=== PATIENT | female | born 2005 ===

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

== ENCOUNTER 2024-02-11 21:58 | Inpatient (IN) | payer OTHER, SELFPAY ==
--- OUTSIDE RECORDS SUMMARY | 2024-02-11 22:02 | XMS_ITS | Continuity of Care Document ---
Author Organization [facility] ter Address [address] [place] [address]- Care Team Providers Care Gameplay Programmer Name Role Phone George HARRIS, Bere Benavidez Primary Care Physician Encounter [facility] Date(s): 08/23/23 - 08/24/[address] [address] [[email or web address]] Discharge Disposition: A-D/C Home Attending Physician: Jackie Patricia MD Admitting Physician: Jackie Patricia MD Referring Physician: Jackie Patricia MD Allergies, Adverse Reactions, Alerts Substance Reaction Severity Status Bee Stings Active ZyPREXA Active Immunizations Given and Recorded Vaccine Date Status Refusal Reason influenza virus vaccine, inactivated 07/01/21 William rded Human Papillomavirus Vaccine 04/29/21 Recorded Human Papillomavirus Vaccine 08/13/20 Recorded SARS-CoV-2 (COVID-19) mRNA BNT-162b2 vac 01/30/21 Recorded SARS-CoV-2 (COVID-19) mRNA BNT-162b2 vac 01/09/21 Recorded Meningococcal Conjugate Vaccine 08/13/20 Recorded tetanus/diphtheria/pertussis, acel(Tdap) 06/27/18 Given Medications Benadryl 25 mg oral capsule 1 capsule = 25 mg, By Mouth, Every 6 hours, 0 Refills, Maintenance, 07/14/23 10:18:00 EST, Partial fill upon patient request if the prescription is for a schedule II opioid drug. Start Date: 07/14/23 Status: Ordered cephalexin monohydrate 500 mg oral capsule = 500 mg, By Mouth, Every 6 hours, for 7 days, # 28 capsule, 0 Refills, Acute 08/31/23 10:05:00 EST, 08/24/23 10:05:00 EST, Capsule, [facility], Partial fill upon patient request if theprescription is for a schedule II opioid drug., 173... Start Date: 08/24/23 Stop Date: 08/31/23 Status: Ordered chlorproMAZINE 100 mg oral tablet = 100 mg, By Mouth, Daily at bedtime, PRN Insomnia, 0 Refills, Maintenance, 05/28/22 8:23:00 EDT, Tablet, Partial fill upon patient request if the prescription is for a schedule II opioid drug. Start Date: 05/28/22 Status: Ordered Colace Liquid By Mouth, 2 times a day, 0 Refills, Maintenance, 07/14/23 10:18:00 EST, Partial fill upon patient request if the prescription is for a schedule II opioid drug. Start Date: 07/14/23 Status: Ordered Docusate 0 Refills, Maintenance, 07/19/23 13:02:00 EST, Partial fill upon patient request if the prescription is for a schedule II opioid drug. Start Date: 07/19/23 Status: Ordered Melatonin Daily at bedtime, 0 Refills, Maintenance, 02/11/23 18:02:00 EDT, Partial fill upon patient request if the prescription is for a schedule II opioid drug. Start Date: 02/11/23 Status: Ordered ondansetron 4 mg oral tablet, disintegrating 1 tablet = 4 mg, By Mouth, Every 8 hours, PRN Nausea & Vomiting, allow tablet to dissolve on tongue Take 30 mins before taking medication with food, # 10 tablet, 0 Refills, Maintenance, 08/12/23 8:29:00 EST, Tablet, [id number] ([facility]),... Start Date: 08/12/23 Status: Ordered PNV By Mouth, Daily, 0 Refills, Maintenance, 07/14/23 10:18:00 EST, Partial fill upon patient request if the prescription is for a schedule II opioid drug. Start Date: 07/14/23 Status: Ordered PNV Select oral tablet 1 tablet, By Mouth, Daily, # 90 tablet, 0 Refills, Maintenance, 08/12/23 8:33:00 EST, [id number] ([facility]), Partial fill upon patient request if the prescription is for a schedule II opioid drug., 1 tablet By Mouth Daily, 175, cm, 07/19/23... Start Date: 08/12/23 Status: Ordered pyridoxine 25 mg oral tablet 1 tablet = 25 mg, By Mouth, 3 times a day, PRN Nausea & Vomiting, # 100 tablet, 8 Refills, Maintenance, 07/19/23 13:37:00 EST, Tablet, [id number] ([facility]), Partial fill upon patient request if the prescription is for a schedule II opioid... Start Date: 07/19/23 Status: Ordered risperiDONE 1 mg oral tablet 1 mg, 1, tablet, By Mouth, 2 times a day, # 60 tablet, Refills 0, Tot. Refills 0, Maintenance, 05/28/22 8:23:00 EDT, Route to Pharmacy Electronically, [id number], Partial fill upon patient request if the prescription is for a schedule II opioi... Start Date: 05/28/22 Status: Ordered topiramate 25 mg oral tablet 1 tablet = 25 mg, By Mouth, 2 times a day, # 60 tablet, 0 Refills, Maintenance, 05/28/22 8:23:00 EDT, Tablet, [id number], Partial fill upon patient request if the prescription is for a schedule II opioid drug., 173, cm, 05/27/22 18:52:00 EDT,... Start Date: 05/28/22 Status: Ordered traZODone 50 mg oral tablet 50 mg, 1, tablet, By Mouth, Daily at bedtime, # 30 tablet, Refills 0, Tot. Refills 0, Maintenance, 05/28/22 8:23:00 EDT, Route to Pharmacy Electronically, [id number], Partial fill upon patient request if the prescription is for a schedule II o... Start Date: 05/28/22 Status: Ordered Tylenol Extra Strength 500 mg oral tablet 2 tablet = 1,000 mg, By Mouth, Every 6 hours, PRN as needed for fever, # 100 tablet, 0 Refills, Maintenance, 07/27/23 11:28:00 EST, Tablet, [facility] [address] ([facility]), Partial fill upon patientrequest if the prescription is for a schedule II op... Start Date: 07/27/23 Status: Ordered Unisom 25 mg oral tablet 1 tablet = 25 mg, By Mouth, Daily at bedtime, may take additional 1/2 tablet in morning & 1/2 tablet in afternoon if nausea persists, # 60 tablet, 1 Refills, Maintenance, 07/27/23 13:40:00 EST, [facility] [id number] ([facility]), Partial fill upon patie... Start Date: 07/27/23 Status: Ordered Vitamin B6 Daily, 0 Refills, Maintenance, 07/14/23 10:18:00 EST, Partial fill upon patient request if the prescription is for a schedule II opioid drug. Start Date: 07/14/23 Status: Ordered Problem List Condition Confirmation Course Effective Dates Status H ealth Status Informant Acute depression Confirmed Active Bipolar disorder current episode depressed Confirmed Active Borderline personality disorder Confirmed Active Pseudoseizures Confirmed Active History of suicide attempt Confirmed Active Confirmed Active PTSD (post-traumatic stress disorder) Confirmed Active Seizure disorder Confirmed Active Vital Signs Most recent to oldest [Reference Range]: 1 Weight 59.7 kg (08/23/23 9:13 PM) Oxygen Saturation [94-100 %] 97 % (08/23/23 9:13 PM) Pulse Rate [55-90 bpm] 99 bpm *H* (08/23/23 9:13 PM) Blood Pressure [90-138/55-84 mm Hg] 133/ 60mm Hg (08/23/23 9:13 PM) Respiratory Rate [16-30 br/min] 18 br/mi n (08/23/23 9:13 PM) Temperature [96.8-100.4 DegF] 98.4 DegF (08/23/23 9:13 PM) Mode of Delivery (Oxygen) Room air (08/23/23 9:13 PM) Blood pressure sites Arm, right (08/23/23 9:13 PM) Temperature Route Oral (08/23/23 9:13 PM) Dry Weight 59.7 kg (08/23/23 9:13 PM) Weight Obtained Via Standing scale (08/23/23 9:13 PM) Dry Weight Obtained Via Standing scale (08/23/23 9:13 PM) Social History Social History Type Response Tobacco Use: 4 or less cigar ettes(less than 1/4 pack)/day in last 30 days. Other: quite with , was smoking 4/day. Sex Note * Event Display: Discharge/Transfer Note Hospital Authored Date: [id number] * Thomas RIDER Enda: PERFORM Event Display: Patient Education/Instruction Authored Date: [id number] Inpatient Adult Discharge Instructions [address] [address] Name: ADAMA PAUL : 2005 Visit: 08/23/2023 21:10:00 Current Date: 08/23/2023 22:58 Account: [id number] Inpatient Adult Discharge Instructions We would like to thank you for allowing us to assist you with your healthcare needs. The following includes patient education materials and information regarding your injury/illness. Our entire staffstrives to provide an excellent experience for our patients and their families. PLEASE ENSURE YOU FOLLOW-UP PER THE INSTRUCTIONS BELOW! ?? YOUR OPINION IS IMPORTANT TO US! Please complete the survey you may receive by mail or email. Your feedback will be used to make improvements to the healthcare experiences of our patients and their families. Surveys are administered by [employer] ?? If further treatment with your primary care physician or another doctor is recommended, it is important for you to keep the appointment. Call your primary care physician or return to the Emergency Department immediately if your condition worsens, fails to improve, or new symptoms develop. If you need to find a doctor, you can call [facility] Link for a referral at [phone] or toll free at [phone] ([phone]) or log in to [email or web address].. ?? [facility], in keeping with [facility] guidance, no longer requires face masks for staff, patientsor visitors in most situations. Similiar to time spent indoors at other locations, there is the chance that you were exposed to repiratory viruses during your time with us (such as flu or COVID-19). If you develop symptoms concerning for a viral respiratory infection, please seek testing (and treatment if indicated) from your medical provider or home test kit. ?? You can view and manage your care through the patient portal or by using a health care stella of your choosing. [employer] is a website that allows you to securely view your medical information including your hospital discharge summary, office visit summaries, medications and follow-up visits. You can also request appointments, renew medications, and request access to your medical information using a health care stella of your choosing, or just ask a question. You can enroll at [email or web address] or register during your next office visit. You have been discharged from [facility], Patient Care Unit: [id number]. If you have any questions regarding these instructions after you leave, please call us and we will be happy to assist you. [facility] Your Care Team Attending Physician Jackie Patricia MD Tests Performed Below is a partial list of the tests performed during your hospitalization. You may have had other tests and procedures not included in this list. Please discuss all test results with your provider. Chlamydia/N. Gonorrhoeae TMA (NAAT)?-- Results Pending -- Complete Urinalysis?-- Results Pending -- Vaginosis Vaginitis Panel (BV, CV/TV)?-- Results Pending -- You will be contacted within 72 hours with your results. Primary Care Provider Bere Vazquez MD Advance Directive Health Care Proxy on File No Discharge Vitals Temperature: 98.4 DegF Weight: 59.7 kg Pulse Rate:??99 bpm??High ?? Respiratory Rate: 18 br/min ?? Systolic Blood Pressure: 133 mm Hg ?? Diastolic Blood Pressure: 60 mm Hg ?? Oxygen Saturation: 97 % ?? Studies Pending All tests and labs ordered during this hospital stay have been completed unless listed below. Please discuss all pending results with your provider listed above in these instructions. ?? Add On Lab Order Chlamydia/N. Gonorrhoeae TMA (NAAT) Complete Urinalysis Vaginosis Vaginitis Panel (BV, CV/TV) What to do next Instructions From Your Doctor Discharge Orders Scheduled Follow-Up Appointments Wednesday 10:00 AM EST ?? Where: [facility] [employer] [address] [place] [address]- Status: Pending Wednesday 9:20 AM EST ?? With: Marcus HARRIS [OB], Gill Rdz Where: [facility] [employer] [address] [place] [id number]- Status: Pending Wednesday 2:40 PM EST ?? With: Lakshmi Burgess MD Where: [facility] [employer] [address] [place] [id number]- Status: Pending Wednesday 2:00 PM EST ?? With: Lakshmi Burgess MD Where: [facility] [employer] [address] [place] [id number]- Status: Pending You Need to Schedule the Following Appointments Follow Up with??[facility] [phone] Why: keep scheduled appointments Discharge Medications ADAMA PAUL :2005 Visit Date:08/23/2023 Medications: Please continue your medications until treatment is completed or stopped by your provider. Medications not listed below should be discontinued. Discuss any questions related to medications with your provider. What How Much When Instructions Next Dose Unchanged Acetaminophen (Tylenol Extra Strength 500 mg oral tablet) 2 tab(s) Oral Every 6 hours as needed for as needed for fever Unchanged ChlorproMAZINE (chlorproMAZINE 100 mg oral tablet) 100 Milligram Oral Daily at Bedtime as needed for Insomnia Unchanged DiphenhydrAMINE (Benadryl 25 mg oral capsule) 1 capsule Oral Every 6 hours Unchanged Docusate Unchanged Docusate (Colace Liquid) Oral Twice a day Unchanged Doxylamine (Unisom 25 mg oral tablet) 1 tab(s) Oral Daily at Bedtime may take additional 1/ 2 tablet in morning & 1/ 2 tablet in afternoon if nausea persists ?? Unchanged Melatonin Daily at Bedtime Unchanged Multivitamin, (PNV ) Oral Daily Unchanged Multivitamin, (PNV Select oral tablet) 1 tab(s) Oral Daily Unchanged Ondansetron (ondansetron 4 mg oral tablet, disintegrating) 1 tab(s) Oral Every 8 hours as needed for Nausea & Vomiting allow tablet to dissolve on tongue Take 30 mins before taking medication with food ?? Unchanged Pyridoxine (pyridoxine 25 mg oral tablet) 1 tab(s) Oral 3 times a day as needed for Nausea & Vomiting Unchanged Pyridoxine (Vitamin B6) Daily Unchanged Risperidone (risperiDONE 1 mg oral tablet) 1 tab(s) Oral Twice a day Unchanged Topiramate (topiramate 25 mg oral tablet) 1 tab(s) Oral Twice a day Unchanged Trazodone (traZODone 50 mg oral tablet) 1 tab(s) Oral Daily at Bedtime Test Results Below is a partial list of the most recent Laboratory test results done prior to this discharge. You may have had other tests and procedures not included in this list. Please discuss all test resultswith your provider. Allergies (NKA means No Known Allergies) Bee Stings ZyPREXA Problems Active Problems??(9) Acute depression?? Bipolar disorder current episode depressed?? Borderline personality disorder?? History of suicide attempt? Pseudoseizures?? PTSD (post-traumatic stress disorder)?? Seizure disorder?? Education Materials Below is the list of Educational Leaflet Providered with your Discharge Instructions. Comfort Tips During ?? : Your Second Trimester Changes?? Valuables and Belongings I fully understand and agree that [facility] accepts no responsibility for all my personal property including clothing, toilet articles, radios, jewelry, dentures, hearing aids, rings, money, or any other property that is in my possession or is brought to me after admission. I understand certain valuables may be placed in a hospital safe for a short period of time. I understand that the hospital is not liable for loss or damage due to accident, fire, or other natural occurrence while said property is in the safe. I accept full responsibility for any personal property that I keep with me, and will not hold the hospital responsible in case of loss or disappearance. I acknowledge that i have been encouraged to send valuables and belongings home. ? Other Discharge Information ? Pulmonary Rehab Status?? Pulmonary Rehab Discharge Status?? Respiratory Rate: 18 br/min ? Common Emergency Awareness Tips IS IT A STROKE? Act FAST and Check for these signs: FACE Does the face look uneven? ARM Does one arm drift down? SPEECH Does their speech sound strange? TIME Call at any sign of stroke ?? Heart Attack Signs Chest discomfort: Most heart attacks involve discomfort in the center of the chest and lasts more than a few minutes, or goes away and comes back. It can feel like uncomfortable pressure, squeezing, fullness or pain. Discomfort in upper body: Symptoms can include pain or discomfort in one or both arms, back, neck, jaw or stomach. Shortness of breath: With or without discomfort. Other signs: Breaking out in a cold sweat, nausea, or lightheaded. Remember, MINUTES DO MATTER. If you experience any of these heart attack warning signs, call to get immediate medical attention! ?? Smoking can increase your chances of developing chronic health problems and can cause harmful effects to other family members in your house. If you smoke, you are strongly encouraged to quit. Please call [facility] [employer] Link at [phone] or [phone] ([phone]) or log in to [email or web address] for referrals to smoking cessation programs. ?? 691 Suicide & Crisis Lifeline is available 29/03 if you or someone you know needs to find a reason to keep living. By calling 814 you'll be connected to a skilled, trained counselor at a crisis center in your area. INPATIENT DISCHARGE INSTRUCTIONS SIGNATURE PAGE ADAMA PAUL Location:[facility] Registration Date and Time:08/23/2023 21:10 EST Primary Care Physician: George HARRIS, Bere Benavidez, Attending Physician: Belem HARRIS, Jackie Vernon, I ADAMA PAUL, have received the above patient education materials/instructions and have verbalized understanding. If ambulance or transport services are being used I further acknowledge beinggiven a choice of service. ?? If you need to contact me, please call me at this number: . Patient/Transport Conductor Name: Patient/Transport Conductor Signature: Relationship to Patient: Witness Name/Signature: Date: * Neda Guzman RN: PERFORM Event Display: Patient Education Leaflets Authored Date: [id number] Comfort Tips During ?? [address] Comfort Tips During can bring discomfort of different kinds. Below are tips for ways to feel better.??Talk with your??healthcare provider before using pain-relieving medicine at any time during your . First trimester tips Easing nausea ??? Get up slowly. Eat a few unsalted crackers before you get out of bed. ??? Stay away from smellsthat bother you. ??? Eat small,??bland, low-fat, high- protein meals at frequent intervals. ??? Sip on water, weak??tea, or clear soft drinks, like enrique amada.??Eat ice chips. ??? Try taking vitamin B6. Coping with fatigue ??? Take catnaps when you can. ??? Get regular exercise. ??? Accept help from others. ??? Practice good sleep habits, like going to bed and getting up at the same time each day. Use your bed only forsleep and sex. Calming mood swings ??? Talk about your feelings with others, including other mothers. ??? Limit sugar, chocolate, and caffeine. ??? Eat a healthy diet. Don???t skip meals. ??? Get regular exercise. Soothing headaches ??? Get fresh air and exercise. ??? Relax and get enough rest. ??? Check with your healthcare provider before taking any pain medicines. ?? Second trimester tips ??? To limit ankle swelling, sit with your feet raised or wear support hose. ??? If you have pain in your groin and stomach??(round ligament pain), don't make sudden twisting movements with your body. ??? For leg cramps, flexing your foot often brings immediate relief. Also try massaging your calf in long, downward strokes, or stretching your legs before going to bed. Get enough exercise and wear shoes with flexible soles. Eat foods rich in calcium. ?? Third trimester tips Reducing heartburn ??? Eat small, light meals throughout the day rather than 3 large ones. ??? Sleep with your upper body raised 6 inches. Don???t lie down until 2 hours after you eat. ??? Don't eat greasy, fried, or spicy foods. ??? Don't have citrus fruits or juices. Treating constipation ??? Eat foods high in fiber, such as whole-grain foods, and fresh fruit and vegetables. ??? Drink plenty of water. ??? Get regular exercise. ??? Ask about your healthcare provider about medicines that have docusate or psyllium. Taking care of your breasts ??? Don't use harsh soaps or alcohol, which can make your skin too dry. ??? Wear nursing bras. Theyprovide more support than regular bras and can be used after if you breastfeed. Getting a good night???s sleep ??? Take a warm shower before bed. ??? Sleep on a firm mattress. ???Lie on your side with one leg crossed over the other. ??? Use pillows to support your arms, legs, and belly. ?? Last Reviewed Date: 2023 ?? [employer]. All rights reserved. This information is not intended as a substitute for professional medical care. Always follow your healthcare professional's instructions. ?? * Neda Guzman RN: PERFORM Event Display: Patient Education Leaflets Authored Date: [id number] : Your Second Trimester Changes ?? [address] : Your Second Trimester Changes Each day, you and your baby are changing and growing together. Here???s a quick look at what???s happening to both of you. How you are changing Even when you don???t notice it, your body is adapting to meet the needs of your growing baby. The changes in your body might also affect your moods. ?? Your body Your uterus expands as your baby grows. As the weeks go by, you will feel more pressure on your bladder, stomach, and other organs. You may notice some skin color changes on your forehead, nose, or cheeks. Freckles may darken, and moles may grow. You may notice a darker line on your abdomen betweenyour belly button and pubic bone in the midline. ?? Your moods The second trimester is often easier than the first. Still, be prepared for mood swings. These are from the increase in hormones made by your body. Hormones are chemicals that affect the way organs work. These mood swings are a normal part of . ?? How your baby is growing ?? Month 4 Your baby???s heartbeat may be heard with a Doppler (handheld ultrasound device) by 9 to 10 weeks.??Eyebrows, eyelashes, and fingernails begin to form. ?? Month 5 You may feel your baby move. After a growth spurt, your baby nears 10 inches. ?? Month 6 Your baby???s fingerprints have formed. Your baby weighs about 1??to 2 pounds and is about 12 inches long. ?? Last Reviewed Date: 2021 ?? 7028-6775 [employer]. All rights reserved. This information is not intended as a substitute for professional medical care. Always follow your healthcare professional's instructions. ?? Patient Care team information Care Team Personnel Name: Omi Wise RN Position: [facility] RN Member Role: Primary Care Nurse Name: Peggy Quintana Position: [facility] RN Member Role: Primary Care Nurse Name: Gill Han RN Position: [facility] RN Member Role: Primary Care Nurse Name: Sarwat Velázquez RN Position: S RN Member Role: Primary Care Nurse Name: Brigette Healy RN Position: S RN Member Role: Primary Care Nurse Name: Bere Vazquez MD Position: [facility] General Pediatrics MD Member Role: PCP Address: Address: [address] [facility] [place], [place] [address] [[email or web address]] Name: Jessica Leal RN Position: S RN Member Role: Primary Care Nurse Name: Merlyn Looney RN Position: S RN Member Role: Primary Care Nurse Name: Neda Guzman RN Position: S OB RN Member Role: Patient Care Provider Care Team Related Persons Name: RUTHY GUZMAN Address: home [address] [place] [address] Name: PAULA PAUL Address: [address] [place] [address] Name: CARLOS PAUL Address: home [address] [place] [address]
--- OUTSIDE RECORDS SUMMARY | 2024-02-11 22:02 | XMS_ITS | Continuity of Care Document ---
Author Organization [facility] ter Address [address] [place] [id number]- Care Team Providers Care Provider Relations Consultant Name Role Phone Bere Vazquez MD Primary Care Physician Encounter [facility] [place] Date(s): 08/31/23 - 09/01/[address] [address]- Encounter Diagnosis (Final) - 09/01/23 Discharge Disposition: A-D/C Home Attending Physician: Dionna Boone DO Admitting Physician: Dionna Boone DO Referring Physician: Not on Staff, Referring MD Allergies, Adverse Reactions, Alerts Substance Reaction [...] Ordered cephalexin monohydrate 500 mg oral capsule 1 capsule = 500 mg, By Mouth, Every 12 hours, for 7 days, # 14 capsule, 0 Refills, Acute 09/08/23 0:42:00 EST, 09/01/23 0:42:00 EST, Capsule, [facility], Partial fill upon patient request if the prescription is for a schedule II opioid allie... Start Date: 09/01/23 Stop Date: 09/08/23 Status: Ordered chlorproMAZINE 100 mg oral tablet [...] Refills, Maintenance, 08/12/23 8:29:00 EST, Tablet, [id number] ([facility]),... Start Date: 08/12/23 Status: Ordered PNV By Mouth, Daily, 0 Refills, Maintenance, 07/14/23 10:18:00 EST, Partial fill upon patient request if the prescription is for a schedule II opioid drug. Start Date: 07/14/23 Status: Ordered PNV Select oral tablet 1 tablet, By Mouth, Daily, # 90 tablet, 0 Refills, Maintenance, 08/12/23 8:33:00 EST, [id number] ([facility] 827), Partial fill upon patient request if the prescription is for a schedule II opioid drug., 1 tablet By Mouth Daily, 175, cm, 07/19/23... Start Date: 08/12/23 Status: Ordered pyridoxine 25 mg oral tablet 1 tablet = 25 mg, By Mouth, 3 times a day, PRN Nausea & Vomiting, # 100 tablet, 8 Refills, Maintenance, 07/19/23 13:37:00 EST, Tablet, [id number] ([facility] 827), Partial fill upon patient request if the prescription is for a schedule II opioid... Start Date: 07/19/23 Status: Ordered risperiDONE 1 mg oral tablet 1 mg, 1, tablet, By Mouth, 2 times a day, # 60 tablet, Refills 0, Tot. Refills 0, Maintenance, 05/28/22 8:23:00 EDT, Route to Pharmacy Electronically, [facility]/pharmacy #[id number], Partial fill upon patient request if the prescription is for a schedule II opioi... Start Date: 05/28/22 Status: Ordered topiramate 25 mg oral tablet 1 tablet = 25 mg, By Mouth, 2 times a day, # 60 tablet, 0 Refills, Maintenance, 05/28/22 8:23:00 EDT, Tablet, [facility]/pharmacy #[id number], Partial fill upon patient request if the prescription is for a schedule II opioid drug., 173, cm, 05/27/22 18:52:00 EDT,... Start Date: 05/28/22 Status: Ordered traZODone 50 mg oral tablet 50 mg, 1, tablet, By Mouth, Daily at bedtime, # 30 tablet, Refills 0, Tot. Refills 0, Maintenance, 05/28/22 8:23:00 EDT, Route to Pharmacy Electronically, [facility]/pharmacy #[id number], Partial fill upon patient request if the prescription is for a schedule II o... Start Date: 05/28/22 Status: Ordered Tylenol Extra Strength 500 mg oral tablet 2 tablet = 1,000 mg, By Mouth, Every 6 hours, PRN as needed for fever, # 100 tablet, 0 Refills, Maintenance, 07/27/23 11:28:00 EST, Tablet, [id number] ([facility] 827), Partial fill upon patientrequest if the prescription is for a schedule II op... Start Date: 07/27/23 Status: Ordered Unisom 25 mg oral tablet 1 tablet = 25 mg, By Mouth, Daily at bedtime, may take additional 1/2 tablet in morning & 1/2 tablet in afternoon if nausea persists, # 60 tablet, 1 Refills, Maintenance, 07/27/23 13:40:00 EST, [id number] ([facility]), Partial fill upon patie... Start Date: [...] Most recent to oldest [Reference Range]: 1 2 Oxygen Saturation [94-100 %] 99 % (08/31/23 8:41 PM) 99 % (08/31/23 8:05 PM) Pulse Rate [55-90 bpm] 104 bpm *H* (08/31/23 8:41 PM) 102 bpm *H* (08/31/23 8:05 PM) Blood Pressure [90-138/55-84 mm Hg] 108/ 57mm Hg (08/31/23 8:41 PM) 149/98mm Hg *H* (08/31/23 8:05 PM) Respiratory Rate [16-30 br/min] 18 br/mi n (08/31/23 8:41 PM) 14 br/min *L* (08/31/23 8:05 PM) Temperature [96.8-100.4 DegF] 99.2 DegF (08/31/23 9:41 PM) Mode of Delivery (Oxygen) Room air (08/31/23 8:05 PM) Blood pressure sites Arm, right (08/31/23 8:41 PM) Arm, right (08/31/23 8:05 PM) Temperature Route Oral (08/31/23 9:41 PM) Social History Social History Type Response Tobacco Use: 4 or less cigar ettes(less than 1/4 pack)/day in last 30 days. Other: quite with , was smoking 4/day. Sex Patient Care team information Care Team Personnel Name: Omi Wise RN Position: [facility] RN Member Role: Primary Care Nurse Name: Peggy Quintana Position: S RN Member Role: Primary Care Nurse Name: Gill Han RN Position: S RN Member Role: Primary Care Nurse Name: Sarwat Velázquez RN Position: S RN Member Role: Primary Care Nurse Name: Brigette Healy RN Position: [facility] RN Member Role: Primary Care Nurse Name: Bere Vazquez MD Position: [facility] General Pediatrics MD Member Role: PCP Address: Address: [address] [place] [address] Pediatric & [place] [address]- Name: Jessica Leal RN Position: [facility] RN Member Role: Primary Care Nurse Name: Merlyn Looney RN Position: [facility] RN Member Role: Primary Care Nurse [facility] Attending Position: [facility] ED Attendings Patient Name: Rima Sifuentes Position: [facility] ED TA [facility] Member Role: Acoustical Tile Patternmaker Name: Dionna Boone DO Position: [facility] Resident Member Role: ED Attending Physician Address: Address: [address] [place] [address] [place] [address]- Name: Lou Soriano RN Position: [facility] ED RN W/OE and Tasks Member Role: Patient Care Provider Name: Sebastian Brand Position: [facility] ED TA [facility] Care Team Related Persons Name: RUTHY GUZMAN Address: home [address] [place] [address] Name: PAULA PAUL Address: home [address] [place] [address] Name: CARLOS PAUL Address: home [address] [place] [address] Name: JAIRO HAN Address: home UNKNOWN
--- OUTSIDE RECORDS SUMMARY | 2024-02-11 22:02 | XMS_ITS | Continuity of Care Document ---
Author Organization [facility] Address [address] [place] [address]- Care Team Providers Care Backup Sawyer Name Role Phone Hong HARRIS, Roro Primary Care Physician Encounter [facility] [place] Date(s): 12/02/20 - 01/01/21 [facility] [address] [facility] [place] [address]- Allergies, Adverse Reactions, Alerts Substance Reaction Severity Status NKA Active Immunizations Given and Recorded Vaccine Date Status Refusal Reason tetanus/diphtheria/pertussis, acel(Tdap) 06/27/18 Given Medications cloNIDine 0.1 mg oral tablet TAKE 1/2 TABLET BY MOUTH THREE TIMES A DAY Start Date: 04/08/19 Status: Ordered hydrOXYzine hydrochloride 25 mg oral tablet See Instructions, 1 tab Po BID PRN anxiety Please dispense extra bottle with label for school, # 30tablet, 0 Refills, Maintenance, 01/12/18 13:25:29 EDT, Tablet Start Date: 01/12/18 Status: Ordered OXcarbazepine 300 mg oral tablet 300 mg, 1, tablet, By Mouth, Daily, # 120 tablet, Refills 0, Maintenance, 12/19/18 12:28:55 EDT Start Date: 12/19/18 Status: Ordered risperiDONE 0.5 mg oral tablet TAKE 1 TABLET BY MOUTH EVERY DAY AT NIGHT Start Date: 04/08/19 Status: Ordered Problem List Condition Effective Dates Status Health Status Inform ant Acute depression(Confirmed) Active Social History Social History Type Response Smoking Status Never smoker entered on: 01/16/18 Sex
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
--- OUTSIDE RECORDS SUMMARY | 2024-02-11 22:02 | XMS_ITS | Continuity of Care Document ---
Author Organization [facility] ter Address [address] [place] [address]- Care Team Providers Care Laboratory Apparatus Glass Blower Name Role Phone Bere Vazquez MD Primary Care Physician Encounter [facility] Date(s): 09/05/23 - 09/05/[address] [address]- Discharge Disposition: A-D/C Walkout Attending Physician: Not on Staff, Attending MD Admitting Physician: Not on Staff, Admitting MD Referring Physician: Not on Staff, Referring MD [...] 09/08/23 0:42:00 EST, 09/01/23 0:42:00 EST, Capsule, [facility], Partial fill upon patient request [...] Refills, Maintenance, 08/12/23 8:29:00 EST, Tablet, [id number] ([facility] 827),... Start Date: 08/12/23 Status: Ordered PNV By Mouth, Daily, 0 Refills, Maintenance, 07/14/23 10:18:00 EST, Partial fill upon patient request if the prescription is for a schedule II opioid drug. Start Date: 07/14/23 Status: Ordered PNV Select oral tablet 1 tablet, By Mouth, Daily, # 90 tablet, 0 Refills, Maintenance, 08/12/23 8:33:00 EST, [id number] ([facility] 827), Partial fill upon patient request if the prescription is for a schedule II opioid drug., 1 tablet By Mouth Daily, 175, cm, 07/19/23... Start Date: 08/12/23 Status: Ordered pyridoxine 25 mg oral tablet 1 tablet = 25 mg, By Mouth, 3 times a day, PRN Nausea & Vomiting, # 100 tablet, 8 Refills, Maintenance, 07/19/23 13:37:00 EST, Tablet, [id number] ([facility] 827), Partial fill upon patient request [...] 0 Refills, Maintenance, 05/28/22 8:23:00 EDT, Tablet, [facility] #[id number], Partial fill upon patient request if the prescription is for a schedule II opioid drug., 173, cm, 05/27/22 18:52:00 EDT,... Start Date: 05/28/22 Status: Ordered traZODone 50 mg oral tablet 50 mg, 1, tablet, By Mouth, Daily at bedtime, # 30 tablet, Refills 0, Tot. Refills 0, Maintenance, 05/28/22 8:23:00 EDT, Route to Pharmacy Electronically, [facility]/pharmacy #[id number], Partial fill upon patient request if the prescription is for a schedule II o... Start Date: 05/28/22 Status: Ordered Tylenol Extra Strength 500 mg oral tablet 2 tablet = 1,000 mg, By Mouth, Every 6 hours, PRN as needed for fever, # 100 tablet, 0 Refills, Maintenance, 07/27/23 11:28:00 EST, Tablet, [facility] ([facility] 827), Partial fill upon patientrequest if the prescription is for a schedule II op... Start Date: 07/27/23 Status: Ordered Unisom 25 mg oral tablet 1 tablet = 25 mg, By Mouth, Daily at bedtime, may take additional 1/2 tablet in morning & 1/2 tablet in afternoon if nausea persists, # 60 tablet, 1 Refills, Maintenance, 07/27/23 13:40:00 EST, [id number] ([facility]), Partial fill upon patie... Start [...] Most recent to oldest [Reference Range]: 1 Oxygen Saturation [94-100 %] 100 % (09/05/23 12:22 PM) Pulse Rate [55-90 bpm] 108 bpm *H* (09/05/23 12:22 PM) Respiratory Rate [16-30 br/min] 16 br/mi n (09/05/23 12:22 PM) Mode of Delivery (Oxygen) Room air (09/05/23 12:22 PM) Social History Social History Type Response Tobacco Use: 4 or less cigar ettes(less than 1/4 pack)/day in last 30 days. Other: quite with , was smoking 4/day. Sex Patient Care team information Care Team Personnel Name: Omi Wise RN Position: [facility] RN Member Role: Primary Care Nurse Name: Peggy Quintana Position: S RN Member Role: Primary Care Nurse Name: Gill Han RN Position: S RN Member Role: Primary Care Nurse Name: Sarwat Velázquez RN Position: S RN Member Role: Primary Care Nurse Name: Brigette Healy RN Position: [facility] RN Member Role: Primary Care Nurse Name: Bere Vazquez MD Position: [facility] General Pediatrics MD Member Role: PCP Address: Address: [address] [place] [address] Pediatric & Adolescent Medicine [place], [place] [address] Name: Jessica Leal RN Position: S RN Member Role: Primary Care Nurse Name: Merlyn Looney RN Position: S RN Member Role: Primary Care Nurse Care Team Related Persons Name: RUTHY GUZMAN Address: home [address] [place] [address] Name: PAULA PAUL Address: home [address] [place] [address] Name: CARLOS PAUL Address: home [address] [place] [address] Name: JAIRO HAN
--- OUTSIDE RECORDS SUMMARY | 2024-02-11 22:02 | XMS_ITS | Continuity of Care Document ---
Author Organization [facility] Yonathan [employer]fms [facility] Address [address], [address] [place] [address]- Care Team Providers Care Chief Mechanical Officer Name Role Phone George HARRIS, Bere Benavidez Primary Care Physician Encounter [facility] Date(s): 11/09/23 - 02/03/24 [facility] [place] [employer] [facility] [address], [address] [place] [address]- Attending Physician: Aditya HARRIS, Lakshmi Douglas Allergies, Adverse Reactions, Alerts Substance Reaction Severity Status Bee Stings Active ZyPREXA Active Immunizations Given and Recorded Vaccine Date Status Refusal Reason tetanus/diphtheria/pertussis, acel(Tdap) 1 10/26/23 Given tetanus/diphtheria/pertussis, acel(Tdap) 06/27/18 Given influenza virus vaccine, inactivated 07/01/21 William rded Human Papillomavirus Vaccine 04/29/21 Recorded Human Papillomavirus Vaccine 08/13/20 Recorded SARS-CoV-2 (COVID-19) mRNA BNT-162b2 vac 01/30/21 Recorded SARS-CoV-2 (COVID-19) mRNA BNT-162b2 vac 01/09/21 Recorded Meningococcal Conjugate Vaccine 08/13/20 Recorded 1Result Comment: PT [facility] [id number] Medications Benadryl 25 mg oral capsule 1 capsule = 25 mg, By Mouth, Daily at bedtime, PRN Headache, # 30 capsule, 0 Refills, Maintenance, 11/27/23 21:42:00 EDT, Capsule, [id number], Partial fill upon patient request if the prescription is for a schedule II opioid drug., 174, cm, 03... Start Date: 11/27/23 Status: Ordered Benadryl 25 mg oral capsule 1 capsule = 25 mg, By Mouth, Every 6 hours, 0 Refills, Maintenance, 07/14/23 10:18:00 EST, Partial fill upon patient request if the prescription is for a schedule II opioid drug. Start Date: 07/14/23 Status: Ordered clotrimazole topical 1% cream with applicator 1 application, Vaginally, Daily at bedtime, # 45 Gm, 0 Refills, Maintenance, 12/23/23 14:35:00 EDT,Cream, [facility]/pharmacy #[id number], Partial fill upon patient request if the prescription is for a schedule II opioid drug., 1 application Vaginally Daily at be... Start Date: 12/23/23 Status: Ordered Colace Liquid By Mouth, 2 times a day, 0 Refills, Maintenance, 07/14/23 10:18:00 EST, Partial fill upon patient request if the prescription is for a schedule II opioid drug. Start Date: 07/14/23 Status: Ordered Colace sodium 100 mg oral capsule 100 mg, 1, capsule, By Mouth, 2 times a day, PRN, # 20 capsule, Refills 1, Tot. Refills 1, Maintenance, for constipation, 10/05/23 15:11:00 EST, Route to Pharmacy Electronically, [facility]/pharmacy #[id number], Partial fill upon patient request if the prescriptio... Start Date: 10/05/23 Status: Ordered Docusate 0 Refills, Maintenance, 07/19/23 13:02:00 EST, Partial fill upon patient request if the prescription is for a schedule II opioid drug. Start Date: 07/19/23 Status: Ordered ferrous sulfate 325 mg oral tablet 1 tablet = 325 mg, By Mouth, Daily, # 90 tablet, 3 Refills, Maintenance, 10/27/23 17:55:00 EST, Tablet, [facility]/pharmacy #[id number], Partial fill upon patient request if the prescription is for a schedule II opioid drug., 174, cm, 10/26/23 14:28:00 EST, Height... Start Date: 10/27/23 Status: Ordered Haldol Liquid See Instructions, 2 mg By Mouth 2 times a day, 0 Refills, Maintenance, 11/09/23 12:29:00 EST, Partial fill upon patient request if the prescription is for a schedule II opioid drug. Start Date: 11/09/23 Status: Ordered Lamotrigine By Mouth, Refills 0, Maintenance, 11/09/23 12:29:00 EST, Partial fill upon patient request if the prescription is for a schedule II opioid drug. Start Date: 11/09/23 Status: Ordered lidocaine-prilocaine 2.5%-2.5% topical cream 1 applicator, Topically, Once, # 30 Gm, 0 Refills, Soft Stop, 01/06/24 23:37:00 EDT, Cream, [facility]/pharmacy #[id number], Partial fill upon patient request if the prescription is for a schedule II opioid drug., 1 applicator Topically Once, 173, cm, 01/05/24 8:4... Start Date: 01/06/24 Status: Ordered MiraLax oral powder for reconstitution = 17 Gm, By Mouth, Daily, dissolve in 4 to 8 oz of beverage, # 238 Gm, 1 Refills, Maintenance, 10/05/23 15:12:00 EST, REC Powder, [facility]/pharmacy #[id number], Partial fill upon patient request if the prescription is for a schedule II opioid drug., 17 Gm By Lisa... Start Date: 10/05/23 Status: Ordered ondansetron 4 mg oral tablet, disintegrating 1 tablet = 4 mg, By Mouth, Every 8 hours, PRN Nausea & Vomiting, allow tablet to dissolve on tongue Take 30 mins before taking medication with food, # 10 tablet, 1 Refills, Maintenance, 09/08/23 11:16:00 EST, Tablet, [facility], Partial fi... Start Date: 09/08/23 Status: Ordered PNV By Mouth, Daily, 0 Refills, Maintenance, 07/14/23 10:18:00 EST, Partial fill upon patient request if the prescription is for a schedule II opioid drug. Start Date: 07/14/23 Status: Ordered PNV Select oral tablet 1 tablet, By Mouth, Daily, # 90 tablet, 2 Refills, Maintenance, 10/26/23 14:27:00 EST, [facility]/pharmacy#[id number], Partial fill upon patient request if the prescription is for a schedule II opioid drug., 1 tablet By Mouth Daily, 174, cm, 10/26/23 14:06:00 EST... Start Date: 10/26/23 Status: Ordered pyridoxine 25 mg oral tablet 1 tablet = 25 mg, By Mouth, 3 times a day, PRN Nausea & Vomiting, # 100 tablet, 8 Refills, Maintenance, 07/19/23 13:37:00 EST, Tablet, [id number] ([facility] 827), Partial fill upon patient request if the prescription is for a schedule II opioid... Start Date: 07/19/23 Status: Ordered Reglan 10 mg oral tablet 1 tablet = 10 mg, By Mouth, Daily, PRN Headache, # 30 tablet, 0 Refills, Maintenance, 11/27/23 21:42:00 EDT, [facility]/pharmacy #[id number], Partial fill upon patient request if the prescription is for a schedule II opioid drug., 174, cm, 11/08/23 13:36:00 EST, H... Start Date: 11/27/23 Status: Ordered ursodiol 300 mg oral capsule 300 mg, 1, capsule, By Mouth, 3 times a day, # 100 capsule, Refills 1, Tot. Refills 1, Maintenance,12/06/23 18:22:00 EDT, Route to Pharmacy Electronically, [facility]/pharmacy #[id number], Partial fill upon patient request if the prescription is for a schedule II... Start Date: 12/06/23 Status: Ordered Vitamin B6 Daily, 0 Refills, Maintenance, 07/14/23 10:18:00 EST, Partial fill upon patient request if the prescription is for a schedule II opioid drug. Start Date: 07/14/23 Status: Ordered Problem List Condition Confirmation Course Effective Dates Status H ealth Status Informant Acute depression Confirmed Active Bipolar disorder current episode depressed Confirmed Active Borderline personality disorder Confirmed Active Yeast vaginitis Confirmed Active Cholestasis of Confirmed Active Pseudoseizures Confirmed Active Elevated blood pressure affecting in third trimester, antepartum Confirmed Active Size of fetus inconsistent with dates, antepartum Confirmed Active History of suicide attempt Confirmed Active Elevated liver function tests Confirmed Active Confirmed Active PTSD (post-traumatic stress disorder) Confirmed Active Convulsions Confirmed Active Seizure disorder Confirmed Active Social History Social History Type Response Tobacco Use: 4 or less cigar ettes(less than 1/4 pack)/day in last 30 days. Other: quite with , was smoking 4/day. Sex Patient Care team information Care Team Personnel Name: Omi Wise RN Position: [facility] RN Member Role: Primary Care Nurse Name: Peggy Quintana Position: [facility] RN Member Role: Primary Care Nurse Name: Gill Han RN Position: S RN Member Role: Primary Care Nurse Name: Sarwat Velázquez RN Position: S RN Member Role: Primary Care Nurse Name: Adele Ibanez RN Position: S RN Member Role: Primary Care Nurse Name: Nidia Tripp Position: S RN Member Role: Primary Care Nurse Name: Bere Vazquez MD Position: [facility] Physician - Pediatrics Member Role: PCP Address: Address: [address] [place] [address] Pediatric & Adolescent [place], [place] [address] Name: Jessica Leal RN Position: [facility] RN Member Role: Primary Care Nurse Name: Bisi Rock RN Position: [facility] RN Member Role: Primary Care Nurse Name: Merlyn Looney RN Position: [facility] RN Member Role: Primary Care Nurse Care Team Related Persons Name: RUTHY GUZMAN Address: home [address] [place] [address] Name: PAULA PAUL Address: home [address] [place] [address] Name: CHARLY PAUL Address: [address] Address: home [address] [place] [address] Name: CARLOS PAUL Address: home [address] [place] [address] Name: JAIRO HAN Address: home [facility]
--- OUTSIDE RECORDS SUMMARY | 2024-02-11 22:02 | XMS_ITS | Continuity of Care Document ---
Author Organization [facility] Address [address], [address] Floor, [address] [place] [address]- Care Team Providers Care Financial Services Education Consultant Name Role Phone George HARRIS, Bere Benavidez Primary Care Physician Encounter [facility] Date(s): 11/24/23 - 12/24/23 [facility] [address], [address] [place] [place] [address] Attending Physician: Admpaula, Rachel Admitting Physician: Admtr, Ar8 Referring Physician: Admtr, Ar8 Allergies, Adverse Reactions, Alerts Substance Reaction Severity [...] 08/13/20 Recorded 1Result Comment: PT [facility] [id number] Medications Benadryl 25 mg oral capsule 1 capsule = 25 mg, By Mouth, Daily at bedtime, PRN Headache, # 30 capsule, 0 Refills, Maintenance, 11/27/23 21:42:00 EDT, Capsule, [id number], Partial fill upon patient request if the [...] Gm, 0 Refills, Maintenance, 12/23/23 14:35:00 EDT,Cream, [facility]/pharmacy #[id number], Partial fill upon patient request if the [...] 10/05/23 15:11:00 EST, Route to Pharmacy Electronically, [facility]/pharmacy #[id number], Partial fill upon patient request [...] 3 Refills, Maintenance, 10/27/23 17:55:00 EST, Tablet, [facility]/pharmacy #[id number], Partial fill upon patient request [...] opioid drug. Start Date: 11/09/23 Status: Ordered MiraLax oral powder for reconstitution = 17 Gm, By Mouth, Daily, dissolve in 4 to 8 oz of beverage, # 238 Gm, 1 Refills, Maintenance, 10/05/23 15:12:00 EST, REC Powder, [facility]/pharmacy #[id number], Partial fill upon patient request [...] 1 Refills, Maintenance, 09/08/23 11:16:00 EST, Tablet, [facility], Partial fi... Start Date: 09/08/23 Status: Ordered PNV By Mouth, Daily, 0 Refills, Maintenance, 07/14/23 10:18:00 EST, Partial fill upon patient request if the prescription is for a schedule II opioid drug. Start Date: 07/14/23 Status: Ordered PNV Select oral tablet 1 tablet, By Mouth, Daily, # 90 tablet, 2 Refills, Maintenance, 10/26/23 14:27:00 EST, [facility]/pharmacy#[id number], Partial fill upon patient request if the prescription is for a schedule II opioid drug., 1 tablet By Mouth Daily, 174, cm, 10/26/23 14:06:00 EST... Start Date: 10/26/23 Status: Ordered pyridoxine 25 mg oral tablet 1 tablet = 25 mg, By Mouth, 3 times a day, PRN Nausea & Vomiting, # 100 tablet, 8 Refills, Maintenance, 07/19/23 13:37:00 EST, Tablet, [facility] [id number] ([facility] 827), Partial fill upon patient request if the prescription is for a schedule II opioid... Start Date: 07/19/23 Status: Ordered Reglan 10 mg oral tablet 1 tablet = 10 mg, By Mouth, Daily, PRN Headache, # 30 tablet, 0 Refills, Maintenance, 11/27/23 21:42:00 EDT, [facility]/pharmacy #[id number], Partial fill upon patient request if the prescription is for a schedule II opioid drug., 174, cm, 11/08/23 13:36:00 EST, H... Start Date: 11/27/23 Status: Ordered ursodiol 300 mg oral capsule 300 mg, 1, capsule, By Mouth, 3 times a day, # 100 capsule, Refills 1, Tot. Refills 1, Maintenance,12/06/23 18:22:00 EDT, Route to Pharmacy Electronically, [facility]/pharmacy #[id number], Partial fill upon patient request if the [...] Team Personnel Name: Omi Wise RN Position: [facility] RN Member Role: Primary Care Nurse Name: Peggy Quintana Position: [facility] RN Member Role: Primary Care Nurse Name: Gill Han RN Position: [facility] RN Member Role: Primary Care Nurse Name: Sarwat Velázquez RN Position: S RN Member Role: Primary Care Nurse Name: Adele Ibanez RN Position: [facility] RN Member Role: Primary Care Nurse Name: Nidia Tripp Position: [facility] RN Member Role: Primary Care Nurse Name: Bere Vazquez MD Position: [facility] Physician - Pediatrics Member Role: PCP Address: Address: [address] [place] [address] Pediatric & [place] [address]- Name: Jessica Leal RN Position: [facility] RN Member Role: Primary Care Nurse Name: Bisi Rock RN Position: [facility] RN Member Role: Primary Care Nurse Name: Merlyn Looney RN Position: [facility] RN Member Role: Primary Care Nurse Care Team Related Persons Name: RUTHY GUZMAN Address: home [address] [place] [address] Name: PAULA PAUL Address: home [address] [place] [address] Name: CARLOS PAUL Address: home [address] [place] [address] Name: JAIRO HAN Address: home
--- OUTSIDE RECORDS SUMMARY | 2024-02-11 22:03 | XMS_ITS | Continuity of Care Document ---
Author Organization [facility] Address [address] [place] [address]- Care Team Providers Care Telephone Maintainer Name Role Phone Bere Vazquez MD Primary Care Physician Encounter [facility] Date(s): 12/28/23 - 01/04/[address] [address]- Encounter Diagnosis Procedure and treatment not carried out for other reasons(Final) - Discharge Disposition: A-D/C Walkout Attending Physician: Marcus HARRIS [OB]Gill Admitting Physician: Marcus HARRIS [OB], Gill Rdz Allergies, Adverse Reactions, Alerts Substance Reaction Severity [...] 08/13/20 Recorded 1Result Comment: PT [facility] [id number] Medications Benadryl 25 mg oral capsule 1 [...] Gm, 0 Refills, Maintenance, 12/23/23 14:35:00 EDT,Cream, [facility]/pharmacy #[id number], Partial fill upon patient request if the [...] 10/05/23 15:11:00 EST, Route to Pharmacy Electronically, [facility]/pharmacy #[id number], Partial fill upon patient request [...] 3 Refills, Maintenance, 10/27/23 17:55:00 EST, Tablet, [facility]/pharmacy #[id number], Partial fill upon patient request [...] Refills, Maintenance, 10/05/23 15:12:00 EST, REC Powder, [facility]/pharmacy #[id number], Partial fill upon patient request [...] 1 Refills, Maintenance, 09/08/23 11:16:00 EST, Tablet, [facility], Partial fi... Start Date: 09/08/23 Status: Ordered PNV By Mouth, Daily, 0 Refills, Maintenance, 07/14/23 10:18:00 EST, Partial fill upon patient request if the prescription is for a schedule II opioid drug. Start Date: 07/14/23 Status: Ordered PNV Select oral tablet 1 tablet, By Mouth, Daily, # 90 tablet, 2 Refills, Maintenance, 10/26/23 14:27:00 EST, [facility]/pharmacy#[id number], Partial fill upon patient request if the prescription is for a schedule II opioid drug., 1 tablet By Mouth Daily, 174, cm, 10/26/23 14:06:00 EST... Start Date: 10/26/23 Status: Ordered pyridoxine 25 mg oral tablet 1 tablet = 25 mg, By Mouth, 3 times a day, PRN Nausea & Vomiting, # 100 tablet, 8 Refills, Maintenance, 07/19/23 13:37:00 EST, Tablet, [facility] [id number] ([facility] 827), Partial fill upon patient request if the prescription is for a schedule II opioid... Start Date: 07/19/23 Status: Ordered Reglan 10 mg oral tablet 1 tablet = 10 mg, By Mouth, Daily, PRN Headache, # 30 tablet, 0 Refills, Maintenance, 11/27/23 21:42:00 EDT, [facility]/pharmacy #[id number], Partial fill upon patient request if the prescription is for a schedule II opioid drug., 174, cm, 11/08/23 13:36:00 EST, H... Start Date: 11/27/23 Status: Ordered ursodiol 300 mg oral capsule 300 mg, 1, capsule, By Mouth, 3 times a day, # 100 capsule, Refills 1, Tot. Refills 1, Maintenance,12/06/23 18:22:00 EDT, Route to Pharmacy Electronically, [facility]/pharmacy #[id number], Partial fill upon patient request if the [...] Convulsions Confirmed Active Seizure disorder Confirmed Active Vital Signs Most recent to oldest [Reference Range]: 1 Height 174 cm (12/28/23 4:03 PM) Oxygen Saturation [94-100 %] 100 % (12/28/23 4:03 PM) Pulse Rate [55-90 bpm] 95 bpm *H* (12/28/23 4:03 PM) Blood Pressure [90-138/55-84 mm Hg] 131/ 71mm Hg (12/28/23 4:03 PM) Respiratory Rate [16-30 br/min] 18 br/mi n (12/28/23 4:03 PM) Temperature [96.8-100.4 DegF] 98.7 DegF (12/28/23 4:03 PM) Blood pressure sites Arm, right (12/28/23 4:03 PM) Temperature Route Oral (12/28/23 4:03 PM) Dry Weight 75.0 kg (12/28/23 4:03 PM) Dry Weight Obtained Via Standing scale (12/28/23 4:03 PM) Social History Social History Type Response Tobacco Use: 4 or less cigar ettes(less than 1/4 pack)/day in last 30 days. Other: quite with , was smoking 4/day. Sex Patient Care team information Care Team Personnel Name: Omi Wise RN Position: [facility] RN Member Role: Primary Care [...] Care Nurse Name: Bere Vazquez MD Position: [facility] Physician - Pediatrics Member Role: PCP Address: Address: [address] [place] [address] Pediatric & Adolescent Medicine [place], [place] [address] Name: Jessica Leal RN Position: S RN Member Role: Primary Care Nurse Name: Bisi Rock RN Position: [facility] RN Member Role: Primary Care Nurse Name: Merlyn Looney RN Position: [facility] RN Member Role: Primary Care Nurse Name: Kacie Cao RN Position: [facility] OB RN Member Role: OB RN Care Team Related Persons Name: RUTHY GUZMAN Address: home [address] [place] [address] Name: PAULA PAUL Address: home [address] [place] [address] Name: ADAMA PAUL GIRL Address: [address] Address: home [address] [place] [address] Name: CARLOS PAUL Address: home [address] [place] [address] Name: JAIRO HAN Address: home [facility]
--- OUTSIDE RECORDS SUMMARY | 2024-02-11 22:03 | XMS_ITS | Continuity of Care Document ---
Author Organization [facility] Jl Mcmanus [facility] Address [address] [place] [address], [address]t [place] [address]- Care Team Providers Care Leaded Glass Installer Name Role Phone George HARRIS, Bere Benavidez Primary Care Physician Encounter [facility] [place] Date(s): 07/21/23 - 08/20/23 [facility] [address] [place] [address], [address] Floor [place], [place] [address] Allergies, Adverse Reactions, Alerts Substance Reaction [...] Refills, Maintenance, 08/12/23 8:29:00 EST, Tablet, [id number] ([facility] 827),... Start Date: 08/12/23 Status: Ordered PNV By Mouth, Daily, 0 Refills, Maintenance, 07/14/23 10:18:00 EST, Partial fill upon patient request if the prescription is for a schedule II opioid drug. Start Date: 07/14/23 Status: Ordered PNV Select oral tablet 1 tablet, By Mouth, Daily, # 90 tablet, 0 Refills, Maintenance, 08/12/23 8:33:00 EST, [facility] [id number] ([facility] 827), Partial fill upon patient request if the prescription is for a schedule II opioid drug., 1 tablet By Mouth Daily, 175, cm, 07/19/23... Start Date: 08/12/23 Status: Ordered pyridoxine 25 mg oral tablet 1 tablet = 25 mg, By Mouth, 3 times a day, PRN Nausea & Vomiting, # 100 tablet, 8 Refills, Maintenance, 07/19/23 13:37:00 EST, Tablet, [facility] [id number] ([facility] 827), Partial fill upon patient request [...] 05/28/22 8:23:00 EDT, Route to Pharmacy Electronically, [facility]/pharmacy #[id number], Partial fill upon patient request if the prescription is for a schedule II o... Start Date: 05/28/22 Status: Ordered Tylenol Extra Strength 500 mg oral tablet 2 tablet = 1,000 mg, By Mouth, Every 6 hours, PRN as needed for fever, # 100 tablet, 0 Refills, Maintenance, 07/27/23 11:28:00 EST, Tablet, [facility] [id number] ([facility] 827), Partial fill upon patientrequest if the prescription is for a schedule II op... Start Date: 07/27/23 Status: Ordered Unisom 25 mg oral tablet 1 tablet = 25 mg, By Mouth, Daily at bedtime, may take additional 1/2 tablet in morning & 1/2 tablet in afternoon if nausea persists, # 60 tablet, 1 Refills, Maintenance, 07/27/23 13:40:00 EST, [facility] [id number] ([facility] 827), Partial fill upon patie... Start [...] Primary Care Nurse Name: Peggy Quintana Position: [facility] RN Member Role: Primary Care Nurse Name: Gill Han RN Position: [facility] RN Member Role: Primary Care Nurse Name: Sarwat Velázquez RN Position: [facility] RN Member Role: Primary Care Nurse Name: Brigette Healy RN Position: [facility] RN Member Role: Primary Care Nurse Name: Bere Vazquez MD Position: [facility] General Pediatrics MD Member Role: PCP Address: Address: [address] [place] [address] Pediatric & Adolescent Medicine [place], [place] [address] Name: Jessica Leal RN Position: [facility] RN Member Role: Primary Care Nurse Name: Merlyn Looney RN Position: [facility] RN Member Role: Primary Care Nurse Care Team Related Persons Name: RUTHY GUZMAN Address: home [address] [place] [address] Name: PAULA PAUL Address: home [address] [place] [address] Name: CARLOS PAUL Address: home [address] [place] [address]
--- OUTSIDE RECORDS SUMMARY | 2024-02-11 22:03 | XMS_ITS | Continuity of Care Document ---
Author Organization [facility] Yonathan [facility] Address [address], [address] [place] [address]- Care Team Providers Care Hot Mill Tin Roller Name Role Phone George HARRIS, Bere Benavidez Primary Care Physician [place] [facility] [place] 01/30/24 [facility] [address], [address] [place] [address]- Attending Physician: Aditya HARRIS, Lakshmi Douglas Allergies, [...] 08/13/20 Recorded 1Result Comment: PT [facility] [id number] Medications Benadryl 25 mg oral capsule 1 [...] 0 Refills, Maintenance, 12/23/23 14:35:00 EDT,Cream, [facility]/pharmacy #[id number], Partial fill upon patient request if the [...] 15:11:00 EST, Route to Pharmacy Electronically, [facility]/pharmacy #[id number], Partial fill upon patient request [...] Refills, Maintenance, 10/27/23 17:55:00 EST, Tablet, [facility]/pharmacy #[id number], Partial fill upon patient request [...] Soft Stop, 01/06/24 23:37:00 EDT, Cream, [facility]/pharmacy #[id number], Partial fill upon patient request if the prescription is for a schedule II opioid drug., 1 applicator Topically Once, 173, cm, 01/05/24 8:4... Start Date: 01/06/24 Status: Ordered MiraLax oral powder for reconstitution = 17 Gm, By Mouth, Daily, dissolve in 4 to 8 oz of beverage, # 238 Gm, 1 Refills, Maintenance, 10/05/23 15:12:00 EST, REC Powder, [facility]/pharmacy #[id number], Partial fill upon patient request [...] 1 Refills, Maintenance, 09/08/23 11:16:00 EST, Tablet, [facility], Partial fi... Start Date: 09/08/23 Status: Ordered PNV By Mouth, Daily, 0 Refills, Maintenance, 07/14/23 10:18:00 EST, Partial fill upon patient request if the prescription is for a schedule II opioid drug. Start Date: 07/14/23 Status: Ordered PNV Select oral tablet 1 tablet, By Mouth, Daily, # 90 tablet, 2 Refills, Maintenance, 10/26/23 14:27:00 EST, [facility]/pharmacy#[id number], Partial fill upon patient request if the prescription is for a schedule II opioid drug., 1 tablet By Mouth Daily, 174, cm, 10/26/23 14:06:00 EST... Start Date: 10/26/23 Status: Ordered pyridoxine 25 mg oral tablet 1 tablet = 25 mg, By Mouth, 3 times a day, PRN Nausea & Vomiting, # 100 tablet, 8 Refills, Maintenance, 07/19/23 13:37:00 EST, Tablet, [facility] [id number] ([facility] 827), Partial fill upon patient request if the prescription is for a schedule II opioid... Start Date: 07/19/23 Status: Ordered Reglan 10 mg oral tablet 1 tablet = 10 mg, By Mouth, Daily, PRN Headache, # 30 tablet, 0 Refills, Maintenance, 11/27/23 21:42:00 EDT, [facility]/pharmacy #[id number], Partial fill upon patient request if the prescription is for a schedule II opioid drug., 174, cm, 11/08/23 13:36:00 EST, H... Start Date: 11/27/23 Status: Ordered ursodiol 300 mg oral capsule 300 mg, 1, capsule, By Mouth, 3 times a day, # 100 capsule, Refills 1, Tot. Refills 1, Maintenance,12/06/23 18:22:00 EDT, Route to Pharmacy Electronically, [facility]/pharmacy #[id number], Partial fill upon patient request if the [...] Personnel Name: Omi Wise RN Position: [facility] RN Member Role: Primary Care Nurse Name: Peggy Quintana Position: [facility] RN Member Role: Primary Care Nurse Name: Gill Han RN Position: S RN Member Role: Primary Care Nurse Name: Sarwat Velázquez RN Position: S RN Member Role: Primary Care Nurse Name: Adele Ibanez RN Position: S RN Member Role: Primary Care Nurse Name: Nidia Tripp Position: S RN Member Role: Primary Care Nurse Name: Bere Vazquez MD Position: [facility] Physician - Pediatrics Member Role: PCP Address: Address: [address] [place] [address] Pediatric & Adolescent Medicine [place], [place] [address] Name: Jessica Leal RN Position: [facility] RN Member Role: Primary Care Nurse Name: Bisi Rock RN Position: [facility] RN Member Role: Primary Care Nurse Name: Merlyn Looney RN Position: [facility] RN Member Role: Primary Care Nurse Care Team Related Persons Name: RUTHY GUZMAN Address: home [address] [place] [address] Name: PAULA PAUL Address: home [address] [place] [address] Name: CHARLY PAUL Address: [address] Address: home [address] [place] [address] Name: CARLOS PAUL Address: home [address] [place] [address] Name: JAIRO HAN Address: home [facility]
--- OUTSIDE RECORDS SUMMARY | 2024-02-11 22:03 | XMS_ITS | Continuity of Care Document ---
Author Organization [facility] Yonathan [id number] [facility] Address [address], [address] [place] [address]- Care Team Providers Care Heel Room Supervisor Name Role Phone George HARRIS, Bere Benavidez Primary Care Physician [id number] Date(s): 07/19/23 - 10/01/23 [facility] [address] [facility], [address] [place] [address]- Attending Physician: Tamanna Hood MD Referring Physician: Alana Balderas CNM Allergies, Adverse Reactions, Alerts Substance Reaction Severity [...] 1 Refills, Maintenance, 09/08/23 11:16:00 EST, Tablet, [facility], Partial fi... Start Date: 09/08/23 Status: Ordered PNV By Mouth, Daily, 0 Refills, Maintenance, 07/14/23 10:18:00 EST, Partial fill upon patient request if the prescription is for a schedule II opioid drug. Start Date: 07/14/23 Status: Ordered PNV Select oral tablet 1 tablet, By Mouth, Daily, # 90 tablet, 0 Refills, Maintenance, 08/12/23 8:33:00 EST, [facility] [id number] ([facility]), Partial fill upon patient request if the prescription is for a schedule II opioid drug., 1 tablet By Mouth Daily, 175, cm, 07/19/23... Start Date: 08/12/23 Status: Ordered pyridoxine 25 mg oral tablet 1 tablet = 25 mg, By Mouth, 3 times a day, PRN Nausea & Vomiting, # 100 tablet, 8 Refills, Maintenance, 07/19/23 13:37:00 EST, Tablet, [facility] ([facility] 827), Partial fill upon patient request if the prescription is for a schedule II opioid... Start Date: 07/19/23 Status: Ordered risperiDONE 1 mg oral tablet 1 mg, 1, tablet, By Mouth, 2 times a day, # 60 tablet, Refills 0, Tot. Refills 0, Maintenance, 05/28/22 8:23:00 EDT, Route to Pharmacy Electronically, [facility]/pharmacy #[id number], Partial fill upon patient request if the prescription is for a schedule II opioi... Start Date: 05/28/22 Status: Ordered traZODone 50 mg oral tablet 50 mg, 1, tablet, By Mouth, Daily at bedtime, # 30 tablet, Refills 0, Tot. Refills 0, Maintenance, 05/28/22 8:23:00 EDT, Route to Pharmacy Electronically, [facility]/pharmacy #[id number], Partial fill upon patient request if the prescription is for a schedule II o... Start Date: 05/28/22 Status: Ordered Tylenol Extra Strength 500 mg oral tablet 2 tablet = 1,000 mg, By Mouth, Every 6 hours, PRN as needed for fever, # 100 tablet, 0 Refills, Maintenance, 07/27/23 11:28:00 EST, Tablet, [id number] ([facility] 827), Partial fill upon patientrequest if the prescription is for a schedule II op... Start Date: 07/27/23 Status: Ordered Unisom 25 mg oral tablet 1 tablet = 25 mg, By Mouth, Daily at bedtime, may take additional 1/2 tablet in morning & 1/2 tablet in afternoon if nausea persists, # 60 tablet, 1 Refills, Maintenance, 07/27/23 13:40:00 EST, [facility] [id number] ([facility] 827), Partial fill upon patie... Start [...] Team Personnel Name: Omi Wise RN Position: S RN Member Role: Primary [...] Care Nurse Name: Bere Vazquez MD Position: [facility] Physician - Pediatrics Member Role: PCP Address: Address: [address] [place] [address] Pediatric & Adolescent Medicine [place], [place] [address] Name: Jessica Leal RN Position: S RN Member Role: Primary Care Nurse Name: Merlyn Looney RN Position: S RN Member Role: Primary Care Nurse Care Team Related Persons Name: RUTHY GUZMAN Address: home [address] [place] [address] Name: PAULA PAUL Address: home [address] [place] [address] Name: CARLOS PAUL Address: home [address] [place] [address] Name: JAIRO HAN Address: home
--- OUTSIDE RECORDS SUMMARY | 2024-02-11 22:03 | XMS_ITS | Continuity of Care Document ---
Author Organization [facility] Address [address] [place] [address]- Care Team Providers Care Tellers Supervisor Name Role Phone George HARRIS, Bere Benavidez Primary Care Physician [place] [facility] [place] [facility] [place]): [place]/23 - 08/10/[address] [address]- Discharge Disposition: A-D/C Home Attending Physician: Khai HARRIS, Arina Olmedo Admitting Physician: Arina Ridley MD Referring Physician: Not on Staff, Referring [...] days, # 28 capsule, 0 Refills, Acute 08/17/23 8:17:00 EST, 08/10/23 8:17:00 EST, Capsule, [facility] [id number] ([facility] 827), Partial fill upon patient request if the prescription is for a schedule II o... Start Date: 08/10/23 Stop Date: 08/17/23 Status: Ordered chlorproMAZINE 100 mg oral tablet [...] opioid drug. Start Date: 02/11/23 Status: Ordered Monistat 7 2% cream with applicator 1 application, Vaginally, Daily at bedtime, for 7 days, # 45 Gm, 0 Refills, Acute 08/17/23 21:43:00EST, 08/10/23 21:43:00 EST, Cream, [facility] [id number] ([place] [facility]), Partial fill upon patient request if the prescription is for a schedule II opioid... Start Date: 08/10/23 Stop Date: 08/17/23 Status: Ordered ondansetron 4 mg oral tablet, disintegrating 1 tablet = 4 mg, By Mouth, Every 8 hours, PRN Nausea & Vomiting, allow tablet to dissolve on tongue Take 30 mins before taking medication with food, # 10 tablet, 0 Refills, Maintenance, 07/27/23 11:29:00 EST, Tablet, [facility] [address] ([facility] 827)... Start Date: 07/27/23 Status: Ordered [...] Refills, Maintenance, 07/19/23 13:37:00 EST, Tablet, [facility] [address] ([facility] 827), Partial fill upon patient request [...] Refills, Maintenance, 07/27/23 11:28:00 EST, Tablet, [facility] 25697 ([facility] 827), Partial fill upon patientrequest if the prescription is for a schedule II op... Start Date: 07/27/23 Status: Ordered Unisom 25 mg oral tablet 1 tablet = 25 mg, By Mouth, Daily at bedtime, may take additional 1/2 tablet in morning & 1/2 tablet in afternoon if nausea persists, # 60 tablet, 1 Refills, Maintenance, 07/27/23 13:40:00 EST, [facility] [id number] ([facility] 827), Partial fill upon patie... Start [...] recent to oldest [Reference Range]: 1 2 3 Oxygen Saturation [94-100 %] 100 % (08/10/23 10:02 AM) 100 % (08/10/23 7:38 AM) 100 % (08/10/23 6:34 AM) Pulse Rate [55-90 bpm] 93 bpm *H* (08/10/23 10:02 AM) 88 bpm (08/10/23 7:38 AM) 83 bpm (08/10/23 6:34 AM) Blood Pressure [90-138/55-84 mm Hg] 112/56mm Hg (08/10/23 10:02 AM) 110/65mm Hg (08/10/23 7:38 AM) 122/57mm Hg (08/10/23 6:34 AM) Respiratory Rate [16-30 br/min] 18 br/min (08/10/23 10:02 AM) 16 br/min (08/10/23 7:38 AM) 16 br/min (08/10/23 6:34 AM) Temperature [96.8-100.4 DegF] 98.6 DegF (08/10/23 7:38 AM) 98.7 DegF (08/10/23 1:42 AM) Mode of Delivery (Oxygen) Room air (08/10/23 10:02 AM) Room air (08/10/23 7:38 AM) Room air (08/10/23 6:34 AM) Blood pressure sites Arm, left (08/10/23 10:02 AM) Arm, right (08/10/23 7:38 AM) Arm, left (08/10/23 6:34 AM) Temperature Route Oral (08/10/23 7:38 AM) Oral (08/10/23 1:42 AM) Social History Social History Type Response Tobacco Use: 4 or less cigar ettes(less than 1/4 pack)/day in last 30 days. Other: quite with , was smoking 4/day. Sex EKG study * Event Display: ECG 12-Lead Authored Date: Please click on pdf link to open report * Event Display: ECG 12-Lead Authored Date: Ventricular Rate: 89 BPM Atrial Rate: 89 BPM P-R Interval: 126 ms QRS Duration: 80 ms Q-T Interval: 344 ms QTC Calculation(Bazett): 418 ms P Baldwin: 35 degrees R Baldwin: 81 degrees T Baldwin: 21 degrees Normal sinus rhythm Nonspecific ST abnormality Abnormal ECG No previous ECGs available Confirmed by MORENO SANTOYO MD ([id number]) on 08/10/2023 2:28:33 PM [place]stein: MORENO SANTOYO MD Note * Ella Nichole DO: PERFORM Event Display: Patient Education Leaflets Authored Date: [id number] Recurrent Seizure (Adult) ?? [id number] Recurrent Seizure (Adult) You have had another seizure today. A common cause of seizures that keep happening (recurrent seizures) is missing doses of seizure medicine. But sometimes seizures are hard to control even when you take the medicine correctly. If this is the case for you, your healthcare provider may need to increase your dosage. Or you may need to add or change to another medicine. Home care Follow these tips when caring for yourself at home. ??? Seizures aren???t predictable. So don't do anything that might cause danger to you or other people if you have another seizure. Until the seizures are under good control, take these safety steps:o Don???t drive, ride a motorcycle, or ride a bike. o Don???t operate dangerous equipment such as power tools. o Take showers instead of baths. o Don???t swim or climb ladders, trees, or roofs. ??? Tell your close friends and relatives about your seizure. Teach them what to do for you if it happensagain. ??? If medicine was prescribed to prevent seizures, take it exactly as directed. Missing doses will increase the risk of having another seizure. ??? If you miss a dose, take the missed dose assoon as you remember. If it's almost time for your next dose, skip the missed dose. Restart the medicine at your next scheduled time. Don???t take extra medicine to make up for the missed dose. ??? Wear a Medic-Alert bracelet to let emergency staff know about your condition. ??? Follow a regular sleep schedule so that you get at least 6 to 8 hours of restful sleep every night. This is especially important when you're sick with a cold or flu or another type of infection. ??? Alcohol and illegal drugs can cause you to have more seizures. Ask your provider if you are allowed to drink any alcohol at all. For future seizures, if you're alone: ??? If you feel a seizure coming on, lie down on a bed or on the floor with something soft under your head. This will keep you from falling. Lie on your left side, not on your back. This will let fluid drain out of your mouth and prevent choking. Be sure you are clear of any objects that might injure you during the seizure. Call for help if there is time. For future seizures, if someone is with you: ??? The person should help you get into a safe position and call for help. The person shouldn???t try to force anything in your mouth once the seizure begins. This could harm your teeth or jaw. ?? Follow-up care Follow up with your healthcare provider. Keep a seizure calendar to record how often you have a seizure. If you're being started on anti-seizure medicine, ask your provider if you need additional control. Seizure medicine can affect how well control pills work, and you could become . Some women who take seizure medicine also need certain vitamins. Tell your provider if you plan on getting or if you become . Don't drink alcohol until your provider tells you it???s OK. Each state has different laws that say when someone with seizures is allowed to drive. Some states require that a seizure disorder to be reported to the state. They don't allow you to drive until your seizures are controlled. Talk with your provider to see if this applies to you. ?? Important Don't drive until you've followed up with your healthcare provider and you've been cleared to drive. ?? When to get medical care Call your healthcare provider right away??if any of these occur: ??? Seizures happen more often or last longer than normal ??? A seizure lasts more than 5 minutes ??? You don???t wake up between seizures ??? Confusion that lasts more than 30 minutes after a seizure ??? Injury during a seizure ??? Fever of 100.4??F (38.0??C) or higher, or as advised by your provider ??? Unusual grouchiness, drowsiness, or confusion ??? Stiff or painful neck ??? Headache that gets worse? Last Reviewed Date: 2022 ?? [id number] The [employer]. All rights reserved. This information is not intended as a substitute for professional medical care. Always follow your healthcare professional's instructions. ?? Patient Care team information Care Team Personnel Name: Omi Wise RN Position: [facility] RN Member Role: Primary Care Nurse Name: Peggy Quintana Position: [facility] RN Member Role: Primary Care Nurse Name: Gill Han RN Position: [facility] RN Member Role: Primary Care Nurse Name: Sarwat Velázquez RN Position: [facility] RN Member Role: Primary Care Nurse Name: Brigette Healy RN Position: [facility] RN Member Role: Primary Care Nurse Name: Bere Vazquez MD Position: [facility] General Pediatrics MD Member Role: PCP Address: Address: [address] [facility] [place] [address]- Name: Jessica Leal RN Position: [facility] RN Member Role: Primary Care Nurse Name: Merlyn Looney RN Position: [facility] RN Member Role: Primary Care Nurse Name: Andie Garcia RN Position: [facility] ED RN W/OE and Tasks Member Role: Patient Care Provider Name: Ella Nichole DO Position: [facility] Resident Member Role: ED Resident Address: Address: [address] [place] [address]- Name: Arina Ridley MD Position: [facility] ED Medicine MD Member Role: Admitting Physician Address: Address: [address] [place] [address]- Name: Teresa Dixon Position: [facility] ED TA [facility] Care Team Related Persons Name: RUTHY GUZMAN Address: home [address] [place] [address] Name: PAULA PAUL Address: home [address] [place] [address] Name: CARLOS PAUL Address: home [address] [place] [address]
--- OUTSIDE RECORDS SUMMARY | 2024-02-11 22:03 | XMS_ITS | Continuity of Care Document ---
Author Organization [facility] Address [address] [place] [address]- Care Team Providers Care Brick Tosser Name Role Phone Roro Pitts MD Primary Care Physician [place] [facility] [place] [facility] [place] [id number] Date(s): 11/25/20 - 12/25/20 [facility] [address] [place] [address]- Attending Physician: Rachel Up Admitting Physician: Rachel Up Referring Physician: AdmtrRachel Allergies, Adverse Reactions, Alerts Substance Reaction Severity [...]
--- OUTSIDE RECORDS SUMMARY | 2024-02-11 22:03 | XMS_ITS | Continuity of Care Document ---
Author Organization [facility] Mcmanus [employer] [facility] Address [address], [address] [place] [address]- Care Team Providers Care Geek Squad Agent Name Role Phone George HARRIS, Bere Benavidez Primary Care Physician [place] [facility] [place] Date(s): 12/23/23 - 12/30/23 [facility] [employer] [facility] [address], [address] [place] [address]- Attending Physician: Not on Staff, Attending MD Referring Physician: Aditya HARRIS, Lakshmi Douglas Allergies, Adverse [...] 08/13/20 Recorded 1Result Comment: PT [facility] [id number] Medications Benadryl 25 mg oral capsule 1 [...] Gm, 0 Refills, Maintenance, 12/23/23 14:35:00 EDT,Cream, [facility]/pharmacy #[id number], Partial fill upon patient request if the [...] 10/05/23 15:11:00 EST, Route to Pharmacy Electronically, [facility]/pharmacy #[id number], Partial fill upon patient [...] 3 Refills, Maintenance, 10/27/23 17:55:00 EST, Tablet, [facility]/pharmacy #[id number], Partial fill upon patient [...] Refills, Maintenance, 10/05/23 15:12:00 EST, REC Powder, [facility]/pharmacy #[id number], Partial fill upon patient [...] 1 Refills, Maintenance, 09/08/23 11:16:00 EST, Tablet, [facility], Partial fi... Start Date: 09/08/23 Status: Ordered PNV By Mouth, Daily, 0 Refills, Maintenance, 07/14/23 10:18:00 EST, Partial fill upon patient request if the prescription is for a schedule II opioid drug. Start Date: 07/14/23 Status: Ordered PNV Select oral tablet 1 tablet, By Mouth, Daily, # 90 tablet, 2 Refills, Maintenance, 10/26/23 14:27:00 EST, [facility]/pharmacy#0315, Partial fill upon patient request if the prescription is for a schedule II opioid drug., 1 tablet By Mouth Daily, 174, cm, 10/26/23 14:06:00 EST... Start Date: 10/26/23 Status: Ordered pyridoxine 25 mg oral tablet 1 tablet = 25 mg, By Mouth, 3 times a day, PRN Nausea & Vomiting, # 100 tablet, 8 Refills, Maintenance, 07/19/23 13:37:00 EST, Tablet, [facility] [address] ([facility] 827), Partial fill upon patient request if the prescription is for a schedule II opioid... Start Date: 07/19/23 Status: Ordered Reglan 10 mg oral tablet 1 tablet = 10 mg, By Mouth, Daily, PRN Headache, # 30 tablet, 0 Refills, Maintenance, 11/27/23 21:42:00 EDT, [facility]/pharmacy #[id number], Partial fill upon patient request if the prescription is for a schedule II opioid drug., 174, cm, 11/08/23 13:36:00 EST, H... Start Date: 11/27/23 Status: Ordered ursodiol 300 mg oral capsule 300 mg, 1, capsule, By Mouth, 3 times a day, # 100 capsule, Refills 1, Tot. Refills 1, Maintenance,12/06/23 18:22:00 EDT, Route to Pharmacy Electronically, [facility]/pharmacy #[id number], Partial fill upon patient request if the [...] oldest [Reference Range]: 1 Height 174 cm (12/23/23 2:21 PM) Weight 74 kg (12/23/23 2:21 PM) Body Mass Index [18.5-24.99 kg/m2] 24.44 kg/m2 (12/23/23 2:21 PM) Blood Pressure [90-138/55-84 mm Hg] 125/ 73mm Hg (12/23/23 2:21 PM) Blood pressure sites Arm, right (12/23/23 2:21 PM) Weight Obtained Via Standing scale (12/23/23 2:21 PM) Social History Social History Type Response [...] Care Nurse Name: Bere Vazquez MD Position: [facility] Physician - Pediatrics Member Role: PCP Address: Address: [address] [place] [address] Pediatric & Adolescent Medicine [place], [place] [address] Name: Jessica Leal RN Position: S RN Member Role: Primary Care Nurse Name: Bisi Rock RN Position: S RN Member Role: Primary Care Nurse Name: eMrlyn Looney RN Position: [facility] RN Member Role: Primary Care Nurse Care Team Related Persons Name: RUTHY GUZMAN Address: home [address] [place] [address] Name: PAULA PAUL Address: [address] [place] [address] Name: CARLOS PAUL Address: [address] [place] [address] Name: JAIRO HAN Address: home [place]
--- OUTSIDE RECORDS SUMMARY | 2024-02-11 22:03 | XMS_ITS | Continuity of Care Document ---
Author Organization [facility] [employer]ljeffery [employer] [facility] Address [address] [place] [address], [address], [place] [address]- Care Team Providers Care Test Case Developer Name Role Phone George HARRIS, Bere Benavidez Primary Care Physician [id number] Date(s): 08/17/23 - 08/24/23 [facility] [employer] [facility] [address] [facility] [place] [address]- Attending Physician: Yoni Juarez MD Admitting Physician: Lakshmi Burgess MD Referring Physician: Ella Ibanez CNM Allergies, Adverse Reactions, Alerts Substance Reaction [...] 08/31/23 10:05:00 EST, 08/24/23 10:05:00 EST, Capsule, [facility], Partial fill upon patient [...] 0 Refills, Maintenance, 08/12/23 8:29:00 EST, Tablet, [id number] ([facility]),... Start Date: 08/12/23 Status: Ordered PNV By Mouth, Daily, 0 Refills, Maintenance, 07/14/23 10:18:00 EST, Partial fill upon patient request if the prescription is for a schedule II opioid drug. Start Date: 07/14/23 Status: Ordered PNV Select oral tablet 1 tablet, By Mouth, Daily, # 90 tablet, 0 Refills, Maintenance, 08/12/23 8:33:00 EST, [id number] ([facility]), Partial fill upon patient request if the prescription is for a schedule II opioid drug., 1 tablet By Mouth Daily, 175, cm, 07/19/23... Start Date: 08/12/23 Status: Ordered pyridoxine 25 mg oral tablet 1 tablet = 25 mg, By Mouth, 3 times a day, PRN Nausea & Vomiting, # 100 tablet, 8 Refills, Maintenance, 07/19/23 13:37:00 EST, Tablet, [id number] ([facility]), Partial fill upon patient request if the prescription is for a schedule II opioid... Start Date: 07/19/23 Status: Ordered risperiDONE 1 mg oral tablet 1 mg, 1, tablet, By Mouth, 2 times a day, # 60 tablet, Refills 0, Tot. Refills 0, Maintenance, 05/28/22 8:23:00 EDT, Route to Pharmacy Electronically, [facility]/pharmacy #[id number], Partial fill upon patient request if the prescription is for a schedule II opioi... Start Date: 05/28/22 Status: Ordered topiramate 25 mg oral tablet 1 tablet = 25 mg, By Mouth, 2 times a day, # 60 tablet, 0 Refills, Maintenance, 05/28/22 8:23:00 EDT, Tablet, [facility]/pharmacy #[id number], Partial fill upon patient request if the prescription is for a schedule II opioid drug., 173, cm, 05/27/22 18:52:00 EDT,... Start Date: 05/28/22 Status: Ordered traZODone 50 mg oral tablet 50 mg, 1, tablet, By Mouth, Daily at bedtime, # 30 tablet, Refills 0, Tot. Refills 0, Maintenance, 05/28/22 8:23:00 EDT, Route to Pharmacy Electronically, [facility]/pharmacy #[id number], Partial fill upon patient request if the prescription is for a schedule II o... Start Date: 05/28/22 Status: Ordered Tylenol Extra Strength 500 mg oral tablet 2 tablet = 1,000 mg, By Mouth, Every 6 hours, PRN as needed for fever, # 100 tablet, 0 Refills, Maintenance, 07/27/23 11:28:00 EST, Tablet, [facility] [id number] ([facility]), Partial fill upon patientrequest if the prescription is for a schedule II op... Start Date: 07/27/23 Status: Ordered Unisom 25 mg oral tablet 1 tablet = 25 mg, By Mouth, Daily at bedtime, may take additional 1/2 tablet in morning & 1/2 tablet in afternoon if nausea persists, # 60 tablet, 1 Refills, Maintenance, 07/27/23 13:40:00 EST, [facility] [id number] ([facility]), Partial fill upon patie... Start [...] recent to oldest [Reference Range]: 1 Height 175 cm (08/17/23 3:17 PM) Weight 57.27 kg (08/17/23 3:17 PM) Body Mass Index [18.5-24.99 kg/m2] 18.7 kg/m2 (08/17/23 3:17 PM) Blood Pressure [90-138/55-84 mm Hg] 128/ 48mm Hg (08/17/23 3:17 PM) Blood pressure sites Arm, right (08/17/23 3:17 PM) Weight Obtained Via Standing scale (08/17/23 3:17 PM) Social History Social History Type Response Tobacco Use: 4 or less cigar ettes(less than 1/4 pack)/day in last 30 days. Other: quite with , was smoking 4/day. Sex Patient Care team information Care Team Personnel Name: Omi Wise RN Position: [facility] RN Member Role: Primary Care Nurse Name: Peggy Quintana Position: [facility] RN Member Role: Primary Care Nurse Name: Gill Han RN Position: S RN Member Role: Primary Care Nurse Name: Sarwat Velázquez RN Position: S RN Member Role: Primary Care Nurse Name: Brigette Healy RN Position: [facility] RN Member Role: Primary Care Nurse Name: Bere Vazquez MD Position: [facility] General Pediatrics MD Member Role: PCP Address: Address: [address] [facility] [place] [address]- Name: Jessica Leal RN Position: [facility] RN Member Role: Primary Care Nurse Name: Merlyn Looney RN Position: [facility] RN Member Role: Primary Care Nurse Care Team Related Persons Name: ROSITA ARRIAZARUTHY PENA Address: home [address] [place] [address] Name: PAULA PAUL Address: home [address] [place] [address] Name: CARLOS PAUL Address: [address] [address]
--- OUTSIDE RECORDS SUMMARY | 2024-02-11 22:03 | XMS_ITS | Continuity of Care Document ---
Author Organization [facility] [employer] [facility] Address [address], [address] [place] [address]- Care Team Providers Care Hand Rounder Name Role Phone George HARRIS, Bere Benavidez Primary Care Physician Encounter [facility] Date(s): 11/08/23 - 12/19/23 [facility] [address], [address] [place] [address]- Attending Physician: Aditya HARRIS, Lakshmi Douglas Allergies, [...] Recorded 1Result Comment: PT [facility] [phone] Medications Benadryl 25 mg oral capsule 1 [...] drug. Start Date: 07/14/23 Status: Ordered Colace Liquid By Mouth, 2 [...] 10/05/23 15:11:00 EST, Route to Pharmacy Electronically, [facility]/pharmacy #[id number], Partial fill upon patient request [...] 3 Refills, Maintenance, 10/27/23 17:55:00 EST, Tablet, [facility]/pharmacy #[id number], Partial fill upon patient request [...] Refills, Maintenance, 10/05/23 15:12:00 EST, REC Powder, [facility]/pharmacy #[id number], Partial fill upon patient request [...] 1 Refills, Maintenance, 09/08/23 11:16:00 EST, Tablet, [facility], Partial fi... Start Date: 09/08/23 Status: Ordered PNV By Mouth, Daily, 0 Refills, Maintenance, 07/14/23 10:18:00 EST, Partial fill upon patient request if the prescription is for a schedule II opioid drug. Start Date: 07/14/23 Status: Ordered PNV Select oral tablet 1 tablet, By Mouth, Daily, # 90 tablet, 2 Refills, Maintenance, 10/26/23 14:27:00 EST, [facility]/pharmacy#[id number], Partial fill upon patient request if the prescription is for a schedule II opioid drug., 1 tablet By Mouth Daily, 174, cm, 10/26/23 14:06:00 EST... Start Date: 10/26/23 Status: Ordered pyridoxine 25 mg oral tablet 1 tablet = 25 mg, By Mouth, 3 times a day, PRN Nausea & Vomiting, # 100 tablet, 8 Refills, Maintenance, 07/19/23 13:37:00 EST, Tablet, [facility] [id number] ([facility] 827), Partial fill upon patient request if the prescription is for a schedule II opioid... Start Date: 07/19/23 Status: Ordered Reglan 10 mg oral tablet 1 tablet = 10 mg, By Mouth, Daily, PRN Headache, # 30 tablet, 0 Refills, Maintenance, 11/27/23 21:42:00 EDT, [facility]/pharmacy #[id number], Partial fill upon patient request if the prescription is for a schedule II opioid drug., 174, cm, 11/08/23 13:36:00 EST, H... Start Date: 11/27/23 Status: Ordered ursodiol 300 mg oral capsule 300 mg, 1, capsule, By Mouth, 3 times a day, # 100 capsule, Refills 1, Tot. Refills 1, Maintenance,12/06/23 18:22:00 EDT, Route to Pharmacy Electronically, [facility]/pharmacy #[id number], Partial fill upon patient request if the [...] Confirmed Active Borderline personality disorder Confirmed Active Cholestasis of Confirmed Active Pseudoseizures [...] Team Personnel Name: Omi Wise RN Position: [facility] RN Member Role: Primary Care [...] Care Nurse Name: Bere Vazquez MD Position: [facility] Physician - Pediatrics Member Role: PCP Address: Address: [address] [place] [address] Pediatric [place] [address]- Name: Jessica Leal RN Position: S RN Member Role: Primary Care Nurse Name: Bisi Rock RN Position: S RN Member Role: Primary Care Nurse Name: Merlyn Looney RN Position: S RN Member Role: Primary Care Nurse Care Team Related Persons Name: RUTHY GUZMAN Address: home [address] [place] [address] Name: PAULA PAUL Address: [address] [place] [address] Name: CARLOS PAUL Address: [address] [place] [address] Name: JAIRO HAN Address: home [address]
--- OUTSIDE RECORDS SUMMARY | 2024-02-11 22:03 | XMS_ITS | Continuity of Care Document ---
Author Organization [facility] ter Address [address] [place] [id number] Care Team Providers Care Director Of Graduate Admissions Name Role Phone George HARRIS, Bere Benavidez Primary Care Physician Encounter [facility] Date(s): 01/04/24 - 01/07/[address] [id number] Discharge Disposition: A-D/C Home Attending Physician: Adonis Ford MD Admitting Physician: Adonis Ford MD Referring Physician: Lakshmi Burgess MD Allergies, Adverse Reactions, Alerts Substance Reaction [...] 08/13/20 Recorded 1Result Comment: PT [facility] [id number] Medications Acetaminophen Tablet 650 mg, Tablet, By Mouth, Every 4 hours, PRN for Pain , Mild, (1-3), may give 325mg per patient preference and re-dose with 325mg within 4 hours, if needed. Patient should only receive a total of 650mg of Acetaminophen every 4 hours., Routine, 01/03... Start Date: 01/04/24 Stop Date: 01/07/24 Status: Discontinued Benadryl 25 mg oral capsule 1 capsule = 25 mg, By Mouth, Daily at bedtime, PRN Headache, # 30 capsule, 0 Refills, Maintenance, 11/27/23 21:42:00 EDT, Capsule, [facility]/pharmacy #[id number], Partial fill upon patient request [...] Gm, 0 Refills, Maintenance, 12/23/23 14:35:00 EDT,Cream, [facility]/pharmacy #[id number], Partial fill upon patient request if the [...] 10/05/23 15:11:00 EST, Route to Pharmacy Electronically, [id number], Partial [...] 3 Refills, Maintenance, 10/27/23 17:55:00 EST, Tablet, [id number], Partial fill upon patient [...] opioid drug. Start Date: 11/09/23 Status: Ordered Ibuprofen Tablet 800 mg, Tablet, By Mouth, Every 8 hours, PRN for Pain , Moderate, (4-6), may give 400mg per patientpreference and re-dose with 400mg within 8 hours if needed. Patient should only receive a total of 800mg of Ibuprofen every 8 hours., Routine, ... Start Date: 01/04/24 Stop Date: 01/07/24 Status: Discontinued Lamotrigine By Mouth, Refills 0, Maintenance, 11/09/23 12:29:00 EST, Partial fill upon patient request if the prescription is for a schedule II opioid drug. Start Date: 11/09/23 Status: Ordered lidocaine-prilocaine 2.5%-2.5% topical cream 1 applicator, Topically, Once, # 30 Gm, 0 Refills, Soft Stop, 01/06/24 23:37:00 EDT, Cream, [facility]/pharmacy #[id number], Partial fill upon patient request if the prescription is for a schedule II opioid drug., 1 applicator Topically Once, 173, cm, 01/05/24 8:4... Start Date: 01/06/24 Status: Ordered MiraLax oral powder for reconstitution = 17 Gm, By Mouth, Daily, dissolve in 4 to 8 oz of beverage, # 238 Gm, 1 Refills, Maintenance, 10/05/23 15:12:00 EST, REC Powder, [facility]/pharmacy #[id number], Partial fill upon patient request [...] 1 Refills, Maintenance, 09/08/23 11:16:00 EST, Tablet, [facility], Partial fi... Start Date: 09/08/23 Status: Ordered PNV By Mouth, Daily, 0 Refills, Maintenance, 07/14/23 10:18:00 EST, Partial fill upon patient request if the prescription is for a schedule II opioid drug. Start Date: 07/14/23 Status: Ordered PNV Select oral tablet 1 tablet, By Mouth, Daily, # 90 tablet, 2 Refills, Maintenance, 10/26/23 14:27:00 EST, [facility]/pharmacy#[id number], Partial fill upon patient request if the prescription is for a schedule II opioid drug., 1 tablet By Mouth Daily, 174, cm, 10/26/23 14:06:00 EST... Start Date: 10/26/23 Status: Ordered pyridoxine 25 mg oral tablet 1 tablet = 25 mg, By Mouth, 3 times a day, PRN Nausea & Vomiting, # 100 tablet, 8 Refills, Maintenance, 07/19/23 13:37:00 EST, Tablet, [facility] [id number] ([facility] 827), Partial fill upon patient request if the prescription is for a schedule II opioid... Start Date: 07/19/23 Status: Ordered Reglan 10 mg oral tablet 1 tablet = 10 mg, By Mouth, Daily, PRN Headache, # 30 tablet, 0 Refills, Maintenance, 11/27/23 21:42:00 EDT, [facility]/pharmacy #[id number], Partial fill upon patient request if the prescription is for a schedule II opioid drug., 174, cm, 11/08/23 13:36:00 EST, H... Start Date: 11/27/23 Status: Ordered ursodiol 300 mg oral capsule 300 mg, 1, capsule, By Mouth, 3 times a day, # 100 capsule, Refills 1, Tot. Refills 1, Maintenance,12/06/23 18:22:00 EDT, Route to Pharmacy Electronically, [facility]/pharmacy #[id number], Partial fill upon patient request if the [...] to oldest [Reference Range]: 1 2 3 4 Height 173 cm (01/07/24 8:23 AM) 173 cm (01/07/24 7:00 AM) 173 cm (01/05/24 8:48 AM) Weight 65.04 kg (01/06/24 8:09 AM) 74 kg (01/04/24 7:47 AM) Oxygen Saturation [94-100 %] 97 % (01/06/24 9:37 PM) 94 % (01/06/24 1:49 PM) 99 % (01/06/24 8:07 AM) Pulse Rate [55-90 bpm] 82 bpm (01/07/24 8:23 AM) 66 bpm (01/05/24 8:48 AM) 93 bpm *H* (01/04/24 7:47 AM) Body Mass Index [18.5-24.99 kg/m2] 24.73 kg/m2 (01/04/24 7:47 AM) Blood Pressure [90-138/55-84 mm Hg] 143/76mm Hg *H* (01/07/24 8:23 AM) 130/71mm Hg (01/07/24 6:55 AM) 125/54mm Hg (01/07/24 4:00 AM) Respiratory Rate [16-30 br/min] 18 br/min (01/07/24 6:13 AM) 18 br/min (01/07/24 6:13 AM) 18 br/min (01/06/24 10:37 PM) 18 br/min (01/06/24 10:37 PM) Temperature [96.8-100.4 DegF] 98.2 DegF (01/07/24 8:23 AM) 98.6 DegF (01/07/24 12:15 AM) 98.6 DegF (01/06/24 5:02 PM) Mode of Delivery (Oxygen) Room air (01/06/24 1:49 PM) Room air (01/06/24 11:53 AM) Room air (01/06/24 8:07 AM) Blood pressure sites Arm, left (01/07/24 8:23 AM) Arm, right (01/06/24 1:49 PM) Arm, left (01/06/24 11:53 AM) Temperature Route Oral (01/07/24 8:23 AM) Oral (01/07/24 12:15 AM) Oral (01/06/24 5:02 PM) Dry Weight 74 kg (01/04/24 7:47 AM) Social History Social History Type Response Tobacco Use: 4 or less cigar ettes(less than 1/4 pack)/day in last 30 days. Other: quite with , was smoking 4/day. Sex History and physical note * Ellie Medellin MD: PERFORM Event Display: History and Physical Hospital Authored Date: [id number] Patient: ??ADAMA PHAM ? Age:??18 Years?Sex:??Female?:??2005?? OB Reason for Admission OB Reason for Admission Reason for admission: Induction of labor Reason for Induction: Cholestasis LMP/EGA/DAYNA Gestational Age (EGA) and DAYNA? * Note: EGA calculated as of 01/04/2024 ?? DAYNA:??01/19/2024?EGA*:??37 weeks 6 days ? History?(0,0,0,0)?Method:??Ultrasound??(06/22/2023) History of Present Illness Pt is a??here for IOL for cholestasis??. She??deniesctx. She??denies LOF??, VB. + movement. Denies fever/chills, MEDINA, dizziness, changes in vision, CP, SOB, RUQ pain,??pain with urination, UE/LE swelling, calf tenderness. Pt??would eventuallylike an epidural. Overall, doing well with no complaints. ?? In review of her chart, this was concerning for ?? - cholestasis - admission to inpatient psychiatric hospital for suicidal ideation.??Dozens of hospitalizations for suicide attempts noted in EMR, with most recent February 2023. All intentional OD of medications (mostly OTC, some prescribed to patient). History of non-suicidal cutting as well. - Bipolar disorder; currently on Haldol and lamictal. - Seizure disorder.??Negative video EEG in October 2023 at [facility] Review of Systems Constitutional:??No fever, chills or weakness?? HEENT:??No vision changes. No congestion Skin:??No rash or itching Cardiovascular:??No chest pain or palpitations Respiratory:??No shortness of breath Gastrointestinal:??No nausea, vomiting, diarrhea, or abdominal pain Genitourinary:??No burning, urinary frequency or incontinence Gynecologic:??No concerning vaginal discharge or itching Neurologic:??No headache, dizziness, syncope?? Psychiatric:??No depression or anxiety?? Physical Exam Vitals & Measurements T:??98.3?F?? HR:??93??(Peripheral)?? RR:??18?? BP:??147/84?? SpO2:??96%?? HT:??173??cm?? WT:??74??kg?? BMI:??24.73?? Constitutional:??Well-developed, no acute distress. Respiratory:??Clear to auscultation, equal bilaterally, no labored breathing.? Cardiovascular:??Regular rate and rhythm, no murmurs.? Abdomen/GI:??Soft, non-tender, non-distended, no guarding or rebound tenderness.??Gravid. Gynecologic:?External Genitalia: normal exam, without lesions, without atrophic changes ??Vagina: normal support, no lesions, no discharge?Cervix: normal exam, no cervical motion tenderness, no lesions, no cervical discharge Extremities:??No edema or tenderness. Warm and well-perfused.?? Skin:??No rash or jaundice. Normal for ethnicity. Neurological/Psychiatric:??Appearance appropriate, mood and affect stable. ?? OB Exam Dilation: 3 Effacement: 70 Station: -3 Bishops score @ 7 ?? Presentation confirmed vtx by??US EFW: 3200 ?? Membrane Status:??Intact ? 145/+accels/-decels.??Moderate Variability.??Cat 1 tracing. Reassuring maternal and status. Darrington:??2-3contractions/10 minutes.? Assessment/Plan Assessment:??This is a 18yo @ 37+6 wga here for IOL for cholestasis. Cat 1 tracing with occasional prolonged accelerations, reassuring maternal and status. ?? Patient ruled in for gHTN on admission with previous mild range pressure in office. Reviewed diagnosis of gestational hypertension and spectrum of hypertensive disorders of including pre-eclampsia. Discussed need for labs to evaluate for disease progression. Counseled that gHTN increases her risk of hypertensive disorders outside of . Specifically, we discussed that though thiscondition is likely to improve by 6 weeks , it is an important predictor of future hypertension, metabolic syndrome, and arteriosclerotic cardiovascular disease, including CVA and MO. We discussed the signs and symptoms of preeclampsia including: headache, changes in vision, chest pain, shortness of breath, right upper quadrant pain, and malaise. Counselled to??call a provider??if she develops of any of these symptoms or if her BP is >160/110. ?? Plan for induction management with 60cc Mathew; does not require pitocin at this time due to frequent contractions. Discussed with Rita Hutchison CNM. ?? (Z34.90):??- Admit to Labor and Delivery - CBC, T+S, IV access - Induction: 60cc mathew - EFM and toco - Labor coping: PRN - PPH risk level: Low - GBS prophylaxis: not indicated - Rhogam: not indicated - Rubella immune: MMR not indicated - Feeding plan: plan to breastfeed - PPBC: Nexplanon - Reassess in 2hr or PRN Other parent: ex-boyfriend. Abusive. Will not be involved. ?? Gestational HTN (O13.9):??s/p counseling, questions answered ?? Normotensive,??asymptomatic ?? - BP q2/4hr ?? - I&O q4h ?? - HELLP labs??WNL, TPCR pending ( ) DC home with babyscripts ?? Cholestasis of (O26.619):??taking ursodiol TID ? History of suicide attempt (Z91.51):??Dozens of hospitalizations for suicide attempts noted in EMR,with most recent February 2023. All intentional OD of medications (mostly OTC, some prescribed to patient). History of non-suicidal cutting as well. EPDS 15 with no to thoughts of self harm at [facility] 07/1910/26/23- Hardly ever on question 10. Reviewed with patient she indicates that her suicidal ideation is significantly improved. Knows to call . Family knows to call ?? Seizure disorder (G40.909):??07/19 Reports hx of seizures starting around age 14 Reports admissions and partial evaluations at various hospitals in [facility]. Reports her most recent hospitalization for seizure activity was May 2023 at [facility]. Reports she was switched from topiramate to keppra at that time. She was discharged on keppra but is no longer taking, as she was worried about taking the meds in . She reports having a sense before seizures start and is often able to lay down and loses consciousness. Her most recent report of seizure activity was within the last 2 weeks. She reports that her mother has hx of epilepsy. -History is difficult to piece together due to mental health challenges [facility] 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 Discharge Planning:? OB History History?(0,0,0,0)?No previous pregnancies history have been recorded Labs Labs Labs & Tests ABO: A (07/19/23) Antibody Screen: Negative (07/19/23) Bile Acids Total: 1.8 umol/L (12/06/23) Chlamydia Trachomatis Amplified Probe: NEGATIVE (11/27/23) Creatinine-Blood: 0.6 mg/dL (01/04/24) Glucose 50 Gm, +60 Minutes: 124 mg/dL (10/26/23) Hct:??32.6 %??Low (01/04/24) Hemoglobinopathy Interpretation: Normal hemoglobins, with anemia. (07/19/23) Hepatitis B Surface Antigen: NEGATIVE (09/29/23) Hepatitis C Ab: NEGATIVE (09/28/23) Hgb:??10.7 Gm/dL??Low (01/04/24) HIV 4th Generation Ab-Ag Result: NEGATIVE (09/12/23) RH Test Only: Positive (07/19/23) RPR Titer Result: NOT INDICATED (10/26/23) Rubella IgG Ab: POSITIVE (07/19/23) Strep Gp B KYM: Negative (12/23/23) Syphilis Screen by DEBORAH: NEGATIVE (10/26/23) Urine Culture: Urine Culture (09/12/23) Problem List Active Active Problem List Acute depression: (Medical) Bipolar disorder current episode depressed: (Medical) Borderline personality disorder: (Medical) Cholestasis of : (Medical) Convulsions: (Medical) Elevated blood pressure affecting in third trimester, antepartum: (Medical) Elevated liver function tests: (Medical) History of suicide attempt: (Medical) : (Obstetric) (05/01/23) : (Medical) Pseudoseizures: (Medical) PTSD (post-traumatic stress disorder): (Medical) Seizure disorder: (Medical) Size of fetus inconsistent with dates, antepartum: (Medical) Yeast vaginitis: (Medical) Procedure/Surgical History Foot Home Medications Clotrimazole Topical: 1 application, Vaginally, Daily at bedtime DiphenhydrAMINE: 25 mg = 1 capsule, By Mouth, Every 6 hours DiphenhydrAMINE: 25 mg = 1 capsule, By Mouth, Daily at bedtime, PRN (Headache) Docusate: By Mouth, 2 times a day Docusate Docusate: 100 mg = 1 capsule, By Mouth, 2 times a day, PRN (for constipation) Ferrous Sulfate: 325 mg = 1 tablet, By Mouth, Daily Haloperidol: See Instructions, 2 mg By Mouth 2 times a day Lamotrigine: By Mouth Metoclopramide: 10 mg = 1 tablet, By Mouth, Daily, PRN (Headache) Multivitamin, : By Mouth, Daily Multivitamin, : 1 tablet, By Mouth, Daily Ondansetron: 4 mg = 1 tablet, By Mouth, Every 8 hours, PRN (Nausea & Vomiting), allow tablet todissolve on tongue Take 30 mins before taking medication with food Polyethylene Glycol 3350: 17 Gm, By Mouth, Daily, dissolve in 4 to 8 oz of beverage Pyridoxine: Daily Pyridoxine: 25 mg = 1 tablet, By Mouth, 3 times a day, PRN (Nausea & Vomiting) Ursodiol: 300 mg = 1 capsule, By Mouth, 3 times a day Allergies Bee Stings ZyPREXA Social History Alcohol Use: Never. Alcohol use in household: Yes. Electronic Cigarette/Vaping Electronic Cigarette Use: Use, within last 90 days. Employment/School Status: Unemployed. Exercise Self assessment: Poor condition. Home/Environment Living situation: Home/Independent. Lives with: living in respite program for 30-90 days then moving to apartment alone, no pets. Nutrition/Health Diet: Regular. Sexual Sexually involved in last 6 months: Yes. Gender identity: Identifies as female. Self described orientation: Straight or heterosexual. Preferred pronoun: She/her. Substance Abuse Use: Past. Type: Marijuana, oxycodone. Substance abuse in household: No. Other: MJ use, stopped 03/2023. Tobacco Use: 4 or less cigarettes(less than 1/4 pack)/day in last 30 days. Other: quite with , wassmoking 4/day. Family History Mother: Substance abuse Mat. Grandmother: Seizure disorder Plan OB Plan Contraceptives: Nexplanon (01/04/24) Feeding Plan: Breast milk (01/04/24) Labor Coping Mechanisms: Epidural, Nitrous (01/04/24) Patient Requests: its a girl (01/04/24) Hospital Progress note * Darian Soto RN: PERFORM, SIGN, VERIFY Event Display: Progress Note Hospital Authored Date: [id number] Patient: ADAMA PHAM Age: 18 years Sex: Female : 2005 Associated Diagnoses: None Author: Brittany RIDER, Darian Findings Narrative/Incidental Pt out of bed ad yuki ambulating in room frequently. Taking in food and fluids well without nausea. Pt voiding without difficulty in hat in toilet. Patient states pain is well controlled on current medication regime. scant/Mild rubra flow with no clots noted. Pt using Tucks to emi area. Caring for appropriately. pt discussed with Dr Rupal Fraire control and wants Nexplanon at a follow up OB appointment. baby scripts discussed and reeducated how to use when going home. discussed discharge teaching with patient, patient understand and all questions answered prior to discharge. patient ambulated off unit with in car seat with all belongings. . Discharge Information Case Management Discharge Plan : Case Management Discharge Plan Data 01/07/2024 13:20 EDT Discharge Level of Care at Discharge Home/Senior Living/Foster Care * Gayle Kevin RN: PERFORM, SIGN, VERIFY Event Display: Progress Note Hospital Authored Date: [id number] Patient: ADAMA PHAM Age: 18 years Sex: Female : 2005 Associated Diagnoses: None Author: Gayle Kevin RN Patient alert and oriented. PRN Tylenol administered for perineal discomfort. Sitz bath provided for emi discomfort. Continues with mild lochia. at bedside, assisting with breast feeding. Plan for discharge in the morning. * Lakshmi Burgess MD: PERFORM Event Display: Progress Note Hospital Authored Date: [id number] Patient: ??ADAMA PHAM ? Age:??18 Years?Sex:??Female?:??2005?? Subjective Pt sitting up in bed holding baby, admiring her. ?? States that she is well, but still dizzy when she stand up.??Discussed Orthostatics tomorrow morning.??States that she has a tendency??to drop her BP down.?? Has been staying hydrating.?? Review of Systems Bleeding decreasing. Pain well controlled.?? Physical Exam Vitals & Measurements T:??98.6?F?? HR:??72??(Monitored)?? RR:??17?? RR:??17?? BP:??137/68?? SpO2:??94%?? HT:??173??cm?? WT:??65.04??kg?? BMI:??24.73?? BPs??mild range,?? VSS And: FF below umb Ext: neg; Good strength??an ROM??in legs Assessment/Plan Assessment:??Imp: PPD #1 Doing well. Pt's mom has not been in yet. Godmother has been in. Pt statesthat her mom is going to come see her at her place on Wednesday. Plan: Routine PPCare Giiven dizzyness with appropriate drop in H / H, will have her stay overnight.Will get orthostatics in the morning and walk with pt. . I recommend that she stay until Wednesday morning and take full advantage of hospital support. . ? Elevated blood pressure affecting in third trimester, antepartum (O16.3):? [ [] Discharge home on Babyscripts ?? History of suicide attempt (Z91.51):??[p] rn support services consult done Note pending. Note reviewed.Will plan for discharge in the morning if hemodynamically stable. ?? state (Z39.2):? Routine PP care . Follow BPs ?? Discharge Planning:? OB Summary : 1 Parity: 0 . Baby A - Weight: 3.243 kg Baby A - Date, Time of : 01/04/24 20:57:00 Baby A - Gender: Female Baby A - Complications: None EGA at Documented Date, Time: 37W 6D Weight at Delivery Baby A - Delivery Type: Vaginal Delivery Complications: None OB History History?(0,0,0,0)?No previous pregnancies history have been recorded Active Problem List Active Problem List Acute depression: (Medical) Bipolar disorder current episode depressed: (Medical) Borderline personality disorder: (Medical) Cholestasis of : (Medical) Convulsions: (Medical) Elevated blood pressure affecting in third trimester, antepartum: (Medical) Elevated liver function tests: (Medical) History of suicide attempt: (Medical) : (Obstetric) (05/01/23) : (Medical) Pseudoseizures: (Medical) PTSD (post-traumatic stress disorder): (Medical) Seizure disorder: (Medical) Size of fetus inconsistent with dates, antepartum: (Medical) Yeast vaginitis: (Medical) Home Medications Clotrimazole Topical: 1 application, Vaginally, Daily at bedtime DiphenhydrAMINE: 25 mg = 1 capsule, By Mouth, Every 6 hours DiphenhydrAMINE: 25 mg = 1 capsule, By Mouth, Daily at bedtime, PRN (Headache) Docusate: By Mouth, 2 times a day Docusate Docusate: 100 mg = 1 capsule, By Mouth, 2 times a day, PRN (for constipation) Ferrous Sulfate: 325 mg = 1 tablet, By Mouth, Daily Haloperidol: See Instructions, 2 mg By Mouth 2 times a day Lamotrigine: By Mouth Metoclopramide: 10 mg = 1 tablet, By Mouth, Daily, PRN (Headache) Multivitamin, : By Mouth, Daily Multivitamin, : 1 tablet, By Mouth, Daily Ondansetron: 4 mg = 1 tablet, By Mouth, Every 8 hours, PRN (Nausea & Vomiting), allow tablet todissolve on tongue Take 30 mins before taking medication with food Polyethylene Glycol 3350: 17 Gm, By Mouth, Daily, dissolve in 4 to 8 oz of beverage Pyridoxine: Daily Pyridoxine: 25 mg = 1 tablet, By Mouth, 3 times a day, PRN (Nausea & Vomiting) Ursodiol: 300 mg = 1 capsule, By Mouth, 3 times a day Medications Medications (4) Active SCHEDULED: (0) CONTINUOUS: (0) PRN: (4) Acetaminophen 325 mg Tablet (Acetaminophen Tablet) ??650 mg, By Mouth, Every 4 hours Docusate Sodium 100 mg Capsule (Docusate Sodium Capsule) ??100 mg 1 capsule, By Mouth, 2 times a day Ibuprofen 800 mg Tablet (Ibuprofen Tablet) ??800 mg, By Mouth, Every 8 hours Ondansetron 4 mg ODT (ondansetron 4 mg oral tablet, disintegrating) ??4 mg, By Mouth, Every 8 hours Note * Adele Benitez RN: PERFORM Event Display: Care Team Progress Note Authored Date: Patient: ??ADAMA PHAM ? Age:??18 Years?Sex:??Female?:??2005?? Assessment/Plan Attempted follow up consult. Pt walking out the door for discharge. States is going well, occassionally supplementing with small amount of formula. Reviewed output expectations and resources. No questions, has home pump. ?? TERESO Bernstein, IBCLC OB Summary : 1 Parity: 1 . Weight: 3.243 kg Date, Time of : 01/04/24 20:57:00 EGA at Documented Date, Time: 37W 6D Gender: Female Complications: None Weight at Delivery Delivery Complications: None Delivery Type: Vaginal OB History History?(1,0,0,1)? # 1 ?Baby 1 ?Outcome Date:??01/04/2024?Outcome or Result:??Vaginal ?Gest Age:??37 weeks 6 days ? Outcome:??Live ? Sex:??Female?Wt:?3243 g ? Complications:??None Active Problem List Active Problem List Acute depression: (Medical) Bipolar disorder current episode depressed: (Medical) Borderline personality disorder: (Medical) Cholestasis of : (Medical) Convulsions: (Medical) Elevated blood pressure affecting in third trimester, antepartum: (Medical) Elevated liver function tests: (Medical) History of suicide attempt: (Medical) : (Medical) Pseudoseizures: (Medical) PTSD (post-traumatic stress disorder): (Medical) Seizure disorder: (Medical) Size of fetus inconsistent with dates, antepartum: (Medical) Yeast vaginitis: (Medical) Home Medications Clotrimazole Topical: 1 application, Vaginally, Daily at bedtime DiphenhydrAMINE: 25 mg = 1 capsule, By Mouth, Every 6 hours DiphenhydrAMINE: 25 mg = 1 capsule, By Mouth, Daily at bedtime, PRN (Headache) Docusate: By Mouth, 2 times a day Docusate Docusate: 100 mg = 1 capsule, By Mouth, 2 times a day, PRN (for constipation) Ferrous Sulfate: 325 mg = 1 tablet, By Mouth, Daily Haloperidol: See Instructions, 2 mg By Mouth 2 times a day Lamotrigine: By Mouth Lidocaine/Prilocaine Topical: 1 applicator, Topically, Once Metoclopramide: 10 mg = 1 tablet, By Mouth, Daily, PRN (Headache) Multivitamin, : By Mouth, Daily Multivitamin, : 1 tablet, By Mouth, Daily Ondansetron: 4 mg = 1 tablet, By Mouth, Every 8 hours, PRN (Nausea & Vomiting), allow tablet todissolve on tongue Take 30 mins before taking medication with food Polyethylene Glycol 3350: 17 Gm, By Mouth, Daily, dissolve in 4 to 8 oz of beverage Pyridoxine: Daily Pyridoxine: 25 mg = 1 tablet, By Mouth, 3 times a day, PRN (Nausea & Vomiting) Ursodiol: 300 mg = 1 capsule, By Mouth, 3 times a day Medications Medications (5) Active SCHEDULED: (1) Lidocaine / Prilocaine Cream (EMLA Topical) ??1 application, Topically, Once CONTINUOUS: (0) PRN: (4) Acetaminophen 325 mg Tablet (Acetaminophen Tablet) ??650 mg, By Mouth, Every 4 hours Docusate Sodium 100 mg Capsule (Docusate Sodium Capsule) ??100 mg 1 capsule, By Mouth, 2 times a day Ibuprofen 800 mg Tablet (Ibuprofen Tablet) ??800 mg, By Mouth, Every 8 hours Ondansetron 4 mg ODT (ondansetron 4 mg oral tablet, disintegrating) ??4 mg, By Mouth, Every 8 hours * Darian Soto RN: PERFORM Event Display: Discharge/Transfer Note Hospital Authored Date: Nursing Discharge Note Entered On: 01/07/2024 13:35 EDT Performed On: 01/07/2024 13:20 EDT by Darian Soto RN Nursing Discharge Note 2 Discharge Time : 01/07/2024 13:20 EDT Discharge Level of Care at Discharge : Home/Senior Living/Foster Care Patient Left Unit Via : Ambulatory Patient Accompanied Off Unit with : Responsible adult DC Instructions Provided & Signed by Pt : Yes Patient Understands D/C Instructions : Yes Patient Instructions Discharge Signed : Yes Did Pt have Specialty Bed or Wound Vac : No Darian Soto RN - 01/07/2024 13:34 EDT * Aditya HARRIS, Lakshmi Douglas: PERFORM Event Display: Discharge/Transfer Note Hospital Authored Date: Patient: ??ADAMA PHAM ? Age:??18 Years?Sex:??Female?:??2005?? Admit Date Admission Date: 01/04/2024 OB Reason for Admission OB Reason for Admission Reason for admission: Induction of labor Reason for Induction: Cholestasis [facility] Regan Pham is a??18 year-old who was admitted at 37 weeks, 6 days for IOL for cholestasis. She delivered a female on 01/03 with a second degree perineal laceration. During her admission, she ruled-in for gHTN??and HELLP labs were WNL. Objective/Physical Exam on Day of Discharge Vitals & Measurements T:??98.2?F?? HR:??82??(Peripheral)?? RR:??18?? RR:??18?? BP:??143/76?? SpO2:??97%?? HT:??173??cm?? WT:??65.04??kg?? BMI:??24.73?? AVDd Looks very well Exam deferred due to Assessment/Plan/Discharge Diagnosis Assessment:??Imp: PPD #3 Doing well. Pt's mom has not been in yet. Godmother has been in. Pt statesthat her mom is going to come see her at her place on Wednesday. Sister is coming over this afternoon. Plan: Will discharge to home. Has good support from outreach workers. Some family members involved in care. Long discussion held . Reviewed PPD vs baby blues., Knows to call if concerned. Also reviewed taking home a new baby, how to decrease frustrations, importance of self care. reviewed that we are available 29/03 as are the director surgical if she has questions or concerns. Reviewed good on line sources for information . Will send a message to the office for telehealth BP nurse visit on Wednesday, 2 week telehalth PPV 6 week in person PPV and Nexplanon insertion. ?? Elevated blood pressure affecting in third trimester, antepartum (O16.3):? [ x[] Discharge home on Babyscripts ?? History of suicide attempt (Z91.51):??[x] rn support services consult done Note pending. Note reviewed and appreciated. Pt is well connected with mental Health Services. ?? state (Z39.2):? Routine PP care . Follow BPs ?? Discharge Planning:? Future Appointments Wednesday 3:00 PM EDT ?? With: Lakshmi Burgess MD Where: [facility] CHEMI[facility] SPECIAL[facility] [address] [place] [address]- Status: Pending Wednesday 2:00 PM EDT ?? With: Lakshmi Burgess MD Where: [facility] [place] [facility]MISTRY SPECIALIST [address] [place] [address]- Status: Pending Delivery Summary Delivery Summary Maternal Information ??Labor Information ?Baby A ?Labor Onset Methods: ??Induced ?Induction Methods: ??Amniotomy, Cervical Mathew Inpatient ??Delivery Information ?Gestational Age at Delivery: ??37W 6D ?Anesthesia OB: ??Epidural ??01/05/24 00:12:03, Epidural ??01/04/24 13:51:17, Epidural ??01/04/24 13:00:22 ?Obstetrical Laceration: ??Perineal laceration ?Perineal Laceration: ??Midline, 2nd degree ?Perineal Laceration Repair: ??Vicryl suture ?Delivery Complications: ??None ?Blood Loss(ml): ??400 mL ? Baby A ??Delivery Information ?Delivery Type: ??Vaginal ?Date, Time of : ??01/04/24 20:57:00 ? Position: ??Supine ?Foot of bed removed: ??No ?Delayed Cord Clamping: ??Yes ?Placenta Delivery Date/Time: ??01/04/24 21:05:00 ?Placenta Delivery Method: ??Assisted ?Placenta Appearance: ??[place] ?Placenta to Pathology: ??No ??Care Team ?Attending Provider: ??Mercy Ornelas DO ?Delivery Physician: ??Noa Peng MD ?road monkey #1: ??Cristian Ponce RN ?road monkey #2: ??Jyoti RIDER, Nanda Wilson ?Stoker Installer: ??Richard Billy HARRIS ?Anesthesiology Attending: ??Navjot Hernandez MD ??Labor Information ?ROM Date, Time: ??01/04/24 14:29:00 ?ROM to Delivery Total Time: ??388 min ? monitoring: ??External monitor ?? Information ? Outcome: ??Live ? Position: ??Occiput anterior ? Weight: ??3.243 kg ? Score 1 minute: ??9 ? Score 5 minute: ??9 ? Score 10 minute: ??9 ?Transferred To: ?? Care area with Family ?Umbilical Cord Description: ??3 vessel cord ? Complications: ??None ?Gender: ??Female ? Discharge Medications ???Clotrimazole Topical (clotrimazole topical 1% cream with applicator)???DiphenhydrAMINE (Hhzmkntp79 mg oral capsule)???DiphenhydrAMINE (Benadryl 25 mg oral capsule)???Docusate???Docusate (Colace Liquid)???Docusate (Colace sodium 100 mg oral capsule)???Ferrous Sulfate (ferrous sulfate 325 mg oraltablet)???Haloperidol (Haldol Liquid)???Lamotrigine???Lidocaine/Prilocaine Topical (lidocaine-prilocaine 2.5%-2.5% topical cream)???Metoclopramide (Reglan 10 mg oral tablet)???Multivitamin, (PNV )???Multivitamin, (PNV Select oral tablet)???Ondansetron (ondansetron 4 mg oral tablet, disintegrating)???Polyethylene Glycol 3350 (MiraLax oral powder for reconstitution)???Pyridoxine (Vitamin B6)???Pyridoxine (pyridoxine 25 mg oral tablet)???Ursodiol (ursodiol 300 mg oral capsule) Immunizations during Hospitalization Vaccine Date Status tetanus/diphtheria/pertussis, acel(Tdap) 10/26/2023 Given Comments : PT [facility] [id number] influenza virus vaccine, inactivated 07/01/2021 Recorded Human Papillomavirus Vaccine 04/29/2021 Recorded SARS-CoV-2 (COVID-19) mRNA BNT-162b2 vac 01/30/2021 Recorded SARS-CoV-2 (COVID-19) mRNA BNT-162b2 vac 01/09/2021 Recorded Meningococcal Conjugate Vaccine 08/13/2020 Recorded Human Papillomavirus Vaccine 08/13/2020 Recorded tetanus/diphtheria/pertussis, acel(Tdap) 06/27/2018 Given Feeding Method No Results Patient Education Titles WebMD Ignite Patient Education - OB PP [facility]- Discharge Instructions?? * Darian Soto RN: PERFORM Event Display: Patient Education/Instruction Authored Date: [id number] Inpatient Adult Discharge Instructions. [address] [address] Name: ADAMA PHAM : 2005?? Visit: 01/04/2024 07:28?? Current Date: 01/07/2024 12:19 ?? Account: [id number]?? Inpatient Adult Discharge Instructions We would like [...] and their families. Surveys are administered by [employer] ?? If further treatment with your primary care physician or another doctor is recommended, it is important for you to keep the appointment. Call your primary care physician or return to the Emergency Department immediately if your condition worsens, fails to improve, or new symptoms develop. If you need to find a doctor, you can call [facility] Retrieve Link for a referral at [phone] or toll free at [phone]) or log in to [email or web address].. ?? [facility], in keeping with [facility] guidance, no longer requires face masks for [...] a health care stella of your choosing. Skim[employer]it is a website that allows you to securely view your medical information including your hospital discharge summary, office visit summaries, medications and follow-up visits. You can also request appointments, renew medications, and request access to your medical information using a health care stella of your choosing, or just ask a question. You can enroll at [email or web address] or register during your next office visit. You have been discharged from [facility], Patient Care Unit: [facility]??. If you have any questions regarding these instructions, including results of studies pending, afteryou leave, please call us and we will be happy to assist you 29/03. [facility] Your Care Team Attending Physician Adonis Ford MD?? Consulting Providers Adonis Ford MD?? Discharging Providers Aditya HARRIS, Lakshmi Douglas Your Diagnosis state Cholestasis of Elevated blood pressure affecting in third trimester, antepartum Elevated liver function tests Gestational HTN History of suicide attempt Seizure disorder Tests Performed Below is a partial list of the tests performed during your hospitalization. You may have had other tests and procedures not included in this list. Please discuss all test results with your provider. ALT AST BUN CBC Creatinine Protein/Creatinine Ratio Urine Type and Screen No tests performed during this visit.?? Primary Care Provider George HARRIS, Bere Benavidez? Advance Directive Health Care Proxy on File Yes - Health Care Proxy Discharge Vitals Temperature: 98.2 DegF Height: 173 cm Pulse Rate: 82 bpm Weight: 65.04 kg Respiratory Rate: 18 br/min Body Mass Index: 24.73 kg/m2 Respiratory Rate: 18 br/min Body surface area: 1.89 Systolic Blood Pressure:??143 mm Hg??High ?? Diastolic Blood Pressure: 76 mm Hg ?? Oxygen Saturation: 97 % ?? Studies Pending All studies ordered during this hospital stay have been completed unless listed below. Please discuss all pending results with your provider listed above in these instructions. ?? No incomplete studies found?? What to do next Instructions From Your Doctor ?? Orders?? , ??01/07/24 10:02:00 EDT?? Instructions from your Care Team Discharge Care Instructions for the New Mom?? Please take a few moments to read through these helpful instructions before you leave the hospital.??Your nurse will be glad to answer any questions you may have. ??You can also find this and more information throughout the purple??Becoming a Family??booklet,??[facility]???s New Beginnings Guide??and the?? Consultation Services Guide??given to you after the of your baby. ??You may also phone our nurses stations if you have further questions. ??[facility]???[facility]: ??First Floor ([phone]), Second Floor ([phone]). ?? Please call your provider if you have any questions or concerns ??before your next appointment. For ongoing support??please?Like?us on our Facebook page?[facility]???s New Beginnings?and sign up for our email newsletter at??[email or web address]. ??News and information will be sent to you??until your baby???s third birthday. ?? Instructions for the New Mother Activity:?? For the next 2 weeks at home?no heavy lifting, avoid unnecessary stair climbing, and no driving (especially if you are taking medicine that may make you sleepy or feel that you are sleep deprived). ?? For the next 4-6 weeks - no tampons, no douches, no sexual intercourse. Use your emi bottle to rinse your perineum until your vaginal flow stops. ??If you have stitches in your bottom, they generally dissolve within 7-10 days. ??Apply Tucks/witch cindy pads until your soreness subsides. ??Use your bathroom at home every 3 to 4 hours, rinse, and change your pads. Warm showers feel great on achy muscles, sore backs and sore bottoms. ?? Exercise: Walking is the best form of exercise. ??Wait until your follow up appointment with your provider in4-6 weeks before engaging in more strenuous activity. ?? Diet: Drink plenty of fluids to avoid constipation and to help support your recovery. Eat plenty of iron rich foods such as red meat, iron fortified cereals like Total and Cream of Wheat, raisins, prunes, greens and spinach. ??These will help to build your blood count back up as all women lose some blood after delivery. ??Also add foods rich in Vitamin C such as strawberries, oranges, papayas, kale and santa peppers. Continue to take your vitamins if you are . ??If you are not follow the instructions of your provider. ??If you were prescribed iron supplements such as ferrous sulfate, it is important to continue these until your doctor or assistant designer tells you to stop. ?? Breast Care for Nursing Mothers: Wear a comfortable fitting, supportive nursing bra. ??An underwire bra is not recommended. Express drops of breast milk and rub over your nipples and areola (brown area) before and after each feeding to protect and heal sensitive skin and then air dry your nipples. ??If you are experiencing any soreness, you may purchase nipple cream such as TenderCare or Lansinoh. ??Use it in the following manner: ??finish your feeding or pumping session, self-express colostrum onto your nipple and air dry, apply the nipple cream to the nipple and areola. ??Use only small amounts for best results. If you are having difficulty getting the baby to latch onto the breast due to swelling of the areola, try applying pressure with your fingers for a couple of minutes above and below your nipple and walk your fingers outward softening the area and pushing the swelling away. ??This technique is knownas reverse pressure softening. ??For demonstrations of this and other techniques such as the [place] Hand Expression technique, please refer to the resources section of the Consultation Services Guide that you received from services.?? When your milk first comes in, usually within 3 to 5 days after delivery, you may experience engorgement. ??Your breasts may become swollen and very tender. ??Cold compresses work great to help with discomfort and reduce swelling. It will get better in a couple of days. ??Continue to nurse your baby frequently. ?? Call [facility]???s Consultation Service at [phone], press 1 to schedule an outpatient appointment or press 3??and a field sales consultant will return your call that day or the next if you call after 3pm. ?? Breast Care for Bottle Feeding Mothers: Engorgement may occur within the first week after delivery. ??Your breasts may become hard and verytender. ??A cool compress of cleaned raw green cabbage leaves applied to the breast and changed as leaves wilt has been proven helpful for many women. ??Ice packs or frozen bags of peas also work nicely to ease the discomfort. ??The soreness will only last a couple of days. Keep your back turned to the water while showering to decrease breast stimulation. Wear a snug fitting bra such as a sports bra. ?? Pain Management: Cramping after is common and increases in strength with each baby you have. ??If you experience painful cramps, and have no allergies to acetaminophen (Tylenol) or ibuprofen (Motrin), you may continue to take these medications as you did in the hospital. ??Ibuprofen is also helpful with back aches following epidurals, perineal pain following a vaginal delivery, and moderate incisional pain after a section or a tubal ligation. ?? If you experience gas distention, especially after surgery, you may take an over the counter medication called simethicone. ??Take these chewable tablets 4 times a day as needed and directed on the package. ??Keep moving. ??Walking or rocking in a chair, will help to move the gas along. ??Enrique tea made with heated enrique amada (instead of water) and a tea bag, stirred to dissolve carbonation (bubbles) is a helpful drink to soothe a gassy stomach. ?? Warning Signs of a Problem to Notify Your Doctor or Job Service Specialist of: Heavy vaginal bleeding?which is??soaking a pad every hour??with bright red blood. Passing blood clots the size of an egg or larger. An incision that is not healing. A temperature greater than or equal to 100.4 especially if accompanied by any of the following symptoms?painful, frequent urination; extreme back or flank pain; lower belly pain with a foul smell to your vaginal flow; a red hard hot area on your breast. ?? Severe headache that does not go away after taking acetaminophen or ibuprofen. ?? A headache that changes your vision, including seeing spots or blurring. Right sided upper abdominal pain along the rib cage area. Pain in your legs that is warm and tender to the touch. depression signs may include?loss of interest in your baby, weepiness, difficulty focusing, weight loss with no appetite, exhaustion, feeling overwhelmed or anxious, feelings??of despair, or thoughts of harming yourself or your baby. ??These symptoms are important and should be discussed with your doctor or assistant designer. depression may develop over a period of time and needs prompt medical attention. ??Do not suffer in silence. ??In both the??Becoming a Family??booklet and the??[facility]??New Beginnings Guide??there is a screening tool used to identify women at risk, called the [place] Scale which you have taken in the office prior to delivery and again during your [facility]. ??Three to four weeks after your delivery, and before your check with your provider, take this test and share your results with your provider. ??Be sure to mention any score of 10 or more. ?? Many women, and even some partners, may experience the?baby blues?? . ??This is a state of feeling overwhelmed and weepy. ??Discomfort from childbirth, hormonal changes, exhaustion, changes to your body and lifestyle are a few of the things that contribute to the highs and lows new parents go through. ??Don???t be afraid to ask your partner or family and friends for some help at home so you can get some rest and a few minutes to yourself. ??The blues will quickly pass. Personal Safety: Every person has the right to feel safe at home and live free from physical or emotional harm. ??Ifyou have suffered mental or physical abuse at home, you are not alone. ??There is help. ??Please call HOTLINE or the [facility] Program at [phone]. Scheduled Follow-Up Appointments Wednesday 3:00 PM EDT ?? With: Lakshmi Burgess MD Where: [facility] CHEMI[facility] SPECIAL[facility] [address] [place] [address]- Status: Pending Wednesday 2:00 PM EDT ?? With: Lakshmi Burgess MD Where: [facility] CHEMISTR[facility] SPECIAL[facility] [address] [place] [address]- Status: Pending Discharge Medications ADAMA PHAM :2005 Visit Date:01/04/2024 Medications: Please continue your medications until treatment is completed or stopped by your provider. Medications not listed below should be discontinued. Discuss any questions related to medications with your provider. What How Much When Why Instructions Next Dose New Lidocaine/ Prilocaine Topical (lidocaine-prilocaine 2.5%-2.5% topical cream) 1 applicator Topically Once Pickup at [facility]/pharmacy #[id number] Unchanged Docusate (Colace sodium 100 mg oral capsule) 1 capsule Oral Twice a day as needed for for constipation Unchanged Ferrous Sulfate (ferrous sulfate 325 mg oral tablet) 1 tab(s) Oral Daily Unchanged Multivitamin, (PNV Select oral tablet) 1 tab(s) Oral Daily Unchanged Ursodiol (ursodiol 300 mg oral capsule) 1 capsule Oral 3 times a day Stop Taking [id number] [address], [place] [phone] Prescription Given During Visit Lidocaine/Prilocaine Topical (lidocaine-prilocaine 2.5%-2.5% topical cream) - , Topically, Once, # 30 Gm, 0 Refills, [facility]/pharmacy #[id number], [address] [place] [address] [phone]?? Laboratory Results Below is a partial list of the most recent Laboratory test results done prior to this discharge. You may have had other tests and procedures not included in this list. Please discuss all test resultswith your provider. Est Creatinine Clearance - 151.47 mL/min (01/04/2024) ALT (01/04/2024) ???ALT (SGPT) - 15 units/L AST (01/04/2024) ???AST (SGOT) - 22 units/L BUN (01/04/2024) ???BUN - 5 mg/dL CBC (01/05/2024) ???WBC - 9.5 k/mm3???RBC - 3.39 m/mm3???Hgb - 9.9 Gm/dL???Hct - 28.9 %???MCV - 85.3 femtoliters???MCH - 29.2 pg???MCHC - 34.3 g/dL???Platelet Count - 164 k/mm3???RDW-SD - 39.9 femtoliters???MPV - 9.9femtoliters???Nucleated RBC (Automated) - 0.0 #/100 WBC'S???Abs. NRBC - 0.0 k/mm3 Creatinine (01/04/2024) ???Creatinine-Blood - 0.6 mg/dL???Estimated GFR Creatinine - 132 ML/MIN/1.73 M2 Protein/Creatinine Ratio Urine (01/04/2024) ???Protein, Total Urine Random - 9 mg/dL???TP/Cr Ratio - 0.18???Creatinine, Urine - 47.4 mg/dL Type and Screen (01/04/2024) ???Blood Type - A Positive???Antibody Screen - Negative Allergies (NKA means No Known Allergies) Bee Stings ZyPREXA Problems Active Problems??(15) Acute depression?? Bipolar disorder current episode depressed?? Borderline personality disorder?? Cholestasis of ?? Convulsions?? Elevated blood pressure affecting in third trimester, antepartum?? Elevated liver function tests?? History of suicide attempt? Pseudoseizures?? PTSD (post-traumatic stress disorder)?? Seizure disorder?? Size of fetus inconsistent with dates, antepartum?? Yeast vaginitis?? Education Materials Below is the list of Educational Leaflet Providered with your Discharge Instructions. WebMD Ignite Patient Education - OB PP [facility]- Discharge Instructions?? Valuables and Belongings I fully understand and agree that [facility] accepts no responsibility for all my [...] encouraged to send valuables and belongings home. ?? Review of Valuable and Belonging List: With patient Disposition of Belongings: Other: at bedside with pt Date for Pt to Sign Valuables/Belongings: 01/05/24 01:18:00 ?? Other Discharge Information ? Pulmonary Rehab Status?? Pulmonary Rehab Discharge Status?? Respiratory Rate: 18 br/min Respiratory Rate: 18 br/min ? Common Emergency [...] are strongly encouraged to quit. Please call [facility] Retrieve Link at [phone] or [phone] or log in to [email or web address] for referrals to smoking cessation programs. ?? 375 Suicide & Crisis Lifeline is available 29/03 if you or someone you know needs to find a reason to keep living. By calling 212 you'll be connected to a skilled, trained counselor at a crisis center in your area. INPATIENT DISCHARGE INSTRUCTIONS SIGNATURE PAGE ADAMA PHAM Location:[facility] Registration Date and Time:01/04/2024 07:28 EDT Primary Care Physician: George HARRIS, Bere Benavidez, Attending Physician: Liliana HARRIS, Adonis, I ADAMA PHAM, have received the above patient education materials/instructions and have verbalized understanding. If ambulance or transport services are being used I further acknowledge beinggiven a choice of service. ?? If you need to contact me, please call me at this number: . Patient/On Site Construction Superintendent Name: Patient/On Site Construction Superintendent Signature: Relationship to Patient: Witness Name/Signature: Date: * Yasmeen Mejia: PERFORM Event Display: Care Team Progress Note Authored Date: [id number] Patient: ??ADAMA PHAM ? Age:??18 Years?Sex:??Female?:??2005?? Subjective mother of 37w6d currently bf. Gave mom a Medela pump from insurance and 21mm flanges, although advised she likely needs smaller (17/18). Baby cluster fed overnight, also had two bottles of formula then a large spit up, adequate output. Assessment/Plan Baby initially fussy with??latching, coming on/off the nipple. Mom able to hand express colostrum and upon a change in position baby was able to latch. Baby showed an active suck pattern with audibleswallows and took both sides. Reviewed latching with mom and bf q 2-3hrs, reminded to care for herself by resting after baby has fed, drinking and eating and taking her vitamins. Mom has outpatient support already established, also reviewed our supports and enc to call as needed. Assisted mother with infant latch to??both??breasts.?Baby had??nutritivesuck.? Swallowing??present. ?? fed for a total of??30 minutes. Basic education discussed with??motherincluding:? Positioning infant for optimal feeding Asymmetric latch technique Frequent breast stimulation for initiation and maintenance of milk supply Coming to full milk volume in first 14 days Engorgement prevention and management Hand expression When to use a breast pump Consultation reference guide given to mother with contact information for services and ongoing support as needed.? OB Summary : 1 Parity: 0 . Baby A - Weight: 3.243 kg Baby A - Date, Time of : 01/04/24 20:57:00 Baby A - Gender: Female Baby A - Complications: None EGA at Documented Date, Time: 37W 6D Weight at Delivery Baby A - Delivery Type: Vaginal Delivery Complications: None OB History History?(0,0,0,0)?No previous pregnancies history have been recorded Active Problem List Active Problem List Acute depression: (Medical) Bipolar disorder current episode depressed: (Medical) Borderline personality disorder: (Medical) Cholestasis of : (Medical) Convulsions: (Medical) Elevated blood pressure affecting in third trimester, antepartum: (Medical) Elevated liver function tests: (Medical) History of suicide attempt: (Medical) : (Obstetric) (05/01/23) : (Medical) Pseudoseizures: (Medical) PTSD (post-traumatic stress disorder): (Medical) Seizure disorder: (Medical) Size of fetus inconsistent with dates, antepartum: (Medical) Yeast vaginitis: (Medical) Home Medications Clotrimazole Topical: 1 application, Vaginally, Daily at bedtime DiphenhydrAMINE: 25 mg = 1 capsule, By Mouth, Every 6 hours DiphenhydrAMINE: 25 mg = 1 capsule, By Mouth, Daily at bedtime, PRN (Headache) Docusate: By Mouth, 2 times a day Docusate Docusate: 100 mg = 1 capsule, By Mouth, 2 times a day, PRN (for constipation) Ferrous Sulfate: 325 mg = 1 tablet, By Mouth, Daily Haloperidol: See Instructions, 2 mg By Mouth 2 times a day Lamotrigine: By Mouth Metoclopramide: 10 mg = 1 tablet, By Mouth, Daily, PRN (Headache) Multivitamin, : By Mouth, Daily Multivitamin, : 1 tablet, By Mouth, Daily Ondansetron: 4 mg = 1 tablet, By Mouth, Every 8 hours, PRN (Nausea & Vomiting), allow tablet todissolve on tongue Take 30 mins before taking medication with food Polyethylene Glycol 3350: 17 Gm, By Mouth, Daily, dissolve in 4 to 8 oz of beverage Pyridoxine: Daily Pyridoxine: 25 mg = 1 tablet, By Mouth, 3 times a day, PRN (Nausea & Vomiting) Ursodiol: 300 mg = 1 capsule, By Mouth, 3 times a day Medications Medications (4) Active SCHEDULED: (0) CONTINUOUS: (0) PRN: (4) Acetaminophen 325 mg Tablet (Acetaminophen Tablet) ??650 mg, By Mouth, Every 4 hours Docusate Sodium 100 mg Capsule (Docusate Sodium Capsule) ??100 mg 1 capsule, By Mouth, 2 times a day Ibuprofen 800 mg Tablet (Ibuprofen Tablet) ??800 mg, By Mouth, Every 8 hours Ondansetron 4 mg ODT (ondansetron 4 mg oral tablet, disintegrating) ??4 mg, By Mouth, Every 8 hours * Michael RN, Adelia: PERFORM Event Display: Patient Education Leaflets Authored Date: [id number] OB PP [facility]- Discharge Instructions ?? 209 Discharge Care Instructions for the New Mom and Baby Please take a few moments to read through these helpful instructions before you leave the hospital.?? Your nurse will be glad to answer any questions you may have.?? You can also find this and more information throughout the purple Becoming a Family booklet, [facility] New Beginnings Guide and the Consultation Services Guide given to you after the of your baby.?? You may also phone our nurses stations if you have further questions.?? [facility]:?? First Floor ([phone]), Second Floor ([phone]).?? Please call your provider if you have any questions or concerns?? before your next appointment. For ongoing support please ???Like?? us on our Facebook page ???[facility]???[facility] New Beginnings?? andsign up for our email newsletter at [email or web address].?? News and information will besent to you until your baby???s third birthday. Instructions for the New Mother Activity: For the next 2 weeks at home ??? no heavy lifting, avoid unnecessary stair climbing, and no driving(especially if you are taking medicine that may make you sleepy or feel that you are sleep deprived).?? For the next 4-6 weeks - no tampons, no douches, no sexual intercourse. Use your emi bottle to rinse your perineum until your vaginal flow stops.?? If you have stitches in your bottom, they generally dissolve within 7-10 days.?? Apply Tucks/witch cindy pads until your soreness subsides.?? Use your bathroom at home every 3 to 4 hours, rinse, and change your pads. Warm showers feel great on achy muscles, sore backs and sore bottoms. Exercise: Walking is the best form of exercise.?? Wait until your follow up appointment with your provider in4-6 weeks before engaging in more strenuous activity. Diet: Drink plenty of fluids to avoid constipation and to help support your recovery. Eat plenty of iron rich foods such as red meat, iron fortified cereals like Total and Cream of Wheat, raisins, prunes, greens and spinach.?? These will help to build your blood count back up as all women lose some blood after delivery.?? Also add foods rich in Vitamin C such as strawberries, oranges, papayas, kale and santa peppers. Continue to take your vitamins if you are .?? If you are not follow the instructions of your provider.?? If you were prescribed iron supplements such as ferrous sulfate, it is important to continue these until your doctor or assistant designer tells you to stop. Breast Care for Nursing Mothers: Wear a comfortable fitting, supportive nursing bra.?? An underwire bra is not recommended. Express drops of breast milk and rub over your nipples and areola (brown area) before and after each feeding to protect and heal sensitive skin and then air dry your nipples.?? If you are experiencing any soreness, you may purchase nipple cream such as TenderCare or Lansinoh.?? Use it in the following manner:?? finish your feeding or pumping session, self-express colostrum onto your nipple and air dry, apply the nipple cream to the nipple and areola.?? Use only small amounts for best results. If you are having difficulty getting the baby to latch onto the breast due to swelling of the areola, try applying pressure with your fingers for a couple of minutes above and below your nipple and walk your fingers outward softening the area and pushing the swelling away.?? This technique is knownas reverse pressure softening.?? For demonstrations of this and other techniques such as the [place] Hand Expression technique, please refer to the resources section of the Consultation Services Guide that you received from services. When your milk first comes in, usually within 3 to 5 days after delivery, you may experience engorgement.?? Your breasts may become swollen and very tender.?? Cold compresses work great to help with discomfort and reduce swelling. It will get better in a couple of days.?? Continue to nurse your baby frequently.?? Call [facility]???s Consultation Service at [phone], press 1 to schedule an outpatient appointment or press 3 and a field sales consultant will return your call that day or the next if you call after 3pm. Breast Care for Bottle Feeding Mothers: Engorgement may occur within the first week after delivery.?? Your breasts may become hard and verytender.?? A cool compress of cleaned raw green cabbage leaves applied to the breast and changed as leaves wilt has been proven helpful for many women.?? Ice packs or frozen bags of peas also work nicely to ease the discomfort.?? The soreness will only last a couple of days. Keep your back turned to the water while showering to decrease breast stimulation. Wear a snug fitting bra such as a sports bra. Incision Care Following Tubal or Section: You may shower as directed by your doctor or assistant designer.?? Pat your incision dry with a clean towel.??You will not need a bandage after the first day. Call your doctor or assistant designer with any signs of infection such as a hard, hot swollen tender incision, especially if the skin around the incision looks pink or red.?? Yellow drainage with an odor may also be a sign of infection to report. Call your doctor or assistant designer if the incision begins to separate. If you have steri-strips on the incision, they will likely fall off in the first week.?? If they have not fallen off by 10 days after delivery, you may remove them. Control: Your doctor or assistant designer will discuss control methods with you when you are discharged from thespital or at your checkup.?? Be sure to let your provider know if you are . You had a Paragard IUD placed on .?? This control method is effective for 10 years. You had a Liletta placed on .?? This control method is effective for up to 5 years. You had a Nexplanon placed on .?? This control method is effective for up to 3 years. You received a Depo Provera injection on .?? This control method is effective as longas you repeat it every 3 months.?? Schedule your next dose before . You have a prescription for control pills .?? It is important to take a pill everyday at around the same time of day for effective control protection.?? Pain Management: Cramping after is common and increases in strength with each baby you have.?? If you experience painful cramps, and have no allergies to acetaminophen (Tylenol) or ibuprofen (Motrin), you may continue to take these medications as you did in the hospital.?? Ibuprofen is also helpful with back aches following epidurals, perineal pain following a vaginal delivery, and moderate incisional pain after a section or a tubal ligation.?? If you experience gas distention, especially after surgery, you may take an over the counter medication called simethicone.?? Take these chewable tablets 4 times a day as needed and directed on the package.?? Keep moving.?? Walking or rocking in a chair, will help to move the gas along.?? Enrique tea made with heated enrique amada (instead of water) and a tea bag, stirred to dissolve carbonation (bubbles) is a helpful drink to soothe a gassy stomach. Warning Signs of a Problem to Notify Your Doctor or Job Service Specialist of: Heavy vaginal bleeding ??? which is soaking a pad every hour with bright red blood. Passing blood clots the size of an egg or larger. An incision that is not healing. A temperature greater than or equal to 100.4 especially if accompanied by any of the following symptoms ??? painful, frequent urination; extreme back or flank pain; lower belly pain with a foul smellto your vaginal flow; a red hard hot area on your breast.?? Severe headache that does not go away after taking acetaminophen or ibuprofen.?? A headache that changes your vision, including seeing spots or blurring. Right sided upper abdominal pain along the rib cage area. Pain in your legs that is warm and tender to the touch. depression signs may include ??? loss of interest in your baby, weepiness, difficulty focusing, weight loss with no appetite, exhaustion, feeling overwhelmed or anxious, feelings of despair, or thoughts of harming yourself or your baby.?? These symptoms are important and should be discussed with your doctor or assistant designer. depression may develop over a period of time and needs prompt medical attention.?? Do not suffer in silence.?? In both the Becoming a Family booklet and the[facility] Guide there is a screening tool used to identify women at risk, called the [place] Scale which you have taken in the office prior to delivery and again during your hospital s wanda.?? Three to four weeks after your delivery, and before your check with your provider, take this test and share your results with your provider.?? Be sure to mention any score of 10 or more.?? Many women, and even some partners, may experience the ???baby blues?? .?? This is a state of feeling overwhelmed and weepy.?? Discomfort from childbirth, hormonal changes, exhaustion, changes to your body and lifestyle are a few of the things that contribute to the highs and lows new parents go through.?? Don???t be afraid to ask your partner or family and friends for some help at home so you can get some rest and a few minutes to yourself.?? The blues will quickly pass. Personal Safety: Every person has the right to feel safe at home and live free from physical or emotional harm.?? Ifyou have suffered mental or physical abuse at home, you are not alone.?? There is help.?? Please call [facility]OT[facility] or the [employer] Program at [phone]. CARE Bathing: Give your baby a sponge bath until the cord falls off in about 1-3 weeks.?? It is not necessary to bathe your baby every day, usually every few days is sufficient. ??Keep the cord area dry.?? Some baby girls will have a small bloody vaginal discharge. No need to worry as this is normal. It is not necessary to use lotions on the baby???s skin.?? Powders and oils are not recommended.?? Babies often get rash on their skin which comes and goes quickly and does not require any special care.?? Diaper rash can be treated with a zinc oxide preparation such as Desitin or Balmex diaper cream. Circumcision Care: Your nurse will teach you how to care for your baby???s circumcision depending on the type of circumcision your doctor or assistant designer performed.?? Most circumcisions require A&D ointment for about 4-5 days.?? Be generous with the amount of A&D used as this will prevent the diaper from sticking when you go to change it. If a plastibell circumcision was done, the plastic ring around the penis will fall off in a week orso. Diapers: After the 1st??few days, the baby will start wetting more often.?? A breast fed baby will wet about6-8 times a day once mom???s milk comes in ??? usually day 4 or 5.?? This is a good sign that the baby is getting plenty to eat.?? You may notice an orangey-pink stain in the diaper which is normal for the first few days. The baby???s first bowel movements are sticky, black and tarry.?? As the baby starts to feed more often over the next couple of days, the stool will change to a seedy yellowish green color and eventually a loose mustard like stool for a breast fed baby and a more formed yellow stool for a bottle fed baby. your Baby: ??Congratulations on deciding to breastfeed your baby! You are providing your baby with the most nourishing food source on the planet, your breast milk.?? Cues such as rooting, suckling, licking and fussing may be telling you that your baby is ready to eat ??? and it is time to offer your breasts. The first weeks following the are a time for you and your baby to learn.?? The baby may be sleepy the first day after with 8 to 12 attempts ??? including 2 to 4 good feedings.?? Over the next couple of days the baby will become more wakeful, feed 8 to 12 times a day and have more wet and poopy diapers.?? Cluster feeding, especially during the evening/night time, is normal. ?? Listen for swallowing sounds and watch the baby as they become more relaxed at the breast ??? both good signs that the baby is getting a good amount of milk.?? Refrain from smoking or eating edible marijuana while you are . Even though marijuana is legal in the state of [place],??it is harmful for your baby.??It stays in breast milk for along period of time and THC can be found in the baby's urine for up to 3 weeks. Second hand smoke can also increase the risk??of Sudden Infant Syndrome / SIDS. ?? Nursing is wonderful but many moms and babies have some degree of difficulty with at first. Don???t give up!?? There are many resources available to help you overcome these temporary problems. Your director surgical wants to hear from you if you are having difficulties and can offermany helpful suggestions.?? Some offices have consultants on staff. [facility]???s Consultation Service is available 7 days a week, 8am to 3pm at [phone].?? Press 1 to schedule an outpatient appointment.?? Press 3 to leave a message for the business system consultant, a field sales consultant will return your call that day or the next if you call after 3pm. Support Groups ??? [facility] offers free gatherings for moms and babies weekly.?? All groups meet at the [facility]???[facility] 2nd??floor, typically in the [facility] Conference Room, Wednesday???s 1 to 2 pm.?? [employer] is a worldwide organization with local community support, mother to mother support.?? Information can be found at https://www.lllusa.org Formula Feeding your Baby: Formula fed babies should eat every 3 to 4 hours.?? Look for cues that your baby is ready ??? such as rooting and sucking, licking and fussing.?? At the baby???s stomach is small and may take 10-15ml of formula.?? Over the next few days the baby will become more wakeful and feed more frequently, gradually increasing the amounts of formula taken at a feeding.?? Your director surgical will provideinstructions on how to increase the amount.?? Refer to packaging for formula preparation directions, depending on the type of formula you purchase ??? powder, concentrate or ready to feed. Safety: ALWAYS REMEMBER - BACK TO SLEEP! Babies sleep safest on their backs.?? Every sleep.?? Every time.?? Every nap. Babies need a firm sleep surface with a tight fitting bottom sheet.?? NO loose bedding.?? NO pillows.?? NO bumper pads or rolls.?? NO heavy or fluffy blankets. NO stuffed toys. It is not safe for your baby to sleep in your bed, in a chair, or on a sofa.?? Your baby should notsleep with you or anyone else. Car Seat: Always place your baby in a rear facing car seat in the backseat of the car. Car seat inserts that come with the car seat can be used as they are crash tested with the seat.?? You should not buy additional inserts.?? Dress the baby in a weather appropriate outfit.?? Avoid bulky clothing such as snowsuits or jackets as the baby may squirm in the seat, loosening the shoulder straps and come out of the top of the harness if you need to brake hard or are in an accident.?? Once the baby issecured in the seat you can cover your little one with a blanket if needed.?? If your baby was bornprematurely, follow the directions given to you.?? If you have not already done so, check to make sure your car seat is installed correctly. Check with your local Fire and Police Department to see if they offer car seat inspections at a location close to you. Babies Can Move: ?? Never leave your baby unattended on any surface, raised or flat, or while bathing.?? They can squirm, fall or hurt themselves.?? Always fasten the safety belt when using an infantseat or swing ??? as they may lean forward and fall. Good Handwashing is the number one way you can protect the baby from too?? many germs and prevent infection.?? When family and friends visit ask that they wash their hands before holding your baby.??Also avoid crowds the first month of your baby???s life to protect from colds and flus. Shaking a baby out of frustration can cause severe and lasting damage, even to a baby.?? If you feel you are becoming angry or overwhelmed, place the baby in a safe place and walk away.?? Call a friend or family member.?? If they are not able to offer immediate help call the Parental Stress Hotline at?? , an anonymous 29/03 source of help. Warning Signs to notify your director surgical of: Most babies develop a small amount of jaundice (a yellowish skin color) in the face and upper chest, by about 3 days of age.?? If the yellow color extends below the baby???s belly or if the baby is very sleepy and not feeding well, call your director surgical. A rectal temperature of 100.4F as it could be a sign of infection. Projectile vomiting that continues with each feeding could indicate reflux or a problem with the formula. Extreme sleepiness or very fussy. Cold symptoms with nasal stuffiness, especially if the baby is having difficulty feeding. Constipation with hard stools. Blue or dusky color, call 911. If Your Baby Needs to Remain in the Hospital: Please leave your baby???s ID bracelets on if your baby needs to remain in the hospital after you are discharged home. The phone number to NICU is [phone]. The phone number to [facility] is [phone]. The phone number to [facility] is [phone]. moms should pump every 2-3 hours or 8-12 times in 24 hours.?? If unable to place the baby to breast, if you are having difficulty getting the baby to latch on, or if the baby remains inthe hospital after you are discharged ??? bring the pumped milk to the hospital, labeled with name,date and time.?? Carry it in a small cooler or diaper bag with an ice pack and bring it the next time you visit your baby.?? Consultation Services is available if you need to rent or purchase a pump or products.?? Call and leave a message at [phone] ??? press 3 and a field sales consultant will return your call that day or the next if you call after 3pm. ? * Yasmeen Mejia: PERFORM Event Display: Care Team Progress Note Authored Date: Patient: ??ADAMA PHAM ? Age:??18 Years?Sex:??Female?:??2005?? Subjective mother currently bf 37w6d . Mom states baby has not latched since just after , momhas been hand expressing colostrum into baby for each feeding. Feeding log shows adequate output, mom reports baby has been very spitty overnight and this am. Mom needs a breast pump. Assessment/Plan Baby??latched??to R breast, mom has small nipples and areolae, taught mom how to get a deep enough latch and enc baby to open wider. Baby sucked well with a few swallows, mom has??visible colostrum on hand expression. Reviewed expectations day 1 including expected output and offering breast q 2-3hrs. Also reviewed behavior of late pre-term infants and gave info sheet. Assisted mother with infant latch to??right??breast.?Baby had??nutritivesuck.? Swallowing??intermittent. ??Infant fed for a total of??15 minutes. Late Pre-Term & Early Term [place] Education:? Higher risk for feeding related issues ? Under developed fat cheek pads leading to less milk removal in early days ? Increased sleepiness?? Parent Resource Sheet given including??supplement recommendations via ABM protocol ? Day 1: Hand express and spoon feed 5-10 mL? Day 2-4: Hand express/pump 10-15 mL using spoon/bottle or cup with provider guidance ? Day 4 and on: Pump 10-30 mL using bottle or cup with provider guidance ?*These measurements are to supplement when a latch is not achieved and can be added to the end of??feed during slow weight gain Basic education discussed with??motherincluding:? Positioning infant for optimal feeding Asymmetric latch technique Frequent breast stimulation for initiation and maintenance of milk supply Coming to full milk volume in first 14 days Engorgement prevention and management Hand expression When to use a breast pump Consultation reference guide given to mother with contact information for services and ongoing support as needed.? OB Summary : 1 Parity: 0 . Baby A - Weight: 3.243 kg Baby A - Date, Time of : 01/04/24 20:57:00 Baby A - Gender: Female Baby A - Complications: None EGA at Documented Date, Time: 37W 6D Weight at Delivery Baby A - Delivery Type: Vaginal Delivery Complications: None OB History History?(0,0,0,0)?No previous pregnancies history have been recorded Active Problem List Active Problem List Acute depression: (Medical) Bipolar disorder current episode depressed: (Medical) Borderline personality disorder: (Medical) Cholestasis of : (Medical) Convulsions: (Medical) Elevated blood pressure affecting in third trimester, antepartum: (Medical) Elevated liver function tests: (Medical) History of suicide attempt: (Medical) : (Obstetric) (05/01/23) : (Medical) Pseudoseizures: (Medical) PTSD (post-traumatic stress disorder): (Medical) Seizure disorder: (Medical) Size of fetus inconsistent with dates, antepartum: (Medical) Yeast vaginitis: (Medical) Home Medications Clotrimazole Topical: 1 application, Vaginally, Daily at bedtime DiphenhydrAMINE: 25 mg = 1 capsule, By Mouth, Every 6 hours DiphenhydrAMINE: 25 mg = 1 capsule, By Mouth, Daily at bedtime, PRN (Headache) Docusate: By Mouth, 2 times a day Docusate Docusate: 100 mg = 1 capsule, By Mouth, 2 times a day, PRN (for constipation) Ferrous Sulfate: 325 mg = 1 tablet, By Mouth, Daily Haloperidol: See Instructions, 2 mg By Mouth 2 times a day Lamotrigine: By Mouth Metoclopramide: 10 mg = 1 tablet, By Mouth, Daily, PRN (Headache) Multivitamin, : By Mouth, Daily Multivitamin, : 1 tablet, By Mouth, Daily Ondansetron: 4 mg = 1 tablet, By Mouth, Every 8 hours, PRN (Nausea & Vomiting), allow tablet todissolve on tongue Take 30 mins before taking medication with food Polyethylene Glycol 3350: 17 Gm, By Mouth, Daily, dissolve in 4 to 8 oz of beverage Pyridoxine: Daily Pyridoxine: 25 mg = 1 tablet, By Mouth, 3 times a day, PRN (Nausea & Vomiting) Ursodiol: 300 mg = 1 capsule, By Mouth, 3 times a day Medications Medications (5) Active SCHEDULED: (1) Ursodiol 300 mg Capsule (ursodiol 300 mg oral capsule) ??300 mg, By Mouth, 3 times a day CONTINUOUS: (0) PRN: (4) Acetaminophen 325 mg Tablet (Acetaminophen Tablet) ??650 mg, By Mouth, Every 4 hours Docusate Sodium 100 mg Capsule (Docusate Sodium Capsule) ??100 mg 1 capsule, By Mouth, 2 times a day Ibuprofen 800 mg Tablet (Ibuprofen Tablet) ??800 mg, By Mouth, Every 8 hours Ondansetron 4 mg ODT (ondansetron 4 mg oral tablet, disintegrating) ??4 mg, By Mouth, Every 8 hours Patient Care team information Care Team Personnel [...] Care Nurse Name: Bere Vazquez MD Position: [facility] Physician - Pediatrics Member Role: PCP Address: Address: [address] [place] [address] Pediatric & Adolescent Medicine [place], [place] [address] Name: Jessica Leal RN Position: S RN Member Role: Primary Care Nurse Name: Bisi Rock RN Position: S RN Member Role: Primary Care Nurse Name: Merlyn Looney RN Position: S RN Member Role: Primary Care Nurse Name: Nolvia Guthrie RN Position: [facility] OB RN Member Role: OB RN Care Team Related Persons Name: RUHTY GUZMAN Address: home [address] [place] [address] Name: PAULA PHAM Address: home [address] [place] [address] Name: ADAMA PHAM GIRL Address: [address] Address: home [address] [place] [address] Name: CARLOS PHAM Address: home [address] [place] [address] Name: JAIRO HAN Address: home
--- OUTSIDE RECORDS SUMMARY | 2024-02-11 22:03 | XMS_ITS | Continuity of Care Document ---
Author Organization [facility] ter Address [address] [place] [address]- Care Team Providers Care Deboner Name Role Phone Bere Vazquez MD Primary Care Physician Encounter [facility] Date(s): 08/24/23 - 08/24/[address] [address]- Encounter Diagnosis (Final) - 08/24/23 Suicidal ideation(Final) - 08/24/23 Discharge Disposition: A-D/C Home Attending Physician: Toan Braga MD Admitting Physician: Toan Braga MD Referring Physician: Not on Staff, Referring [...] 08/31/23 10:05:00 EST, 08/24/23 10:05:00 EST, Capsule, [facility], Partial fill upon patient request [...] Refills, Maintenance, 08/12/23 8:29:00 EST, Tablet, [id number] ([facility]27),... Start Date: 08/12/23 Status: Ordered PNV By Mouth, Daily, 0 Refills, Maintenance, 07/14/23 10:18:00 EST, Partial fill upon patient request if the prescription is for a schedule II opioid drug. Start Date: 07/14/23 Status: Ordered PNV Select oral tablet 1 tablet, By Mouth, Daily, # 90 tablet, 0 Refills, Maintenance, 08/12/23 8:33:00 EST, [id number] ([facility] 827), Partial fill upon patient request if the prescription is for a schedule II opioid drug., 1 tablet By Mouth Daily, 175, cm, 07/19/23... Start Date: 08/12/23 Status: Ordered pyridoxine 25 mg oral tablet 1 tablet = 25 mg, By Mouth, 3 times a day, PRN Nausea & Vomiting, # 100 tablet, 8 Refills, Maintenance, 07/19/23 13:37:00 EST, Tablet, [id number] ([facility] 827), Partial fill upon patient request if the prescription is for a schedule II opioid... Start Date: 07/19/23 Status: Ordered risperiDONE 1 mg oral tablet 1 mg, 1, tablet, By Mouth, 2 times a day, # 60 tablet, Refills 0, Tot. Refills 0, Maintenance, 05/28/22 8:23:00 EDT, Route to Pharmacy Electronically, [facility]/pharmacy #[id number], Partial fill upon patient request if the prescription is for a schedule II opioi... Start Date: 05/28/22 Status: Ordered topiramate 25 mg oral tablet 1 tablet = 25 mg, By Mouth, 2 times a day, # 60 tablet, 0 Refills, Maintenance, 05/28/22 8:23:00 EDT, Tablet, [facility]/pharmacy #[id number], Partial fill upon patient request if the prescription is for a schedule II opioid drug., 173, cm, 05/27/22 18:52:00 EDT,... Start Date: 05/28/22 Status: Ordered traZODone 50 mg oral tablet 50 mg, 1, tablet, By Mouth, Daily at bedtime, # 30 tablet, Refills 0, Tot. Refills 0, Maintenance, 05/28/22 8:23:00 EDT, Route to Pharmacy Electronically, [facility]/pharmacy #[id number], Partial fill upon patient request if the prescription is for a schedule II o... Start Date: 05/28/22 Status: Ordered Tylenol Extra Strength 500 mg oral tablet 2 tablet = 1,000 mg, By Mouth, Every 6 hours, PRN as needed for fever, # 100 tablet, 0 Refills, Maintenance, 07/27/23 11:28:00 EST, Tablet, [id number] ([facility] 827), Partial fill upon patientrequest if the prescription is for a schedule II op... Start Date: 07/27/23 Status: Ordered Unisom 25 mg oral tablet 1 tablet = 25 mg, By Mouth, Daily at bedtime, may take additional 1/2 tablet in morning & 1/2 tablet in afternoon if nausea persists, # 60 tablet, 1 Refills, Maintenance, 07/27/23 13:40:00 EST, [facility] [id number] ([facility]27), Partial fill upon patie... Start [...] 2 Oxygen Saturation [94-100 %] 99 % (08/24/23 8:19 AM) 100 % (08/24/23 5:48 AM) Pulse Rate [55-90 bpm] 73 bpm (08/24/23 8:19 AM) 77 bpm (08/24/23 5:48 AM) Blood Pressure [90-138/55-84 mm Hg] 99/4 7mm Hg (08/24/23 8:19 AM) 104/56mm Hg (08/24/23 5:48 AM) Respiratory Rate [16-30 br/min] 18 br/mi n (08/24/23 8:19 AM) 18 br/min (08/24/23 5:48 AM) Temperature [96.8-100.4 DegF] 98.5 DegF (08/24/23 8:19 AM) 97.9 DegF (08/24/23 5:48 AM) Mode of Delivery (Oxygen) Room air (08/24/23 8:19 AM) Room air (08/24/23 5:48 AM) Blood pressure sites Arm, right (08/24/23 8:19 AM) Arm, right (08/24/23 5:48 AM) Temperature Route Oral (08/24/23 8:19 AM) Oral (08/24/23 5:48 AM) Social History Social History Type Response Tobacco Use: 4 or less cigar ettes(less than 1/4 pack)/day in last 30 days. Other: quite with , was smoking 4/day. Sex Note * Toan Braga MD: PERFORM Event Display: Patient Education Leaflets Authored Date: [id number] Urinary Tract Infections in Women ?? [id number] Urinary Tract Infections in Women Urinary tract infections (UTIs) are most often caused by bacteria. These bacteria enter the urinarytract. The bacteria may come from inside the body. Or they may travel from the skin outside the rectum or vagina into the urethra. Female anatomy makes it easy for bacteria from the bowel to enter a woman???s urinary tract. This is the most common source of UTI. This means women develop UTIs more often than men. Pain in or around the urinary tract is a common UTI symptom. Most UTIs are treated with antibiotics. These kill the bacteria. The length of time you need to take them depends on the type of infection. It may be as short as 3 days. If you have repeated UTIs, you may need a low-dose antibiotic for several months. Take antibiotics exactly as directed. Don???t stop taking them until all of the medicine is gone. If you stop taking the antibiotic too soon, the infection may not go away. You may also develop a resistance to the antibiotic. This can make it muchharder to treat in the future. Gender words are used here to talk about anatomy and health risk. Please use this information in a way that works best for you and your provider as you talk about your care. Home care The lifestyle changes below will help get rid of your UTI. They may also help prevent future UTIs: ??? Drink plenty of fluids. This includes water, juice, or other caffeine-free drinks. Fluids help flush bacteria out of your body. ??? Empty your bladder. Always empty your bladder when you feel the urge to pee. And always pee before going to sleep. Urine that stays in your bladder can lead to infection. Try to pee before and after sex as well. ??? Practice good personal hygiene. Wipe yourself from front to back after using the toilet. This helps keep bacteria from getting into the urethra. ???Use condoms during sex. These help prevent UTIs caused by sexually transmitted bacteria. Also don'tuse spermicides during sex. These can increase the risk for UTIs. Choose other forms of control instead. For women who tend to get UTIs after sex, a low dose of a preventive antibiotic may be used. Be sure to discuss this choice with your healthcare provider. ??? Try holistic supplements, such as cranberry tablets and D-mannose. These may help prevent UTIs. ??? Try topical vaginal estrogen.You can use this to help prevent UTIs if you have gone through menopause. ?? Follow-up care Follow up with your healthcare provider as directed. They may test to make sure the infection has cleared. If needed, more treatment may be started. ?? When to get medical advice Call your healthcare provider right away if any of the following occur: ??? Frequent urination ??? Pain or burning when passing urine ??? Fever of 100.4??F (38??C) or higher, or as directed by your healthcare provider ??? Urine looks dark, cloudy, or reddish in color. This may mean that blood is inthe urine. ??? Urine smells bad ??? Feeling pain even when not urinating ??? Tiredness ??? Pain in the belly (abdomen) area below the bellybutton, or in the back or side, below the ribs ??? Nausea orvomiting ??? Have a strong urge to urinate, but only a small amount of urine is passed ??? Uncomfortable pressure above the pubic bone ??? Feeling confused or very tired (in older adults) ?? Last Reviewed Date: 2022 ?? [id number] [employer]. All rights reserved. This information is not intended as a substitute for professional medical care. Always follow your healthcare professional's instructions. ?? * Toan Braga MD: PERFORM Event Display: Patient Education Leaflets Authored Date: [id number] Established ,??Normal Symptoms ?? [id number] Established ,??Normal Symptoms You are and are having symptoms that worry you. During , it???s normal to have many kinds of symptoms. Here is a list of common symptoms that happen during . Circulation changes ??? Bleeding gums ??? Headaches ??? Nosebleeds ??? Mild blurriness of vision, especially with contact lenses ??? Stuffy nose ??? Dizziness and fainting ??? Extra saliva ??? Skin color changes on your face ??? Stuffy nose ??? Swollen hands, legs, and feet ??? Swollen leg veins ?? Breast and skin changes ??? Darkening of nipples ??? Yellow or white discharge from the nipples ???Sore breasts and nipples ??? Swollen breasts ??? Dry, itchy skin ??? Skin color changes on your face ?? Muscle and joint changes ??? Back, hip, or thigh pain ??? Leg cramps that come and go ??? Numbness and tingling in your hands and fingers ?? Urinary and bowel changes ??? Constipation ??? Feeling of pressure on your bladder and stomach ??? Need to pee often ??? Gas and bloating ??? Heartburn ??? Anal itching, swelling, and bleeding (hemorrhoids) ??? Leaking pee ??? Mild pressure or cramping in your belly ??? Nausea and vomiting throughout the day or night (morning sickness) ??? Swollen belly ??? Clear to white vaginal discharge ?? Mood and thinking changes ??? Forgetfulness ??? Less interest in sex ??? Mood swings ??? Tiredness ??? Trouble sleeping ?? Home care Here is information that may help ease some common symptoms. Sore and swollen breasts ??? Wear a support bra that fits correctly. Nausea and indigestion ??? Eat smaller meals or snacks more often. ??? Eat bland foods, such as bananas, crackers, or rice. ??? Stay away from spicy, fatty, or fried foods. ??? Stay away from alcohol, caffeine, and tobacco. ??? Don???t lie down right after eating. ??? Raise your head with pillows when you lie down. ??? Take foods or drinks that have enrique. If you drink enrique amada, make sure it has real enrique and not just enrique flavoring. Leg swelling and varicose veins ??? Wear elastic support hose. Put your feet up as often as possible. Constipation ??? Eat more fresh fruits and vegetables and more whole grains. Drink more clear liquids. Joint and muscle pain ??? Don't do any heavy lifting. ??? Pick things up by bending at your knees, not at your waist. ???Use acetaminophen for joint and muscle pain. Don't use aspirin, ibuprofen, or naproxen. Mouth and nose dryness or bleeding ??? Drink more liquids. Use a vaporizer or humidifier in your bedroom. Don???t take medicines or use remedies that your healthcare provider hasn???t approved. If you havesymptoms that are severe or sudden, call your provider. ?? Call 911 Call 911 if any of these occur: ??? New chest, arm, shoulder, neck, or upper back pain ??? Trouble breathing ??? Severe belly pain or very heavy bleeding ??? Severe lightheadedness, passing out, or fainting ??? Fast heart rate ??? Confusion or trouble waking up ?? When to get medical care Call your healthcare provider right away??if any of these occur: ??? Burning feeling or pain when you pee ??? Depression or severe anxiety ??? Desire to eat or drink nonfood items, such as paper, dirt, or cleaning products ??? Diarrhea that lasts more than 24 hours ??? Fast heartbeat or heart palpitations ??? Fever of 100.4??F (38??C) or higher, or as advised by your provider ??? You can???t keepfluids down for 6 hours without vomiting ??? Severe or ongoing vomiting ??? Little or no pee ??? Major vision changes ??? Moderate or severe belly pain ??? Severe back pain ??? Severe constipation ??? Severe cramping or swelling in a leg, especially if it???s just on one side ??? Severe headache ??? Sudden swelling of your face, hands, feet, or ankles ??? Vaginal bleeding ??? Very itchy skin thatdoesn???t get better ?? Last Reviewed Date: 2022 ?? [employer]. All rights reserved. This information is not intended as a substitute for professional medical care. Always follow your healthcare professional's instructions. ?? Patient Care team information Care Team Personnel Name: Omi Wise RN Position: [facility] RN Member Role: Primary Care Nurse Name: Peggy Quintana Position: [facility] RN Member Role: Primary Care Nurse Name: Gill Han RN Position: [facility] RN Member Role: Primary Care Nurse Name: Melania RIDER, Sarwat Gomez Position: [facility] RN Member Role: Primary Care Nurse Name: Brigette Healy RN Position: [facility] RN Member Role: Primary Care Nurse Name: Bere Vazquez MD Position: [facility] General Pediatrics MD Member Role: PCP Address: Address: [address] [place] [address] Pediatric [place] [address]- Name: Jessica Leal RN Position: [facility] RN Member Role: Primary Care Nurse Name: Merlyn Looney RN Position: [facility] RN Member Role: Primary Care Nurse Name: Purnima Pace Position: [facility] ED [facility] Member Role: Lei Maker Name: Toan Braga MD Position: [facility] ED Medicine MD Member Role: Admitting Physician Address: Address: [address] [place] [address]- Name: Trisha Taylor DO Position: [facility] Resident Member Role: ED Resident Address: Address: [address] [place] [address]- Name: Chanda Arriaga RN Position: [facility] ED RN W/OE and Tasks Member Role: Patient Care Provider Care Team Related Persons Name: RUTHY GUZMAN Address: home [address] [place] [address] Name: PAULA PAUL Address: home [address] [place] [address] Name: CARLOS PAUL Address: home [address] [place] [address]
--- OUTSIDE RECORDS SUMMARY | 2024-02-11 22:03 | XMS_ITS | Continuity of Care Document ---
Author Organization [facility] Address [address] [place] [address]- Care Team Providers Care Receptionist Secretary Name Role Phone George HARRIS, Bere Benavidez Primary Care Physician [place] [facility] [place]23 - 01/19/24 [facility] [address] [place] [address]- Attending Physician: Aditya HARRIS, Lakshmi Douglas Allergies, [...] Recorded 1Result Comment: PT [facility] [id number] Medications Benadryl 25 mg oral capsule 1 [...] Gm, 0 Refills, Maintenance, 12/23/23 14:35:00 EDT,Cream, [facility]/pharmacy #[id number], Partial fill upon patient request if the [...] 10/05/23 15:11:00 EST, Route to Pharmacy Electronically, [facility]/pharmacy #[id number], Partial fill upon patient [...] 3 Refills, Maintenance, 10/27/23 17:55:00 EST, Tablet, [facility]/pharmacy #[id number], Partial fill upon patient [...] Refills, Soft Stop, 01/06/24 23:37:00 EDT, Cream, [facility]/pharmacy #2701, Partial fill upon patient request if the prescription is for a schedule II opioid drug., 1 applicator Topically Once, 173, cm, 01/05/24 8:4... Start Date: 01/06/24 Status: Ordered MiraLax oral powder for reconstitution = 17 Gm, By Mouth, Daily, dissolve in 4 to 8 oz of beverage, # 238 Gm, 1 Refills, Maintenance, 10/05/23 15:12:00 EST, REC Powder, [facility]/pharmacy #[id number], Partial fill upon patient [...] tablet, 2 Refills, Maintenance, 10/26/23 14:27:00 EST, [facility]/pharmacy#0315, Partial fill upon patient request if the prescription is for a schedule II opioid drug., 1 tablet By Mouth Daily, 174, cm, 10/26/23 14:06:00 EST... Start Date: 10/26/23 Status: Ordered pyridoxine 25 mg oral tablet 1 tablet = 25 mg, By Mouth, 3 times a day, PRN Nausea & Vomiting, # 100 tablet, 8 Refills, Maintenance, 07/19/23 13:37:00 EST, Tablet, [facility] [id number] ([facility] 827), Partial fill upon patient request if the prescription is for a schedule II opioid... Start Date: 07/19/23 Status: Ordered Reglan 10 mg oral tablet 1 tablet = 10 mg, By Mouth, Daily, PRN Headache, # 30 tablet, 0 Refills, Maintenance, 11/27/23 21:42:00 EDT, [facility]/pharmacy #[id number], Partial fill upon patient request if the prescription is for a schedule II opioid drug., 174, cm, 11/08/23 13:36:00 EST, H... Start Date: 11/27/23 Status: Ordered ursodiol 300 mg oral capsule 300 mg, 1, capsule, By Mouth, 3 times a day, # 100 capsule, Refills 1, Tot. Refills 1, Maintenance,12/06/23 18:22:00 EDT, Route to Pharmacy Electronically, [facility]/pharmacy #[id number], Partial fill upon patient request if the [...] RN Position: [facility] RN Member Role: Primary Care Nurse Name: Peggy Quintana Position: [facility] RN Member Role: Primary Care Nurse Name: Gill Han RN Position: S RN Member Role: Primary Care Nurse Name: Sarwat Velázquez RN Position: S RN Member Role: Primary Care Nurse Name: Adele Ibanez RN Position: S RN Member Role: Primary Care Nurse Name: Nidia Tripp Position: S RN Member Role: Primary Care Nurse Name: Bere Vazquez MD Position: [facility] Physician - Pediatrics Member Role: PCP Address: Address: [address] [place] [address] Pediatric & Adolescent Medicine [place], [place] [address] Name: Jessica Leal RN Position: [facility] RN Member Role: Primary Care Nurse Name: Bisi Rock RN Position: [facility] RN Member Role: Primary Care Nurse Name: Merlyn Looney RN Position: [facility] RN Member Role: Primary Care Nurse Care Team Related Persons Name: RUTHY GUZMAN Address: home [address] [place] [address] Name: PAULA PAUL Address: home [address] [place] [address] Name: CHARLY PAUL Address: [id number] Address: home [address] [place] [address] Name: CARLOS PAUL Address: home [address] [place] [address] Name: JAIRO HAN Address: home [facility]
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
--- OUTSIDE RECORDS SUMMARY | 2024-02-11 22:03 | XMS_ITS | Continuity of Care Document ---
Author Organization [facility] Jl Mcmanus nKoffeewares [facility] Address [address] [place] [address], [address] [place] [address]- Care Team Providers Care Wind Energy Technician Name Role Phone George HARRIS, Bere Benavidez Primary Care Physician Encounter [facility] Date(s): 08/09/23 - [facility]08/[facility] [address], [address]th [place] [address]- Allergies, Adverse Reactions, Alerts Substance Reaction Severity [...] 1 Refills, Maintenance, 09/08/23 11:16:00 EST, Tablet, [facility], Partial fi... Start Date: 09/08/23 Status: Ordered PNV By Mouth, Daily, 0 Refills, Maintenance, 07/14/23 10:18:00 EST, Partial fill upon patient request if the prescription is for a schedule II opioid drug. Start Date: 07/14/23 Status: Ordered PNV Select oral tablet 1 tablet, By Mouth, Daily, # 90 tablet, 0 Refills, Maintenance, 08/12/23 8:33:00 EST, [id number] ([facility]), Partial fill upon patient request if the prescription is for a schedule II opioid drug., 1 tablet By Mouth Daily, 175, cm, 07/19/23... Start Date: 08/12/23 Status: Ordered pyridoxine 25 mg oral tablet 1 tablet = 25 mg, By Mouth, 3 times a day, PRN Nausea & Vomiting, # 100 tablet, 8 Refills, Maintenance, 07/19/23 13:37:00 EST, Tablet, [id number] ([facility] 827), Partial fill upon patient request if the prescription is for a schedule II opioid... Start Date: 07/19/23 Status: Ordered risperiDONE 1 mg oral tablet 1 mg, 1, tablet, By Mouth, 2 times a day, # 60 tablet, Refills 0, Tot. Refills 0, Maintenance, 05/28/22 8:23:00 EDT, Route to Pharmacy Electronically, [facility]/pharmacy #[id number], Partial fill upon patient request if the prescription is for a schedule II opioi... Start Date: 05/28/22 Status: Ordered terconazole topical 0.4% cream 1 application, Vaginally, Daily at bedtime, for 7 days, # 45 Gm, 0 Refills, Acute 09/14/23 13:41:00EST, 09/07/23 13:41:00 EST, Cream, [facility], Partial fill upon patient request if the prescription is for a schedule II opioid drug., 1 stella... Start Date: 09/07/23 Stop Date: 09/14/23 Status: Ordered topiramate 25 mg oral tablet 1 tablet = 25 mg, By Mouth, 2 times a day, # 60 tablet, 0 Refills, Maintenance, 05/28/22 8:23:00 EDT, Tablet, [facility]/pharmacy #[id number], Partial fill upon patient request if the prescription is for a schedule II opioid drug., 173, cm, 05/27/22 18:52:00 EDT,... Start Date: 05/28/22 Status: Ordered traZODone 50 mg oral tablet 50 mg, 1, tablet, By Mouth, Daily at bedtime, # 30 tablet, Refills 0, Tot. Refills 0, Maintenance, 05/28/22 8:23:00 EDT, Route to Pharmacy Electronically, [facility]/pharmacy #[id number], Partial fill upon patient request if the prescription is for a schedule II o... Start Date: 05/28/22 Status: Ordered Tylenol Extra Strength 500 mg oral tablet 2 tablet = 1,000 mg, By Mouth, Every 6 hours, PRN as needed for fever, # 100 tablet, 0 Refills, Maintenance, 07/27/23 11:28:00 EST, Tablet, [id number] ([facility] 827), Partial fill upon patientrequest if the prescription is for a schedule II op... Start Date: 07/27/23 Status: Ordered Unisom 25 mg oral tablet 1 tablet = 25 mg, By Mouth, Daily at bedtime, may take additional 1/2 tablet in morning & 1/2 tablet in afternoon if nausea persists, # 60 tablet, 1 Refills, Maintenance, 07/27/23 13:40:00 EST, [id number] ([facility] 827), Partial fill upon patie... Start [...] , was smoking 4/day. Sex Note * Ella Nichole DO: PERFORM Event Display: Patient Education Leaflets Authored Date: Seizure: New Onset with Unknown Cause (Adult) ?? [id number] Seizure: New Onset with Unknown Cause (Adult) You've had a seizure. A seizure happens when a surge of random, uncontrolled electrical activity occurs in the brain. A seizure can have many causes. Often it???s not possible to figure out the exactcause of a seizure from a single exam. You might need other tests. Having 1 seizure doesn???t mean that you will continue to have seizures. It doesn't mean that you have epilepsy. But until your healthcare provider knows the cause of your seizure, you're at risk for another seizure. Having 1 seizure without a known cause puts you at higher risk of having another seizure, especially in the next 2 years. Home care Follow these tips when caring for yourself at home: ??? Seizures aren???t predictable. Don't do anything that might cause danger to you or other peopleif you have another one. Don???t drive, ride a bike, climb ladders, or operate dangerous equipment.??? Don???t take a bath alone. Take a shower instead. ??? Don???t swim alone until your healthcare provider says that you're no longer in danger of having another seizure. ??? Tell your close friendsand relatives about your seizure. Teach them what to do for you if it happens again. ??? If medicine was prescribed to prevent seizures, take it exactly as directed. It doesn't work when taken as needed. Missing doses will increase your risk of having another seizure. ??? Follow a regular sleep sche dule so you'll get at least 6 to 8 hours of restful sleep every night. This is especially importantwhen you're sick and have a cold, flu, or another type of infection. ??? Don't have alcoholic drinks until your provider says it's OK. Don't ever use illegal drugs. ??? Each state has different laws about driving if you've had a seizure. Ask your provider if you can drive. ??? Think about wearing ID (identification) to alert others that you're at risk of seizures. This could be an ID bracelet or necklace. For future seizures, if you're alone: If you feel a seizure coming on, lie down on a bed or on the floor with something soft under your head. This will keep you from falling. Lie on your left side, not on your back. This will let fluid drain out of your mouth and prevent choking. Be sure you are not near any objects that might injure you during the seizure. Call 911 if you can. For future seizures, if someone is with you: The person should help you get into a safe position. Then they should call 911. The person shouldn???t try to force anything in your mouth once the seizure begins. This could harm your teeth or jaw. They shouldn't put their fingers near your mouth. You may accidentally bite them. After a seizure, you may be drowsy or confused. The person should stay with you until you're fully awake. The person shouldn???t offer you anything to eat or drink during that time. Call 911 or go tothe emergency room. ?? Follow-up care ??? Follow up with your healthcare provider as advised. ??? You may need other tests to help find out what caused your seizure. These tests may include brain wave tests (EEG) or brain scans (MRI or CT scans). ??? Keep a seizure calendar to record how often you have a seizure. ??? If you are on anti-seizure medicine, make sure that you use more than 1 type of control. Seizure medicine can affect how well control pills work, and you could become . ??? Let your provider know ifyou plan to get or if you become . ??? Don't drink alcohol until your provider tells you it???s OK. ??? Don't use recreational drugs. For your own safety and for the safety of others on the road, some states require that healthcare providers tell the Public Health Department about any adult who's treated for a seizure and is at risk of more seizures. Then the Department of Motor Vehicles will be told. A restriction will be put onyour auto parts delivery driver???s license. This stays until a provider gives you medical clearance to drive again. Contact your provider to find out if your state requires this process. ?? Important Don't drive until you've followed up with your healthcare provider and you've been cleared to drive. ?? When to get medical advice Call your healthcare provider right away??if you have any of these: ??? Another seizure ??? Fever of 100.4??F (38??C) or higher, or as advised by your provider ??? Abnormal irritability, drowsiness, or confusion ??? Headache or neck pain that gets worse ?? Last Reviewed Date: 2022 ?? 7065-2102 [employer]. All rights reserved. This information is not intended as a substitute for professional medical care. Always follow your healthcare professional's instructions. ?? Patient Care team information Care Team Personnel Name: Omi Wise RN Position: [facility] RN Member Role: Primary Care Nurse Name: Peggy Quintana Position: S RN Member Role: Primary Care Nurse Name: Gill Han RN Position: S RN Member Role: Primary Care Nurse Name: Sarwat Velázquez RN Position: S RN Member Role: Primary Care Nurse Name: Brigette Healy RN Position: S RN Member Role: Primary Care Nurse Name: Bere Vazquez MD Position: [facility] General Pediatrics Member Role: PCP Address: Address: [address] [facility] [facility] [place] [address]- Name: Jessica Leal RN Position: S RN Member Role: Primary Care Nurse Name: Merlyn Looney RN Position: S RN Member Role: Primary Care Nurse Care Team Related Persons Name: RUTHY GUZMAN Address: home [address] [place] [address] Name: PAULA PAUL Address: home [address] [place] [address] Name: CARLOS PALU Address: home [address] [place] [address] Name: JAIRO HAN Address: home [facility]
--- OUTSIDE RECORDS SUMMARY | 2024-02-11 22:03 | XMS_ITS | Continuity of Care Document ---
Author Organization [facility] Address [address] [place] [address]- Care Team Providers Care Coil Tester Name Role Phone Pinky Peters MD Primary Care Physician Encounter [facility] Date(s): 03/18/21 - 03/18/[address] [address]- Discharge Disposition: A-D/C Home Attending Physician: Billy Shaw MD Admitting Physician: Billy Shaw MD Referring Physician: Not on Staff, Referring [...] EDT, Tablet Start Date: 01/12/18 Status: Ordered Melatonin 10 mg oral tablet 1 tablet = 10 mg, By Mouth, Daily at bedtime, 0 Refills, Maintenance, 03/18/21 15:29:00 EDT, Partial fill upon patient request if the prescription is for a schedule II opioid drug. Start Date: 03/18/21 Status: Ordered Omeprazole = 20 mg, By Mouth, Daily, 0 Refills, Maintenance, 02/06/21 9:12:00 EDT, Partial fill upon patient request if the prescription is for a schedule II opioid drug. Start Date: 02/06/21 Status: Ordered OXcarbazepine 300 mg oral tablet 300 mg, 1, tablet, By Mouth, Daily, # 120 tablet, Refills 0, Maintenance, 12/19/18 12:28:55 EDT Start Date: 12/19/18 Status: Ordered Prazosin = 2 mg, By Mouth, 3 times a day, 0 Refills, Maintenance, 02/06/21 9:14:00 EDT, Partial fill upon patient request if the prescription is for a schedule II opioid drug. Start Date: 02/06/21 Status: Ordered PROzac 10 mg oral capsule 10 mg, 1, capsule, By Mouth, Daily, Refills 0, Maintenance, 02/06/21 9:12:00 EDT, Partial fill uponpatient request if the prescription is for a schedule II opioid drug. Start Date: 02/06/21 Status: Ordered risperiDONE 0.5 mg oral tablet TAKE 1 TABLET BY MOUTH EVERY DAY AT NIGHT Start Date: 04/08/19 Status: Ordered Topiramate = 50 mg, By Mouth, 0 Refills, Maintenance, 02/06/21 9:13:00 EDT, Partial fill upon patient request if the prescription is for a schedule II opioid drug. Start Date: 02/06/21 Status: Ordered ZyPREXA 10 mg oral tablet 10 mg, 1, tablet, By Mouth, Daily, Refills 0, Maintenance, 02/06/21 9:12:00 EDT, Partial fill upon patient request if the prescription is for a schedule II opioid drug. Start Date: 02/06/21 Status: Ordered Problem List Condition Effective Dates Status Health Status Inform ant Acute depression(Confirmed) Active Vital Signs Most recent to oldest [Reference Range]: 1 2 3 Height 172 cm (03/18/21 5:31 PM) 172 cm (03/18/21 3:46 PM) 172 cm (03/18/21 3:25 PM) Weight 75 kg (03/18/21 3:25 PM) 75 kg (03/18/21 3:24 PM) Oxygen Saturation [94-100 %] 99 % (03/18/21 5:31 PM) 99 % (03/18/21 3:46 PM) 100 % (03/18/21 3:24 PM) Pulse Rate [55-90 bpm] 84 bpm (03/18/21 5:31 PM) 91 bpm *H* (03/18/21 3:46 PM) 92 bpm *H* (03/18/21 3:24 PM) Body Mass Index [18.5-24.99] 25.35 *H* (03/18/21 3:24 PM) Blood Pressure [80-130/50-80 mm Hg] 108/60mm Hg (03/18/21 5:31 PM) 132/65mm Hg *H* (03/18/21 3:46 PM) 120/62mm Hg (03/18/21 3:24 PM) Respiratory Rate [16-30 br/min] 16 br/min (03/18/21 5:31 PM) 20 br/min (03/18/21 3:46 PM) 20 br/min (03/18/21 3:24 PM) Temperature [96.8-100.4 DegF] 97.6 DegF (03/18/21 3:24 PM) Mode of Delivery (Oxygen) Room air (03/18/21 5:31 PM) Room air (03/18/21 3:46 PM) Room air (03/18/21 3:24 PM) Blood pressure sites Arm, left (03/18/21 5:31 PM) Arm, left (03/18/21 3:46 PM) Dry Weight 75 kg (03/18/21 3:25 PM) 75 kg (03/18/21 3:24 PM) Weight Obtained Via Standing scale (03/18/21 3:24 PM) Dry Weight Obtained Via Standing scale (03/18/21 3:24 PM) Social History Social History Type Response Smoking Status Never smoker entered on: 01/16/18 Sex
--- OUTSIDE RECORDS SUMMARY | 2024-02-11 22:03 | XMS_ITS | Continuity of Care Document ---
Author Organization [facility] Yonathan [facility] Address [address], [address] [place] [address]- Care Team Providers Care Coating Mixer Name Role Phone George HARRIS, Bere Benavidez Primary Care Physician [id number] 10[facility] [address], [address]th [place] [address]- Attending Physician: Lakshmi Burgess MD Referring Physician: Not on Staff, Referring [...] 1 Refills, Maintenance, 09/08/23 11:16:00 EST, Tablet, [facility], Partial fi... Start Date: 09/08/23 Status: Ordered PNV By Mouth, Daily, 0 Refills, Maintenance, 07/14/23 10:18:00 EST, Partial fill upon patient request if the prescription is for a schedule II opioid drug. Start Date: 07/14/23 Status: Ordered PNV Select oral tablet 1 tablet, By Mouth, Daily, # 90 tablet, 0 Refills, Maintenance, 08/12/23 8:33:00 EST, [facility] [id number] ([facility] 827), Partial fill upon patient request if the prescription is for a schedule II opioid drug., 1 tablet By Mouth Daily, 175, cm, 07/19/23... Start Date: 08/12/23 Status: Ordered pyridoxine 25 mg oral tablet 1 tablet = 25 mg, By Mouth, 3 times a day, PRN Nausea & Vomiting, # 100 tablet, 8 Refills, Maintenance, 07/19/23 13:37:00 EST, Tablet, [facility] ([facility] 827), Partial fill upon patient request if the prescription is for a schedule II opioid... Start Date: 07/19/23 Status: Ordered risperiDONE 1 mg oral tablet 1 mg, 1, tablet, By Mouth, 2 times a day, # 60 tablet, Refills 0, Tot. Refills 0, Maintenance, 05/28/22 8:23:00 EDT, Route to Pharmacy Electronically, [facility]/pharmacy #[id number], Partial fill upon patient request if the prescription is for a schedule II opioi... Start Date: 05/28/22 Status: Ordered traZODone 50 mg oral tablet 50 mg, 1, tablet, By Mouth, Daily at bedtime, # 30 tablet, Refills 0, Tot. Refills 0, Maintenance, 05/28/22 8:23:00 EDT, Route to Pharmacy Electronically, [facility]/pharmacy #[id number], Partial fill upon patient request if the prescription is for a schedule II o... Start Date: 05/28/22 Status: Ordered Tylenol Extra Strength 500 mg oral tablet 2 tablet = 1,000 mg, By Mouth, Every 6 hours, PRN as needed for fever, # 100 tablet, 0 Refills, Maintenance, 07/27/23 11:28:00 EST, Tablet, [facility] ([facility] 827), Partial fill upon patientrequest if the prescription is for a schedule II op... Start Date: 07/27/23 Status: Ordered Unisom 25 mg oral tablet 1 tablet = 25 mg, By Mouth, Daily at bedtime, may take additional 1/2 tablet in morning & 1/2 tablet in afternoon if nausea persists, # 60 tablet, 1 Refills, Maintenance, 07/27/23 13:40:00 EST, [facility] ([facility] 827), Partial fill upon patie... Start [...] Member Role: Primary Care Nurse Name: Peggy Qiuntana Position: S RN Member Role: Primary Care Nurse Name: Gill Han RN Position: S RN Member Role: Primary Care Nurse Name: Sarwat Velázquez RN Position: S RN Member Role: Primary Care Nurse Name: Brigette Healy RN Position: S RN Member Role: Primary Care Nurse Name: Nidia Tripp Position: [facility] RN Member Role: Primary Care Nurse Name: Bere Vazquez MD Position: [facility] Physician - Pediatrics Member Role: PCP Address: Address: [address] [place] [address] Pediatric & Adolescent Medicine [place], [place] [address] Name: Jessica Leal RN Position: S RN Member Role: Primary Care Nurse Name: Merlyn Looney RN Position: [facility] RN Member Role: Primary Care Nurse Care Team Related Persons Name: RUTHY GUZMAN Address: home [address] [place] [address] Name: PAULA PAUL Address: home [address] [place] [address] Name: CARLOS PAUL Address: home [address] [place] [address] Name: JAIRO HAN Address: home
--- OUTSIDE RECORDS SUMMARY | 2024-02-11 22:03 | XMS_ITS | Continuity of Care Document ---
Author Organization [facility] Yonathan nActive [facility] Address [address], [address] [place] [address]- Care Team Providers Care Power Engineer Name Role Phone George HARRIS, Bere Benavidez Primary Care Physician Encounter [facility] Date(s): 12/06/23 - 12/13/23 [facility] PedroActive [facility] [address] [facility] [facility] [address] [facility], [address] [place] [address]- Attending Physician: Aditya HARRIS, Lakshmi Douglas Allergies, [...] 08/13/20 Recorded 1Result Comment: PT [facility] [id number] Medications Benadryl 25 mg oral capsule 1 [...] 10/05/23 15:11:00 EST, Route to Pharmacy Electronically, [facility]/pharmacy #[id number], Partial fill upon patient request if the [...] 3 Refills, Maintenance, 10/27/23 17:55:00 EST, Tablet, [facility]/pharmacy #[id number], Partial fill upon patient request if [...] Refills, Maintenance, 10/05/23 15:12:00 EST, REC Powder, [facility]/pharmacy #[id number], Partial fill upon patient request if [...] 1 Refills, Maintenance, 09/08/23 11:16:00 EST, Tablet, [facility], Partial fi... Start Date: 09/08/23 Status: Ordered PNV By Mouth, Daily, 0 Refills, Maintenance, 07/14/23 10:18:00 EST, Partial fill upon patient request if the prescription is for a schedule II opioid drug. Start Date: 07/14/23 Status: Ordered PNV Select oral tablet 1 tablet, By Mouth, Daily, # 90 tablet, 2 Refills, Maintenance, 10/26/23 14:27:00 EST, [facility]/pharmacy#[id number], Partial fill upon patient request if the prescription is for a schedule II opioid drug., 1 tablet By Mouth Daily, 174, cm, 10/26/23 14:06:00 EST... Start Date: 10/26/23 Status: Ordered pyridoxine 25 mg oral tablet 1 tablet = 25 mg, By Mouth, 3 times a day, PRN Nausea & Vomiting, # 100 tablet, 8 Refills, Maintenance, 07/19/23 13:37:00 EST, Tablet, [facility] ([facility]), Partial fill upon patient request if the prescription is for a schedule II opioid... Start Date: 07/19/23 Status: Ordered Reglan 10 mg oral tablet 1 tablet = 10 mg, By Mouth, Daily, PRN Headache, # 30 tablet, 0 Refills, Maintenance, 11/27/23 21:42:00 EDT, [facility]/pharmacy #[id number], Partial fill upon patient request if the prescription is for a schedule II opioid drug., 174, cm, 11/08/23 13:36:00 EST, H... Start Date: 11/27/23 Status: Ordered ursodiol 300 mg oral capsule 300 mg, 1, capsule, By Mouth, 3 times a day, # 100 capsule, Refills 1, Tot. Refills 1, Maintenance,12/06/23 18:22:00 EDT, Route to Pharmacy Electronically, [facility]/pharmacy #[id number], Partial fill upon patient request if the [...] oldest [Reference Range]: 1 Height 174 cm (12/06/23 2:54 PM) Weight 69.09 kg (12/06/23 2:54 PM) Body Mass Index [18.5-24.99 kg/m2] 22.82 kg/m2 (12/06/23 2:54 PM) Blood Pressure [90-138/55-84 mm Hg] 100/ 60mm Hg (12/06/23 2:54 PM) Weight Obtained Via Standing scale (12/06/23 2:54 PM) Social History Social History Type Response [...] Primary Care Nurse Name: Nidia Tripp Position: [facility] RN Member Role: Primary Care Nurse Name: George HARRIS, Bere Benavidez Position: [facility] Physician - Pediatrics Member Role: PCP Address: Address: [address] [place] [address] Pediatric & Adolescent Medicine [place], [place] [address] Name: Jessica Leal RN Position: S RN Member Role: Primary Care Nurse Name: Bisi Rock RN Position: S RN Member Role: Primary Care Nurse Name: Merlyn Looney RN Position: [facility] RN Member Role: Primary Care Nurse Care Team Related Persons Name: RUTHY GUZMAN Address: home [address] [place] [address] Name: PAULA PAUL Address: home [address] [place] [address] Name: CARLOS PAUL Address: home [address] [place] [address] Name: JAIRO HAN Address: home
--- OUTSIDE RECORDS SUMMARY | 2024-02-11 22:03 | XMS_ITS | Continuity of Care Document ---
Author Organization [facility] Address [address] [place] [address]- Care Team Providers Care Pitch Filler Name Role Phone Roro Pitts MD Primary Care Physician Encounter [facility] Date(s): 12/10/20 - 12/10/[address] [address]- Encounter Diagnosis Agitation(Final) - 12/10/20 Discharge Disposition: A-D/C Home Attending Physician: Teresa Felix MD Admitting Physician: Teresa Felix MD Referring Physician: Not on Staff, Referring [...] 1 Oxygen Saturation [94-100 %] 100 % (12/10/20 1:59 PM) Pulse Rate [55-90 bpm] 77 bpm (12/10/20 1:59 PM) Blood Pressure [80-130/50-80 mm Hg] 121/ 64mm Hg (12/10/20 1:59 PM) Respiratory Rate [16-30 br/min] 18 br/mi n (12/10/20 1:59 PM) Temperature [96.8-100.4 DegF] 98.5 DegF (12/10/20 1:59 PM) Mode of Delivery (Oxygen) Room air (12/10/20 1:59 PM) Blood pressure sites Arm, right (12/10/20 1:59 PM) Temperature Route Temporal (12/10/20 1:59 PM) Social History Social History Type Response Smoking Status Never smoker entered on: 01/16/18 Sex
--- OUTSIDE RECORDS SUMMARY | 2024-02-11 22:03 | XMS_ITS | Continuity of Care Document ---
Author Organization [facility] ter Address [address] [place] [address]- Care Team Providers Care Elevator Installer Name Role Phone George HARRIS, Bere Benavidez Primary Care Physician Encounter [facility] [place] Date(s): 11/09/23 - 11/09/[address] [address] [place] Discharge Disposition: A-D/C Home Attending Physician: Adonis Ford MD Admitting Physician: Adonis Ford MD Referring Physician: Adonis Ford MD Allergies, Adverse Reactions, Alerts Substance Reaction [...] Recorded 1Result Comment: PT [facility] [id number] Medications Benadryl 25 mg oral capsule 1 [...] 10/05/23 15:11:00 EST, Route to Pharmacy Electronically, [facility]/pharmacy #[id number], Partial fill upon patient request [...] 3 Refills, Maintenance, 10/27/23 17:55:00 EST, Tablet, [facility]/pharmacy #[id number], Partial fill upon patient request [...] Refills, Maintenance, 10/05/23 15:12:00 EST, REC Powder, [facility]/pharmacy #[id number], Partial fill upon patient request [...] 1 Refills, Maintenance, 09/08/23 11:16:00 EST, Tablet, [facility], Partial fi... Start Date: 09/08/23 Status: Ordered PNV By Mouth, Daily, 0 Refills, Maintenance, 07/14/23 10:18:00 EST, Partial fill upon patient request if the prescription is for a schedule II opioid drug. Start Date: 07/14/23 Status: Ordered PNV Select oral tablet 1 tablet, By Mouth, Daily, # 90 tablet, 2 Refills, Maintenance, 10/26/23 14:27:00 EST, [facility]/pharmacy#[id number], Partial fill upon patient request if the prescription is for a schedule II opioid drug., 1 tablet By Mouth Daily, 174, cm, 10/26/23 14:06:00 EST... Start Date: 10/26/23 Status: Ordered pyridoxine 25 mg oral tablet 1 tablet = 25 mg, By Mouth, 3 times a day, PRN Nausea & Vomiting, # 100 tablet, 8 Refills, Maintenance, 07/19/23 13:37:00 EST, Tablet, [facility] [id number] ([employer] 827), Partial fill upon patient request if the prescription is for a schedule II opioid... Start Date: 07/19/23 Status: Ordered Vitamin B6 Daily, 0 Refills, [...] recent to oldest [Reference Range]: 1 Weight 69.3 kg (11/09/23 12:17 PM) Oxygen Saturation [94-100 %] 97 % (11/09/23 12:25 PM) Blood Pressure [90-138/55-84 mm Hg] 127/ 66mm Hg (11/09/23 12:25 PM) Respiratory Rate [16-30 br/min] 16 br/mi n (11/09/23 12:25 PM) Temperature [96.8-100.4 DegF] 98.3 DegF (11/09/23 12:17 PM) Mode of Delivery (Oxygen) Room air (11/09/23 12:25 PM) Temperature Route Oral (11/09/23 12:17 PM) Dry Weight 69.3 kg (11/09/23 12:17 PM) Weight Obtained Via Standing scale (11/09/23 12:17 PM) Dry Weight Obtained Via Standing scale (11/09/23 12:17 PM) Social History Social History Type Response Tobacco Use: 4 or less cigar ettes(less than 1/4 pack)/day in last 30 days. Other: quite with , was smoking 4/day. Sex Note * Ana Paula Santos: PERFORM Event Display: Discharge/Transfer Note Hospital Authored Date: [id number] Nursing Discharge Note Entered On: 11/09/2023 14:39 EST Performed On: 11/09/2023 14:38 EST by Ana Paula Santos Nursing Discharge Note 2 Discharge Time : 11/09/2023 14:38 EST Discharge Level of Care at Discharge : Home/Longterm/Foster Care Patient Left Unit Via : Ambulatory Patient Accompanied Off Unit with : Other: self DC Instructions Provided & Signed by Pt : Yes Patient Understands D/C Instructions : Yes Patient Instructions Discharge Signed : Yes Did Pt have Specialty Bed or Wound Vac : No Ana Paula Santos - 11/09/2023 14:38 EST * Ana Paula Santos: PERFORM Event Display: Patient Education/Instruction Authored Date: [id number] Inpatient Adult Discharge Instructions. [address] [id number] Name: ADAMA PAUL : 2005?? Visit: 11/09/2023 12:09?? Current Date: 11/09/2023 14:21 ?? Account: [id number]?? Inpatient Adult Discharge Instructions We would like [...] and their families. Surveys are administered by [employer] ?? If further treatment with your primary care physician or another doctor is recommended, it is important for you to keep the appointment. Call your primary care physician or return to the Emergency Department immediately if your condition worsens, fails to improve, or new symptoms develop. If you need to find a doctor, you can call [facility] [employer] Link for a referral at [phone] or toll free at [phone]) or log in to [email or web address].. ?? [facility], in keeping with [facility] guidance, no longer requires face masks for [...] a health care stella of your choosing. [employer] is a website that allows you to securely view your medical information including your hospital discharge summary, office visit summaries, medications and follow-up visits. You can also request appointments, renew medications, and request access to your medical information using a health care stella of your choosing, or just ask a question. You can enroll at [email or web address] or register during your next office visit. You have been discharged from [facility], Patient Care Unit: WETU1??. If you have any questions regarding these instructions, including results of studies pending, afteryou leave, please call us and we will be happy to assist you 29/03. [facility] Your Care Team Attending Physician Adonis Ford MD?? Consulting Providers Adonis Ford MD?? Tests Performed Below is a partial list of the tests performed during your hospitalization. You may have had other tests and procedures not included in this list. Please discuss all test results with your provider. No tests performed during this visit.?? Primary Care Provider George HARRIS, Bere Benavidez? Advance Directive Health Care Proxy on File Yes - Health Care Proxy Discharge Vitals Temperature: 98.3 DegF Weight: 69.3 kg Respiratory Rate: 16 br/min ?? Systolic Blood Pressure: 127 mm Hg ?? Diastolic Blood Pressure: 66 mm Hg ?? Oxygen Saturation: 97 % ?? Studies Pending All studies ordered during this hospital stay have been completed unless listed below. Please discuss all pending results with your provider listed above in these instructions. ?? No incomplete studies found?? What to do next Instructions From Your Doctor ?? Orders?? Scheduled Follow-Up Appointments Wednesday 2:00 PM EST ?? Where: [facility] PIECE WORK INSPECTOR [address] [place] [address]- Status: Pending Wednesday 2:40 PM EST ?? With: Ana Paula Tate MD Where: [facility] PIECE WORK INSPECTOR [address] [place] [address]- Status: Pending Wednesday 1:00 PM EDT ?? Where: [facility] PIECE WORK INSPECTOR [address] [place] [address]- Status: Pending Wednesday 1:40 PM EDT ?? With: Ana Paula Tate MD Where: [facility] PIECE WORK INSPECTOR [address] [place] [address]- Status: Pending Wednesday 3:30 PM EDT ?? Where: [facility] PIECE WORK INSPECTOR [address] [place] [address]- Status: Pending Wednesday 4:00 PM EDT ?? With: Lakshmi Burgess MD Where: [facility] PIECE WORK INSPECTOR [address] [place] [address]- Status: Pending Wednesday 12:30 PM EDT ?? With: Calvin Xiong MD Where: [facility] [address] [facility] 3rd Floor, [address] [place] [address]- Status: Pending Wednesday 1:00 PM EDT ?? Where: [facility] PIECE WORK INSPECTOR [address] [place] [address]- Status: Pending Wednesday 3:00 PM EDT ?? Where: [facility] PIECE WORK INSPECTOR [address] [place] [address]- Status: Pending Wednesday 3:40 PM EDT ?? With: Aditya HARRIS, Lakshmi Douglas Where: [facility] PIECE WORK INSPECTOR [address] [place] [address]- Status: Pending 2023 2:30 PM EDT ?? Where: [facility] PIECE WORK INSPECTOR [address] [place] [address]- Status: Pending Wednesday 2:00 PM EDT ?? Where: [facility] PIECE WORK INSPECTOR [address] [place] [address]- Status: Pending Wednesday 2:40 PM EDT ?? With: Lakshmi Burgess MD Where: [facility] PIECE WORK INSPECTOR [address] [place] [address]- Status: Pending 2023 12:30 PM EDT ?? Where: [facility] PIECE WORK INSPECTOR [address] [place] [address]- Status: Pending Wednesday 2:00 PM EDT ?? Where: [facility] PIECE WORK INSPECTOR [address] [place] [address]- Status: Pending Wednesday 2:40 PM EDT ?? With: Dago Harrison MD Where: [facility] PIECE WORK INSPECTOR [address] [place] [address]- Status: Pending Wednesday 12:30 PM EDT ?? Where: [facility] PIECE WORK INSPECTOR [address] [place] [address]- Status: Pending Wednesday 1:00 PM EDT ?? Where: [facility] PIECE WORK INSPECTOR [address] [place] [address]- Status: Pending Wednesday 1:40 PM EDT ?? With: Lakshmi Burgess MD Where: [facility] PIECE WORK INSPECTOR [address] [place] [address]- Status: Pending 2023 2:20 PM EDT ?? With: Luda Goldsmith NP Where: [facility] PIECE WORK INSPECTOR [address] [place] [address]- Status: Pending 2023 3:00 PM EDT ?? Where: [facility] PIECE WORK INSPECTOR [address] [place] [address]- Status: Pending Wednesday 2:00 PM EDT ?? Where: [facility] PIECE WORK INSPECTOR [address] [place] [address]- Status: Pending Wednesday 2:40 PM EDT ?? With: Dago Harrison MD Where: [facility] PIECE WORK INSPECTOR [address] [place] [address]- Status: Pending Wednesday 12:30 PM EDT ?? Where: [facility] PIECE WORK INSPECTOR [address] [place] [address]- Status: Pending Wednesday 1:00 PM EDT ?? With: Luda Goldsmith NP Where: [facility] PIECE WORK INSPECTOR [address] [place] [address]- Status: Pending You Need to Schedule the Following Appointments Follow Up with??[facility] [phone] Why: Keep scheduled appointments. Call office with questions or concerns.?? Discharge Medications PAUL, ANASHELBIE :2005 Visit Date:11/09/2023 Medications: Please continue your medications until treatment is completed or stopped by your provider. Medications not listed below should be discontinued. Discuss any questions related to medications with your provider. What How Much When Instructions Next Dose Unchanged DiphenhydrAMINE (Benadryl 25 mg oral capsule) 1 capsule Oral Every 6 hours Unchanged Docusate Unchanged Docusate (Colace Liquid) Oral Twice a day Unchanged Docusate (Colace sodium 100 mg oral capsule) 1 capsule Oral Twice a day as needed for for constipation Unchanged Ferrous Sulfate (ferrous sulfate 325 mg oral tablet) 1 tab(s) Oral Daily Unchanged Haloperidol (Haldol Liquid) See instructions 2 mg By Mouth 2 times a day ?? Unchanged Lamotrigine Oral Unchanged Multivitamin, (PNV ) Oral Daily Unchanged Multivitamin, (PNV Select oral tablet) 1 tab(s) Oral Daily Unchanged Ondansetron (ondansetron 4 mg oral tablet, disintegrating) 1 tab(s) Oral Every 8 hours as needed for Nausea & Vomiting allow tablet to dissolve on tongue Take 30 mins before taking medication with food ?? Unchanged Polyethylene Glycol 3350 (MiraLax oral powder for reconstitution) 17 gram Oral Daily dissolve in 4 to 8 oz of beverage ?? Unchanged Pyridoxine (pyridoxine 25 mg oral tablet) 1 tab(s) Oral 3 times a day as needed for Nausea & Vomiting Unchanged Pyridoxine (Vitamin B6) Daily Prescription Given During Visit No new medications prescribed at time of discharge.?? Laboratory Results Below is a partial list of the most recent Laboratory test results done prior to this discharge. You may have had other tests and procedures not included in this list. Please discuss all test resultswith your provider. Allergies (NKA means No Known Allergies) Bee Stings ZyPREXA Problems Active Problems??(14) Acute depression?? Bipolar disorder current episode depressed?? Borderline personality disorder?? Cholestasis of ?? Convulsions?? Elevated blood pressure affecting in third trimester, antepartum?? Elevated liver function tests?? History of suicide attempt? Pseudoseizures?? PTSD (post-traumatic stress disorder)?? Seizure disorder?? Size of fetus inconsistent with dates, antepartum?? Education Materials Below is the list of Educational Leaflet Providered with your Discharge Instructions. [employer] Patient Education - Kick Counts?? Valuables and Belongings I fully understand and agree that [facility] accepts no responsibility for all my personal [...] Status?? Pulmonary Rehab Discharge Status?? Respiratory Rate: 16 br/min ? Common Emergency Awareness Tips IS [...] are strongly encouraged to quit. Please call [facility] [employer] Link at [phone] or [phone] ([phone]) or log in to [email or web address] for referrals to smoking cessation programs. ?? 088 Suicide & Crisis Lifeline is available 29/03 if you or someone you know needs to find a reason to keep living. By calling 347 you'll be connected to a skilled, trained counselor at a crisis center in your area. INPATIENT DISCHARGE INSTRUCTIONS SIGNATURE PAGE ADAMA PAUL Location:[facility] Registration Date and Time:11/09/2023 12:09 EST Primary Care Physician: MacibBere bazzi MD, Attending Physician: Adonis Ford MD, ADAMA TOVAR, have received the above patient education materials/instructions and have verbalized understanding. If ambulance or transport services are being used I further acknowledge beinggiven a choice of service. ?? If you need to contact me, please call me at this number: . Patient/Submarine Operator Name: Patient/Submarine Operator Signature: Relationship to Patient: Witness Name/Signature: Date: * Ana Paula Santos: PERFORM Event Display: Patient Education Leaflets Authored Date: [id number] Kick Counts ?? 7[address]44 Kick Counts It???s normal to worry about your baby???s health. Generally, you will feel your baby start to movein your 2nd trimester at around 16 to 24 weeks. Getting to know the pattern of your baby's movements is one way to know what's normal for you and baby. This is called a kick count. Talk with your healthcare provider about kick counts and your specific situation. Always follow your provider's instructions. How to count kicks Here is just one way to do kick counts. Always follow your healthcare provider's instructions. Starting at 28 weeks, count your baby's movements daily. Time how long it takes you to feel 10 kicks, flutters, swishes, or rolls. Ideally, you want to feel at least 10 movements in 2 hours. You will likely feel 10 movements in less time than that. Here are tips for counting kicks: ??? Choose a time when the baby is active, such as after a meal.? Sit comfortably or lie on your side.? The first time the baby moves,??write down??the time.? Count each movement until the baby has moved?? 10??times. This can take from 20 minutes to 2??hours.? If you haven't felt 10 kicks by the end of the second hour, wait a few hours. Then try again. ??? Try to do it at the same time each day. ?? When to call your healthcare provider Follow your provider's instructions about when to call about your baby's movements. Don't hesitate to call if you have concerns. Call your healthcare provider?? right away??if: ??? You do a couple sets of kick counts during the day and your baby moves fewer than 10??times in??2??hours. ??? Your baby moves much less often than on the??days before. ??? You haven't felt your baby move all day. ?? Last Reviewed Date: 2022 ?? 2989-3118 [employer]. All rights reserved. This information is not [...] Primary Care Nurse Name: Melania RIDER, Sarwat H Position: [facility] RN Member Role: Primary Care Nurse Name: Adele Ibanez RN Position: S RN Member Role: Primary Care Nurse Name: Nidia Tripp Position: S RN Member Role: Primary Care Nurse Name: Bere Vazquez MD Position: [facility] Physician - Pediatrics Member Role: PCP Address: Address: [address] [place] [address] Pediatric & Adolescent Medicine [place], [place] [address] Name: Jessica Leal RN Position: [facility] RN Member Role: Primary Care Nurse Name: Bisi Rock RN Position: S RN Member Role: Primary Care Nurse Name: Merlyn Looney RN Position: [facility] RN Member Role: Primary Care Nurse Name: Ana Paula Santos Position: [facility] OB RN Member Role: Patient Care Provider Care Team Related Persons Name: ROSITA SOFIYAJEANRUTHY Address: home [address] [place] [address] Name: PAULA PAUL Address: home [address] [place] [address] Name: PAULA PAUL Address: home [address] [place] [address] Name: CARLOS PAUL Address: home [address] [place] [address] Name: JAIRO HAN Address: home
--- OUTSIDE RECORDS SUMMARY | 2024-02-11 22:03 | XMS_ITS | Continuity of Care Document ---
Author Organization [facility] Address [address] [facility], [address] d Floor, [address] [place] [address]- Care Team Providers Care Construction Grip Name Role Phone George HARRIS, Bere Benavidez Primary Care Physician Encounter [facility] [place] Date(s): 08/02/23 - 09/01/23 [facility] [address], [address] Floor, [address] [place] [id number] Attending Physician: Admpaula, Rachel Admitting Physician: Admtr, [id number] Referring Physician: Admtr, [id number] Allergies, Adverse Reactions, [...] Refills, Maintenance, 08/12/23 8:29:00 EST, Tablet, [facility] ([facility] 827),... Start Date: 08/12/23 Status: Ordered PNV By Mouth, Daily, 0 Refills, Maintenance, 07/14/23 10:18:00 EST, Partial fill upon patient request if the prescription is for a schedule II opioid drug. Start Date: 07/14/23 Status: Ordered PNV Select oral tablet 1 tablet, By Mouth, Daily, # 90 tablet, 0 Refills, Maintenance, 08/12/23 8:33:00 EST, [id number] ([facility] 827), Partial fill upon patient request if the prescription is for a schedule II opioid drug., 1 tablet By Mouth Daily, 175, cm, 07/19/23... Start Date: 08/12/23 Status: Ordered pyridoxine 25 mg oral tablet 1 tablet = 25 mg, By Mouth, 3 times a day, PRN Nausea & Vomiting, # 100 tablet, 8 Refills, Maintenance, 07/19/23 13:37:00 EST, Tablet, [id number] ([facility] 827), Partial fill upon patient request if the prescription is for a schedule II opioid... Start Date: 07/19/23 Status: Ordered risperiDONE 1 mg oral tablet 1 mg, 1, tablet, By Mouth, 2 times a day, # 60 tablet, Refills 0, Tot. Refills 0, Maintenance, 05/28/22 8:23:00 EDT, Route to Pharmacy Electronically, [facility]/pharmacy #[id number], Partial fill upon patient request if the prescription is for a schedule II opioi... Start Date: 05/28/22 Status: Ordered topiramate 25 mg oral tablet 1 tablet = 25 mg, By Mouth, 2 times a day, # 60 tablet, 0 Refills, Maintenance, 05/28/22 8:23:00 EDT, Tablet, [facility]/pharmacy #[id number], Partial fill upon patient request if the prescription is for a schedule II opioid drug., 173, cm, 05/27/22 18:52:00 EDT,... Start Date: 05/28/22 Status: Ordered traZODone 50 mg oral tablet 50 mg, 1, tablet, By Mouth, Daily at bedtime, # 30 tablet, Refills 0, Tot. Refills 0, Maintenance, 05/28/22 8:23:00 EDT, Route to Pharmacy Electronically, [facility]/pharmacy #[id number], Partial fill upon patient request if the prescription is for a schedule II o... Start Date: 05/28/22 Status: Ordered Tylenol Extra Strength 500 mg oral tablet 2 tablet = 1,000 mg, By Mouth, Every 6 hours, PRN as needed for fever, # 100 tablet, 0 Refills, Maintenance, 07/27/23 11:28:00 EST, Tablet, [facility] [address] ([facility] 827), Partial fill upon patientrequest if the prescription is for a schedule II op... Start Date: 07/27/23 Status: Ordered Unisom 25 mg oral tablet 1 tablet = 25 mg, By Mouth, Daily at bedtime, may take additional 1/2 tablet in morning & 1/2 tablet in afternoon if nausea persists, # 60 tablet, 1 Refills, Maintenance, 07/27/23 13:40:00 EST, [facility] [id number] ([facility] 827), Partial fill upon patie... Start [...] Team Personnel Name: Omi Wise RN Position: [facility] RN Member Role: Primary Care Nurse Name: Peggy Quintana Position: [facility] RN Member Role: Primary Care Nurse Name: Gill Han RN Position: [facility] RN Member Role: Primary Care Nurse Name: Sarwat Velázquez RN Position: [facility] RN Member Role: Primary Care Nurse Name: Brigette Healy RN Position: [facility] RN Member Role: Primary Care Nurse Name: Bere Vazquez MD Position: [facility] General Pediatrics MD Member Role: PCP Address: Address: [address] [place] [address] Pediatric & Adolescent Medicine [place], [place] [address] Name: Jessica Leal RN Position: [facility] RN Member Role: Primary Care Nurse Name: Merlyn Looney RN Position: [facility] RN Member Role: Primary Care Nurse Care Team Related Persons Name: RUTHY GUZMAN Address: home [address] [place] [address] Name: PAULA PAUL Address: home [address] [place] [address] Name: CARLOS PAUL Address: home [address] [place] [address] Name: JAIRO HAN Address: home UNKNOWN [facility]
--- OUTSIDE RECORDS SUMMARY | 2024-02-11 22:03 | XMS_ITS | Continuity of Care Document ---
Author Organization [facility] Address [address] [place] [address]- Care Team Providers Care Supervisor Paper Machine Name Role Phone George HARRIS, Bere Benavidez Primary Care Physician Encounter [facility] Date(s): 07/19/23 - 09/15/23 [facility] [address] [place] [id number] Attending Physician: Not on Staff, Attending MD Referring Physician: Alana Balderas CNM Allergies, [...] 1 Refills, Maintenance, 09/08/23 11:16:00 EST, Tablet, [facility], Partial fi... Start Date: 09/08/23 Status: Ordered PNV By Mouth, Daily, 0 Refills, Maintenance, 07/14/23 10:18:00 EST, Partial fill upon patient request if the prescription is for a schedule II opioid drug. Start Date: 07/14/23 Status: Ordered PNV Select oral tablet 1 tablet, By Mouth, Daily, # 90 tablet, 0 Refills, Maintenance, 08/12/23 8:33:00 EST, [id number] ([facility]), Partial fill upon patient request if the prescription is for a schedule II opioid drug., 1 tablet By Mouth Daily, 175, cm, 07/19/23... Start Date: 08/12/23 Status: Ordered pyridoxine 25 mg oral tablet 1 tablet = 25 mg, By Mouth, 3 times a day, PRN Nausea & Vomiting, # 100 tablet, 8 Refills, Maintenance, 07/19/23 13:37:00 EST, Tablet, [facility] [id number] ([facility]27), Partial fill upon patient request if the prescription is for a schedule II opioid... Start Date: 07/19/23 Status: Ordered risperiDONE 1 mg oral tablet 1 mg, 1, tablet, By Mouth, 2 times a day, # 60 tablet, Refills 0, Tot. Refills 0, Maintenance, 05/28/22 8:23:00 EDT, Route to Pharmacy Electronically, [facility]/pharmacy #[id number], Partial fill upon patient request if the prescription is for a schedule II opioi... Start Date: 05/28/22 Status: Ordered terconazole topical 0.4% cream 1 application, Vaginally, Daily at bedtime, for 7 days, # 45 Gm, 0 Refills, Acute 09/21/23 19:46:00EST, 09/14/23 19:46:00 EST, Cream, Partial fill upon patient request if the prescription is for a schedule II opioid drug. Start Date: 09/14/23 Stop Date: 09/21/23 Status: Ordered terconazole topical 0.4% cream 1 application, Vaginally, Daily at bedtime, for 7 days, # 45 Gm, 0 Refills, Acute 09/21/23 19:47:00EST, 09/14/23 19:47:00 EST, Cream, Partial fill upon patient request if the prescription is for a schedule II opioid drug. Start Date: 09/14/23 Stop Date: 09/21/23 Status: Ordered topiramate 25 mg oral tablet 1 tablet = 25 mg, By Mouth, 2 times a day, # 60 tablet, 0 Refills, Maintenance, 05/28/22 8:23:00 EDT, Tablet, [facility]/pharmacy #[id number], Partial fill upon patient request if the prescription is for a schedule II opioid drug., 173, cm, 05/27/22 18:52:00 EDT,... Start Date: 05/28/22 Status: Ordered traZODone 50 mg oral tablet 50 mg, 1, tablet, By Mouth, Daily at bedtime, # 30 tablet, Refills 0, Tot. Refills 0, Maintenance, 05/28/22 8:23:00 EDT, Route to Pharmacy Electronically, [facility]/pharmacy #[id number], Partial fill upon patient request if the prescription is for a schedule II o... Start Date: 05/28/22 Status: Ordered Tylenol Extra Strength 500 mg oral tablet 2 tablet = 1,000 mg, By Mouth, Every 6 hours, PRN as needed for fever, # 100 tablet, 0 Refills, Maintenance, 07/27/23 11:28:00 EST, Tablet, [id number] ([facility] 827), Partial fill upon patientrequest if the prescription is for a schedule II op... Start Date: 07/27/23 Status: Ordered Unisom 25 mg oral tablet 1 tablet = 25 mg, By Mouth, Daily at bedtime, may take additional 1/2 tablet in morning & 1/2 tablet in afternoon if nausea persists, # 60 tablet, 1 Refills, Maintenance, 07/27/23 13:40:00 EST, [id number] ([facility] 827), Partial fill upon patie... Start [...] Team Personnel Name: Omi Wise RN Position: [facility] RN Member Role: Primary Care Nurse Name: Peggy Quintana Position: [facility] RN Member Role: Primary Care Nurse Name: Gill Han RN Position: [facility] RN Member Role: Primary Care Nurse Name: Sarwat Velázquez RN Position: S RN Member Role: Primary Care Nurse Name: Brigette Healy RN Position: S RN Member Role: Primary Care Nurse Name: Bere Vazquez MD Position: [facility] Physician - Pediatrics Member Role: PCP Address: Address: [address] [place] [address] [facility] [place] [address]- Name: Jessica Leal RN Position: S RN Member Role: Primary Care Nurse Name: Merlyn Looney RN Position: S RN Member Role: Primary Care Nurse Care Team Related Persons Name: RUTHY GUZMAN Address: home [address] [place] [address] Name: PAULA PAUL Address: home [address] [place] [address] Name: CARLOS PAUL Address: home [address] [place] [address] Name: JAIRO HAN Address: home [facility]
--- OUTSIDE RECORDS SUMMARY | 2024-02-11 22:03 | XMS_ITS | Continuity of Care Document ---
Author Organization [facility] Yonathan [facility] Address [address], [address] [place] [address]- Care Team Providers Care Glass Silverer Name Role Phone George HARRIS, Bere Benavidez Primary Care Physician [place] [facility] Date(s): 08/04/23 - 10/15/23 [facility] [address] [place] [address]- Attending Physician: Marcus HARRIS [OB], Gill Rdz Referring Physician: Lakshmi Burgess MD Allergies, Adverse [...] 10/05/23 15:11:00 EST, [id number] Partial fill upon patient request if the prescriptio... Start Date: 10/05/23 Status: Ordered Docusate 0 Refills, Maintenance, 07/19/23 13:02:00 EST, Partial fill upon patient request if the prescription is for a schedule II opioid drug. Start Date: 07/19/23 Status: Ordered MiraLax oral powder for reconstitution = 17 Gm, By Mouth, Daily, dissolve in 4 to 8 oz of beverage, # 238 Gm, 1 Refills, Maintenance, 10/05/23 15:12:00 EST, REC Powder, [id number], Partial fill upon patient request if [...] tablet, 0 Refills, Maintenance, 08/12/23 8:33:00 EST, [employer] [id number] ([facility]), Partial fill upon patient request if the prescription is for a schedule II opioid drug., 1 tablet By Mouth Daily, 175, cm, 07/19/23... Start Date: 08/12/23 Status: Ordered pyridoxine 25 mg oral tablet 1 tablet = 25 mg, By Mouth, 3 times a day, PRN Nausea & Vomiting, # 100 tablet, 8 Refills, Maintenance, 07/19/23 13:37:00 EST, Tablet, [facility] ([facility] 827), Partial fill upon patient request if the prescription is for a schedule II opioid... Start Date: 07/19/23 Status: Ordered Unisom 25 mg oral tablet 1 tablet = 25 mg, By Mouth, Daily at bedtime, may take additional 1/2 tablet in morning & 1/2 tablet in afternoon if nausea persists, # 60 tablet, 1 Refills, Maintenance, 07/27/23 13:40:00 EST, [facility] [id number] ([facility] 827), Partial fill upon patie... Start [...] Team Personnel Name: Omi Wise RN Position: [facility] RN Member Role: Primary Care Nurse Name: Peggy Quintana Position: [facility] RN Member Role: Primary Care Nurse Name: Gill Han RN Position: [facility] RN Member Role: Primary Care Nurse Name: Sarwat Velázquez RN Position: [facility] RN Member Role: Primary Care Nurse Name: Adele Ibanez RN Position: S RN Member Role: Primary Care Nurse Name: Nidia Tripp Position: S RN Member Role: Primary Care Nurse Name: Bere Vazquez MD Position: [facility] Physician - Pediatrics Member Role: PCP Address: Address: [address] [place] [address] Pediatric & Adolescent Medicine [place], [place] [address] Name: Jessica Leal RN Position: S RN Member Role: Primary Care Nurse Name: Bisi Rock RN Position: S RN Member Role: Primary Care Nurse Name: Merlyn Looney RN Position: S RN Member Role: Primary Care Nurse Care Team Related Persons Name: RUTHY GUZMAN Address: home [address] [place] [address] Name: PAULA PAUL Address: home [address] [place] [address] Name: PAULA PAUL Address: home [address] [place] [address] Name: CARLOS PAUL Address: home [address] [place] [address] Name: JAIRO HAN Address: home
--- OUTSIDE RECORDS SUMMARY | 2024-02-11 22:03 | XMS_ITS | Continuity of Care Document ---
Author [facility] Address [address], [address] [place] [address]- Care Team Providers Care Audio Video Repairer Name Role Phone George HARRIS, Bere Benavidez Primary Care Physician Encounter [facility] Date(s): 08/04/23 - 11/11/23 [facility] [address] [place] [address]- Attending Physician: Aditya HARRIS, Lakshmi Douglas Allergies, [...] 08/13/20 Recorded 1Result Comment: PT [facility] [id number] Medications Benadryl 25 mg oral capsule 1 [...] 10/05/23 15:11:00 EST, Route to Pharmacy Electronically, [facility]/pharmacy #[id number], Partial fill upon patient request [...] 3 Refills, Maintenance, 10/27/23 17:55:00 EST, Tablet, [facility]/pharmacy #[id number], Partial fill upon patient request [...] Refills, Maintenance, 10/05/23 15:12:00 EST, REC Powder, [facility]/pharmacy #[id number], Partial fill upon patient request [...] 1 Refills, Maintenance, 09/08/23 11:16:00 EST, Tablet, [facility], Partial fi... Start Date: 09/08/23 Status: Ordered PNV By Mouth, Daily, 0 Refills, Maintenance, 07/14/23 10:18:00 EST, Partial fill upon patient request if the prescription is for a schedule II opioid drug. Start Date: 07/14/23 Status: Ordered PNV Select oral tablet 1 tablet, By Mouth, Daily, # 90 tablet, 2 Refills, Maintenance, 10/26/23 14:27:00 EST, [facility]/pharmacy#[id number], Partial fill upon patient request if the prescription is for a schedule II opioid drug., 1 tablet By Mouth Daily, 174, cm, 10/26/23 14:06:00 EST... Start Date: 10/26/23 Status: Ordered pyridoxine 25 mg oral tablet 1 tablet = 25 mg, By Mouth, 3 times a day, PRN Nausea & Vomiting, # 100 tablet, 8 Refills, Maintenance, 07/19/23 13:37:00 EST, Tablet, [facility] [id number] ([facility] 827), Partial fill upon patient request [...] Care team information Care Team Personnel Name: Cardinal RIDER, Omi Position: [facility] RN Member Role: Primary Care Nurse Name: Peggy Quintana Position: [facility] RN Member Role: Primary Care Nurse Name: Gill Han RN Position: [facility] RN Member Role: Primary Care Nurse Name: Sarwat Velázquez RN Position: [facility] RN Member Role: Primary Care Nurse Name: Adele Ibanez RN Position: [facility] RN Member Role: Primary Care Nurse Name: Nidia Tripp Position: [facility] RN Member Role: Primary Care Nurse Name: Bere Vazquez MD Position: [facility] Physician - Pediatrics Member Role: PCP Address: Address: [address] [place] [address] Pediatric & Adolescent Medicine [place], [place] [address] Name: Jessica Leal RN Position: [facility] RN Member Role: Primary Care Nurse Name: Bisi Rock RN Position: [facility] RN Member Role: Primary Care Nurse Name: Merlyn Looney RN Position: [facility] RN Member Role: Primary Care Nurse Care Team Related Persons Name: RUTHY GUZMAN Address: home [address] [place] [address] Name: PAULA APUL Address: home [address] [place] [address] Name: PAULA PAUL Address: home [address] [place] [address] Name: CARLOS PAUL Address: home [address] [place] [address] Name: JAIRO HAN Address: home [facility]
--- OUTSIDE RECORDS SUMMARY | 2024-02-11 22:03 | XMS_ITS | Continuity of Care Document ---
Author Organization [facility] ter Address [address] [place] [address]- Care Team Providers Care Precision Machine Operator Name Role Phone Pinky Peters MD Primary Care Physician Encounter [facility] Date(s): 07/16/21 - 07/16/[address] [address] Discharge Disposition: Transfer to [facility] Facility Attending Physician: Claire Gonzalez MD Admitting Physician: Claire Gonzalez MD Referring Physician: Claire Gonzalez MD Allergies, Adverse Reactions, Alerts Substance Reaction Severity Status Bee Stings Active Immunizations Given and Recorded Vaccine Date Status Refusal Reason Human Papillomavirus Vaccine 04/29/21 Recorded Human Papillomavirus Vaccine 08/13/20 Recorded SARS-CoV-2 (COVID-19) mRNA BNT-162b2 vac 01/30/21 Recorded SARS-CoV-2 (COVID-19) mRNA BNT-162b2 vac 01/09/21 Recorded Meningococcal Conjugate Vaccine 08/13/20 Recorded tetanus/diphtheria/pertussis, acel(Tdap) 06/27/18 Given Medications acetaminophen 325 mg oral tablet 650 mg, By Mouth, Every 6 hours, PRN, /Headache, Refills 0, Maintenance, Pain , Mild, 07/15/21 23:32:00 EST, Partial fill upon patient request if the prescription is for a schedule II opioid drug. Start Date: 07/15/21 Status: Ordered Benadryl Tablet = 25 mg, By Mouth, Every 4 hours, PRN Itch, 0 Refills, Maintenance, 07/15/21 23:32:00 EST, Tablet, Partial fill upon patient request if the prescription is for a schedule II opioid drug. Start Date: 07/15/21 Status: Ordered chlorproMAZINE 50 mg oral tablet = 50 mg, By Mouth, 3 times a day, PRN Agitation, 0 Refills, Maintenance, 07/15/21 23:32:00 EST, Tablet, Partial fill upon patient request if the prescription is for a schedule II opioid drug. Start Date: 07/15/21 Status: Ordered cyanocobalamin 1000 mcg oral tablet 1,000 mcg, 1, tablet, By Mouth, Daily, Refills 0, Maintenance, 07/15/21 23:33:00 EST, Partial fill upon patient request if the prescription is for a schedule II opioid drug. Start Date: 07/15/21 Status: Ordered ferrous sulfate 325 mg oral enteric coated tablet 325 mg, By Mouth, Daily, Refills 0, Maintenance, 07/15/21 23:33:00 EST, Partial fill upon patient request if the prescription is for a schedule II opioid drug. Start Date: 07/15/21 Status: Ordered FLUoxetine 20 mg oral capsule 40 mg, 2, capsule, By Mouth, Daily, Refills 0, Maintenance, 07/15/21 23:33:00 EST, Partial fill upon patient request if the prescription is for a schedule II opioid drug. Start Date: 07/15/21 Status: Ordered hydrOXYzine pamoate 50 mg oral capsule = 50 mg, By Mouth, Every 6 hours, PRN Anxiety, 0 Refills, Maintenance, 07/15/21 23:33:00 EST, Capsule, Partial fill upon patient request if the prescription is for a schedule II opioid drug. Start Date: 07/15/21 Status: Ordered Maalox Plus Liquid 30 mL, By Mouth, Every 4 hours, PRN Dyspepsia, 0 Refills, Maintenance, 07/15/21 23:32:00 EST, Suspension, Partial fill upon patient request if the prescription is for a schedule II opioid drug. Start Date: 07/15/21 Status: Ordered melatonin 10 mg oral tablet By Mouth, Daily at bedtime, 0 Refills, Maintenance, 07/15/21 23:33:00 EST, Tablet, Partial fill upon patient request if the prescription is for a schedule II opioid drug. Start Date: 07/15/21 Status: Ordered Milk of Magnesia Liquid 30 mL, By Mouth, Daily at bedtime, PRN Constipation, 0 Refills, Maintenance, 07/15/21 23:32:00 EST,Suspension, Partial fill upon patient request if the prescription is for a schedule II opioid drug. Start Date: 07/15/21 Status: Ordered Nicotine = 14 mg, Topically, Daily, 0 Refills, Maintenance, 07/15/21 23:32:00 EST, Patch, Partial fill upon patient request if the prescription is for a schedule II opioid drug. Start Date: 07/15/21 Status: Ordered Nicotine Gum 2 mg, Chew, Every hour, PRN, Nicotine Cravings, Refills 0, Maintenance, Other, 07/15/21 23:32:00 EST, Partial fill upon patient request if the prescription is for a schedule II opioid drug. Start Date: 07/15/21 Status: Ordered olanzapine 5 mg oral tablet 5 mg, 1, tablet, By Mouth, Daily, Refills 0, Maintenance, 07/15/21 23:34:00 EST, Partial fill upon patient request if the prescription is for a schedule II opioid drug. Start Date: 07/15/21 Status: Ordered ondansetron 4 mg oral tablet, disintegrating = 4 mg, By Mouth, Every 6 hours, PRN Nausea & Vomiting, 0 Refills, Maintenance, 07/15/21 23:32:00 EST, Tablet, Partial fill upon patient request if the prescription is for a schedule II opioid drug. Start Date: 07/15/21 Status: Ordered pantoprazole 20 mg oral delayed release tablet = 20 mg, By Mouth, Daily, 0 Refills, Maintenance, 07/15/21 23:32:00 EST, EC Tablet Start Date: 07/15/21 Status: Ordered Remove Patch 1 each, Topically, Daily at bedtime, 0 Refills, Maintenance, Patch Start Date: 07/15/21 Status: Ordered Senna 8.6 mg oral tablet 8.6 mg, 1, tablet, By Mouth, Daily, Refills 0, Maintenance, 07/15/21 23:34:00 EST, Tablet, Partial fill upon patient request if the prescription is for a schedule II opioid drug. Start Date: 07/15/21 Status: Ordered topiramate 100 mg oral tablet 1 tablet = 100 mg, By Mouth, Daily at supper, 0 Refills, Maintenance, 07/15/21 23:34:00 EST, Tablet, Partial fill upon patient request if the prescription is for a schedule II opioid drug. Start Date: 07/15/21 Status: Ordered topiramate 50 mg oral tablet 1 tablet = 50 mg, By Mouth, Daily, 0 Refills, Maintenance, 07/15/21 23:34:00 EST, Tablet, Partial fill upon patient request if the prescription is for a schedule II opioid drug. Start Date: 07/15/21 Status: Ordered traZODone 50 mg oral tablet 50 mg, 1, tablet, By Mouth, Daily at bedtime, PRN, Refills 0, Maintenance, Insomnia, 07/15/21 23:32:00 EST, Partial fill upon patient request if the prescription is for a schedule II opioid drug. Start Date: 07/15/21 Status: Ordered ZyPREXA 10 mg oral tablet 10 mg, 1, tablet, By Mouth, Daily at bedtime, Refills 0, Maintenance, 07/15/21 23:34:00 EST, Partial fill upon patient request if the prescription is for a schedule II opioid drug. Start Date: 07/15/21 Status: Ordered Problem List Condition Effective Dates Status Health Status Inform ant Acute depression(Confirmed) Active Vital Signs Most recent to oldest [Reference Range]: 1 2 3 Height 168 cm (07/16/21 9:42 AM) 168 cm (07/16/21:25 AM) 168 cm (07/16/21 12:39 AM) Weight 75.7 kg (07/16/21 12:39 AM) Oxygen Saturation [94-100 %] 98 % (07/16/21 9:42 AM) 98 % (07/16/21:25 AM) 99 % (07/16/21 12:39 AM) Pulse Rate [55-90 bpm] 67 bpm (07/16/21:25 AM) 85 bpm (07/16/21 12:39 AM) Body Mass Index [18.5-24.99] 26.82 *H* (07/16/21 12:39 AM) Blood Pressure [71-110/30-71 mm Hg] 110/46mm Hg (07/16/21:25 AM) 120/55mm Hg *H* (07/16/21 12:39 AM) Respiratory Rate [16-30 br/min] 18 br/min (07/16/21 5:25 AM) 22 br/min (07/16/21 12:39 AM) Temperature [96.8-100.4 DegF] 98.7 DegF (07/16/21 9:42 AM) 97.5 DegF (07/16/21 5:25 AM) 98.5 DegF (07/16/21 12:39 AM) Mode of Delivery (Oxygen) Room air (07/16/21 9:42 AM) Room air (07/16/21 5:25 AM) Room air (07/16/21 12:39 AM) Blood pressure sites Arm, left (07/16/21 5:25 AM) Arm, left (07/16/21 12:39 AM) Temperature Route Axillary (07/16/21 9:42 AM) Axillary (07/16/21 5:25 AM) Oral (07/16/21 12:39 AM) Dry Weight 75.7 kg (07/16/21 12:39 AM) Weight Obtained Via Standing scale (07/16/21 12:39 AM) Dry Weight Obtained Via Standing scale (07/16/21 12:39 AM) Social History Social History Type Response Smoking Status 5-9 cigarettes (betw een 1/4 to 1/2 pack)/day in last 30 days entered on: 05/24/21 Sex
--- OUTSIDE RECORDS SUMMARY | 2024-02-11 22:03 | XMS_ITS | Continuity of Care Document ---
Author Organization [facility] Yonathan [facility] Address [address] [place] [address]- Care Team Providers Care Shear Setter Name Role Phone George HARRIS, Bere Benavidez Primary [id number] [address] [place] [address]- Attending Physician: Aditya HARRIS, Lakshmi Douglas Allergies, [...] 08/13/20 Recorded 1Result Comment: PT [facility] [id number] Medications Benadryl 25 mg oral capsule 1 [...] 10/05/23 15:11:00 EST, Route to Pharmacy Electronically, [facility]/pharmacy #[id number], Partial fill upon patient [...] 3 Refills, Maintenance, 10/27/23 17:55:00 EST, Tablet, [facility]/pharmacy #[id number], Partial fill upon patient [...] Refills, Maintenance, 10/05/23 15:12:00 EST, REC Powder, [facility]/pharmacy #[id number], Partial fill upon patient [...] 1 Refills, Maintenance, 09/08/23 11:16:00 EST, Tablet, [facility], Partial fi... Start Date: 09/08/23 Status: Ordered PNV By Mouth, Daily, 0 Refills, Maintenance, 07/14/23 10:18:00 EST, Partial fill upon patient request if the prescription is for a schedule II opioid drug. Start Date: 07/14/23 Status: Ordered PNV Select oral tablet 1 tablet, By Mouth, Daily, # 90 tablet, 2 Refills, Maintenance, 10/26/23 14:27:00 EST, [facility]/pharmacy#[id number], Partial fill upon patient request if the prescription is for a schedule II opioid drug., 1 tablet By Mouth Daily, 174, cm, 10/26/23 14:06:00 EST... Start Date: 10/26/23 Status: Ordered pyridoxine 25 mg oral tablet 1 tablet = 25 mg, By Mouth, 3 times a day, PRN Nausea & Vomiting, # 100 tablet, 8 Refills, Maintenance, 07/19/23 13:37:00 EST, Tablet, [facility] [id number] ([facility] 827), Partial fill upon patient request if the prescription is for a schedule II opioid... Start Date: 07/19/23 Status: Ordered Reglan 10 mg oral tablet 1 tablet = 10 mg, By Mouth, Daily, PRN Headache, # 30 tablet, 0 Refills, Maintenance, 11/27/23 21:42:00 EDT, [facility]/pharmacy #[id number], Partial fill upon patient request if the prescription is for a schedule II opioid drug., 174, cm, 11/08/23 13:36:00 EST, H... Start Date: 11/27/23 Status: Ordered ursodiol 300 mg oral capsule 300 mg, 1, capsule, By Mouth, 3 times a day, # 100 capsule, Refills 1, Tot. Refills 1, Maintenance,12/06/23 18:22:00 EDT, Route to Pharmacy Electronically, [facility]/pharmacy #[id number], Partial fill upon patient request if the [...] oldest [Reference Range]: 1 Height 174 cm (11/29/23 3:51 PM) Weight 72.27 kg (11/29/23 3:51 PM) Body Mass Index [18.5-24.99 kg/m2] 23.87 kg/m2 (11/29/23 3:51 PM) Blood Pressure [90-138/55-84 mm Hg] 128/ 50mm Hg (11/29/23 3:51 PM) Blood pressure sites Arm, right (11/29/23 3:51 PM) Weight Obtained Via Standing scale (11/29/23 3:51 PM) Social History Social History Type Response [...] Care Nurse Name: Adele Ibanez RN Position: [facility] RN Member Role: Primary Care Nurse Name: Nidia Tripp Position: S RN Member Role: Primary Care Nurse Name: Bere Vazquez MD Position: [facility] Physician - Pediatrics Member Role: PCP Address: Address: [address] [place] [address] [facility] Adoles[facility] Medicine [place], [place] [address] Name: Jessica Leal RN Position: [facility] RN Member Role: Primary Care Nurse Name: Bisi Rock RN Position: [facility] RN Member Role: Primary Care Nurse Name: Merlyn Looney RN Position: [facility] RN Member Role: Primary Care Nurse Care Team Related Persons Name: RUTHY GUZMAN Address: home [address] [place] [address] Name: PAULA PAUL Address: home [address] [place] [address] Name: CARLOS PAUL Address: home [address] [place] [address] Name: JAIRO HAN Address: home [facility]
--- OUTSIDE RECORDS SUMMARY | 2024-02-11 22:03 | XMS_ITS | Continuity of Care Document ---
Author Organization [facility] Mcmanus nLevel[facility] Address [address], [address] [place] [address]- Care Team Providers Care B2B Sales Executive Name Role Phone George HARRIS, Bere Benavidez Primary Care Physician [place] [facility] [place] Date(s): 11/09/23 - 02/10/24 [facility]ela[facility] [address], [address] [place] [address]- Attending Physician: Dago Harrison MD Referring Physician: Lakshmi Burgess MD Allergies, [...] 08/13/20 Recorded 1Result Comment: PT [facility] [id number] Medications Lamotrigine By Mouth, Refills 0, Maintenance, 11/09/23 12:29:00 EST, Partial fill upon patient request if the prescription is for a schedule II opioid drug. Start Date: 11/09/23 Status: Ordered PNV By Mouth, Daily, 0 Refills, Maintenance, 07/14/23 10:18:00 EST, Partial fill upon patient request if the prescription is for a schedule II opioid drug. Start Date: 07/14/23 Status: Ordered PNV Select oral tablet 1 tablet, By Mouth, Daily, # 90 tablet, 2 Refills, Maintenance, 10/26/23 14:27:00 EST, [facility]/pharmacy#[id number], Partial fill upon patient request if the prescription is for a schedule II opioid drug., 1 tablet By Mouth Daily, 174, cm, 10/26/23 14:06:00 EST... Start Date: 10/26/23 Status: Ordered RisperDAL 1 mg oral tablet 1 mg, 1, tablet, By Mouth, 2 times a day, Refills 0, Maintenance, 02/10/24 20:02:00 EDT, Partial fill upon patient request if the prescription is for a schedule II opioid drug. Start Date: 02/10/24 Status: Ordered Vitamin B6 Daily, 0 Refills, [...] Nurse Name: George HARRIS, Bere Benavidez Position: [facility] Physician - Pediatrics Member Role: PCP Address: Address: [address] [facility] [place] [address]- Name: Jessica Leal RN [facility] [...] Persons Name: RUTHY GUZMAN Address: home [address] [place] [address] Name: PAULA PAUL Address: home [address] [place] [address] Name: CHARLY PAUL Address: [id number] Address: home [address] [place] [address] Name: CARLOS PAUL Address: home [address] [place] [address] Name: JAIRO HAN Address: home [facility]
--- OUTSIDE RECORDS SUMMARY | 2024-02-11 22:03 | XMS_ITS | Continuity of Care Document ---
Author Organization [facility] Yonathan n[employer]ouchOnes [facility] Address [address], [address] [place] [address]- Care Team Providers Care Patent Paralegal Name Role Phone George HARRIS, Bere Benavidez Primary Care Physician Encounter [facility] [place] Date(s): 01/11/24 - 01/18/24 [facility] MayelaCouchOnes [facility] [address] [place] [address]- Attending Physician: Aditya HARRIS, Lakshmi Douglas Allergies, [...] 08/13/20 Recorded 1Result Comment: PT [facility] [id number] Medications Benadryl 25 mg oral capsule 1 [...] Gm, 0 Refills, Maintenance, 12/23/23 14:35:00 EDT,Cream, [facility]/pharmacy #[id number], Partial fill upon patient request if the [...] 10/05/23 15:11:00 EST, Route to Pharmacy Electronically, [facility]/pharmacy #[id number], Partial fill upon patient request [...] 3 Refills, Maintenance, 10/27/23 17:55:00 EST, Tablet, [facility]/pharmacy #[id number], Partial fill upon patient request [...] Refills, Soft Stop, 01/06/24 23:37:00 EDT, Cream, [facility]/pharmacy #[id number], Partial fill upon patient request if the prescription is for a schedule II opioid drug., 1 applicator Topically Once, 173, cm, 01/05/24 8:4... Start Date: 01/06/24 Status: Ordered MiraLax oral powder for reconstitution = 17 Gm, By Mouth, Daily, dissolve in 4 to 8 oz of beverage, # 238 Gm, 1 Refills, Maintenance, 10/05/23 15:12:00 EST, REC Powder, [facility]/pharmacy #[id number], Partial fill upon patient request [...] 1 Refills, Maintenance, 09/08/23 11:16:00 EST, Tablet, [facility], Partial fi... Start Date: 09/08/23 Status: Ordered PNV By Mouth, Daily, 0 Refills, Maintenance, 07/14/23 10:18:00 EST, Partial fill upon patient request if the prescription is for a schedule II opioid drug. Start Date: 07/14/23 Status: Ordered PNV Select oral tablet 1 tablet, By Mouth, Daily, # 90 tablet, 2 Refills, Maintenance, 10/26/23 14:27:00 EST, [facility]/pharmacy#[id number], Partial fill upon patient request if the prescription is for a schedule II opioid drug., 1 tablet By Mouth Daily, 174, cm, 10/26/23 14:06:00 EST... Start Date: 10/26/23 Status: Ordered pyridoxine 25 mg oral tablet 1 tablet = 25 mg, By Mouth, 3 times a day, PRN Nausea & Vomiting, # 100 tablet, 8 Refills, Maintenance, 07/19/23 13:37:00 EST, Tablet, [facility] [id number] ([facility] [id number]), Partial fill upon patient request if the prescription is for a schedule II opioid... Start Date: 07/19/23 Status: Ordered Reglan 10 mg oral tablet 1 tablet = 10 mg, By Mouth, Daily, PRN Headache, # 30 tablet, 0 Refills, Maintenance, 11/27/23 21:42:00 EDT, [facility]/pharmacy #[id number], Partial fill upon patient request if the prescription is for a schedule II opioid drug., 174, cm, 11/08/23 13:36:00 EST, H... Start Date: 11/27/23 Status: Ordered ursodiol 300 mg oral capsule 300 mg, 1, capsule, By Mouth, 3 times a day, # 100 capsule, Refills 1, Tot. Refills 1, Maintenance,12/06/23 18:22:00 EDT, Route to Pharmacy Electronically, [facility]/pharmacy #[id number], Partial fill upon patient request if the [...] Team Personnel Name: Omi Wise RN Position: [facility] RN Member Role: Primary Care Nurse Name: Peggy Quintana Position: [facility] RN Member Role: Primary Care Nurse Name: Gill Han RN Position: S RN Member Role: Primary Care Nurse Name: Sarwat Velázquez RN Position: S RN Member Role: Primary Care Nurse Name: Adele Ibanez RN Position: S RN Member Role: Primary Care Nurse Name: Nidia Tripp Position: S RN Member Role: Primary Care Nurse Name: Bere Vazquez MD Position: [facility] Physician - Pediatrics Member Role: PCP Address: Address: [address] [place] [address] Pediatric & Adolescent Medicine [place], [place] [address] Name: Jessica Leal RN Position: [facility] RN Member Role: Primary Care Nurse Name: Bisi Rock RN Position: [facility] RN Member Role: Primary Care Nurse Name: Merlyn Looney RN Position: [facility] RN Member Role: Primary Care Nurse Care Team Related Persons Name: RUTHY GUZMAN Address: home [address] [place] [address] Name: PAULA PAUL Address: home [address] [place] [place] [address] Name: CHARLY PAUL Address: [address] Address: home [address] [place] [id number] Name: CARLOS PAUL Address: home [address] [place] [address] Name: JAIRO HAN Address: home [facility]
--- OUTSIDE RECORDS SUMMARY | 2024-02-11 22:03 | XMS_ITS | Continuity of Care Document ---
Author Organization [facility] Address [address], [address] [place] [address]- Care Team Providers Care Home Teaching Grades 7 And 8 Teacher Name Role Phone George HARRIS, Bere Benavidez Primary Care Physician Encounter [facility] [place] Date(s): 11/08/23 - 11/15/23 [facility] [address], [address] [place] [address]- Attending Physician: Dago Harrison MD Admitting Physician: Lakshmi Burgess MD Referring [...] 1Result Comment: PT [facility] [id number] Medications Benadryl 25 mg oral capsule 1 [...] 10/05/23 15:11:00 EST, Route to Pharmacy Electronically, [facility]/pharmacy #[id number], Partial fill upon patient request [...] 3 Refills, Maintenance, 10/27/23 17:55:00 EST, Tablet, [facility]/pharmacy #[id number], Partial fill upon patient request [...] Refills, Maintenance, 10/05/23 15:12:00 EST, REC Powder, [facility]/pharmacy #[id number], Partial fill upon patient request [...] 1 Refills, Maintenance, 09/08/23 11:16:00 EST, Tablet, [facility], Partial fi... Start Date: 09/08/23 Status: Ordered PNV By Mouth, Daily, 0 Refills, Maintenance, 07/14/23 10:18:00 EST, Partial fill upon patient request if the prescription is for a schedule II opioid drug. Start Date: 07/14/23 Status: Ordered PNV Select oral tablet 1 tablet, By Mouth, Daily, # 90 tablet, 2 Refills, Maintenance, 10/26/23 14:27:00 EST, [facility]/pharmacy#[id number], Partial fill upon patient request if the prescription is for a schedule II opioid drug., 1 tablet By Mouth Daily, 174, cm, 10/26/23 14:06:00 EST... Start Date: 10/26/23 Status: Ordered pyridoxine 25 mg oral tablet 1 tablet = 25 mg, By Mouth, 3 times a day, PRN Nausea & Vomiting, # 100 tablet, 8 Refills, Maintenance, 07/19/23 13:37:00 EST, Tablet, [facility] [id number] ([place] [id number]), Partial fill upon patient request if the prescription is for a schedule II opioid... Start Date: 07/19/23 Status: Ordered Vitamin B6 Daily, 0 Refills, Maintenance, 07/14/23 10:18:00 EST, Partial fill upon patient request if the prescription is for a schedule II opioid drug. Start Date: 07/14/23 Status: Ordered Problem List Condition Confirmation Course Effective Dates Status H ealt Status Informant Acute depression Confirmed Active Bipolar [...] oldest [Reference Range]: 1 Height 174 cm (11/08/23 1:36 PM) Weight 70.90 kg (11/08/23 1:36 PM) Body Mass Index [18.5-24.99 kg/m2] 23.42 kg/m2 (11/08/23 1:36 PM) Blood Pressure [90-138/55-84 mm Hg] 122/ 52mm Hg (11/08/23 1:36 PM) Blood pressure sites Arm, right (11/08/23 1:36 PM) Weight Obtained Via Standing scale (11/08/23 1:36 PM) Social History Social History Type Response [...] Care Nurse Name: Bere Vazquez MD Position: [facility] Physician - Pediatrics Member Role: PCP Address: Address: [address] [place] [address] Pediatric & Adolescent Medicine [place], [place] [address] Name: Jessica Leal RN Position: S RN Member Role: Primary Care Nurse Name: Bisi Rock RN Position: S RN Member Role: Primary Care Nurse Name: Merlyn Looney RN Position: [facility] RN Member Role: Primary Care Nurse Care Team Related Persons Name: RUTHY GUZMAN Address: home [address] [place] [address] Name: PAULA PAUL Address: home [address] [place] [address] Name: PAULA PAUL Address: home [address] [place] [address] Name: CARLOS PAUL Address: home [address] [place] [address] Name: JAIRO HAN Address: home
--- OUTSIDE RECORDS SUMMARY | 2024-02-11 22:03 | XMS_ITS | Continuity of Care Document ---
Author Organization [facility] Address [address] [place] [address]- Care Team Providers Care Hip Hop Dance Instructor Name Role Phone Pinky Peters MD Primary Care Physician Encounter [facility] Date(s): 12/02/20 - 01/30/21 [facility] [address] [place] [address]- Attending Physician: Romy Chilel MD Admitting Physician: Romy Chilel MD Referring Physician: Roro Pitts MD Allergies, Adverse Reactions, Alerts Substance Reaction [...] EDT, Tablet Start Date: 01/12/18 Status: Ordered MiraLax oral powder for reconstitution = 17 Gm, By Mouth, Daily, for 14 days, dissolve in water before taking, # 238 Gm, 0 Refills, Acute 02/04/21 23:04:00 EDT, 01/21/21 23:04:00 EDT, REC Powder, [facility]/pharmacy #[id number], Partial fill upon patient request if the prescription is for a schedule II... Start Date: 01/21/21 Stop Date: 02/04/21 Status: Ordered OXcarbazepine 300 mg oral tablet [...]
--- OUTSIDE RECORDS SUMMARY | 2024-02-11 22:04 | XMS_ITS | Continuity of Care Document ---
Author Organization [facility] Address [address] [place] [address]- Care Team Providers Care Protective Service Specialist Name Role Phone Hong HARRIS, Roro Primary Care Physician Encounter [facility] [place] Date(s): 11/18/20 - 12/18/20 [facility] [address] [place], [place] [address] Attending Physician: Admtr, Rachel Admitting Physician: AdmtrRachel Referring Physician: Admtr, [id number] Allergies, Adverse Reactions, [...]
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
--- OUTSIDE RECORDS SUMMARY | 2024-02-11 22:04 | XMS_ITS | Continuity of Care Document ---
Author Organization [facility] [employer] [facility] Address [address] [place] [address]- Care Team Providers Care Wet Roller Name Role Phone George HARRIS, Bere Benavidez Primary Care Physician [facility] [facility] Date(s): 05/28/23 - 06/27/23 [facility] [employer] [facility] [address] [place] [address]- Allergies, Adverse Reactions, Alerts Substance Reaction Severity Status Bee Stings Active ZyPREXA Active Immunizations Given and Recorded Vaccine Date Status Refusal Reason influenza virus vaccine, inactivated 07/01/21 William rded Human Papillomavirus Vaccine 04/29/21 Recorded Human Papillomavirus Vaccine 08/13/20 Recorded SARS-CoV-2 (COVID-19) mRNA BNT-162b2 vac 01/30/21 Recorded SARS-CoV-2 (COVID-19) mRNA BNT-162b2 vac 01/09/21 Recorded Meningococcal Conjugate Vaccine 08/13/20 Recorded tetanus/diphtheria/pertussis, acel(Tdap) 06/27/18 Given Medications chlorproMAZINE 100 mg oral tablet = 100 mg, By Mouth, Daily at bedtime, PRN Insomnia, 0 Refills, Maintenance, 05/28/22 8:23:00 EDT, Tablet, Partial fill upon patient request if the prescription is for a schedule II opioid drug. Start Date: 05/28/22 Status: Ordered Melatonin Daily at bedtime, 0 Refills, Maintenance, 02/11/23 18:02:00 EDT, Partial fill upon patient request if the prescription is for a schedule II opioid drug. Start Date: 02/11/23 Status: Ordered risperiDONE 1 mg oral tablet [...] II o... Start Date: 05/28/22 Status: Ordered Problem List Condition Confirmation Course Effective Dates Status Health [facility] Informant Acute depression Confirmed Active Social History Social History Type Response Smoking Status 5-9 cigarettes (betw een 1/4 to 1/2 pack)/day in last 30 days entered on: 05/24/21 Sex Patient Care team information Care Team Personnel Name: Omi Wise RN Position: [facility] RN Member Role: Primary Care Nurse Name: Peggy Quintana Position: [facility] RN Member Role: Primary Care Nurse Name: Gill Han RN Position: S RN Member Role: Primary Care Nurse Name: Sarwat Velázquez RN Position: S RN Member Role: Primary Care Nurse Name: Brigette Healy RN Position: [facility] RN Member Role: Primary Care Nurse Name: Bere Vazquez MD Position: [facility] General Pediatrics MD Member Role: PCP Address: Address: [address] [place] [address] Pediatric & Adolescent Medicine [place], [place] [address] Name: Jessica Leal RN Position: S RN Member Role: Primary Care Nurse Name: Merlyn Looney RN Position: [facility] RN Member Role: Primary Care Nurse Care Team Related Persons Name: GONZÁLEZ QUINTANILLA Address: [place] [address] Name: PAULA PAUL Address: home [address] [place] [address] Name: CARLOS PAUL Address: home [address] [place] [address]
--- OUTSIDE RECORDS SUMMARY | 2024-02-11 22:04 | XMS_ITS | Continuity of Care Document ---
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 healthcare provider how long it will take for a medicine to start working. ??? Don't share your medicine. Don???t use someone else's medicine. ??? Tell your healthcare providers all the medicines you take. This includes prescription and ktag-gmk-huubrje medicines. It includes vitamins and herbal supplements. Some supplements caninteract with medicines. They can cause dangerous side effects. Ask your pharmacist about medicine interactions when you have questions. ??? Don't make major decisions until you feel better. This incl udes things such as a job change, a divorce, or a marriage. ??? Don't drink alcohol. It can make depression worse. ??? Talk with your family and??trusted friends??about your feelings and thoughts.??Ask them to help you notice behavior changes early. You can then get help and, if needed, your medicine can be changed. ??? Talk with your healthcare provider if you are not getting better. They may change your medicine or have you try another treatment. ?? Follow-up care Follow up with your healthcare provider as advised. ?? Crisis care Call 988 if you have thoughts of harming yourself or others. When you call or text [phone], you will beconnected to trained crisis counselors. An online chat option is also available. Stylistpick is free and available 29/03. 988 counselors will work with 911 to help you get the care you need. Call 911 if you: ??? Have trouble breathing ??? Are??very confused ??? Feel very drowsy or have??trouble awakening ??? Faint ??? Have new chest pain that becomes more severe, lasts longer, or spreadsinto your shoulder, arm, neck, jaw, or back ?? When to get medical care Call your healthcare provider right away if any of these happen: ??? Your symptoms get worse ??? You have extreme depression, fear, anxiety, or anger toward yourself or others ??? You feel out of control ??? You feel that you may try to harm yourself or another ??? You hear voices other people don't hear ??? You see things other people don't see ??? You don't sleep or eat for 3 days in a row ??? Friends or family express concern over your behavior and ask you to get help ?? Last Reviewed Date: 2021 ?? 2144-8107 [employer]. All rights reserved. This information is not intended as a substitute for professional medical care. Always follow your healthcare professional's instructions. ?? Patient Care team information Care Team Personnel Name: Omi Wise RN Position: [facility] RN Member Role: Primary Care Nurse Name: Peggy Quintana Position: [facility] RN Member Role: Primary Care Nurse Name: Gill Han RN Position: [facility] RN Member Role: Primary Care Nurse Name: Sarwat Velázquez RN Position: [facility] RN Member Role: Primary Care Nurse Name: Brigette Healy RN Position: [facility] RN Member Role: Primary Care Nurse Name: Bere Vazquez MD Position: [facility] General Pediatrics MD Member Role: PCP Address: Address: [address] [place] [address] Pediatric [place] [address]- Name: Jessica Leal RN Position: [facility] RN Member Role: Primary Care Nurse Name: Merlyn Looney RN Position: [facility] RN Member Role: Primary Care Nurse Name: Christo Goetz Position: [facility] [place] [facility] Name: Bertha Menchaca RN Position: [facility] ED RN W/OE and Tasks Member Role: Patient Care Provider Name: Ebonie Saldana DO Position: [facility] ED Medicine MD Member Role: ED Attending Physician Address: Address: [address] [place] [address] [place] [address]- Name: Frannie Saldivar RN Position: [facility] ED RN W/OE and Tasks Member Role: Patient Care Provider Care Team Related Persons Name: GONZÁLEZ QUINTANILLA Address: [place] [address] Name: PAULA PAUL Address: home [address] [place] [address] Name: CARLOS PAUL Address: home [address] [place] [address]
--- OUTSIDE RECORDS SUMMARY | 2024-02-11 22:04 | XMS_ITS | Continuity of Care Document ---
Author Organization [facility] ter Address [address] [place] [address]- Care Team Providers Care School Services Officer Name Role Phone Roro Pitts MD Primary Care Physician Encounter [facility] [place] Date(s): 07/02/21 - 07/03/[address] [address]- Encounter Diagnosis Substance use(Final) - 07/03/21 Discharge Disposition: A-D/C Home Attending Physician: Jung Chapman MD Admitting Physician: Jung Chapman MD Referring Physician: Not on Staff, Referring MD Allergies, Adverse Reactions, Alerts Substance Reaction Severity Status Bee Stings Active Immunizations Given and Recorded Vaccine Date Status Refusal Reason Human Papillomavirus Vaccine 04/29/21 Recorded Human Papillomavirus Vaccine 08/13/20 Recorded SARS-CoV-2 (COVID-19) mRNA BNT-162b2 vac 01/30/21 Recorded SARS-CoV-2 (COVID-19) mRNA BNT-162b2 vac 01/09/21 Recorded Meningococcal Conjugate Vaccine 08/13/20 Recorded tetanus/diphtheria/pertussis, acel(Tdap) 06/27/18 Given Medications cyanocobalamin 1000 mcg oral tablet 1,000 mcg, 1, tablet, By Mouth, Daily, # 30 tablet, Refills 1, Tot. Refills 1, Maintenance, 06/27/21 11:09:00 EDT, Route to Pharmacy Electronically, [facility], Partial fill upon patient request if the prescription is for a schedule II opioid drug., 1... Start Date: 06/27/21 Stop Date: 08/26/21 Status: Ordered EpiPen 2-Maximiliano 0.3 mg injectable kit = 0.3 mg, Intramuscular, Once, PRN Anaphylactic Reaction, # 1 each, 0 Refills, Soft Stop, 06/27/21 13:01:00 EDT, [facility], Partial fill upon patient request if the prescription is for a schedule IIopioid drug., 174, cm, 06/26/21 15:23:00 EDT, [facility]... Start Date: 06/27/21 Status: Ordered ferrous sulfate 325 mg oral enteric coated tablet 325 mg, By Mouth, Daily, # 30 tablet, Refills 0, Tot. Refills 0, Maintenance, 06/27/21 11:11:00 EDT, Route to Pharmacy Electronically, [facility], Partial fill upon patient request if the prescription is for a schedule II opioid drug., 174, cm, ... Start Date: 06/27/21 Stop Date: 07/27/21 Status: Ordered FLUoxetine 20 mg oral capsule 40 mg, 2, capsule, By Mouth, Daily, # 60 capsule, Refills 0, Tot. Refills 0, Maintenance, 06/27/21 11:11:00 EDT, Route to Pharmacy Electronically, [facility], Partial fill upon patient request if theprescription is for a schedule II opioid drug., 174... Start Date: 06/27/21 Status: Ordered hydrOXYzine hydrochloride 50 mg oral tablet 1 tablet = 50 mg, By Mouth, 3 times a day, PRN for anxiety, for 30 days, # 120 tablet, 0 Refills, Acute 07/27/21 11:16:00 EST, 06/27/21 11:16:00 EDT, Tablet, [facility], Partial fill upon patient request if the prescription is for a schedule II opioid... Start Date: 06/27/21 Stop Date: 07/27/21 Status: Ordered ibuprofen 600 mg oral tablet 600 mg, By Mouth, 3 times a day, PRN, for 14 days, # 42 tablet, Refills 0, Tot. Refills 0, Acute 07/11/21 11:12:00 EDT, Pain , Mild, 06/27/21 11:12:00 EDT, Route to Pharmacy Electronically, [facility], Partial fill upon patient request if the prescrip... Start Date: 06/27/21 Stop Date: 07/11/21 Status: Ordered melatonin 10 mg oral tablet 1 tablet = 10 mg, By Mouth, Daily at bedtime, for 30 days, # 30 tablet, 0 Refills, Acute 07/27/21 11:11:00 EST, 06/27/21 11:11:00 EDT, Tablet, [facility], Partial fill upon patient request if the prescription is for a schedule II opioid drug., 174, cm... Start Date: 06/27/21 Stop Date: 07/27/21 Status: Ordered omeprazole 20 mg oral delayed release tablet = 20 mg, By Mouth, Daily, # 30 tablet, 1 Refills, Maintenance, 06/27/21 11:09:00 EDT, EC Tablet, [facility], Partial fill upon patient request if the prescription is for a schedule II opioid drug., 174, cm, 06/26/21 15:23:00 EDT, Height, 70.9, kg, 10/... Start Date: 06/27/21 Stop Date: 08/26/21 Status: Ordered Senna 8.6 mg oral tablet 8.6 mg, 1, tablet, By Mouth, Daily, for 14 days, # 14 tablet, Refills 1, Tot. Refills 1, Acute, 07/25/21 11:12:00 EST, 06/27/21 11:12:00 EDT, Route to Pharmacy Electronically, [facility] Tablet, Partial fill upon patient request if the prescription is... Start Date: 06/27/21 Stop Date: 07/25/21 Status: Ordered topiramate 100 mg oral tablet 1 tablet = 100 mg, By Mouth, Daily at supper, # 30 tablet, 1 Refills, Maintenance, 06/27/21 11:11:00 EDT, Tablet, [facility], Partial fill upon patient request if the prescription is for a schedule II opioid drug., 174, cm, 06/26/21 15:23:00 EDT, Heig... Start Date: 06/27/21 Stop Date: 08/26/21 Status: Ordered topiramate 50 mg oral tablet 1 tablet = 50 mg, By Mouth, Daily, # 30 tablet, 1 Refills, Maintenance, 06/27/21 11:11:00 EDT, Tablet, [facility], Partial fill upon patient request if the prescription is for a schedule II opioid drug., 174, cm, 06/26/21 15:23:00 EDT, Height, 70.9, k... Start Date: 06/27/21 Stop Date: 08/26/21 Status: Ordered ZyPREXA 10 mg oral tablet See Instructions, 1 tablet By Mouth Daily at bedtime and 0.5 tablet daily at 4 PM, # 45 tablet, Refills 0, Tot. Refills 0, Maintenance, 06/27/21 11:11:00 EDT, Instructions Replace Required Details, Route to Pharmacy Electronically, [facility], Partial... Start Date: 06/27/21 Status: Ordered Problem List Condition Effective Dates Status Health Status Inform ant Acute depression(Confirmed) Active Vital Signs Most recent to oldest [Reference Range]: 1 2 3 Oxygen Saturation [94-100 %] 100 % (07/03/21 6:53 AM) 96 % (07/03/21 4:49 AM) 100 % (07/03/21 2:55 AM) Pulse Rate [55-90 bpm] 91 bpm *H* (07/03/21 6:53 AM) 78 bpm (07/03/21 4:49 AM) 79 bpm (07/03/21 2:55 AM) Blood Pressure [71-110/30-71 mm Hg] 128/61mm Hg *H* (07/03/21 6:53 AM) 111/43mm Hg *H* (07/03/21 4:49 AM) 116/41mm Hg *H* (07/03/21 2:55 AM) Respiratory Rate [16-30 br/min] 18 br/min (07/03/21 6:53 AM) 16 br/min (07/03/21 4:49 AM) 14 br/min *L* (07/03/21 2:55 AM) Temperature [96.8-100.4 DegF] 98.5 DegF (07/02/21 10:12 PM) Mode of Delivery (Oxygen) Room air (07/03/21 6:53 AM) Room air (07/03/21 4:49 AM) Room air (07/03/21 2:55 AM) Blood pressure sites Arm, right (07/03/21 2:55 AM) Arm, right (07/02/21 10:12 PM) Temperature Route Oral (07/02/21 10:12 PM) Social History Social History Type Response Smoking Status 5-9 cigarettes (betw een 1/4 to 1/2 pack)/day in last 30 days entered on: 05/24/21 Sex
--- OUTSIDE RECORDS SUMMARY | 2024-02-11 22:04 | XMS_ITS | Continuity of Care Document ---
Author Organization [facility] ter Address [address] [place] [address]- Care Team Providers Care Windows Admin Name Role Phone Roro Pitts MD Primary Care Physician Encounter [facility] [place] Date(s): 09/17/21 - 09/18/[address] [address]- Encounter Diagnosis Sinus congestion(Final) - 09/18/21 Discharge Disposition: A-D/C Home Attending Physician: Akua Maravilla DO Admitting Physician: Akua Maravilla DO Referring Physician: Not on Staff, Referring [...] /Headache, Refills 0, Maintenance, Pain , Mild, 07/23/21 9:26:00 EST, Partial fill upon patient request if the prescription is for a schedule II opioid drug. Start Date: 07/23/21 Status: Ordered bacitracin topical 500 u/gm ointment See Instructions, Topically 2 times a day, # 15 Gm, 0 Refills, Maintenance, 08/11/21 9:39:00 EST, Ointment, [facility], Partial fill upon patient request if the prescription is for a schedule II opioid drug., Topically 2 times a day, 172.72, cm, 08/11... Start Date: 08/11/21 Status: Ordered cyanocobalamin 1000 mcg oral tablet 1,000 mcg, 1, tablet, By Mouth, Daily, # 30 tablet, Refills 0, Tot. Refills 0, Maintenance, 07/23/21 8:57:00 EST, Route to Pharmacy Electronically, [facility], Partial fill upon patient request if the prescription is for a schedule II opioid drug., 17... Start Date: 07/23/21 Status: Ordered ferrous sulfate 325 mg oral enteric coated tablet 325 mg, 1, tablet, By Mouth, Daily, # 30 tablet, Refills 0, Tot. Refills 0, Maintenance, 07/23/21 8:58:00 EST, Route to Pharmacy Electronically, [facility], Partial fill upon patient request if the prescription is for a schedule II opioid drug., 172.7... Start Date: 07/23/21 Status: Ordered FLUoxetine 20 mg oral capsule 40 mg, 2, capsule, By Mouth, Daily, # 180 capsule, Refills 0, Tot. Refills 0, Maintenance, 218:58:00 EST, Route to Pharmacy Electronically, [facility], Partial fill upon patient request if theprescription is for a schedule II opioid drug., 172... Start Date: 07/23/21 Status: Ordered hydrOXYzine pamoate 25 mg oral capsule 2 capsule = 50 mg, By Mouth, Every 6 hours, PRN Anxiety, # 60 capsule, 0 Refills, Maintenance, 07/23/21 9:26:00 EST, Capsule, [facility], Partial fill upon patient request if the prescription is for a schedule II opioid drug., 172.72, cm, 07/22/21 20:... Start Date: 07/23/21 Status: Ordered Melatonin 5 mg oral tablet 1 tablet = 5 mg, By Mouth, Daily at bedtime, PRN for insomnia, # 60 tablet, 0 Refills, Maintenance,08/05/21 16:47:00 EST, Tablet, Partial fill upon patient request if the prescription is for a schedule II opioid drug. Start Date: 08/05/21 Status: Ordered Nicoderm C-Q Clear 14 mg/24 hr transdermal film, extended release 1 patch, Topically, Daily, # 30 patch, 0 Refills, Maintenance, 07/23/21 8:58:00 EST, Patch, [facility], Partial fill upon patient request if the prescription is for a schedule II opioid drug., 172.72, cm, 07/22/21 20:51:00 EST, Height, 65, kg, ... Start Date: 07/23/21 Status: Ordered nicotine 2 mg oral transmucosal gum = 2 mg, Chew, Every 15 minutes, PRN Other, cigarette craving, # 160 each, 0 Refills, Maintenance, 08/11/21 9:37:00 EST, Gum, [facility], Partial fill upon patient request if the prescription is for aschedule II opioid drug., 172.72, cm, 08/11/21 8:46... Start Date: 08/11/21 Status: Ordered olanzapine 5 mg oral tablet 5 mg, 1, tablet, By Mouth, Daily, # 30 tablet, Refills 0, Tot. Refills 0, Maintenance, 07/23/21 8:58:00 EST, Route to Pharmacy Electronically, [facility], Partial fill upon patient request if the prescription is for a schedule II opioid drug., 172.72,... Start Date: 07/23/21 Status: Ordered omeprazole 20 mg oral enteric coated capsule 1 capsule = 20 mg, By Mouth, Daily, # 30 capsule, 0 Refills, Maintenance, 08/05/21 16:47:00 EST, [facility], Partial fill upon patient request if the prescription is for a schedule II opioid drug. Start Date: 08/05/21 Status: Ordered ondansetron 4 mg oral tablet, disintegrating 1 tablet = 4 mg, By Mouth, Every 6 hours, PRN Nausea & Vomiting, # 30 tablet, 0 Refills, Maintenance, 07/23/21 8:59:00 EST, Tablet, [facility], Partial fill upon patient request if the prescription is for a schedule II opioid drug., 172.72, cm, ... Start Date: 07/23/21 Status: Ordered pantoprazole 20 mg oral delayed release tablet 1 tablet = 20 mg, By Mouth, Daily, # 30 tablet, 0 Refills, Maintenance, 07/23/21 8:59:00 EST, EC Tablet, 172.72, cm, 07/22/21 20:51:00 EST, Height, 65, kg, 07/16/21 18:15:00 EST, Dry Weight Start Date: 07/23/21 Status: Ordered QUEtiapine 25 mg oral tablet 25 mg, 1, tablet, By Mouth, Daily, # 30 tablet, Refills 0, Maintenance, 08/05/21 16:47:00 EST, Partial fill upon patient request if the prescription is for a schedule II opioid drug. Start Date: 08/05/21 Status: Ordered Senna 8.6 mg oral tablet 8.6 mg, 1, tablet, By Mouth, Daily, # 30 tablet, Refills 0, Tot. Refills 0, Maintenance, 07/23/21 8:59:00 EST, Route to Pharmacy Electronically, [facility] Tablet, Partial fill upon patient request if the prescription is for a schedule II opioid drug.... Start Date: 07/23/21 Status: Ordered topiramate 100 mg oral tablet 1 tablet = 100 mg, By Mouth, Daily at supper, # 30 tablet, 0 Refills, Maintenance, 07/23/21 8:59:00EST, Tablet, [facility], Partial fill upon patient request if the prescription is for a schedule IIopioid drug., 172.72, cm, 07/22/21 20:51:00 EST, He... Start Date: 07/23/21 Status: Ordered topiramate 50 mg oral tablet 1 tablet = 50 mg, By Mouth, Daily, # 90 tablet, 0 Refills, Maintenance, 07/23/21 8:59:00 EST, Tablet, [facility], Partial fill upon patient request if the prescription is for a schedule II opioid drug., 172.72, cm, 07/22/21 20:51:00 EST, Height, 65, k... Start Date: 07/23/21 Status: Ordered traZODone 50 mg oral tablet 50 mg, 1, tablet, By Mouth, Daily at bedtime, PRN, Take 1 tablet (=50 mg), daily at bedtime, as needed for insomnia, # 30 tablet, Refills 0, Tot. Refills 0, Maintenance, Sleep, 08/11/21 9:40:00 EST, Route to Pharmacy Electronically, [facility], Partia... Start Date: 08/11/21 Stop Date: 09/10/21 Status: Ordered ZyPREXA 10 mg oral tablet 10 mg, 1, tablet, By Mouth, Daily at bedtime, # 30 tablet, Refills 0, Tot. Refills 0, Maintenance, 07/23/21 8:58:00 EST, Route to Pharmacy Electronically, [facility], Partial fill upon patient request if the prescription is for a schedule II opioid . Start Date: 07/23/21 Status: Ordered Problem List Condition Effective Dates Status Health Status Inform ant Acute depression(Confirmed) Active Results Radiology Reports * Exam Date Time Procedure Performing Provider Status 09/18/21 1:02 AM Chest 2 Views Frontal and Lat Asim Jiang; Auth (Verified) Notes: (Chest 2 Views Frontal and Lat) Reason For Exam: Cough RESULT: Chest 2 Views Frontal and Lat Chest 2 Views Frontal and Lat Hx of Present Illness: pt reports two weeks of nvd, trouble urinating, fever chills, body aches, dizziness and now today sob and cough.; Reason: Cough; Clinical Question(s): Pneumonia; COMPARISON: July 08, 2020 FINDINGS: LINES AND TUBES: None. LUNGS AND PLEURA: The lungs are clear. No pleural effusion. No pneumothorax. HEART, MEDIASTINUM AND MARINO: Normal. BONES AND SOFT TISSUES: Normal. IMPRESSION: No acute cardiopulmonary process. WSN: [id number] Ordering Physician: Toan Braga Dictated By: Jung Saavedra MD Dictated Date/Time: 09/18/21 7:32 am Reviewed By: Jung Saavedra MD Signed By: Jung Saavedra MD Signed Date/Time: 09/18/21 7:32 am Transcribed By: BAILEE Transcribed Date/Time: 09/18/21 7:31 am Vital Signs Most recent to oldest [Reference Range]: 1 2 3 Oxygen Saturation [94-100 %] 100 % (09/18/21 6:26 AM) 100 % (09/18/21 3:30 AM) 100 % (09/18/21 1:31 AM) Pulse Rate [55-90 bpm] 82 bpm (09/18/21 6:26 AM) 66 bpm (09/18/21 3:30 AM) 101 bpm *H* (09/18/21 1:31 AM) Blood Pressure [71-110/30-71 mm Hg] 141/79mm Hg *H* (09/18/21 6:26 AM) 120/69mm Hg *H* (09/18/21 3:30 AM) 116/61mm Hg *H* (09/18/21 1:31 AM) Respiratory Rate [16-30 br/min] 20 br/min (09/18/21 6:26 AM) 12 br/min *L* (09/18/21 1:31 AM) 18 br/min (09/17/21 11:25 PM) Temperature [96.8-100.4 DegF] 98.2 DegF (09/18/21 6:26 AM) 99.6 DegF (09/18/21 3:30 AM) 98.0 DegF (09/18/21 1:31 AM) Mode of Delivery (Oxygen) Room air (09/18/21 6:26 AM) Room air (09/18/21 3:30 AM) Room air (09/18/21 1:31 AM) Blood pressure sites Arm, right (09/18/21 6:26 AM) Arm, right (09/18/21 3:30 AM) Arm, right (09/18/21 1:31 AM) Temperature Route Oral (09/18/21 6:26 AM) Oral (09/18/21 3:30 AM) Oral (09/18/21 1:31 AM) Social History Social History Type Response Smoking Status 5-9 cigarettes (betw een 1/4 to 1/2 pack)/day in last 30 days entered on: 05/24/21 Sex
--- OUTSIDE RECORDS SUMMARY | 2024-02-11 22:04 | XMS_ITS | Continuity of Care Document ---
Author Organization [facility] Address [address], [address] [place] [address]- Care Team Providers Care Branch Rental Manager Name Role Phone George HARRIS, Bere Benavidez Primary Care Physician [id number] Date[facility] - 10/02/23 [facility] [address] [place] [address]- Attending Physician: Tamanna Hood MD Referring Physician: Marcus HARRIS [OB], Gill Rdz [...] 0 Refills, Maintenance, 08/12/23 8:33:00 EST, [id number] ([facility]), Partial fill upon patient request if the prescription is for a schedule II opioid drug., 1 tablet By Mouth Daily, 175, cm, 07/19/23... Start Date: 08/12/23 Status: Ordered pyridoxine 25 mg oral tablet 1 tablet = 25 mg, By Mouth, 3 times a day, PRN Nausea & Vomiting, # 100 tablet, 8 Refills, Maintenance, 07/19/23 13:37:00 EST, Tablet, [id number] ([facility]), Partial fill upon patient request if the prescription is for a schedule II opioid... Start Date: 07/19/23 Status: Ordered risperiDONE 1 mg oral tablet 1 mg, 1, tablet, By Mouth, 2 times a day, # 60 tablet, Refills 0, Tot. Refills 0, Maintenance, 05/28/22 8:23:00 EDT, Route to Pharmacy Electronically, [facility]/pharmacy #[id number], Partial fill upon patient request if the prescription is for a schedule II opioi... Start Date: 05/28/22 Status: Ordered traZODone 50 mg oral tablet 50 mg, 1, tablet, By Mouth, Daily at bedtime, # 30 tablet, Refills 0, Tot. Refills 0, Maintenance, 05/28/22 8:23:00 EDT, Route to Pharmacy Electronically, [facility]/pharmacy #[id number], Partial fill upon patient request if the prescription is for a schedule II o... Start Date: 05/28/22 Status: Ordered Tylenol Extra Strength 500 mg oral tablet 2 tablet = 1,000 mg, By Mouth, Every 6 hours, PRN as needed for fever, # 100 tablet, 0 Refills, Maintenance, 07/27/23 11:28:00 EST, Tablet, [id number] ([facility]), Partial fill upon patientrequest if the prescription is for a schedule II op... Start Date: 07/27/23 Status: Ordered Unisom 25 mg oral tablet 1 tablet = 25 mg, By Mouth, Daily at bedtime, may take additional 1/2 tablet in morning & 1/2 tablet in afternoon if nausea persists, # 60 tablet, 1 Refills, Maintenance, 07/27/23 13:40:00 EST, [id number] ([facility]), Partial fill upon patie... Start [...] Primary Care Nurse Name: Nidia Tripp Position: [facility] RN Member Role: Primary Care Nurse Name: Bere Vazquez MD Position: [facility] Physician - Pediatrics Member Role: PCP Address: Address: [address] [place] [address] Pediatric & Adolescent Medicine [place], [place] [address] Name: Jessica Leal RN Position: S RN Member Role: Primary Care Nurse Name: Merlyn Looney RN Position: [facility] RN Member Role: Primary Care Nurse Care Team Related Persons Name: RUTHY GUZMAN Address: home [address] [place] [address] Name: PAULA PAUL Address: home [address] [place] [address] Name: CARLOS PAUL Address: home [address] [place] [address] Name: JAIRO HAN Address: home
--- OUTSIDE RECORDS SUMMARY | 2024-02-11 22:04 | XMS_ITS | Continuity of Care Document ---
Author Organization [facility] Yonathan nDong [employer] [facility] Address [address] [place] [address]- Care Team Providers Care Family Practitioner Name Role Phone George HARRIS, Bere Benavidez Primary Care Physician Encounter [facility] [place] Date(s): 12/23/23 - 12/30/23 [facility] Jljeffery PedroDong [employer] [facility] [address] [place] [address]- Attending Physician: Aditya HARRIS, Lakshmi Douglas Allergies, [...] 08/13/20 Recorded 1Result Comment: PT [facility] [id number] Medications Benadryl 25 mg oral capsule 1 [...] Gm, 0 Refills, Maintenance, 12/23/23 14:35:00 EDT,Cream, [facility]/pharmacy #[id number], Partial fill upon patient request if the [...] 10/05/23 15:11:00 EST, Route to Pharmacy Electronically, [facility]/pharmacy #[id number], Partial fill upon patient request if [...] 3 Refills, Maintenance, 10/27/23 17:55:00 EST, Tablet, [facility]/pharmacy #[id number], Partial fill upon patient request if [...] Refills, Maintenance, 10/05/23 15:12:00 EST, REC Powder, [facility]/pharmacy #[id number], Partial fill upon patient request if [...] tablet, 2 Refills, Maintenance, 10/26/23 14:27:00 EST, [facility]/pharmacy#[id number], Partial fill upon patient request if the prescription is for a schedule II opioid drug., 1 tablet By Mouth Daily, 174, cm, 10/26/23 14:06:00 EST... Start Date: 10/26/23 Status: Ordered pyridoxine 25 mg oral tablet 1 tablet = 25 mg, By Mouth, 3 times a day, PRN Nausea & Vomiting, # 100 tablet, 8 Refills, Maintenance, 07/19/23 13:37:00 EST, Tablet, [facility] [id number] ([facility] 827), Partial fill upon patient request if the prescription is for a schedule II opioid... Start Date: 07/19/23 Status: Ordered Reglan 10 mg oral tablet 1 tablet = 10 mg, By Mouth, Daily, PRN Headache, # 30 tablet, 0 Refills, Maintenance, 11/27/23 21:42:00 EDT, [facility]/pharmacy #[id number], Partial fill upon patient request if the prescription is for a schedule II opioid drug., 174, cm, 11/08/23 13:36:00 EST, H... Start Date: 11/27/23 Status: Ordered ursodiol 300 mg oral capsule 300 mg, 1, capsule, By Mouth, 3 times a day, # 100 capsule, Refills 1, Tot. Refills 1, Maintenance,12/06/23 18:22:00 EDT, [id number] Partial fill upon patient request if the [...] quite with , was smoking 4/day. Sex Radiology * Event Display: PDC Biophysical Profile * Event Display: PDC Biophysical Profile Authored Date: [id number] OBSTETRICS REPORT PATIENT INFO: CMRN: [id number] BMRN: [id number] : [birth year] (18 yrs)(F) Name: ADAMA Visit Date: 12/23/2023 03:06 pm PAUL PERFORMED BY: Performed By: Elvia Guerra RDMS Attending: Renny Davila MD Referred By: Lakshmi Burgess MD Location: [address] INDICATIONS: Cholestasis of O26.61_ VITAL SIGNS: Weight (lb): 159 Height: 5'8 BMI: 24.17 EVALUATION: Num Of Fetuses: 1 Heart Rate(bpm): 135 Cardiac Activity: Present Presentation: Cephalic Placenta: Posterior Amniotic Fluid LAVON FV: Within normal limits LAVON Sum(cm) Largest Pocket(cm) 15 5.4 RUQ(cm) RLQ(cm) LUQ(cm) LLQ(cm) 3.7 5.4 4 1.9 Comment: Active movements seen. BIOPHYSICAL EVALUATION: Amniotic F.V: Within normal limits F. Tone: Observed F. Movement: Observed Score: 04/13 F. Breathing: Observed BIOMETRY: OB HISTORY: Blood Type: A+ : 2 SAB: 1 GESTATIONAL AGE: LMP: 33w 5d Date: 05/01/23 DAYNA: 02/05/24 Best: 36w 3d Det. By: Previous DAYNA: 01/17/24 Ultrasound CERVIX UTERUS ADNEXA: Cervix Not well seen COMMENTS: BPP=8/8 Renny Davila MD Electronically Signed Final Report 12/23/2023 03:58 pm * Event Display: PDC Biophysical Profile Authored Date: Please click on pdf link to open report Patient Care team information Care Team Personnel Name: Omi Wise RN Position: [facility] RN Member Role: Primary Care Nurse Name: Peggy Quintana Position: [facility] RN Member Role: Primary Care Nurse Name: Gill Han RN Position: [facility] RN Member Role: Primary Care Nurse Name: Melania RIDER, Sarwat Gomez Position: S RN Member Role: Primary Care Nurse Name: Adele Ibanez RN Position: S RN Member Role: Primary Care Nurse Name: Nidia Tripp Position: [facility] RN Member Role: Primary Care Nurse Name: Bere Vazquez MD Position: [facility] Physician - Pediatrics Member Role: PCP Address: Address: [address] [place] [address] Pediatric & [place] [address]- Name: Jessica Leal RN Position: S RN Member Role: Primary Care Nurse Name: Bisi Rock RN Position: S RN Member Role: Primary Care Nurse Name: Merlyn Looney RN Position: S RN Member Role: Primary Care Nurse Care Team Related Persons Name: RUTHY GUZMAN Address: home [address] [place] [address] Name: PAULA PAUL Address: home [address] [place] [address] Name: CARLOS PAUL Address: [address] [place] [address] Name: JAIRO HAN Address: [facility]
--- OUTSIDE RECORDS SUMMARY | 2024-02-11 22:04 | XMS_ITS | Continuity of Care Document ---
Author Organization [facility] Yonathan [facility] Address [address] [place] [address]- Care Team Providers Care Hydrometer Finisher Name Role Phone George HARRIS, Bere Benavidez Primary Care Physician Encounter [facility] Date(s): 11/26/23 - 12/03/23 [facility] [address] [place] [address]- Attending Physician: Aditya HARRIS, Lakshmi Douglas Allergies, [...] 08/13/20 Recorded 1Result Comment: PT [facility] [id number] Medications Benadryl 25 mg oral capsule 1 [...] 10/05/23 15:11:00 EST, Route to Pharmacy Electronically, [facility]/pharmacy #[id number], Partial fill upon patient request if the [...] 3 Refills, Maintenance, 10/27/23 17:55:00 EST, Tablet, [facility]/pharmacy #[id number], Partial fill upon patient [...] Refills, Maintenance, 10/05/23 15:12:00 EST, REC Powder, [facility]/pharmacy #[id number], Partial fill upon patient [...] 1 Refills, Maintenance, 09/08/23 11:16:00 EST, Tablet, [facility], Partial fi... Start Date: 09/08/23 Status: Ordered PNV By Mouth, Daily, 0 Refills, Maintenance, 07/14/23 10:18:00 EST, Partial fill upon patient request if the prescription is for a schedule II opioid drug. Start Date: 07/14/23 Status: Ordered PNV Select oral tablet 1 tablet, By Mouth, Daily, # 90 tablet, 2 Refills, Maintenance, 10/26/23 14:27:00 EST, [facility]/pharmacy#[id number], Partial fill upon patient request if the prescription is for a schedule II opioid drug., 1 tablet By Mouth Daily, 174, cm, 10/26/23 14:06:00 EST... Start Date: 10/26/23 Status: Ordered pyridoxine 25 mg oral tablet 1 tablet = 25 mg, By Mouth, 3 times a day, PRN Nausea & Vomiting, # 100 tablet, 8 Refills, Maintenance, 07/19/23 13:37:00 EST, Tablet, [facility] [id number] ([facility] 827), Partial fill upon patient request if the prescription is for a schedule II opioid... Start Date: 07/19/23 Status: Ordered Reglan 10 mg oral tablet 1 tablet = 10 mg, By Mouth, Daily, PRN Headache, # 30 tablet, 0 Refills, Maintenance, 11/27/23 21:42:00 EDT, [facility]/pharmacy #[id number], Partial fill upon patient request if the prescription is for a schedule II opioid drug., 174, cm, 11/08/23 13:36:00 EST, H... Start Date: 11/27/23 Status: Ordered Vitamin B6 Daily, 0 Refills, [...] Event Display: PDC Biophysical Profile Authored Date: [id number] OBSTETRICS REPORT PATIENT INFO: CMRN: [id number] BMRN: [id number] : [birth year] (18 yrs)(F) Name: ADAMA Visit Date: 11/26/2023 01:22 pm PAUL PERFORMED BY: Performed By: Elvia Guerra RDMS Attending: Gill Jaime MD Referred By: Lakshmi Burgess MD Location: [facility] [address] [place] [address] INDICATIONS: Cholestasis of O26.61_ VITAL SIGNS: Weight (lb): 130 Height: 5'8 BMI: 19.76 EVALUATION: Num Of Fetuses: 1 Heart Rate(bpm): 152 Cardiac Activity: Present Presentation: Cephalic Placenta: Posterior Amniotic Fluid LAVON FV: Within normal limits LAVON Sum(cm) Largest Pocket(cm) 13.5 4.7 RUQ(cm) RLQ(cm) LUQ(cm) LLQ(cm) 2.4 4.7 3.6 2.8 Comment: Active movements seen. BIOPHYSICAL EVALUATION: Amniotic F.V: Within normal limits F. Tone: Observed F. Movement: Observed Score: 04/13 F. Breathing: Observed BIOMETRY: LV: 4 mm OB HISTORY: Blood Type: A+ : 2 SAB: 1 GESTATIONAL AGE: LMP: 29w 6d Date: 05/01/23 DAYNA: 02/05/24 Best: 32w 4d Det. By: Previous DAYNA: 01/17/24 Ultrasound CERVIX UTERUS ADNEXA: Cervix Not well seen COMMENTS: BPP=8/8 Gill Jaime MD Electronically Signed Final Report 11/26/2023 04:57 pm * Event Display: PDC Biophysical Profile Authored Date: [id number] Please click on pdf link to open report Patient Care team information Care Team Personnel Name: Omi Wise RN Position: S RN Member Role: Primary Care Nurse Name: ePggy Quintana Position: S RN Member Role: Primary Care Nurse Name: Gill Han RN Position: S RN Member Role: Primary Care Nurse Name: Melania RIDER, Sarwat Gomez Position: S RN Member Role: Primary Care Nurse Name: Adele Ibanez RN Position: [facility] RN Member Role: Primary Care Nurse Name: Nidia Tripp Position: S RN Member Role: Primary Care Nurse Name: George HARRIS, Bere Benavidez Position: [facility] Physician - Pediatrics Member Role: PCP Address: Address: [address] [place] [address] Pediatric & Adolescent Medicine [place], [place] [address] Name: Jessica Leal RN Position: S RN Member Role: Primary Care Nurse Name: Bisi Rock RN Position: [facility] RN Member Role: Primary Care Nurse Name: Merlyn Looney RN Position: [facility] RN Member Role: Primary Care Nurse Care Team Related Persons Name: RUTHY GUZMAN Address: home [address] [place] [address] Name: PAULA PAUL Address: [address] [place] [address] Name: CARLOS PAUL Address: [address] [place] [address] Name: JAIRO HAN Address: [facility]
--- OUTSIDE RECORDS SUMMARY | 2024-02-11 22:04 | XMS_ITS | Continuity of Care Document ---
Author Organization [facility] Address [address] [place] [address]- Care Team Providers Care Customer Service Agent Name Role Phone Bere Vazquez MD Primary Care Physician Encounter [facility] Date(s): 08/21/23 - 08/23/[address] [address]- Encounter Diagnosis Suicidal ideation(Final) - 08/21/23 , first(Final) - 08/21/23 Discharge Disposition: Transfer to [facility] Facility Attending Physician: Bobbi Horner MD Admitting Physician: Bobbi Horner MD Referring Physician: Not on Staff, Referring [...] Refills, Maintenance, 08/12/23 8:29:00 EST, Tablet, [id number] ([facility] 827),... Start Date: 08/12/23 Status: Ordered PNV By Mouth, Daily, 0 Refills, Maintenance, 07/14/23 10:18:00 EST, Partial fill upon patient request if the prescription is for a schedule II opioid drug. Start Date: 07/14/23 Status: Ordered PNV Select oral tablet 1 tablet, By Mouth, Daily, # 90 tablet, 0 Refills, Maintenance, 08/12/23 8:33:00 EST, [facility] [id number] ([facility] 827), Partial fill upon patient request if the prescription is for a schedule II opioid drug., 1 tablet By Mouth Daily, 175, cm, 07/19/23... Start Date: 08/12/23 Status: Ordered pyridoxine 25 mg oral tablet 1 tablet = 25 mg, By Mouth, 3 times a day, PRN Nausea & Vomiting, # 100 tablet, 8 Refills, Maintenance, 07/19/23 13:37:00 EST, Tablet, [id number] ([facility] 827), Partial fill upon patient request if the prescription is for a schedule II opioid... Start Date: 07/19/23 Status: Ordered risperiDONE 1 mg oral tablet 1 mg, 1, tablet, By Mouth, 2 times a day, # 60 tablet, Refills 0, Tot. Refills 0, Maintenance, 05/28/22 8:23:00 EDT, Route to Pharmacy Electronically, [facility]/pharmacy #[id number], Partial fill upon patient request if [...] 05/28/22 8:23:00 EDT, Route to Pharmacy Electronically, [facility]/pharmacy #[id number], Partial fill upon patient request if the prescription is for a schedule II o... Start Date: 05/28/22 Status: Ordered Tylenol Extra Strength 500 mg oral tablet 2 tablet = 1,000 mg, By Mouth, Every 6 hours, PRN as needed for fever, # 100 tablet, 0 Refills, Maintenance, 07/27/23 11:28:00 EST, Tablet, [id number] ([facility] 827), Partial fill upon patientrequest if the prescription is for a schedule II op... Start Date: 07/27/23 Status: Ordered Unisom 25 mg oral tablet 1 tablet = 25 mg, By Mouth, Daily at bedtime, may take additional 1/2 tablet in morning & 1/2 tablet in afternoon if nausea persists, # 60 tablet, 1 Refills, Maintenance, 07/27/23 13:40:00 EST, [facility] [id number] ([facility] 827), Partial fill upon patie... Start [...] disorder) Confirmed Active Seizure disorder Confirmed Active Results Orders for Microbiology Reports Name Date Urine Culture (URINE CULTURE) 08/21/23 Microbiology Reports TEST:Urine Culture STATUS:Unauthenticated BODY SITE: SOURCE:URINE COLLECTED DATE/TIME:08/21/23 7:48 PM Urine Culture SPECIMEN DESCRIPTION : URINE SPECIAL REQUESTS : NONE CULTURE : 10-50,000 COL/ML ENTEROCOCCUS FAECALIS This isolate was identified using Maldi-TOF system 10-50,000 COL/ML GROUP B BETA HEMOLYTIC STREPTOCOCCI ISOLATED. SUSCEPTIBILITY TESTING NOT ROUTINELY PERFORMED ON THIS ISOLATE. This isolate was identified using Maldi-TOF system IF THIS PATIENT IS , PLEASE REFER TO ACOG GUIDELINES (2002) FOR APPROPRIATE SCREENING AND MANAGEMENT OF COLONIZED WOMEN. REPORT STATUS : PRELIMINARY REPORT Vital Signs Most recent to oldest [Reference Range]: 1 2 3 Oxygen Saturation [94-100 %] 100 % (08/23/23 9:51 AM) 100 % (08/22/23 7:59 PM) 98 % (08/22/23 9:28 AM) Pulse Rate [55-90 bpm] 82 bpm (08/23/23 9:51 AM) 82 bpm (08/22/23 7:59 PM) 68 bpm (08/22/23 9:28 AM) Blood Pressure [90-138/55-84 mm Hg] 126/75mm Hg (08/23/23 9:51 AM) 113/67mm Hg (08/22/23 7:59 PM) 110/68mm Hg (08/22/23 9:28 AM) Respiratory Rate [16-30 br/min] 16 br/min (08/23/23 9:51 AM) 17 br/min (08/22/23 7:59 PM) 16 br/min (08/22/23 9:28 AM) Temperature [96.8-100.4 DegF] 97.8 DegF (08/23/23 9:51 AM) 98.2 DegF (08/22/23 7:59 PM) 98.5 DegF (08/22/23 9:28 AM) Mode of Delivery (Oxygen) Room air (08/23/23 9:51 AM) Room air (08/22/23 7:59 PM) Room air (08/22/23 9:28 AM) Blood pressure sites Arm, right (08/23/23 9:51 AM) Arm, right (08/22/23 7:59 PM) Arm, right (08/22/23 9:28 AM) Temperature Route Oral (08/23/23 9:51 AM) Oral (08/22/23 7:59 PM) Oral (08/22/23 9:28 AM) Social History Social History Type Response Tobacco Use: 4 or less cigar ettes(less than 1/4 pack)/day in last 30 days. Other: quite with , was smoking 4/day. Sex Note * Bobbi Horner MD: PERFORM Event Display: Patient Education Leaflets Authored Date: [id number] Eating Well During ?? Eating Well During - Video A healthy baby begins with you.Choosing the right foods can help give you and your growing baby thenutrition you need and help you recover faster. Here are some tips to help you have a healthy . To view the video go to this web address: [email or web address] Or, scan this QR code with your smart phone Last Reviewed Date: 2019 ?? [employer]. All rights reserved. This information is not intended as a substitute for professional medical care. Always follow your healthcare professional's instructions. ?? * Bobbi Horner MD: PERFORM Event Display: Patient Education Leaflets Authored Date: [id number] Possible Miscarriage (Threatened ) ?? 171464mb Possible Miscarriage (Threatened ) You may be having a miscarriage. Common signs of a miscarriage are pain and bleeding.??A small amount of bleeding can be normal during the first 3 months of . Often the pain and bleeding stop, and you have a normal and baby.??But heavy bleeding or severe cramping can be an early sign of miscarriage. A miscarriage means??an??unexpected loss of your . At this time, your healthcare provider doesn???t know whether you will have a miscarriage, or if things will clear up and your will continue normally. This can be emotionally difficult. There is little that can be done to change the way you feel. But??understand that miscarriages are common. About 1 or 2 out of every [address] Some even end before you know you are . This happens for a number of reasons, and usually the cause is never known. It???s important youknow that it is not your fault. It didn???t happen because you did anything wrong. Having sex or exercising does not cause a miscarriage. These activities are usually safe unless youhave pain or bleeding, or your healthcare provider tells you to stop. Even minor falls won???t cause a miscarriage. Miscarriages happen because things were not developing as they were supposed to. Nomedicine can prevent a miscarriage. Again, understand that things are uncertain right now. You may still have some bleeding. This may be light spotting or like a period, and you may pass some tissue. You may have some cramping. This iswhy follow-up care is important. Home care To improve the chance of keeping??your , you should take these steps: ??? Rest in bed until the pain and bleeding stop. ??? Don???t have sex until your healthcare provider says it???s OK. ??? Use sanitary napkins instead of tampons. ??? Don???t douche. ??? Don???t take aspirin, ibuprofen, or naproxen. ??? Don???t have alcoholic or caffeinated beverages or smoke. ?? Follow-up care Make an appointment with your healthcare provider within the next week, or as directed. If you had an ultrasound,??a radiologist??will??review??it.??You will be told of any new findings that may affect your care. ?? Call 911 Call 911 if you have: ??? Severe pain and very heavy bleeding ??? Severe lightheadedness, passing out, or fainting ??? Rapid heart rate ??? Trouble breathing ??? Confusion or trouble waking up ?? When to seek medical advice Call your healthcare provider right away??if any of the following occur: ??? Vaginal bleeding or pain that lasts for more than 3 days ??? Heavy bleeding. This means soaking 1 new pad an hour over 3 hours. ??? Fever of 100.4??F (38??C) or higher, or as directed by your healthcare provider ??? Pain in your lower belly (abdomen) that gets worse ??? Weakness or dizziness ??? Passage of anything that resembles tissue. This would be pink or grayish membrane or solid material. Save the tissue in a clean container and bring it to your healthcare provider. ?? Last Reviewed Date: 2022 ?? [employer]. All rights reserved. This information is not intended as a substitute for professional medical care. Always follow your healthcare professional's instructions. ?? Patient Care team information Care Team Personnel Name: Omi Wise RN Position: [facility] RN Member Role: Primary Care Nurse Name: Peggy Quintana Position: [facility] RN Member Role: Primary Care Nurse Name: Gill Han RN Position: [facility] RN Member Role: Primary Care Nurse Name: Sarwat Velázquez RN Position: [facility] RN Member Role: Primary Care Nurse Name: Brigette Healy RN Position: [facility] RN Member Role: Primary Care Nurse Name: Bere Vazquez MD Position: [facility] General Pediatrics MD Member Role: PCP Address: Address: [address] [place] [address] Pediatric [place] [address]- Name: Jessica Leal RN Position: [facility] RN Member Role: Primary Care Nurse Name: Merlyn Looney RN Position: [facility] RN Member Role: Primary Care Nurse [facility] Attending Position: [facility] ED Attendings Patient Name: Bobbi Horner MD Position: [facility] Resident Member Role: Admitting Physician Address: Address: [address] [place] [address] [place] [address]- Name: Doretha Foy RN Position: [facility] ED RN W/OE and Tasks Member Role: Patient Care Provider Care Team Related Persons Name: RUTHY GUZMAN Address: home [address] [place] [address] Name: PAULA PAUL Address: [address] [place] [address] Name: CARLOS PAUL Address: home [address] [place] [address]
--- OUTSIDE RECORDS SUMMARY | 2024-02-11 22:04 | XMS_ITS | Continuity of Care Document ---
Author Organization [facility] Yonathan [employer] [facility] Address [address] [facility] [address], [address] [place] [address]- Care Team Providers Care Furnace Filler Name Role Phone George HARRIS, Bere Benavidez Primary Care Physician Encounter [facility] [place] Date(s): 01/28/24 - 02/04/24 [facility]ffery Pedro[facility] [address], [address] [place] [address]- Attending Physician: Aditya HARRIS, Lakshmi Douglas Allergies, [...] 08/13/20 Recorded 1Result Comment: PT [facility] [place] [id number] Medications Benadryl 25 mg oral capsule 1 [...] 0 Refills, Maintenance, 12/23/23 14:35:00 EDT,Cream, [facility]/pharmacy #[id number], Partial fill upon patient request if the [...] 15:11:00 EST, Route to Pharmacy Electronically, [facility]/pharmacy #[id number], Partial fill upon patient request if [...] Refills, Maintenance, 10/27/23 17:55:00 EST, Tablet, [facility]/pharmacy #[id number], Partial fill upon patient request if [...] Soft Stop, 01/06/24 23:37:00 EDT, Cream, [facility]/pharmacy #[id number], Partial fill upon patient request if the prescription is for a schedule II opioid drug., 1 applicator Topically Once, 173, cm, 01/05/24 8:4... Start Date: 01/06/24 Status: Ordered MiraLax oral powder for reconstitution = 17 Gm, By Mouth, Daily, dissolve in 4 to 8 oz of beverage, # 238 Gm, 1 Refills, Maintenance, 10/05/23 15:12:00 EST, REC Powder, [facility]/pharmacy #[id number], Partial fill upon patient request if [...] 2 Refills, Maintenance, 10/26/23 14:27:00 EST, [facility]/pharmacy#[id number], Partial fill upon patient request if the prescription is for a schedule II opioid drug., 1 tablet By Mouth Daily, 174, cm, 10/26/23 14:06:00 EST... Start Date: 10/26/23 Status: Ordered pyridoxine 25 mg oral tablet 1 tablet = 25 mg, By Mouth, 3 times a day, PRN Nausea & Vomiting, # 100 tablet, 8 Refills, Maintenance, 07/19/23 13:37:00 EST, Tablet, [facility] [id number] (FamilyMeds 827), Partial fill upon patient request if the prescription is for a schedule II opioid... Start Date: 07/19/23 Status: Ordered Reglan 10 mg oral tablet 1 tablet = 10 mg, By Mouth, Daily, PRN Headache, # 30 tablet, 0 Refills, Maintenance, 11/27/23 21:42:00 EDT, [facility]/pharmacy #[id number], Partial fill upon patient request if the prescription is for a schedule II opioid drug., 174, cm, 11/08/23 13:36:00 EST, H... Start Date: 11/27/23 Status: Ordered ursodiol 300 mg oral capsule 300 mg, 1, capsule, By Mouth, 3 times a day, # 100 capsule, Refills 1, Tot. Refills 1, Maintenance,12/06/23 18:22:00 EDT, Route to Pharmacy Electronically, [facility]/pharmacy #[id number], Partial fill upon patient request if the [...] Team Personnel Name: Omi Wise RN Position: [facility] RN Member Role: Primary Care Nurse Name: Peggy Quintana Position: [facility] RN Member Role: Primary Care Nurse Name: Gill Han RN Position: S RN Member Role: Primary Care Nurse Name: Sarwat Velázquez RN Position: S RN Member Role: Primary Care Nurse Name: Adele Ibanez RN Position: S RN Member Role: Primary Care Nurse Name: Nidia Tripp Position: S RN Member Role: Primary Care Nurse Name: Bere Vazquez MD Position: [facility] Physician - Pediatrics Member Role: PCP Address: Address: [address] [place] [address] Pediatric & Adolescent Medicine [place], [place] [address] Name: Jessica Leal RN Position: [facility] RN Member Role: Primary Care Nurse Name: Bisi Rock RN Position: [facility] RN Member Role: Primary Care Nurse Name: Merlyn Looney RN Position: [facility] RN Member Role: Primary Care Nurse Care Team Related Persons Name: RUTHY GUZMAN Address: home [address] [place] [address] Name: PAULA PAUL Address: home [address] [place] [address] Name: CHARLY PAUL Address: [address] Address: home [address] [place] [address] Name: CARLOS PAUL Address: home [address] [place] [address] Name: JAIRO HAN Address: home [facility]
--- OUTSIDE RECORDS SUMMARY | 2024-02-11 22:04 | XMS_ITS | Continuity of Care Document ---
Author Organization [facility] Address [address] [place] [address]- Care Team Providers Care Nerve Specialist Name Role Phone Pinky Peters MD Primary Care Physician [place] [facility] [place] Date(s): 02/06/21 - 03/08/21 [facility] [address] [place] [address]- Attending Physician: Rachel Up Admitting Physician: AdmRachel mitchell Referring Physician: AdmtrRachel Allergies, Adverse Reactions, Alerts [...] EDT, Tablet Start Date: 01/12/18 Status: Ordered Omeprazole = 20 mg, By [...]
--- OUTSIDE RECORDS SUMMARY | 2024-02-11 22:04 | XMS_ITS | Continuity of Care Document ---
[facility] [employer] [facility] Address [address] [facility], [address] [place] [address]- Care Team Providers Care Brush Operator Name Role Phone George HARRIS, Bere Benavidez Primary Care Physician [place] [facility] [place](s): 11/09/23 - 12/09/23 [facility] [place] [facility] [facility] [address] [facility], [address] [place] [address]- Allergies, Adverse Reactions, Alerts Substance Reaction Severity [...] 08/13/20 Recorded 1Result Comment: PT [facility] [id number] Medications Benadryl 25 mg oral capsule 1 capsule = 25 mg, By Mouth, Daily at bedtime, PRN Headache, # 30 capsule, 0 Refills, Maintenance, 11/27/23 21:42:00 EDT, Capsule, [id number], Partial fill upon patient request if the [...] 15:11:00 EST, Route to Pharmacy Electronically, [facility]/pharmacy #[id number], Partial fill upon patient [...] Refills, Maintenance, 10/27/23 17:55:00 EST, Tablet, [facility]/pharmacy #[id number], Partial fill upon patient [...] Maintenance, 10/05/23 15:12:00 EST, REC Powder, [facility]/pharmacy #[id number], Partial fill upon patient [...] 2 Refills, Maintenance, 10/26/23 14:27:00 EST, [facility]/pharmacy#[id number], Partial fill upon patient request if the prescription is for a schedule II opioid drug., 1 tablet By Mouth Daily, 174, cm, 10/26/23 14:06:00 EST... Start Date: 10/26/23 Status: Ordered pyridoxine 25 mg oral tablet 1 tablet = 25 mg, By Mouth, 3 times a day, PRN Nausea & Vomiting, # 100 tablet, 8 Refills, Maintenance, 07/19/23 13:37:00 EST, Tablet, [facility] [id number] (FamilyMeds 827), Partial fill upon patient request if the prescription is for a schedule II opioid... Start Date: 07/19/23 Status: Ordered Reglan 10 mg oral tablet 1 tablet = 10 mg, By Mouth, Daily, PRN Headache, # 30 tablet, 0 Refills, Maintenance, 11/27/23 21:42:00 EDT, [facility]/pharmacy #[id number], Partial fill upon patient request if the prescription is for a schedule II opioid drug., 174, cm, 11/08/23 13:36:00 EST, H... Start Date: 11/27/23 Status: Ordered ursodiol 300 mg oral capsule 300 mg, 1, capsule, By Mouth, 3 times a day, # 100 capsule, Refills 1, Tot. Refills 1, Maintenance,12/06/23 18:22:00 EDT, Route to Pharmacy Electronically, [facility]/pharmacy #[id number], Partial fill upon patient request if the [...] Team Personnel Name: Omi Wise RN Position: [facility] RN Member Role: Primary Care Nurse Name: Peggy Quintana Position: [facility] RN Member Role: Primary Care Nurse Name: Gill Han RN Position: S RN Member Role: Primary Care Nurse Name: Sarwat Velázquez RN Position: S RN Member Role: Primary Care Nurse Name: Adele Ibanez RN Position: [facility] RN Member Role: Primary Care Nurse Name: Nidia Tripp Position: S RN Member Role: Primary Care Nurse Name: Bere Vazquez MD Position: [facility] Physician - Pediatrics Member Role: PCP Address: Address: [address] [place] [address] Pediatric & [place] [address]- Name: Jessica Leal RN Position: S RN Member Role: Primary Care Nurse Name: Bisi Rock RN Position: S RN Member Role: Primary Care Nurse Name: Merlyn Looney RN Position: S RN Member Role: Primary Care Nurse Care Team Related Persons Name: RUTHY GUZMAN Address: home [address] [place] [address] Name: PAULA PAUL Address: home [address] [place] [address] Name: CARLOS PAUL Address: home [address] [place] [address] [place] [address] Name: JAIRO HAN Address: [facility]
--- OUTSIDE RECORDS SUMMARY | 2024-02-11 22:04 | XMS_ITS | Continuity of Care Document ---
Author Organization [facility] Address [address] [place] [address]- Care Team Providers Care High School Science Teacher Name Role Phone Pinky Peters MD Primary Care Physician [place] [facility] [place] 03/20/21 [facility] [address] [place] [address]- Attending Physician: Romy Chilel MD Admitting Physician: [...]
--- OUTSIDE RECORDS SUMMARY | 2024-02-11 22:04 | XMS_ITS | Continuity of Care Document ---
Author Organization [facility] [employer]onathan [employer] [facility] Address [address] [facility], [address] [place] [address]- Care Team Providers Care Acid Dumper Name Role Phone George HARRIS, Bere Benavidez Primary Care Physician [place] [facility] [place] 11/08/23 - 01/16/24 [facility] [employer] [facility] [address] [facility], [address] [place] [address]- Attending Physician: Aditya HARRIS, Lakshmi Douglas Allergies, [...] [facility] [place] [id number] Medications Benadryl 25 mg oral capsule 1 [...] Gm, 0 Refills, Maintenance, 12/23/23 14:35:00 EDT,Cream, [facility]/pharmacy #[id number], Partial fill upon patient request if the [...] 10/05/23 15:11:00 EST, Route to Pharmacy Electronically, [facility]/pharmacy #[id number], Partial fill upon patient request if [...] 3 Refills, Maintenance, 10/27/23 17:55:00 EST, Tablet, [facility]/pharmacy #[id number], Partial fill upon patient request if [...] Refills, Soft Stop, 01/06/24 23:37:00 EDT, Cream, [facility]/pharmacy #[id number], Partial fill upon patient request if the prescription is for a schedule II opioid drug., 1 applicator Topically Once, 173, cm, 01/05/24 8:4... Start Date: 01/06/24 Status: Ordered MiraLax oral powder for reconstitution = 17 Gm, By Mouth, Daily, dissolve in 4 to 8 oz of beverage, # 238 Gm, 1 Refills, Maintenance, 10/05/23 15:12:00 EST, REC Powder, [facility]/pharmacy #[id number], Partial fill upon patient request if [...] 1 Refills, Maintenance, 09/08/23 11:16:00 EST, Tablet, [facility], Partial fi... Start Date: 09/08/23 Status: Ordered PNV By Mouth, Daily, 0 Refills, Maintenance, 07/14/23 10:18:00 EST, Partial fill upon patient request if the prescription is for a schedule II opioid drug. Start Date: 07/14/23 Status: Ordered PNV Select oral tablet 1 tablet, By Mouth, Daily, # 90 tablet, 2 Refills, Maintenance, 10/26/23 14:27:00 EST, [facility]/pharmacy#[id number], Partial fill upon patient request if the prescription is for a schedule II opioid drug., 1 tablet By Mouth Daily, 174, cm, 10/26/23 14:06:00 EST... Start Date: 10/26/23 Status: Ordered pyridoxine 25 mg oral tablet 1 tablet = 25 mg, By Mouth, 3 times a day, PRN Nausea & Vomiting, # 100 tablet, 8 Refills, Maintenance, 07/19/23 13:37:00 EST, Tablet, [facility] [id number] (FamilyMeds 827), Partial fill upon patient request if the prescription is for a schedule II opioid... Start Date: 07/19/23 Status: Ordered Reglan 10 mg oral tablet 1 tablet = 10 mg, By Mouth, Daily, PRN Headache, # 30 tablet, 0 Refills, Maintenance, 11/27/23 21:42:00 EDT, [facility]/pharmacy #[id number], Partial fill upon patient request if the prescription is for a schedule II opioid drug., 174, cm, 11/08/23 13:36:00 EST, H... Start Date: 11/27/23 Status: Ordered ursodiol 300 mg oral capsule 300 mg, 1, capsule, By Mouth, 3 times a day, # 100 capsule, Refills 1, Tot. Refills 1, Maintenance,12/06/23 18:22:00 EDT, Route to Pharmacy Electronically, [facility]/pharmacy #[id number], Partial fill upon patient request if the [...] Team Personnel Name: Omi Wise RN Position: [facility] RN Member Role: Primary Care Nurse Name: Peggy Quintana Position: [facility] RN Member [...] - Pediatrics Member Role: PCP Address: Address: [address] [place] [address] Pediatric & Adolescent Medicine [place], [place] [address] Name: Jessica Leal RN Position: [facility] RN Member Role: Primary Care Nurse Name: Bisi Rock RN Position: [facility] RN Member Role: Primary Care Nurse Name: Merlyn Looney RN Position: [facility] RN Member Role: Primary Care Nurse Care Team Related Persons Name: RUTHY GUZMAN Address: home [address] [place] [address] Name: PAULA PAUL Address: home [address] [place] [address] Name: CHARLY PAUL Address: [address] Address: home [address] [place] [address] Name: CARLOS PAUL Address: home [address] [place] [address] Name: JAIRO HAN Address: home [facility]
--- OUTSIDE RECORDS SUMMARY | 2024-02-11 22:04 | XMS_ITS | Continuity of Care Document ---
Author Organization [facility] [employer] [facility] Address [address] [place] [address], [address] [place] [address]- Care Team Providers Care Roll Grinder Name Role Phone George HARRIS, Bere Benavidez Primary Care Physician [id number] Date[facility] - 07/[facility]/23 [facility]ery [employer] [facility] [address] [facility], [address] [place] [address]- Attending Physician: Tamanna Hood MD Referring Physician: Maria Ines Ballard CNM Allergies, Adverse Reactions, Alerts Substance Reaction [...] opioid drug. Start Date: 02/11/23 Status: Ordered PNV By Mouth, Daily, 0 Refills, Maintenance, 07/14/23 10:18:00 EST, Partial fill upon patient request if the prescription is for a schedule II opioid drug. Start Date: 07/14/23 Status: Ordered pyridoxine 25 mg oral tablet 1 tablet = 25 mg, By Mouth, 3 times a day, PRN Nausea & Vomiting, # 100 tablet, 8 Refills, Maintenance, 07/19/23 13:37:00 EST, Tablet, [facility] [id number] ([employer] 827), Partial fill upon patient request if the prescription is for a schedule II opioid... Start Date: 07/19/23 Status: Ordered risperiDONE 1 mg oral tablet 1 mg, 1, tablet, By Mouth, 2 times a day, # 60 tablet, Refills 0, Tot. Refills 0, Maintenance, 05/28/22 8:23:00 EDT, Route to Pharmacy Electronically, [facility]/pharmacy #[id number], Partial fill upon patient request if the prescription is for a schedule II opioi... Start Date: 05/28/22 Status: Ordered topiramate 25 mg oral tablet 1 tablet = 25 mg, By Mouth, 2 times a day, # 60 tablet, 0 Refills, Maintenance, 05/28/22 8:23:00 EDT, Tablet, [facility]/pharmacy #[id number], Partial fill upon patient request if the prescription is for a schedule II opioid drug., 173, cm, 05/27/22 18:52:00 EDT,... Start Date: 05/28/22 Status: Ordered traZODone 50 mg oral tablet 50 mg, 1, tablet, By Mouth, Daily at bedtime, # 30 tablet, Refills 0, Tot. Refills 0, Maintenance, 05/28/22 8:23:00 EDT, Route to Pharmacy Electronically, [facility]/pharmacy #[id number], Partial fill upon patient request if the prescription is for a schedule II o... Start Date: 05/28/22 Status: Ordered Unisom 25 mg oral tablet 1 tablet = 25 mg, By Mouth, Daily at bedtime, may take additional 1/2 tablet in morning & 1/2 tablet in afternoon if nausea persists, # 60 tablet, 1 Refills, Maintenance, 07/19/23 13:36:00 EST, [facility] [id number] (FamilyMeds 827), Partial fill upon patie... Start Date: 07/19/23 Status: Ordered Vitamin B6 [...] 4/day. Sex Radiology * Event Display: PDC Nuchal Transluscency * Event Display: [employer] Authored Date: [id number] OBSTETRICS REPORT PATIENT INFO: CMRN: [id number] BMRN: [id number] : [birth year] (18 yrs)(F) Name: ADAMA Visit Date: 07/19/2023 11:07 am PAUL PERFORMED BY: Performed By: Monika Moran RDMS Attending: Trudi Rojo MD Referred By: AYAN Ballard CNM Location: [address] INDICATIONS: viability O36.80_0 EVALUATION: Num Of Fetuses: 1 Heart Rate(bpm): 144 Cardiac Activity: Present Placenta: Anterior Amniotic Fluid LAVON FV: Within normal limits BIOMETRY: BPD: 27.7 mm G.Age: 15w 0d HC: 93.3 mm G.Age: 14w 2d AC: 82.7 mm G.Age: 14w 4d FL: 12.2 mm G.Age: 13w 4d NFT: 2.2 mm CI: 87.31 % 70 - 86 FL/HC: 13.1 % HC/AC: 1.13 1.14 - 1.31 FL/BPD: 44.0 % FL/AC: 14.8 % 20 - 24 Est. FW: 91 gm 0 lb 3 oz GESTATIONAL AGE: LMP: 11w 2d Date: 05/01/23 DAYNA: 02/05/24 U/S Today: 14w 3d DAYNA: 01/14/24 Best: 14w 0d Det. By: Previous DAYNA: 01/17/24 Ultrasound CERVIX UTERUS ADNEXA: Cervix Appears closed Adnexa No anomalies noted COMMENTS: Patient had a scan on 06/22/23 in radiology at which time there was a CRL of 3.3cm which correlates to an EDC of 01/17/24 when placed into the software package. First trimester screen was requested but the patient's gestational age is now too advanced for that test. NIPT should be offered. Trudi Rojo MD Electronically Signed Final Report 07/19/2023 02:16 pm * Event Display: PDC Nuchal [employer]usc[employer] Authored Date: Please click on pdf link to open report Patient Care team information Care Team Personnel Name: Omi Wise RN Position: [facility] RN Member Role: Primary Care Nurse Name: Peggy Quintana Position: [facility] RN Member Role: Primary Care Nurse Name: Gill Han RN Position: [facility] RN Member Role: Primary Care Nurse Name: Melania RIDER, Sarwat Gomez Position: [facility] RN Member Role: Primary Care Nurse Name: Brigette Healy RN Position: [facility] RN Member Role: Primary Care Nurse Name: George HARRIS, Bere Benavidez Position: [facility] General Pediatrics MD Member Role: PCP Address: Address: [address] [place] [address] Pediatric & Adolescent Medicine [place], [place] [address] Name: Jessica Leal RN Position: [facility] RN Member Role: Primary Care Nurse Name: Merlyn Looney RN Position: [facility] RN Member Role: Primary Care Nurse Care Team Related Persons Name: GONZÁLEZ QUINTANILLA Address: [place] [address] Name: PAULA PAUL Address: home [address] [place] [address] Name: CARLOS PAUL Address: home [address] [place] [address]
--- OUTSIDE RECORDS SUMMARY | 2024-02-11 22:04 | XMS_ITS | Continuity of Care Document ---
Author Organization [facility] Jl [employer] [facility] Address [address] [place] [address], [address] [place] [address]- Care Team Providers Care Obstetrical Anesthesiologist Name Role Phone George HARRIS, Bere Benavidez Primary Care Physician [id number] Date(s): 09/02/23 - 09/09/23 [facility] Jljeffery [employer] [facility] [address] [facility], 4th [place] [address]- Attending Physician: Tamanna Hood MD Referring Physician: Deepika Murrell CNM Allergies, Adverse Reactions, Alerts Substance Reaction [...] 1 Refills, Maintenance, 09/08/23 11:16:00 EST, Tablet, [facility], Partial fi... Start Date: 09/08/23 Status: Ordered PNV By Mouth, Daily, 0 Refills, Maintenance, 07/14/23 10:18:00 EST, Partial fill upon patient request if the prescription is for a schedule II opioid drug. Start Date: 07/14/23 Status: Ordered PNV Select oral tablet 1 tablet, By Mouth, Daily, # 90 tablet, 0 Refills, Maintenance, 08/12/23 8:33:00 EST, [id number] ([facility] 827), Partial fill upon patient request if the prescription is for a schedule II opioid drug., 1 tablet By Mouth Daily, 175, cm, 07/19/23... Start Date: 08/12/23 Status: Ordered pyridoxine 25 mg oral tablet 1 tablet = 25 mg, By Mouth, 3 times a day, PRN Nausea & Vomiting, # 100 tablet, 8 Refills, Maintenance, 07/19/23 13:37:00 EST, Tablet, [id number] ([facility] 827), Partial fill upon patient request if the prescription is for a schedule II opioid... Start Date: 07/19/23 Status: Ordered risperiDONE 1 mg oral tablet 1 mg, 1, tablet, By Mouth, 2 times a day, # 60 tablet, Refills 0, Tot. Refills 0, Maintenance, 05/28/22 8:23:00 EDT, Route to Pharmacy Electronically, [facility]/pharmacy #[id number], Partial fill upon patient request if the prescription is for a schedule II opioi... Start Date: 05/28/22 Status: Ordered terconazole topical 0.4% cream 1 application, Vaginally, Daily at bedtime, for 7 days, # 45 Gm, 0 Refills, Acute 09/14/23 13:41:00EST, 09/07/23 13:41:00 EST, Cream, [facility], Partial fill upon patient request if the prescription is for a schedule II opioid drug., 1 stella... Start Date: 09/07/23 Stop Date: 09/14/23 Status: Ordered topiramate 25 mg oral tablet 1 tablet = 25 mg, By Mouth, 2 times a day, # 60 tablet, 0 Refills, Maintenance, 05/28/22 8:23:00 EDT, Tablet, [facility]/pharmacy #[id number], Partial fill upon patient request if the prescription is for a schedule II opioid drug., 173, cm, 05/27/22 18:52:00 EDT,... Start Date: 05/28/22 Status: Ordered traZODone 50 mg oral tablet 50 mg, 1, tablet, By Mouth, Daily at bedtime, # 30 tablet, Refills 0, Tot. Refills 0, Maintenance, 05/28/22 8:23:00 EDT, Route to Pharmacy Electronically, [facility]/pharmacy #[id number], Partial fill upon patient request if the prescription is for a schedule II o... Start Date: 05/28/22 Status: Ordered Tylenol Extra Strength 500 mg oral tablet 2 tablet = 1,000 mg, By Mouth, Every 6 hours, PRN as needed for fever, # 100 tablet, 0 Refills, Maintenance, 07/27/23 11:28:00 EST, Tablet, [id number] ([facility] 827), Partial fill upon patientrequest if the prescription is for a schedule II op... Start Date: 07/27/23 Status: Ordered Unisom 25 mg oral tablet 1 tablet = 25 mg, By Mouth, Daily at bedtime, may take additional 1/2 tablet in morning & 1/2 tablet in afternoon if nausea persists, # 60 tablet, 1 Refills, Maintenance, 07/27/23 13:40:00 EST, [facility] ([facility]), Partial fill upon patie... Start Date: [...] smoking 4/day. Sex Radiology * Event Display: [facility] Standard Anatomy Survey, Lvl 1 * Event Display: [facility] Standard Anatomy Survey, Lvl 1 Authored Date: [id number] OBSTETRICS REPORT PATIENT INFO: CMRN: [id number] BMRN: [id number] : [birth year] (18 yrs)(F) Name: ADAMA Visit Date: 09/02/2023 08:43 am [facility] PERFORMED BY: Performed By: Kiah Pryor RDMS Attending: Tamanna Hood MD Referred By: Alana Balderas CNM Location: [facility] - [address] [place] [address] INDICATIONS: care in second trimester Z34.82 Anatomical Survey Level 1 Z36.3 VITAL SIGNS: Weight (lb): 130 Height: 5'9 BMI: 19.2 EVALUATION: Num Of Fetuses: 1 Heart Rate(bpm): 141 Cardiac Activity: Present Presentation: Breech Placenta: Posterior P. Cord Insertion: Normal Amniotic Fluid LAVON FV: Within normal limits Comment: Active movements seen. BIOMETRY: BPD: 45.8 mm G.Age: 19w 6d HC: 178.1 mm G.Age: 20w 2d AC: 161.5 mm G.Age: 21w 2d FL: 36.2 mm G.Age: 21w 3d HUM: 33.4 mm G.Age: 21w 2d CER: 21.3 mm G.Age: 20w 2d NFT: 4.2 mm CM: 4.3 mm CI: 67.71 % 70 - 86 FL/HC: 20.3 % 16.8 - 19.8 HC/AC: 1.10 1.09 - 1.39 FL/BPD: 79.0 % FL/AC: 22.4 % 20 - 24 Est. FW: 405 gm 0 lb 14 oz OB HISTORY: Blood Type: A+ : 2 SAB: 1 GESTATIONAL AGE: LMP: 17w 5d Date: 05/01/23 DAYNA: 02/05/24 U/S Today: 20w 5d DAYNA: 01/15/24 Best: 20w 3d Det. By: Previous DAYNA: 01/17/24 Ultrasound ANATOMY: Cranium: No anomalies seen Cavum: No anomalies seen Ventricles: No anomalies seen Choroid Plexus: No anomalies seen Cerebellum: No anomalies seen Posterior Fossa: No anomalies seen Nuchal Fold: No anomalies seen Face: No anomalies seen Lips: Upper lip appears normal Palate: No anomalies seen Heart: 4-chamber appeared normal RVOT: No anomalies seen LVOT: No anomalies seen Diaphragm: No anomalies seen Stomach: No anomalies seen Abdomen: No anomalies seen Abdominal Wall: No anomalies seen Cord Vessels: 3-vessel cord Kidneys: No anomalies seen Bladder: No anomalies seen Spine: No anomalies seen Upper Extremities: Arms appear normal Lower Extremities: Legs appear normal CERVIX UTERUS ADNEXA: Cervix Length: 3.9 cm. Appears closed Left Ovary Appears normal Right Ovary Appears normal Cul De Sac No fluid seen Comment The patient declined vaginal scanning for cervical length screening. COMMENTS: The patient had a low risk NIPT. The standard anatomy survey is unremarkable. Tamanna Hood MD Electronically Signed Final Report 09/02/2023 09:36 am * Event Display: [facility] Standard Anatomy Survey, Lvl 1 Authored Date: [id number] Please click on pdf link to open report Patient Care team information Care Team Personnel Name: Cardinal RIDER, Omi Position: S RN Member Role: Primary Care Nurse Name: Peggy Quintana Position: S RN Member Role: Primary Care Nurse Name: Guille RIDER, Gill Position: S RN Member Role: Primary Care Nurse Name: Melania RIDER, Sarwat Gomez Position: S RN Member Role: Primary Care Nurse Name: Brigette Healy RN Position: [facility] RN Member Role: Primary Care Nurse Name: Bere Vazquez MD Position: [facility] General Pediatrics MD Member Role: PCP Address: Address: [address] [facility] [place] [address]- Name: Jessica Leal RN Position: [facility] RN Member Role: Primary Care Nurse Name: Merlyn Looney RN Position: [facility] RN Member Role: Primary Care Nurse Care Team Related Persons Name: RUTHY GUZMAN Address: home [address] [place] [address] Name: PAULA PAUL Address: home [address] [place] [address] Name: CARLOS PAUL Address: home [address] [place] [address] Name: JAIRO CASTRO Address: home
--- OUTSIDE RECORDS SUMMARY | 2024-02-11 22:04 | XMS_ITS | Continuity of Care Document ---
Author Organization [facility] Address [address] [place] [address]- Care Team Providers Care Owner Consulting Engineer Name Role Phone Bere Vazquez MD Primary [id number] Date[facility]s): 05/28/23 - 07/28/[address] [address] Attending Physician: Not on Staff, Attending MD Referring Physician: Bere Vazquez MD Allergies, Adverse Reactions, Alerts Substance Reaction [...] Refills, Maintenance, 07/27/23 11:29:00 EST, Tablet, [id number] ([facility] 827)... Start Date: 07/27/23 Status: Ordered [...] Refills, Maintenance, 07/19/23 13:37:00 EST, Tablet, [id number] ([facility] 827), Partial fill upon patient request if the prescription is for a schedule II opioid... Start Date: 07/19/23 Status: Ordered risperiDONE 1 mg oral tablet 1 mg, 1, tablet, By Mouth, 2 times a day, # 60 tablet, Refills 0, Tot. Refills 0, Maintenance, 05/28/22 8:23:00 EDT, Route to Pharmacy Electronically, [facility]/pharmacy #[id number], Partial fill upon patient request if the prescription is for a schedule II opioi... Start Date: 05/28/22 Status: Ordered topiramate 25 mg oral tablet 1 tablet = 25 mg, By Mouth, 2 times a day, # 60 tablet, 0 Refills, Maintenance, 05/28/22 8:23:00 EDT, Tablet, [facility]/pharmacy #[id number], Partial fill [...] Refills, Maintenance, 07/27/23 11:28:00 EST, Tablet, [facility] ([facility] 827), Partial fill upon patientrequest if the prescription is for a schedule II op... Start Date: 07/27/23 Status: Ordered Unisom 25 mg oral tablet 1 tablet = 25 mg, By Mouth, Daily at bedtime, may take additional 1/2 tablet in morning & 1/2 tablet in afternoon if nausea persists, # 60 tablet, 1 Refills, Maintenance, 07/27/23 13:40:00 EST, [facility] ([facility] 827), Partial fill upon patie... Start [...] Team Personnel Name: Omi Wise RN Position: [facility] RN Member Role: Primary Care Nurse Name: Peggy Quintana Position: S RN Member Role: Primary Care Nurse Name: Gill Han RN Position: S RN Member Role: Primary Care Nurse Name: Sarwat Velázquez RN Position: S RN Member Role: Primary Care Nurse Name: Brigette Healy RN Position: [facility] RN Member Role: Primary Care Nurse Name: Bere Vazquez MD Position: [facility] General Pediatrics MD Member Role: PCP Address: Address: [address] [place] [address] Pediatric & [place] [address]- Name: Jessica Leal RN Position: S RN Member Role: Primary Care Nurse Name: Merlyn Looney RN Position: [facility] RN Member Role: Primary Care Nurse Care Team Related Persons Name: GONZÁLEZ QUINTANILLA Address: [place] [address] Name: PAULA PAUL Address: home [address] [place] [address] Name: CARLOS PAUL Address: home [address] [place] [address]
--- OUTSIDE RECORDS SUMMARY | 2024-02-11 22:04 | XMS_ITS | Continuity of Care Document ---
Author Organization [facility] Jl [facility] Address [address] [place] [address], [address], [place] [address]- Care Team Providers Care Sheet Metal Duct Installer Name Role Phone George HARRIS, Bere Benavidez Primary Care Physician Encounter [facility] Date(s): 08/18/23 - 09/17/23 [facility] [address] [facility] [place] [address]- Allergies, Adverse Reactions, Alerts Substance Reaction Severity [...] 0 Refills, Maintenance, 08/12/23 8:33:00 EST, [facility] ([facility] 827), Partial fill upon patient request if the prescription is for a schedule II opioid drug., 1 tablet By Mouth Daily, 175, cm, 07/19/23... Start Date: 08/12/23 Status: Ordered pyridoxine 25 mg oral tablet 1 tablet = 25 mg, By Mouth, 3 times a day, PRN Nausea & Vomiting, # 100 tablet, 8 Refills, Maintenance, 07/19/23 13:37:00 EST, Tablet, [facility] ([facility]), Partial fill upon patient request if the prescription is for a schedule II opioid... Start Date: 07/19/23 Status: Ordered risperiDONE 1 mg oral tablet 1 mg, 1, tablet, By Mouth, 2 times a day, # 60 tablet, Refills 0, Tot. Refills 0, Maintenance, 05/28/22 8:23:00 EDT, Route to Pharmacy Electronically, [facility]/pharmacy #[id number], Partial fill upon [...] Refills, Maintenance, 05/28/22 8:23:00 EDT, Tablet, [facility]/pharmacy #[id number], Partial fill upon patient request if the prescription is for a schedule II opioid drug., 173, cm, 05/27/22 18:52:00 EDT,... Start Date: 05/28/22 Status: Ordered traZODone 50 mg oral tablet 50 mg, 1, tablet, By Mouth, Daily at bedtime, # 30 tablet, Refills 0, Tot. Refills 0, Maintenance, 05/28/22 8:23:00 EDT, Route to Pharmacy Electronically, [facility]/pharmacy #[id number], Partial fill upon patient request if the prescription is for a schedule II o... Start Date: 05/28/22 Status: Ordered Tylenol Extra Strength 500 mg oral tablet 2 tablet = 1,000 mg, By Mouth, Every 6 hours, PRN as needed for fever, # 100 tablet, 0 Refills, Maintenance, 07/27/23 11:28:00 EST, Tablet, [facility] ([facility] 827), Partial fill upon patientrequest if the prescription is for a schedule II op... Start Date: 07/27/23 Status: Ordered Unisom 25 mg oral tablet 1 tablet = 25 mg, By Mouth, Daily at bedtime, may take additional 1/2 tablet in morning & 1/2 tablet in afternoon if nausea persists, # 60 tablet, 1 Refills, Maintenance, 07/27/23 13:40:00 EST, [facility] ([facility] 827), Partial fill upon patie... Start Date: [...] Team Personnel Name: Omi Wise RN Position: [facility] RN Member Role: Primary Care Nurse Name: Peggy Quintana Position: S RN Member Role: Primary Care Nurse Name: Gill Han RN Position: [facility] RN Member Role: Primary Care Nurse Name: Sarwat Velázquez RN Position: S RN Member Role: Primary Care Nurse Name: Brigette Healy RN Position: S RN Member Role: Primary Care Nurse Name: Bere Vazquez MD Position: [facility] Physician - Pediatrics Member Role: PCP Address: Address: [address] [place] [address] Pediatric & [place] [address]- Name: Jessica Leal RN Position: S RN Member Role: Primary Care Nurse Name: Merlyn Looney RN Position: S RN Member Role: Primary Care Nurse Care Team Related Persons Name: RUTHY GUZMAN Address: home [address] [place] [address] Name: PAULA PAUL Address: home [address] [place] [address] Name: CARLOS PAUL Address: home [address] [place] [address] Name: JAIRO HAN Address: home [facility]
--- OUTSIDE RECORDS SUMMARY | 2024-02-11 22:04 | XMS_ITS | Continuity of Care Document ---
Author Organization [facility] ter Address [address] [place] [address]- Care Team Providers Care Materials Recycler Name Role Phone Roro Pitts MD Primary Care Physician [place] [facility] Date(s): 10/02/20 - 10/04/[address] [address]- Discharge Disposition: A-D/C Home Attending Physician: Crescencio Ritchie MD Admitting Physician: Crescencio Ritchie MD Referring Physician: Not on Staff, Referring [...] 12:28:55 EDT Start Date: 12/19/18 Status: Ordered prazosin 5 mg oral capsule 5 mg, Capsule, By Mouth, 10/03/20 20:00:00 EST Start Date: 10/03/20 Stop Date: 10/03/20 Status: Completed risperiDONE 0.5 mg oral tablet TAKE 1 TABLET BY MOUTH EVERY DAY AT NIGHT Start Date: 04/08/19 Status: Ordered Problem List Condition Effective Dates Status Health Status Inform ant Acute depression(Confirmed) Active Vital Signs Most recent to oldest [Reference Range]: 1 2 3 Height 173 cm (10/04/20 4:57 PM) 173 cm (10/04/20 10:08 AM) 173 cm (10/03/20 8:22 PM) Weight 88.4 kg (10/04/20 4:57 PM) 88.4 kg (10/04/20 10:08 AM) 88.4 kg (10/03/20 8:22 PM) Oxygen Saturation [94-100 %] 100 % (10/04/20 4:57 PM) 99 % (10/04/20 10:08 AM) 99 % (10/03/20 8:22 PM) Pulse Rate [55-90 bpm] 98 bpm *H* (10/04/20 4:57 PM) 89 bpm (10/04/20 10:08 AM) 89 bpm (10/03/20 8:22 PM) Body Mass Index [18.5-24.99] 29.54 *H* (10/04/20 10:08 AM) 29.54 *H* (10/03/20 8:22 PM) 29.54 *H* (10/03/20 10:08 AM) Blood Pressure [80-130/50-80 mm Hg] 114/55mm Hg (10/04/20 10:08 AM) 127/73mm Hg (10/03/20 8:22 PM) 127/73mm Hg (10/03/20 8:10 PM) Respiratory Rate [16-30 br/min] 20 br/min (10/04/20 4:57 PM) 20 br/min (10/04/20 10:08 AM) 19 br/min (10/03/20 8:22 PM) Temperature [96.8-100.4 DegF] 98.2 DegF (10/04/20 4:57 PM) 98.2 DegF (10/04/20 10:08 AM) 98.6 DegF (10/03/20 8:22 PM) Mode of Delivery (Oxygen) Room air (10/04/20 4:57 PM) Room air (10/04/20 10:08 AM) Room air (10/03/20 8:22 PM) Blood pressure sites Arm, left (10/04/20 10:08 AM) Arm, right (10/03/20 8:22 PM) Arm, left (10/03/20 10:08 AM) Temperature Route Oral (10/04/20 4:57 PM) Oral (10/03/20 8:22 PM) Oral (10/03/20 10:08 AM) Dry Weight 88.4 kg (10/04/20 4:57 PM) 88.4 kg (10/04/20 10:08 AM) 88.4 kg (10/03/20 8:22 PM) Weight Obtained Via Standing scale (10/02/20 11:09 AM) Dry Weight Obtained Via Standing scale (10/02/20 11:09 AM) Social History Social History Type Response Smoking Status Never smoker entered on: 01/16/18 Sex
--- OUTSIDE RECORDS SUMMARY | 2024-02-11 22:04 | XMS_ITS | Continuity of Care Document ---
Author Organization [facility] Yonathan nDJZs [facility] Address [address] [facility] [place] [address]- Care Team Providers Care Rn Appeals Name Role Phone George HARRIS, Bere Benavidez Primary Care Physician [facility] [id number] Date(s): 10/05/23 - 10/12/23 [facility] Jl MayelaDJZs [facility] [address] [facility] [place] [address]- Attending Physician: Lakshmi Burgess MD Referring Physician: [...] 10/05/23 15:11:00 EST, [id number] Partial fill upon patient request [...] Refills, Maintenance, 10/05/23 15:12:00 EST, REC Powder, [facility]/pharmacy #[id number], Partial fill upon patient request if [...] 1 Refills, Maintenance, 09/08/23 11:16:00 EST, Tablet, [facility], Partial fi... Start Date: 09/08/23 Status: Ordered PNV By Mouth, Daily, 0 Refills, Maintenance, 07/14/23 10:18:00 EST, Partial fill upon patient request if the prescription is for a schedule II opioid drug. Start Date: 07/14/23 Status: Ordered PNV Select oral tablet 1 tablet, By Mouth, Daily, # 90 tablet, 0 Refills, Maintenance, 08/12/23 8:33:00 EST, [facility] [id number] ([facility]), Partial fill upon patient request if the prescription is for a schedule II opioid drug., 1 tablet By Mouth Daily, 175, cm, 07/19/23... Start Date: 08/12/23 Status: Ordered pyridoxine 25 mg oral tablet 1 tablet = 25 mg, By Mouth, 3 times a day, PRN Nausea & Vomiting, # 100 tablet, 8 Refills, Maintenance, 07/19/23 13:37:00 EST, Tablet, [facility] ([facility] 827), Partial fill upon patient request if the prescription is for a schedule II opioid... Start Date: 07/19/23 Status: Ordered Unisom 25 mg oral tablet 1 tablet = 25 mg, By Mouth, Daily at bedtime, may take additional 1/2 tablet in morning & 1/2 tablet in afternoon if nausea persists, # 60 tablet, 1 Refills, Maintenance, 07/27/23 13:40:00 EST, [facility] ([facility] 827), Partial fill upon patie... Start [...] Team Personnel Name: Omi Wise RN Position: [facility] RN Member Role: Primary Care Nurse Name: Peggy Quintana Position: [facility] RN Member Role: Primary Care Nurse Name: Gill Han RN Position: [facility] RN Member Role: Primary Care Nurse Name: Sarwat Velázquez RN Position: [facility] RN Member Role: Primary Care Nurse Name: Brigette Healy RN Position: [facility] RN Member Role: Primary Care Nurse Name: Adele Ibanez RN Position: [facility] RN Member Role: Primary Care Nurse Name: Nidia Tripp Position: S RN Member Role: Primary Care Nurse Name: Bere Vazquez MD Position: [facility] Physician - Pediatrics Member Role: PCP Address: Address: [address] [place] [address] Pediatric & [place] [address]- [place] Name: Jessica Leal RN Position: S RN Member Role: Primary Care Nurse Name: Bisi Rock RN Position: S RN Member Role: Primary Care Nurse Name: Merlyn Looney RN Position: S RN Member Role: Primary Care Nurse Care Team Related Persons Name: RUTHY GUZMAN Address: home [address] [place] [address] Name: PAULA PAUL Address: home [address] [place] [address] Name: PAULA PAUL Address: home [address] [place] [address] Name: CARLOS PAUL Address: [address] [place] [address] Name: JAIRO HAN Address: home
--- OUTSIDE RECORDS SUMMARY | 2024-02-11 22:04 | XMS_ITS | Continuity of Care Document ---
Author Organization [facility] Address [address] [place] [address]- Care Team Providers Care Hide Cooking Operator Name Role Phone Bere Vazquez MD Primary Care Physician Encounter [facility] Date(s): 02/11/23 - 02/12/[address] [address]- Discharge Disposition: Transfer to [facility] Facility Attending Physician: Chintan Quintero MD Admitting Physician: Chintan Quintero MD Referring Physician: Not on Staff, Referring [...] St atus Informant Acute depression Confirmed Active Vital Signs Most recent to oldest [Reference Range]: 1 2 3 Height 173 cm (02/11/23 5:36 PM) Weight 62 kg (02/11/23 5:36 PM) Oxygen Saturation [94-100 %] 99 % (02/12/23 6:35 PM) 100 % (02/12/23 11:52 AM) 100 % (02/12/23 12:29 AM) Pulse Rate [55-90 bpm] 65 bpm (02/12/23 6:35 PM) 63 bpm (02/12/23 11:52 AM) 58 bpm (02/12/23 12:29 AM) Blood Pressure [90-138/55-84 mm Hg] 129/75mm Hg (02/12/23 6:35 PM) 132/76mm Hg (02/12/23 11:52 AM) 117/59mm Hg (02/12/23 12:29 AM) Respiratory Rate [16-30 br/min] 16 br/min (02/12/23 6:35 PM) 16 br/min (02/12/23 11:52 AM) 18 br/min (02/12/23 12:29 AM) Temperature [96.8-100.4 DegF] 98.9 DegF (02/12/23 11:52 AM) 97.7 DegF (02/12/23 12:29 AM) 98.7 DegF (02/11/23 5:10 PM) Mode of Delivery (Oxygen) Room air (02/12/23 6:35 PM) Room air (02/12/23 11:52 AM) Room air (02/12/23 12:29 AM) Blood pressure sites Arm, right (02/12/23 11:52 AM) Temperature Route Oral (02/12/23 11:52 AM) Oral (02/12/23 12:29 AM) Dry Weight 62 kg (02/11/23 5:36 PM) Weight Obtained Via Patient/family state d (02/11/23 5:36 PM) Dry Weight Obtained Via Patient/family s tated (02/11/23 5:36 PM) Height Percentile 93.33 % 1 (02/11/23 5:36 PM) Height ZScore 1.50 2 (02/11/23 5:36 PM) Weight Percentile Per Age 65.05 % 3 (02/11/23 5:36 PM) Weight ZScore 0.39 4 (02/11/23 5:36 PM) 1Result Comment: ^~:!Percentile Source -CDC/WHO 2Result Comment: ^~:!ZScore Source -CDC/WHO 3Result Comment: ^~:!Percentile Source -CDC/WHO 4Result Comment: ^~:!ZScore Source -CDC/WHO Social History Social History Type Response Smoking Status 5-9 cigarettes (betw een 1/4 to 1/2 pack)/day in last 30 days entered on: 05/24/21 Sex EKG study * Event Display: ECG 12-Lead Authored Date: Please click on pdf link to open report * Event Display: ECG 12-Lead Authored Date: Ventricular Rate: 73 BPM Atrial Rate: 73 BPM P-R Interval: 120 ms QRS Duration: 88 ms Q-T Interval: 370 ms QTC Calculation(Bazett): 407 ms P Thurmond: -3 degrees R Thurmond: 82 degrees T Thurmond: 66 degrees Normal sinus rhythm Nonspecific T wave abnormality Otherwise normal ECG When compared with ECG of 21-MAY-2022 14:52, No significant change was found Confirmed by TALITA BRAUN MD ([id number]) on 02/12/2023 9:10:29 PM [place]: TALITA BRAUN MD Patient Care team information Care Team Personnel Name: Omi Wise RN Position: [facility] RN Member Role: Primary Care Nurse Name: Peggy Quintana Position: S RN Member Role: Primary Care Nurse Name: Gill Han RN Position: S RN Member Role: Primary Care Nurse Name: Sarwat Velázquez RN Position: S RN Member Role: Primary Care Nurse Name: Brigette Healy RN Position: [facility] RN Member Role: Primary Care Nurse Name: Bere Vazquez MD Position: [facility] General Pediatrics MD Member Role: PCP Address: Address: [address] [place] [address] Pediatric [facility] [place] [address]- Name: Jessica Leal RN Position: [facility] RN Member Role: Primary Care Nurse Name: Merlyn Looney RN Position: [facility] RN Member Role: Primary Care Nurse Name: Abena Gates MD Position: [facility] ED Medicine MD Member Role: ED Attending Physician Address: Address: [address] [place] [address]- Name: Arely Powell MD Position: [facility] ED Medicine MD Member Role: ED Attending Physician Address: Address: [address] [place] [address] Name: Marisa Spain RN Position: [facility] ED RN W/OE and Tasks Member Role: Patient Care Provider Care Team Related Persons Name: GONZÁLEZ QUINTANILLA Address: [place] [address] Name: PAULA PAUL Address: home [address] [place] [address] Name: CARLOS PAUL Address: home [address] [place] [address]
--- OUTSIDE RECORDS SUMMARY | 2024-02-11 22:04 | XMS_ITS | Continuity of Care Document ---
Author Organization [facility] Address [address] [place] [address]- Care Team Providers Care Community Development Coordinator Name Role Phone Pinky Peters MD Primary Care Physician Encounter [facility] [id number] Date(s): 01/27/21 - 02/26/21 [facility] [address] [place] [address]- Attending Physician: Rachel Up Admitting Physician: AdmRachel mitchell Referring Physician: Admtr, Ar8 Allergies, Adverse Reactions, [...]
--- OUTSIDE RECORDS SUMMARY | 2024-02-11 22:04 | XMS_ITS | Continuity of Care Document ---
Author Organization [facility] Address [address] [place] [address], [address] [place] [address]- Care Team Providers Care Mechanical Artist Name Role Phone George HARRIS, Bere Benavidez Primary Care Physician En[place] [facility] Date(s): 08/11/23 - 09/10/23 [facility] [address] [facility], [address] [place] [address]- Allergies, Adverse Reactions, Alerts Substance Reaction Severity [...] 0 Refills, Maintenance, 08/12/23 8:33:00 EST, [id number] (Family[facility]eds 827), Partial fill upon patient request if the prescription is for a schedule II opioid drug., 1 tablet By Mouth Daily, 175, cm, 07/19/23... Start Date: 08/12/23 Status: Ordered pyridoxine 25 mg oral tablet 1 tablet = 25 mg, By Mouth, 3 times a day, PRN Nausea & Vomiting, # 100 tablet, 8 Refills, Maintenance, 07/19/23 13:37:00 EST, Tablet, [id number] (FamilyMeds 827), Partial fill upon patient request if the prescription is for a schedule II opioid... Start Date: 07/19/23 Status: Ordered risperiDONE 1 mg oral tablet 1 mg, 1, tablet, By Mouth, 2 times a day, # 60 tablet, Refills 0, Tot. Refills 0, Maintenance, 05/28/22 8:23:00 EDT, Route to Pharmacy Electronically, [facility]/pharmacy #[id number], Partial fill upon patient request if the prescription is for a schedule II opioi... Start Date: 05/28/22 Status: Ordered terconazole topical 0.4% cream 1 application, Vaginally, Daily at bedtime, for 7 days, # 45 Gm, 0 Refills, Acute 09/14/23 13:41:00EST, 09/07/23 13:41:00 EST, Cream, [facility], Partial fill upon patient request if the prescription is for a schedule II opioid drug., 1 stella... Start Date: 09/07/23 Stop Date: 09/14/23 Status: Ordered topiramate 25 mg oral tablet 1 tablet = 25 mg, By Mouth, 2 times a day, # 60 tablet, 0 Refills, Maintenance, 05/28/22 8:23:00 EDT, Tablet, [facility]/pharmacy #[id number], Partial fill upon patient request if the prescription is for a schedule II opioid drug., 173, cm, 05/27/22 18:52:00 EDT,... Start Date: 05/28/22 Status: Ordered traZODone 50 mg oral tablet 50 mg, 1, tablet, By Mouth, Daily at bedtime, # 30 tablet, Refills 0, Tot. Refills 0, Maintenance, 05/28/22 8:23:00 EDT, Route to Pharmacy Electronically, [facility]/pharmacy #[id number], Partial fill upon patient request if the prescription is for a schedule II o... Start Date: 05/28/22 Status: Ordered Tylenol Extra Strength 500 mg oral tablet 2 tablet = 1,000 mg, By Mouth, Every 6 hours, PRN as needed for fever, # 100 tablet, 0 Refills, Maintenance, 07/27/23 11:28:00 EST, Tablet, [id number] (Family[facility]eds 827), Partial fill upon patientrequest if the prescription is for a schedule II op... Start Date: 07/27/23 Status: Ordered Unisom 25 mg oral tablet 1 tablet = 25 mg, By Mouth, Daily at bedtime, may take additional 1/2 tablet in morning & 1/2 tablet in afternoon if nausea persists, # 60 tablet, 1 Refills, Maintenance, 07/27/23 13:40:00 EST, [facility] [id number] ([facility] 827), Partial fill upon patie... Start [...] Care Nurse Name: Sarwat Velázquez RN Position: [facility] RN Member Role: Primary Care Nurse Name: Brigette Healy RN Position: [facility] RN Member Role: Primary Care Nurse Name: Bere Vazquez MD Position: [facility] General Pediatrics MD Member Role: PCP Address: Address: [address] [place] [address] Pediatric & Adolescent Medicine [place], [place] [address] Name: Jessica Leal RN Position: [facility] RN Member Role: Primary Care Nurse Name: Merlyn Looney RN Position: [facility] RN Member Role: Primary Care Nurse Care Team Related Persons Name: RUTHY GUZMAN Address: home [address] [place] [address] Name: PAULA PAUL Address: home [address] [place] [address] Name: CARLOS PAUL Address: home [address] [place] [address] Name: JAIRO HAN Address: home
--- OUTSIDE RECORDS SUMMARY | 2024-02-11 22:04 | XMS_ITS | Continuity of Care Document ---
Author Organization [facility] [employer]va[employer] The[employer]ros[employer] [facility] Address [address] [facility], [address] [place] [address]- Care Team Providers Care Conduit Installer Name Role Phone George HARRIS, Bere Benavidez Primary Care Physician [facility] [id number] Date(s): 12/28/23 - 01/04/24 [facility] [place] Pedro[facility] [address] [facility], [address] [place] [address]- Attending Physician: Mercy Ornelas DO Referring Physician: Aditya HARRIS, Lakshmi Douglas Allergies, [...] Recorded 1Result Comment: PT [facility] [id number] Medications Benadryl 25 mg oral capsule 1 capsule = 25 mg, By Mouth, Daily at bedtime, PRN Headache, # 30 capsule, 0 Refills, Maintenance, 11/27/23 21:42:00 EDT, Capsule, [id number], Partial fill upon patient request if the [...] Gm, 0 Refills, Maintenance, 12/23/23 14:35:00 EDT,Cream, [facility]/pharmacy #[id number], Partial fill upon patient request if the [...] 15:11:00 EST, Route to Pharmacy Electronically, [facility]/pharmacy #[id number], Partial fill upon patient request if [...] 3 Refills, Maintenance, 10/27/23 17:55:00 EST, Tablet, [facility]/pharmacy #[id number], Partial fill upon patient request if [...] Refills, Maintenance, 10/05/23 15:12:00 EST, REC Powder, [facility]/pharmacy #[id number], Partial fill upon patient request if [...] tablet, 2 Refills, Maintenance, 10/26/23 14:27:00 EST, [facility]/pharmacy#[id number], Partial fill upon patient request if the prescription is for a schedule II opioid drug., 1 tablet By Mouth Daily, 174, cm, 10/26/23 14:06:00 EST... Start Date: 10/26/23 Status: Ordered pyridoxine 25 mg oral tablet 1 tablet = 25 mg, By Mouth, 3 times a day, PRN Nausea & Vomiting, # 100 tablet, 8 Refills, Maintenance, 07/19/23 13:37:00 EST, Tablet, [facility] [id number] ([facility] 827), Partial fill upon patient request if the prescription is for a schedule II opioid... Start Date: 07/19/23 Status: Ordered Reglan 10 mg oral tablet 1 tablet = 10 mg, By Mouth, Daily, PRN Headache, # 30 tablet, 0 Refills, Maintenance, 11/27/23 21:42:00 EDT, [facility]/pharmacy #[id number], Partial fill upon patient request if the prescription is for a schedule II opioid drug., 174, cm, 11/08/23 13:36:00 EST, H... Start Date: 11/27/23 Status: Ordered ursodiol 300 mg oral capsule 300 mg, 1, capsule, By Mouth, 3 times a day, # 100 capsule, Refills 1, Tot. Refills 1, Maintenance,12/06/23 18:22:00 EDT, Route to Pharmacy Electronically, [facility]/pharmacy #[id number], Partial fill upon patient request if the [...] Personnel Name: Omi Wise RN Position: [facility] RN Member Role: Primary Care Nurse Name: Peggy Quintana Position: [facility] RN Member Role: Primary Care Nurse Name: Gill Han RN Position: [facility] RN Member Role: Primary Care Nurse Name: Sarwat Velázquez RN Position: S RN Member Role: Primary Care Nurse Name: Adele Ibanez RN Position: [facility] RN Member Role: Primary Care Nurse Name: Nidia Tripp Position: [facility] RN Member Role: Primary Care Nurse Name: Bere Vazquez MD Position: [facility] Physician - Pediatrics Member Role: PCP Address: Address: [address] [place] [address] Pediatric & [place] [address]- Name: Jessica Leal RN Position: [facility] RN Member Role: Primary Care Nurse Name: Bisi Rock RN Position: S RN Member Role: Primary Care Nurse Name: Merlyn Looney RN Position: [facility] RN Member Role: Primary Care Nurse Care Team Related Persons Name: RUTHY GUZMAN Address: home [address] [place] [address] Name: PAULA PAUL Address: home [address] [place] [address] Name: BEVERLY ARASELIBRAXTON GIRL Address: [address] Address: home [address] [place] [address] [place] Name: CARLOS PAUL Address: home [address] [place] [address] Name: JAIRO HNA Address: home UM
--- OUTSIDE RECORDS SUMMARY | 2024-02-11 22:04 | XMS_ITS | Continuity of Care Document ---
Author Organization [facility] Yonathan [employer] [facility] Address [address] [facility], [address] [place] [address]- Care Team Providers Care Trimmer Press Clippings Name Role Phone George HARRIS, Bere Benavidez Primary Care Physician [id number] Date(s): 11/12/23 - 11/19/23 [facility] [place] Pedro[facility] [employer] [facility] [address] [facility], [address] [place] [address]- Attending Physician: Lakshmi Burgess MD Allergies, Adverse Reactions, [...] Comment: PT [facility] [id number] Medications Benadryl 25 mg oral capsule 1 [...] 10/05/23 15:11:00 EST, Route to Pharmacy Electronically, [facility]/pharmacy #[id number], Partial fill upon [...] 3 Refills, Maintenance, 10/27/23 17:55:00 EST, Tablet, [facility]/pharmacy #[id number], Partial fill upon [...] Refills, Maintenance, 10/05/23 15:12:00 EST, REC Powder, [facility]/pharmacy #[id number], Partial fill upon [...] 1 Refills, Maintenance, 09/08/23 11:16:00 EST, Tablet, [facility], Partial fi... Start Date: 09/08/23 Status: Ordered PNV By Mouth, Daily, 0 Refills, Maintenance, 07/14/23 10:18:00 EST, Partial fill upon patient request if the prescription is for a schedule II opioid drug. Start Date: 07/14/23 Status: Ordered PNV Select oral tablet 1 tablet, By Mouth, Daily, # 90 tablet, 2 Refills, Maintenance, 10/26/23 14:27:00 EST, [facility]/pharmacy#[id number], Partial fill upon patient request if the prescription is for a schedule II opioid drug., 1 tablet By Mouth Daily, 174, cm, 10/26/23 14:06:00 EST... Start Date: 10/26/23 Status: Ordered pyridoxine 25 mg oral tablet 1 tablet = 25 mg, By Mouth, 3 times a day, PRN Nausea & Vomiting, # 100 tablet, 8 Refills, Maintenance, 07/19/23 13:37:00 EST, Tablet, [facility] [id number] ([facility] 827), Partial fill upon patient request [...] Team Personnel Name: Omi Wise RN Position: [facility] RN Member Role: Primary Care Nurse Name: Peggy Quintana Position: S RN Member Role: Primary Care Nurse Name: Gill Han RN Position: [facility] RN Member Role: Primary Care Nurse Name: Sarwat Velázquez RN Position: S RN Member Role: Primary Care Nurse Name: Adele Ibanez RN Position: [facility] RN Member Role: Primary Care Nurse Name: Nidia Tripp Position: [facility] RN Member Role: Primary Care Nurse Name: Bere Vazquez MD Position: [facility] Physician - Pediatrics Member Role: PCP Address: Address: [address] [place] [address] Pediatric & Adolescent Medicine [place], [place] [address] Name: Jessica Leal RN Position: [facility] RN Member Role: Primary Care Nurse Name: Bisi Rock RN Position: [facility] RN Member Role: Primary Care Nurse Name: Merlyn Looney RN Position: [facility] RN Member Role: Primary Care Nurse Care Team Related Persons Name: RUTHY GUZMAN Address: home [address] [place] [address] Name: PAULA PAUL Address: home [address] [place] [address] Name: CARLOS PAUL Address: home [address] [place] [address] Name: JAIRO HAN Address: home [facility]
--- OUTSIDE RECORDS SUMMARY | 2024-02-11 22:04 | XMS_ITS | Continuity of Care Document ---
Author Organization [facility] Address [address] [place] [address], [address], [place] [address]- Care Team Providers Care Humanities Division Chair Name Role Phone George HARRIS, Bere Benavidez Primary Care Physician [place] [facility] Date(s): 08/13/23 - 09/12/23 [facility] [address] [facility], [address] [place] [address]- Allergies, Adverse Reactions, Alerts Substance Reaction Severity [...] 1 Refills, Maintenance, 09/08/23 11:16:00 EST, Tablet, [facility], Partial fi... Start Date: 09/08/23 Status: Ordered PNV By Mouth, Daily, 0 Refills, Maintenance, 07/14/23 10:18:00 EST, Partial fill upon patient request if the prescription is for a schedule II opioid drug. Start Date: 07/14/23 Status: Ordered PNV Select oral tablet 1 tablet, By Mouth, Daily, # 90 tablet, 0 Refills, Maintenance, 08/12/23 8:33:00 EST, [id number] ([facility]eds 827), Partial fill upon patient request if the prescription is for a schedule II opioid drug., 1 tablet By Mouth Daily, 175, cm, 07/19/23... Start Date: 08/12/23 Status: Ordered pyridoxine 25 mg oral tablet 1 tablet = 25 mg, By Mouth, 3 times a day, PRN Nausea & Vomiting, # 100 tablet, 8 Refills, Maintenance, 07/19/23 13:37:00 EST, Tablet, [facility] ([facility]eds 827), Partial fill upon patient request if the prescription is for a schedule II opioid... Start Date: 07/19/23 Status: Ordered risperiDONE 1 mg oral tablet 1 mg, 1, tablet, By Mouth, 2 times a day, # 60 tablet, Refills 0, Tot. Refills 0, Maintenance, 05/28/22 8:23:00 EDT, Route to Pharmacy Electronically, [facility]/pharmacy #[id number], Partial fill upon patient request if the prescription is for a schedule II opioi... Start Date: 05/28/22 Status: Ordered terconazole topical 0.4% cream 1 application, Vaginally, Daily at bedtime, for 7 days, # 45 Gm, 0 Refills, Acute 09/14/23 13:41:00EST, 09/07/23 13:41:00 EST, Cream, [facility], Partial fill upon patient request if the prescription is for a schedule II opioid drug., 1 stella... Start Date: 09/07/23 Stop Date: 09/14/23 Status: Ordered topiramate 25 mg oral tablet 1 tablet = 25 mg, By Mouth, 2 times a day, # 60 tablet, 0 Refills, Maintenance, 05/28/22 8:23:00 EDT, Tablet, [facility]/pharmacy #[id number], Partial fill upon patient request if the prescription is for a schedule II opioid drug., 173, cm, 05/27/22 18:52:00 EDT,... Start Date: 05/28/22 Status: Ordered traZODone 50 mg oral tablet 50 mg, 1, tablet, By Mouth, Daily at bedtime, # 30 tablet, Refills 0, Tot. Refills 0, Maintenance, 05/28/22 8:23:00 EDT, Route to Pharmacy Electronically, [facility]/pharmacy #[id number], Partial fill upon patient request if the prescription is for a schedule II o... Start Date: 05/28/22 Status: Ordered Tylenol Extra Strength 500 mg oral tablet 2 tablet = 1,000 mg, By Mouth, Every 6 hours, PRN as needed for fever, # 100 tablet, 0 Refills, Maintenance, 07/27/23 11:28:00 EST, Tablet, [id number] ([facility] 827), Partial fill upon patientrequest if the prescription is for a schedule II op... Start Date: 07/27/23 Status: Ordered Unisom 25 mg oral tablet 1 tablet = 25 mg, By Mouth, Daily at bedtime, may take additional 1/2 tablet in morning & 1/2 tablet in afternoon if nausea persists, # 60 tablet, 1 Refills, Maintenance, 07/27/23 13:40:00 EST, [facility] [id number] ([facility] 827), Partial fill upon patie... Start [...] Team Personnel Name: Omi Wise RN Position: [facility] RN Member Role: Primary Care Nurse Name: Peggy Quintana Position: [facility] RN Member Role: Primary Care Nurse Name: Gill Han RN Position: [facility] RN Member Role: Primary Care Nurse Name: Sarwat Velázquez RN Position: [facility] RN Member Role: Primary Care Nurse Name: Brigette Healy RN Position: [facility] RN Member Role: Primary Care Nurse Name: Bere Vazquez MD Position: [facility] General Pediatrics MD Member Role: PCP Address: Address: [address] [place] [address] Pediatric & Adolescent Medicine [place], [place] [address] Name: Jessica Leal RN Position: [facility] RN Member Role: Primary Care Nurse Name: Merlyn Looney RN Position: [facility] RN Member Role: Primary Care Nurse Care Team Related Persons Name: RUTHY GUZMAN Address: home [address] [place] [address] Name: PAULA PAUL Address: home [address] [place] [address] Name: CARLOS PAUL Address: home [address] [place] [address] Name: JAIRO HAN Address: home
--- OUTSIDE RECORDS SUMMARY | 2024-02-11 22:04 | XMS_ITS | Continuity of Care Document ---
Author Organization [facility] Yonathan nGame[employer]ss [facility] Address [address], [address] [place] [address]- Care Team Providers Care Group Fitness Department Head Name Role Phone George HARRIS, Bere Benavidez Primary Care Physician Encounter [facility] Date(s): 12/14/23 - 12/21/23 [facility] Pedro[facility] [address] [place] [address]- Attending Physician: Aditya HARRIS, Lakshmi Douglas Allergies, [...] 08/13/20 Recorded 1Result Comment: PT [facility] [id number] Medications Benadryl 25 mg oral capsule 1 [...] 10/05/23 15:11:00 EST, Route to Pharmacy Electronically, [facility]/pharmacy #[id number], Partial fill upon patient request [...] 3 Refills, Maintenance, 10/27/23 17:55:00 EST, Tablet, [facility]/pharmacy #[id number], Partial fill upon patient request [...] Refills, Maintenance, 10/05/23 15:12:00 EST, REC Powder, [facility]/pharmacy #[id number], Partial fill upon patient request [...] 1 Refills, Maintenance, 09/08/23 11:16:00 EST, Tablet, [facility], Partial fi... Start Date: 09/08/23 Status: Ordered PNV By Mouth, Daily, 0 Refills, Maintenance, 07/14/23 10:18:00 EST, Partial fill upon patient request if the prescription is for a schedule II opioid drug. Start Date: 07/14/23 Status: Ordered PNV Select oral tablet 1 tablet, By Mouth, Daily, # 90 tablet, 2 Refills, Maintenance, 10/26/23 14:27:00 EST, [facility]/pharmacy#[id number], Partial fill upon patient request if the prescription is for a schedule II opioid drug., 1 tablet By Mouth Daily, 174, cm, 10/26/23 14:06:00 EST... Start Date: 10/26/23 Status: Ordered pyridoxine 25 mg oral tablet 1 tablet = 25 mg, By Mouth, 3 times a day, PRN Nausea & Vomiting, # 100 tablet, 8 Refills, Maintenance, 07/19/23 13:37:00 EST, Tablet, [place] [id number] ([facility] 827), Partial fill upon patient request if the prescription is for a schedule II opioid... Start Date: 07/19/23 Status: Ordered Reglan 10 mg oral tablet 1 tablet = 10 mg, By Mouth, Daily, PRN Headache, # 30 tablet, 0 Refills, Maintenance, 11/27/23 21:42:00 EDT, [facility]/pharmacy #[id number], Partial fill upon patient request if the prescription is for a schedule II opioid drug., 174, cm, 11/08/23 13:36:00 EST, H... Start Date: 11/27/23 Status: Ordered ursodiol 300 mg oral capsule 300 mg, 1, capsule, By Mouth, 3 times a day, # 100 capsule, Refills 1, Tot. Refills 1, Maintenance,12/06/23 18:22:00 EDT, Route to Pharmacy Electronically, [facility]/pharmacy #[id number], Partial fill upon patient request if the [...] Team Personnel Name: Omi Wise RN Position: [facility] RN Member Role: Primary [...] Care Nurse Name: Bere Vazquez MD Position: [facility] Physician - Pediatrics Member Role: PCP Address: Address: [address] [place] [address] Pediatric & Adolescent Medicine [place], [place] [address] Name: Jessica Leal RN Position: S RN Member Role: Primary Care Nurse Name: Bisi Rock RN Position: S RN Member Role: Primary Care Nurse Name: Merlyn Looney RN Position: S RN Member Role: Primary Care Nurse Care Team Related Persons Name: ROSITA WILBERRUTHY Address: home [address] [place] [address] Name: PAULA PAUL Address: home [address] [place] [address] Name: CARLOS PAUL Address: home [address] [place] [address] Name: JAIRO HAN Address: home [facility]
--- OUTSIDE RECORDS SUMMARY | 2024-02-11 22:04 | XMS_ITS | Continuity of Care Document ---
Author Organization [facility] ter Address [address] [place] [address]- Care Team Providers Care Photocopier Technician Name Role Phone Roro Pitts MD Primary Care Physician Encounter [facility] Date(s): 11/09/21 - 11/10/[address] [address] Encounter Diagnosis EKG abnormality(Final) - 11/09/21 Discharge Disposition: A-D/C Home Attending Physician: Kacie Amaro MD Admitting Physician: Kacie Amaro MD Referring Physician: Not on Staff, Referring [...] 08/13/20 Recorded tetanus/diphtheria/pertussis, acel(Tdap) 06/27/18 Given Medications PROzac 10 mg oral capsule 10 mg, 1, capsule, By Mouth, Daily, # 30 capsule, Refills 0, Tot. Refills 0, Maintenance, 11/10/21 13:09:00 EST, Route to Pharmacy Electronically, [facility], Partial fill upon patient request if the prescription is for a schedule II opi... Start Date: 11/10/21 Status: Ordered QUEtiapine 25 mg oral tablet 25 mg, 1, tablet, By Mouth, Daily, PRN, You can take 1 tablet per day as needed for anxiety, # 30 tablet, Refills 0, Tot. Refills 0, Maintenance, Anxiety, 11/10/21 13:10:00 EST, Route to Pharmacy Electronically, [facility], Partial fill... Start Date: 11/10/21 Status: Ordered traZODone 50 mg oral tablet 50 mg, 1, tablet, By Mouth, Daily at bedtime, # 30 tablet, Refills 0, Tot. Refills 0, Maintenance, 11/10/21 13:09:00 EST, Route to Pharmacy Electronically, [facility], Partial fill uponpatient request if the prescription is for a schedu... Start Date: 11/10/21 Status: Ordered Problem List Condition Effective Dates Status Health Status Inform ant Acute depression(Confirmed) Active Results Radiology Reports * Exam Date Time Procedure Performing Provider Status 11/09/21 4:12 PM Chest 2 Views Frontal and Lat Jan Ruiz; Auth (Verified) Notes: (Chest 2 Views Frontal and Lat) Reason For Exam: Shortness of Breath, Fever;Other: RESULT: Chest 2 Views Frontal and Lat Chest 2 Views Frontal and Lat Hx of Present Illness: fever with N V since yesterday.; Reason: Other:; Shortness of Breath, Fever;Clinical Question(s): Pneumonia COMPARISON: 09/18/2021 FINDINGS: LINES AND TUBES: None. LUNGS AND PLEURA: The lungs are clear. No pleural effusion. No pneumothorax. HEART, MEDIASTINUM AND MARINO: Normal. BONES AND SOFT TISSUES: Normal. IMPRESSION: Normal. WSN: [id number] Ordering Physician: Kim Tracey Dictated By: Mark Cortez MD Dictated Date/Time: 11/09/21 4:35 pm Reviewed By: Mark Cortez MD Signed By: Mark Cortez MD Signed Date/Time: 11/09/21 4:35 pm Transcribed By: BAILEE Transcribed Date/Time: 11/09/21 4:33 pm Vital Signs Most recent to oldest [Reference Range]: 1 2 3 Height 170 cm (11/09/21 11:28 PM) Weight 72.2 kg (11/09/21 11:46 PM) 72.2 kg (11/09/21 11:28 PM) Oxygen Saturation [94-100 %] 100 % (11/10/21 12:00 PM) 99 % (11/10/21 11:00 AM) 100 % (11/10/21 10:00 AM) Pulse Rate [55-90 bpm] 108 bpm *H* (11/09/21 11:28 PM) 111 bpm *H* (11/09/21 11:05 PM) 124 bpm *H* (11/09/21 10:07 PM) Body Mass Index [18.5-24.99] 24.98 (11/09/21 11:28 PM) Blood Pressure [71-110/30-71 mm Hg] 129/67mm Hg *H* (11/10/21 10:00 AM) 129/67mm Hg *H* (11/10/21 9:00 AM) 118/46mm Hg *H* (11/10/21 8:00 AM) Respiratory Rate [16-30 br/min] 10 br/min *L* (11/10/21 12:00 PM) 15 br/min *L* (11/10/21 11:00 AM) 13 br/min *L* (11/10/21 10:00 AM) Temperature [96.8-100.4 DegF] 98 DegF (11/10/21 12:00 PM) 98.9 DegF (11/10/21 8:00 AM) 98.7 DegF (11/10/21 4:00 AM) Liters per Minute 0 L/min (11/09/21 2:06 PM) Mode of Delivery (Oxygen) Room air (11/10/21 12:00 PM) Room air (11/10/21 8:00 AM) Room air (11/10/21 7:51 AM) Blood pressure sites Arm, right (11/10/21 8:00 AM) Arm, right (11/10/21 7:51 AM) Arm, right (11/10/21 6:00 AM) Temperature Route Oral (11/10/21 12:00 PM) Oral (11/10/21 8:00 AM) Oral (11/10/21 4:00 AM) Dry Weight 72.2 kg (11/09/21 11:28 PM) Weight Obtained Via Bed scale (11/09/21 11:46 PM) Bed scale (11/09/21 11:28 PM) Social History Social History Type Response Smoking Status 5-9 cigarettes (betw een 1/4 to 1/2 pack)/day in last 30 days entered on: 05/24/21 Sex
--- OUTSIDE RECORDS SUMMARY | 2024-02-11 22:04 | XMS_ITS | Continuity of Care Document ---
Author Organization [facility] Yonathan nYi [facility] Address [address] [place] [address]- Care Team Providers Care Image Scientist Name Role Phone George HARRIS, Bere Benavidez Primary Care Physician Encounter [facility] Date(s): 10/12/23 - 12/23/23 [facility] [address] [place] [address]- Attending Physician: Aditya HARRIS, Lakshmi Douglas Allergies, [...] 08/13/20 Recorded 1Result Comment: PT [facility] [id number] Medications Benadryl 25 mg oral capsule 1 [...] Gm, 0 Refills, Maintenance, 12/23/23 14:35:00 EDT,Cream, [facility]/pharmacy #[id number], Partial fill upon patient request if the [...] 10/05/23 15:11:00 EST, Route to Pharmacy Electronically, [facility]/pharmacy #[id number], Partial fill upon patient [...] 3 Refills, Maintenance, 10/27/23 17:55:00 EST, Tablet, [facility]/pharmacy #[id number], Partial fill upon patient [...] Refills, Maintenance, 10/05/23 15:12:00 EST, REC Powder, [facility]/pharmacy #[id number], Partial fill upon patient [...] tablet, 2 Refills, Maintenance, 10/26/23 14:27:00 EST, [facility]/pharmacy#[id number], Partial fill upon patient request if the prescription is for a schedule II opioid drug., 1 tablet By Mouth Daily, 174, cm, 10/26/23 14:06:00 EST... Start Date: 10/26/23 Status: Ordered pyridoxine 25 mg oral tablet 1 tablet = 25 mg, By Mouth, 3 times a day, PRN Nausea & Vomiting, # 100 tablet, 8 Refills, Maintenance, 07/19/23 13:37:00 EST, Tablet, [facility] [address] ([facility]), Partial fill upon patient request if the prescription is for a schedule II opioid... Start Date: 07/19/23 Status: Ordered Reglan 10 mg oral tablet 1 tablet = 10 mg, By Mouth, Daily, PRN Headache, # 30 tablet, 0 Refills, Maintenance, 11/27/23 21:42:00 EDT, [facility]/pharmacy #[id number], Partial fill upon patient request if the prescription is for a schedule II opioid drug., 174, cm, 11/08/23 13:36:00 EST, H... Start Date: 11/27/23 Status: Ordered ursodiol 300 mg oral capsule 300 mg, 1, capsule, By Mouth, 3 times a day, # 100 capsule, Refills 1, Tot. Refills 1, Maintenance,12/06/23 18:22:00 EDT, [id number], Partial fill upon patient request if the [...] Care Nurse Name: Adele Ibanez RN Position: [facility] RN Member Role: Primary Care Nurse Name: Nidia Tripp Position: [facility] RN Member Role: Primary Care Nurse Name: Bere Vazquez MD Position: [facility] Physician - Pediatrics Member Role: PCP Address: Address: [address] [place] [address] Pediatric & Adolescent Medicine [place], [place] [address] Name: Jessica Leal RN Position: [facility] RN Member Role: Primary Care Nurse Name: Bisi Rock RN Position: S RN Member Role: Primary Care Nurse Name: Merlyn Looney RN Position: [facility] RN Member Role: Primary Care Nurse Care Team Related Persons Name: RUTHY GUZMAN Address: home [address] [place] [address] Name: PAULA PAUL Address: home [address] [place] [address] Name: CARLOS PAUL Address: home [address] [place] [address] Name: JAIRO HAN Address: home [facility]
--- OUTSIDE RECORDS SUMMARY | 2024-02-11 22:04 | XMS_ITS | Continuity of Care Document ---
Author Organization [facility] ter Address [address] [place] [address]- Care Team Providers Care Line Department Supervisor Name Role Phone George HARRIS, Bere Benavidez Primary Care Physician Encounter [facility] Date(s): 08/23/23 - 08/23/[address] [address]- Discharge Disposition: Transferred to an intermediate care faci Attending Physician: Ellie Tran MD Admitting Physician: Ellie Tran MD Referring Physician: Not on Staff, Referring [...] Refills, Maintenance, 08/12/23 8:29:00 EST, Tablet, [facility] [id number] ([facility]),... Start Date: 08/12/23 Status: Ordered PNV By Mouth, Daily, 0 Refills, Maintenance, 07/14/23 10:18:00 EST, Partial fill upon patient request if the prescription is for a schedule II opioid drug. Start Date: 07/14/23 Status: Ordered PNV Select oral tablet 1 tablet, By Mouth, Daily, # 90 tablet, 0 Refills, Maintenance, 08/12/23 8:33:00 EST, [facility] [id number] ([facility]), Partial fill upon patient request if the prescription is for a schedule II opioid drug., 1 tablet By Mouth Daily, 175, cm, 07/19/23... Start Date: 08/12/23 Status: Ordered pyridoxine 25 mg oral tablet 1 tablet = 25 mg, By Mouth, 3 times a day, PRN Nausea & Vomiting, # 100 tablet, 8 Refills, Maintenance, 07/19/23 13:37:00 EST, Tablet, [facility] [id number] ([facility]), Partial fill upon patient request if the prescription is for a schedule II opioid... Start Date: 07/19/23 Status: Ordered risperiDONE 1 mg oral tablet 1 mg, 1, tablet, By Mouth, 2 times a day, # 60 tablet, Refills 0, Tot. Refills 0, Maintenance, 05/28/22 8:23:00 EDT, Route to Pharmacy Electronically, [facility]/pharmacy #[id number], Partial fill upon patient request if the prescription is for a schedule II opioi... Start Date: 05/28/22 Status: Ordered topiramate 25 mg oral tablet 1 tablet = 25 mg, By Mouth, 2 times a day, # 60 tablet, 0 Refills, Maintenance, 05/28/22 8:23:00 EDT, Tablet, [facility]/pharmacy #[id number], Partial fill upon patient request if the prescription is for a schedule II opioid drug., 173, cm, 05/27/22 18:52:00 EDT,... Start Date: 05/28/22 Status: Ordered traZODone 50 mg oral tablet 50 mg, 1, tablet, By Mouth, Daily at bedtime, # 30 tablet, Refills 0, Tot. Refills 0, Maintenance, 05/28/22 8:23:00 EDT, Route to Pharmacy Electronically, [facility]/pharmacy #[id number], Partial fill upon patient request if the prescription is for a schedule II o... Start Date: 05/28/22 Status: Ordered Tylenol Extra Strength 500 mg oral tablet 2 tablet = 1,000 mg, By Mouth, Every 6 hours, PRN as needed for fever, # 100 tablet, 0 Refills, Maintenance, 07/27/23 11:28:00 EST, Tablet, [facility] [address] ([facility]27), Partial fill upon patientrequest if the prescription is for a schedule II op... Start Date: 07/27/23 Status: Ordered Unisom 25 mg oral tablet 1 tablet = 25 mg, By Mouth, Daily at bedtime, may take additional 1/2 tablet in morning & 1/2 tablet in afternoon if nausea persists, # 60 tablet, 1 Refills, Maintenance, 07/27/23 13:40:00 EST, [facility] [address] ([facility]27), Partial fill upon patie... Start [...] recent to oldest [Reference Range]: 1 Height 173 cm (08/23/23 8:23 PM) Weight 58.5 kg (08/23/23 8:23 PM) Oxygen Saturation [94-100 %] 100 % (08/23/23 8:23 PM) Pulse Rate [55-90 bpm] 93 bpm *H* (08/23/23 8:23 PM) Body Mass Index [18.5-24.99 kg/m2] 19.55 kg/m2 (08/23/23 8:23 PM) Blood Pressure [90-138/55-84 mm Hg] 125/ 64mm Hg (08/23/23 8:23 PM) Respiratory Rate [16-30 br/min] 17 br/mi n (08/23/23 8:23 PM) Temperature [96.8-100.4 DegF] 98.7 DegF (08/23/23 8:23 PM) Mode of Delivery (Oxygen) Room air (08/23/23 8:23 PM) Blood pressure sites Arm, left (08/23/23 8:23 PM) Temperature Route Oral (08/23/23 8:23 PM) Dry Weight 58.5 kg (08/23/23 8:23 PM) Weight Obtained Via Standing scale (08/23/23 8:23 PM) Dry Weight Obtained Via Standing scale (08/23/23 8:23 PM) Social History Social History Type Response [...] Care Nurse Name: Sarwat Velázquez RN Position: [facility] RN Member Role: Primary Care Nurse Name: Brigette Healy RN Position: [facility] RN Member Role: Primary Care Nurse Name: Bere Vazquez MD Position: [facility] General Pediatrics MD Member Role: PCP Address: Address: [address] [place] [address] Pediatric & Adolescent Medicine [place], [place] [address] Name: Jessica Leal RN Position: [facility] RN Member Role: Primary Care Nurse Name: Merlyn Looney RN Position: [facility] RN Member Role: Primary Care Nurse Care Team Related Persons Name: RUTHY GUZMAN Address: home [address] [place] [address] Name: PAULA PAUL Address: home [address] [place] [address] Name: CARLOS PAUL Address: home [address] [place] [address]
--- OUTSIDE RECORDS SUMMARY | 2024-02-11 22:05 | XMS_ITS | Continuity of Care Document ---
Author Organization [facility] Yonathan [facility] Address [address], [address] [place] [address]- Care Team Providers Care Nylon Operator Name Role Phone George HARRIS, Bere Benavidez Primary Care Physician Encounter [facility] Date(s): 12/02/23 - 12/09/23 [facility] [address] [place] [address]- Attending Physician: Aditya HARRIS, Lakshmi Douglas Allergies, [...] Recorded 1Result Comment: PT [facility] [id number] Medications Benadryl 25 mg oral capsule 1 [...] 15:11:00 EST, Route to Pharmacy Electronically, [facility]/pharmacy #0314, Partial fill upon patient request if the [...] Refills, Maintenance, 10/27/23 17:55:00 EST, Tablet, [facility]/pharmacy #0315, Partial fill upon patient request if [...] Maintenance, 10/05/23 15:12:00 EST, REC Powder, [facility]/pharmacy #0315, Partial fill upon patient request if [...] 1 Refills, Maintenance, 09/08/23 11:16:00 EST, Tablet, [facility], Partial fi... Start Date: 09/08/23 Status: Ordered PNV By Mouth, Daily, 0 Refills, Maintenance, 07/14/23 10:18:00 EST, Partial fill upon patient request if the prescription is for a schedule II opioid drug. Start Date: 07/14/23 Status: Ordered PNV Select oral tablet 1 tablet, By Mouth, Daily, # 90 tablet, 2 Refills, Maintenance, 10/26/23 14:27:00 EST, [facility]/pharmacy#0315, Partial fill upon patient request if the prescription is for a schedule II opioid drug., 1 tablet By Mouth Daily, 174, cm, 10/26/23 14:06:00 EST... Start Date: 10/26/23 Status: Ordered pyridoxine 25 mg oral tablet 1 tablet = 25 mg, By Mouth, 3 times a day, PRN Nausea & Vomiting, # 100 tablet, 8 Refills, Maintenance, 07/19/23 13:37:00 EST, Tablet, [facility] [address] ([facility] 827), Partial fill upon patient request if the prescription is for a schedule II opioid... Start Date: 07/19/23 Status: Ordered Reglan 10 mg oral tablet 1 tablet = 10 mg, By Mouth, Daily, PRN Headache, # 30 tablet, 0 Refills, Maintenance, 11/27/23 21:42:00 EDT, [facility]/pharmacy #[id number], Partial fill upon patient request if the prescription is for a schedule II opioid drug., 174, cm, 11/08/23 13:36:00 EST, H... Start Date: 11/27/23 Status: Ordered ursodiol 300 mg oral capsule 300 mg, 1, capsule, By Mouth, 3 times a day, # 100 capsule, Refills 1, Tot. Refills 1, Maintenance,12/06/23 18:22:00 EDT, Route to Pharmacy Electronically, [facility]/pharmacy #[id number], Partial fill upon patient request if the [...] Event Display: PDC Biophysical Profile Authored Date: [id number] OBSTETRICS REPORT PATIENT INFO: CMRN: [id number] BMRN: [id number] : [birth year] (18 yrs)(F) Name: ADAMA Visit Date: 12/02/2023 02:44 pm BEVERLY PERFORMED BY: Performed By: Elvia Guerra RDMS Attending: Gill Jaime MD Referred By: Lakshmi Burgess MD Location: [address] INDICATIONS: Cholestasis of O26.61_ VITAL SIGNS: Weight (lb): 159 Height: 5'8 BMI: 24.17 EVALUATION: Num Of Fetuses: 1 Heart Rate(bpm): 136 Cardiac Activity: Present Presentation: Cephalic Placenta: Posterior Amniotic Fluid LAVON FV: Within normal limits LAVON Sum(cm) Largest Pocket(cm) 14.2 4.6 RUQ(cm) RLQ(cm) LUQ(cm) LLQ(cm) 4.6 3.7 4.3 1.6 Comment: Active movements seen. BIOPHYSICAL EVALUATION: Amniotic F.V: Within normal limits F. Tone: Observed F. Movement: Observed Score: 04/13 F. Breathing: Observed BIOMETRY: OB HISTORY: Blood Type: A+ : 2 SAB: 1 GESTATIONAL AGE: LMP: 30w 5d Date: 05/01/23 DAYNA: 02/05/24 Best: 33w 3d Det. By: Previous DAYNA: 01/17/24 Ultrasound CERVIX UTERUS ADNEXA: Cervix Not well seen COMMENTS: BPP=8 Gill Jaime MD Electronically Signed Final Report 12/02/2023 03:12 pm * Event Display: PDC Biophysical Profile Authored Date: [id number] Please click on pdf link to open report Patient Care team information Care Team Personnel Name: Omi Wise RN Position: [facility] RN Member Role: Primary Care Nurse Name: Peggy Quintana Position: S RN Member Role: Primary Care Nurse Name: Gill Han RN Position: S RN Member Role: Primary Care Nurse Name: Sarwat Velázquez RN Position: S RN Member Role: Primary Care Nurse Name: Adele Ibanez RN Position: S RN Member Role: Primary Care Nurse Name: Nidia Tripp Position: [facility] RN Member Role: Primary Care Nurse Name: Bere Vazquez MD Position: [facility] Physician - Pediatrics Member Role: PCP Address: Address: [address] [place] [address] Pediatric & Adolescent Medicine [place], [place] [address] Name: Jessica Leal RN Position: S RN Member Role: Primary Care Nurse Name: Bisi Rock RN Position: [facility] RN Member Role: Primary Care Nurse Name: Merlyn Looney RN Position: [facility] RN Member Role: Primary Care Nurse Care Team Related Persons Name: RUTHY GUZMAN Address: home [address] [place] [address] Name: PAULA PAUL Address: [address] [place] [address] Name: CARLOS PAUL Address: [address] [place] [address] Name: JAIRO HAN Address: [facility]
--- OUTSIDE RECORDS SUMMARY | 2024-02-11 22:05 | XMS_ITS | Continuity of Care Document ---
Author Organization [facility] ter Address [address] [place] [address]- Care Team Providers Care Lace Cutter Name Role Phone Raciel Hilliard MD Primary Care Physician Encounter [facility] [id number] Date(s): 02/03/21 - 02/04/[address] [address]- Discharge Disposition: A-D/C Home Attending Physician: Dianelys Martin MD Admitting Physician: Dianelys Martin MD Referring Physician: Not on Staff, Referring [...] Status: Ordered prazosin 5 mg oral capsule 6 mg, Capsule, By Mouth, 02/03/21 22:13:00 EDT Start Date: 02/03/21 Stop Date: 02/03/21 Status: Completed risperiDONE 0.5 mg oral tablet TAKE 1 TABLET BY MOUTH EVERY DAY AT NIGHT Start Date: 04/08/19 Status: Ordered Problem List Condition Effective Dates Status Health Status Inform ant Acute depression(Confirmed) Active Vital Signs Most recent to oldest [Reference Range]: 1 2 3 Height 171 cm (02/04/21 8:29 AM) 171 cm (02/03/21 8:17 PM) Weight 75.2 kg (02/04/21 8:29 AM) 75.2 kg (02/03/21 8:17 PM) Oxygen Saturation [94-100 %] 100 % (02/04/21 8:29 AM) 99 % (02/03/21 8:17 PM) Pulse Rate [55-90 bpm] 70 bpm (02/04/21 8:29 AM) 109 bpm *H* (02/03/21 8:17 PM) Body Mass Index [18.5-24.99] 25.72 *H* (02/04/21 8:29 AM) 25.72 *H* (02/03/21 8:17 PM) Blood Pressure [80-130/50-80 mm Hg] 108/52mm Hg (02/04/21 8:29 AM) 104/49mm Hg (02/03/21 10:25 PM) 114/73mm Hg (02/03/21 8:17 PM) Respiratory Rate [16-30 br/min] 18 br/min (02/04/21 8:29 AM) 22 br/min (02/03/21 8:17 PM) Temperature [96.8-100.4 DegF] 98.2 DegF (02/04/21 8:29 AM) 98.4 DegF (02/03/21 8:17 PM) Mode of Delivery (Oxygen) Room air (02/04/21 8:29 AM) Room air (02/03/21 8:17 PM) Blood pressure sites Arm, left (02/04/21 8:29 AM) Arm, right (02/03/21 8:17 PM) Temperature Route Oral (02/04/21 8:29 AM) Oral (02/03/21 8:17 PM) Dry Weight 75.2 kg (02/04/21 8:29 AM) 75.2 kg (02/03/21 8:17 PM) Weight Obtained Via Standing scale (02/03/21 8:17 PM) Dry Weight Obtained Via Standing scale (02/03/21 8:17 PM) Social History Social History Type Response Smoking Status Never smoker entered on: 01/16/18 Sex
--- OUTSIDE RECORDS SUMMARY | 2024-02-11 22:05 | XMS_ITS | Continuity of Care Document ---
Author Organization [facility] Address [address] [place] [address]- Care Team Providers Care Poultry Breeder Name Role Phone Pinky Peters MD Primary Care Physician Encounter [place] Date(s): 02/18/21 - 03/20/21 [facility] [address] [place] [address]- Attending Physician: Rachel Up Admitting Physician: AdmtrRachel Referring Physician: Admtr Ar8 Allergies, Adverse Reactions, Alerts Substance Reaction [...]
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
--- OUTSIDE RECORDS SUMMARY | 2024-02-11 22:05 | XMS_ITS | Continuity of Care Document ---
Author Organization [facility] Yonathan nColosseoEASs [facility] Address [address] [facility], [address] [place] [address]- Care Team Providers Care Event Planning Intern Name Role Phone George HARRIS, Bere Benavidez Primary Care Physician Encounter [facility] Date(s): 01/25/24 - 02/01/24 [facility] PedroColosse[facility] [address] [facility] [place] [address]- Attending Physician: Aditya HARRIS, Lakshmi Douglas Allergies, [...] 1Result Comment: PT [facility] [id number] Medications Benadryl 25 mg oral capsule 1 [...] Gm, 0 Refills, Maintenance, 12/23/23 14:35:00 EDT,Cream, [facility]/pharmacy #[id number], Partial fill upon patient request if the [...] 10/05/23 15:11:00 EST, Route to Pharmacy Electronically, [facility]/pharmacy #[id number], Partial fill upon patient request if [...] 3 Refills, Maintenance, 10/27/23 17:55:00 EST, Tablet, [facility]/pharmacy #[id number], Partial fill upon patient request if [...] Refills, Soft Stop, 01/06/24 23:37:00 EDT, Cream, [facility]/pharmacy #4481, Partial fill upon patient request if the prescription is for a schedule II opioid drug., 1 applicator Topically Once, 173, cm, 01/05/24 8:4... Start Date: 01/06/24 Status: Ordered MiraLax oral powder for reconstitution = 17 Gm, By Mouth, Daily, dissolve in 4 to 8 oz of beverage, # 238 Gm, 1 Refills, Maintenance, 10/05/23 15:12:00 EST, REC Powder, [facility]/pharmacy #0315, Partial fill upon patient request if [...] 1 Refills, Maintenance, 09/08/23 11:16:00 EST, Tablet, [facility], Partial fi... Start Date: 09/08/23 Status: Ordered PNV By Mouth, Daily, 0 Refills, Maintenance, 07/14/23 10:18:00 EST, Partial fill upon patient request if the prescription is for a schedule II opioid drug. Start Date: 07/14/23 Status: Ordered PNV Select oral tablet 1 tablet, By Mouth, Daily, # 90 tablet, 2 Refills, Maintenance, 10/26/23 14:27:00 EST, [facility]/pharmacy#0315, Partial fill upon patient request if the prescription is for a schedule II opioid drug., 1 tablet By Mouth Daily, 174, cm, 10/26/23 14:06:00 EST... Start Date: 10/26/23 Status: Ordered pyridoxine 25 mg oral tablet 1 tablet = 25 mg, By Mouth, 3 times a day, PRN Nausea & Vomiting, # 100 tablet, 8 Refills, Maintenance, 07/19/23 13:37:00 EST, Tablet, [facility] ([facility]), Partial fill upon patient request if the prescription is for a schedule II opioid... Start Date: 07/19/23 Status: Ordered Reglan 10 mg oral tablet 1 tablet = 10 mg, By Mouth, Daily, PRN Headache, # 30 tablet, 0 Refills, Maintenance, 11/27/23 21:42:00 EDT, [facility]/pharmacy #[id number], Partial fill upon patient request if the prescription is for a schedule II opioid drug., 174, cm, 11/08/23 13:36:00 EST, H... Start Date: 11/27/23 Status: Ordered ursodiol 300 mg oral capsule 300 mg, 1, capsule, By Mouth, 3 times a day, # 100 capsule, Refills 1, Tot. Refills 1, Maintenance,12/06/23 18:22:00 EDT, Route to Pharmacy Electronically, [facility]/pharmacy #[id number], Partial fill upon patient request if the [...] RN Position: [facility] RN Member Role: Primary Care Nurse Name: Peggy Quintana Position: [facility] RN Member Role: Primary Care Nurse Name: Gill Han RN Position: S RN Member Role: Primary Care Nurse Name: Sarwat Velázquez RN Position: S RN Member Role: Primary Care Nurse Name: Adele Ibanez RN Position: S RN Member Role: Primary Care Nurse Name: Nidia Tripp Position: S RN Member Role: Primary Care Nurse Name: Bere Vazquez MD Position: [facility] Physician - Pediatrics Member Role: PCP Address: Address: [address] [place] [address] Pediatric & Adolescent Medicine [place], [place] [address] Name: Jessica Leal RN Position: [facility] RN Member Role: Primary Care Nurse Name: Bisi Rock RN Position: [facility] RN Member Role: Primary Care Nurse Name: Merlyn Looney RN Position: [facility] RN Member Role: Primary Care Nurse Care Team Related Persons Name: RUTHY GUZMAN Address: home [address] [place] [address] Name: PAULA PAUL Address: home [address] [place] [address] Name: CHARLY PAUL Address: [address] Address: home [address] [place] [address] Name: CARLOS PAUL Address: home [address] [place] [address] Name: JAIRO HAN Address: home [facility]
--- OUTSIDE RECORDS SUMMARY | 2024-02-11 22:05 | XMS_ITS | Continuity of Care Document ---
Author Organization [facility] Address [address] [place] [address]- Care Team Providers Care Pet Groomer Name Role Phone Roro Pitts MD Primary Care Physician Encounter [facility] Date(s): 07/08/20 - 07/08/[address] [address]- [facility] Encounter Diagnosis Viral illness(Final) - 07/08/20 Discharge Disposition: A-D/C Home Attending Physician: Ld Mulligan MD Admitting Physician: Ld Mulligan MD Referring Physician: Not on Staff, Referring [...] Exam Date Time Procedure Performing Provider Status 07/08/20 6:45 PM Chest Portable Maria Shanks; Aut h (Verified) Notes: (Chest Portable) Reason For Exam: Shortness of Breath RESULT: Chest Portable Chest Portable Hx of Present Illness: pt reports fever and sore throat since loss of smell and taste, fever has resloved. she wsa seen wednseday at her PCP and had a neg strep and COVID test done, reprots headache, sore throat and stomache; Reason: Shortness of Breath; Clinical Question(s): Pneumonia COMPARISON: 04/10/2018 FINDINGS: No acute cardiopulmonary process IMPRESSION: Normal. WSN: [id number] Ordering Physician: Ld Mulligan Dictated By: Angel Chase MD Dictated Date/Time: 07/08/20 6:50 pm Reviewed By: Angel Chase MD Signed By: Angel Chase MD Signed Date/Time: 07/08/20 6:50 pm Transcribed By: BAILEE Transcribed Date/Time: 07/08/20 6:49 pm Vital Signs Most recent to oldest [Reference Range]: 1 2 3 Height 170 cm (07/08/20 7:31 PM) 170 cm (07/08/20 5:34 PM) 170 cm (07/08/20 2:38 PM) Weight 87.6 kg (07/08/20 7:31 PM) 87.6 kg (07/08/20 2:38 PM) Oxygen Saturation [94-100 %] 99 % (07/08/20 7:31 PM) 100 % (07/08/20 5:34 PM) 100 % (07/08/20 2:38 PM) Pulse Rate [55-90 bpm] 89 bpm (07/08/20 7:31 PM) 99 bpm *H* (07/08/20 5:34 PM) 95 bpm *H* (07/08/20 2:38 PM) Body Mass Index [18.5-24.99] 30.31 *>HHI* (07/08/20 7:31 PM) Blood Pressure [80-130/50-80 mm Hg] 128/70mm Hg (07/08/20 7:31 PM) 141/74mm Hg *H* (07/08/20 5:34 PM) 131/68mm Hg *H* (07/08/20 2:38 PM) Respiratory Rate [16-30 br/min] 19 br/min (07/08/20 7:31 PM) 16 br/min (07/08/20 5:34 PM) 16 br/min (07/08/20 2:38 PM) Temperature [96.8-100.4 DegF] 98.6 DegF (07/08/20 5:34 PM) Mode of Delivery (Oxygen) Room air (07/08/20 7:31 PM) Room air (07/08/20 5:34 PM) Room air (07/08/20 2:38 PM) Blood pressure sites Arm, right (07/08/20 7:31 PM) Arm, left (07/08/20 5:34 PM) Temperature Route Oral (07/08/20 5:34 PM) Dry Weight 87.6 kg (07/08/20 7:31 PM) 87.6 kg (07/08/20 2:38 PM) Dry Weight Obtained Via Standing scale (07/08/20 2:38 PM) Social History Social History Type Response Smoking Status Never smoker entered on: 01/16/18 Sex
--- OUTSIDE RECORDS SUMMARY | 2024-02-11 22:05 | XMS_ITS | Continuity of Care Document ---
Author Organization [facility] Yonathan [employer] [facility] Address [address], [address] [place] [address]- Care Team Providers Care Count Room Clerk Name Role Phone George HARRIS, Bere Benavidez Primary Care Physician [place] [facility] [place] 09/30/23 [facility] [place] [employer] [facility] [address], [address]th [place] [address]- Allergies, Adverse Reactions, Alerts Substance Reaction Severity [...] 0 Refills, Maintenance, 08/12/23 8:33:00 EST, [id number] ([facility] 827), Partial fill upon patient request if the prescription is for a schedule II opioid drug., 1 tablet By Mouth Daily, 175, cm, 07/19/23... Start Date: 08/12/23 Status: Ordered pyridoxine 25 mg oral tablet 1 tablet = 25 mg, By Mouth, 3 times a day, PRN Nausea & Vomiting, # 100 tablet, 8 Refills, Maintenance, 07/19/23 13:37:00 EST, Tablet, [id number] ([facility] 827), Partial fill upon patient request if the prescription is for a schedule II opioid... Start Date: 07/19/23 Status: Ordered risperiDONE 1 mg oral tablet 1 mg, 1, tablet, By Mouth, 2 times a day, # 60 tablet, Refills 0, Tot. Refills 0, Maintenance, 05/28/22 8:23:00 EDT, Route to Pharmacy Electronically, [facility]/pharmacy #[id number], Partial fill upon patient request if the prescription is for a schedule II opioi... Start Date: 05/28/22 Status: Ordered traZODone 50 mg oral tablet 50 mg, 1, tablet, By Mouth, Daily at bedtime, # 30 tablet, Refills 0, Tot. Refills 0, Maintenance, 05/28/22 8:23:00 EDT, Route to Pharmacy Electronically, [facility]/pharmacy #[id number], Partial fill upon patient request if the prescription is for a schedule II o... Start Date: 05/28/22 Status: Ordered Tylenol Extra Strength 500 mg oral tablet 2 tablet = 1,000 mg, By Mouth, Every 6 hours, PRN as needed for fever, # 100 tablet, 0 Refills, Maintenance, 07/27/23 11:28:00 EST, Tablet, [id number] ([facility] 827), Partial fill upon patientrequest if the prescription is for a schedule II op... Start Date: 07/27/23 Status: Ordered Unisom 25 mg oral tablet 1 tablet = 25 mg, By Mouth, Daily at bedtime, may take additional 1/2 tablet in morning & 1/2 tablet in afternoon if nausea persists, # 60 tablet, 1 Refills, Maintenance, 07/27/23 13:40:00 EST, [id number] (Family[facility]eds 827), Partial fill upon patie... Start [...] Team Personnel Name: Omi Wise RN Position: [facility] RN Member Role: Primary Care Nurse Name: Peggy Quintana Position: [facility] RN Member Role: Primary Care Nurse Name: Gill Han RN Position: S RN Member Role: Primary Care Nurse Name: Sarwat Velázquez RN Position: S RN Member Role: Primary Care Nurse Name: Brigette Healy RN Position: [facility] RN Member Role: Primary Care Nurse Name: Nidia Tripp Position: [facility] RN Member Role: Primary Care Nurse Name: Bere Vazquez MD Position: [facility] Physician - Pediatrics Member Role: PCP Address: Address: [address] [place] [address] Pediatric & Adolescent Medicine [place], [place] [address] [[email or web address] Name: Jessica Leal RN Position: [facility] RN Member Role: Primary Care Nurse Name: Merlyn Looney RN Position: [facility] RN Member Role: Primary Care Nurse Care Team Related Persons Name: RUTHY GUZMAN Address: home [address] [place] [address] Name: PAULA PAUL Address: home [address] [place] [address] Name: CARLOS PAUL Address: home [address] [place] [address] Name: JAIRO HAN Address: home
--- OUTSIDE RECORDS SUMMARY | 2024-02-11 22:05 | XMS_ITS | Continuity of Care Document ---
Author Organization [facility] [employer]onathan [employer] [facility] Address [address], [address] [place] [address]- Care Team Providers Care Bung Sewer Name Role Phone George HARRIS, Bere Benavidez Primary Care Physician Encounter [facility] Date(s): 11/09/23 - 02/06/24 [facility] [address], [address] [place] [address]- Attending Physician: Aditya HARRIS, Lakshmi Douglas Allergies, [...] 08/13/20 Recorded 1Result Comment: PT [facility] [id number] Medications Benadryl 25 mg oral capsule 1 [...] Gm, 0 Refills, Maintenance, 12/23/23 14:35:00 EDT,Cream, [facility]/pharmacy #[id number], Partial fill upon patient request if the [...] 10/05/23 15:11:00 EST, [facility], [facility] 3 Refills, Maintenance, 10/27/23 17:55:00 EST, Tablet, [facility]/pharmacy #[id number], Partial [...] Refills, Soft Stop, 01/06/24 23:37:00 EDT, Cream, [facility]/pharmacy #[id number], Partial fill upon patient request if the prescription is for a schedule II opioid drug., 1 applicator Topically Once, 173, cm, 01/05/24 8:4... Start Date: 01/06/24 Status: Ordered MiraLax oral powder for reconstitution = 17 Gm, By Mouth, Daily, dissolve in 4 to 8 oz of beverage, # 238 Gm, 1 Refills, Maintenance, 10/05/23 15:12:00 EST, REC Powder, [facility]/pharmacy #[id number], Partial fill [...] 1 Refills, Maintenance, 09/08/23 11:16:00 EST, Tablet, [facility], Partial fi... Start Date: 09/08/23 Status: Ordered PNV By Mouth, Daily, 0 Refills, Maintenance, 07/14/23 10:18:00 EST, Partial fill upon patient request if the prescription is for a schedule II opioid drug. Start Date: 07/14/23 Status: Ordered PNV Select oral tablet 1 tablet, By Mouth, Daily, # 90 tablet, 2 Refills, Maintenance, 10/26/23 14:27:00 EST, [facility]/pharmacy#[id number], Partial fill upon patient [...] Refills, Maintenance, 07/19/23 13:37:00 EST, Tablet, [id number] ([facility] 827), Partial fill upon patient request if the prescription is for a schedule II opioid... Start Date: 07/19/23 Status: Ordered Reglan 10 mg oral tablet 1 tablet = 10 mg, By Mouth, Daily, PRN Headache, # 30 tablet, 0 Refills, Maintenance, 11/27/23 21:42:00 EDT, [facility]/pharmacy #[id number], Partial fill upon patient request if the prescription is for a schedule II opioid drug., 174, cm, 11/08/23 13:36:00 EST, H... Start Date: 11/27/23 Status: Ordered ursodiol 300 mg oral capsule 300 mg, 1, capsule, By Mouth, 3 times a day, # 100 capsule, Refills 1, Tot. Refills 1, Maintenance,12/06/23 18:22:00 EDT, Route to Pharmacy Electronically, [facility]/pharmacy #[id number], Partial fill upon patient request if the [...] Team Personnel Name: Omi Wise RN Position: [facility] RN Member Role: Primary Care Nurse Name: Peggy Quintana Position: [facility] RN Member Role: Primary Care Nurse Name: Gill Han RN Position: S RN Member Role: Primary Care Nurse Name: Sarwat Velázquez RN Position: S RN Member Role: Primary Care Nurse Name: Adele Ibanez RN Position: S RN Member Role: Primary Care Nurse Name: Nidia Tripp Position: S RN Member Role: Primary Care Nurse Name: Bere Vazquez MD Position: [facility] Physician - Pediatrics Member Role: PCP Address: Address: [address] [place] [address] Pediatric & Adolescent Medicine [place], [place] [address] Name: Jessica Leal RN Position: [facility] RN Member Role: Primary Care Nurse Name: Bisi Rock RN Position: [facility] RN Member Role: Primary Care Nurse Name: Merlyn Looney RN Position: [facility] RN Member Role: Primary Care Nurse Care Team Related Persons Name: RUTHY GUZMAN Address: home [address] [place] [address] Name: PAULA PAUL Address: home [address] [place] [address] Name: CHARLY PAUL Address: [address] Address: home [address] [place] [address] Name: CARLOS PAUL Address: home [address] [place] [address] Name: JAIRO HAN Address: home [place]
--- OUTSIDE RECORDS SUMMARY | 2024-02-11 22:05 | XMS_ITS | Continuity of Care Document ---
Author Organization [facility] [employer] [facility] Address [address], [address] [place] [address]- Care Team Providers Care Engineering Teacher Name Role Phone George HARRIS, Bere Benavidez Primary Care Physician [id number] Date(s): 12/28/23 - 01/04/24 [facility] Pedro[facility] [address], [address] [place] [address]- Attending Physician: Aditya HARRIS, Lakshmi Douglas Allergies, Adverse Reactions, Alerts Substance Reaction Severity Status Bee Stings Active ZyPREXA Active Immunizations Given and Recorded Vaccine Date Status Refusal Reason tetanus/diphtheria/pertussis, acel(Tdap) 1 10/26/23 Given tetanus/diphtheria/pertussis, acel(Tdap) 06/27/18 Given influenza virus vaccine, inactivated 07/01/21 Wililam rded Human Papillomavirus Vaccine 04/29/21 Recorded Human Papillomavirus Vaccine 08/13/20 Recorded SARS-CoV-2 (COVID-19) mRNA BNT-162b2 vac 01/30/21 Recorded SARS-CoV-2 (COVID-19) mRNA BNT-162b2 vac 01/09/21 Recorded Meningococcal Conjugate Vaccine 08/13/20 Recorded 1Result Comment: PT [facility] [id number] Medications Benadryl 25 mg oral capsule 1 [...] Maintenance, 12/23/23 14:35:00 EDT,Cream, [facility]/pharmacy #[id number], Partial fill upon patient request if the [...] Refills, Maintenance, 07/19/23 13:37:00 EST, Tablet, [facility] ([address] [facility]), Partial fill upon patient request if [...] Maintenance,12/06/23 18:22:00 EDT, [id number], Partial fill upon patient request if the [...] Team Personnel Name: Omi Wise RN Position: [facility] RN Member Role: Primary Care Nurse Name: Peggy Quintana Position: [facility] RN Member Role: Primary Care Nurse Name: Gill Han RN Position: [facility] RN Member Role: Primary Care Nurse Name: Sarwat Velázquez RN Position: S RN Member Role: Primary Care Nurse Name: Adele Ibanez RN Position: S RN Member Role: Primary Care Nurse Name: Nidia Tripp Position: S RN Member Role: Primary Care Nurse Name: Bere Vazquez MD Position: [facility] Physician - Pediatrics Member Role: PCP Address: Address: [address] Pediatric & [place] [address]- Name: Jessica Leal RN Position: [facility] RN Member Role: Primary Care Nurse Name: Bisi Rock RN Position: [facility] RN Member Role: Primary Care Nurse Name: Merlyn Looney RN Position: [facility] RN Member Role: Primary Care Nurse Care Team Related Persons Name: RUTHY GUZMAN Address: home [address] [place] [address] Name: PAULA PAUL Address: home [address] [place] [address] Name: ADAMA PAUL GIRL Address: [address] Address: home [address] [place] [address] [place] Name: CARLOS PAUL Address: home [address] [place] [address] Name: JAIRO HAN Address: home UM
--- OUTSIDE RECORDS SUMMARY | 2024-02-11 22:05 | XMS_ITS | Continuity of Care Document ---
Author Organization [facility] Address [address] [address]- Care Team Providers Care Hot Repairman Name Role Phone Bere Vazquez MD Primary Care Physician Encounter [facility] Date(s): 08/16/23 - 09/15/23 [facility] [address] [address] Attending Physician: Rachel Up Admitting Physician: AdmRachel mitchell Referring Physician: Admtr, ArSammy Allergies, Adverse Reactions, Alerts Substance Reaction Severity [...] Refills, Maintenance, 09/08/23 11:16:00 EST, Tablet, [facility], Partial fi... Start Date: 09/08/23 Status: Ordered PNV By Mouth, Daily, 0 Refills, Maintenance, 07/14/23 10:18:00 EST, Partial fill upon patient request if the prescription is for a schedule II opioid drug. Start Date: 07/14/23 Status: Ordered PNV Select oral tablet 1 tablet, By Mouth, Daily, # 90 tablet, 0 Refills, Maintenance, 08/12/23 8:33:00 EST, [facility] ([facility] 827), Partial fill upon patient request if the prescription is for a schedule II opioid drug., 1 tablet By Mouth Daily, 175, cm, 07/19/23... Start Date: 08/12/23 Status: Ordered pyridoxine 25 mg oral tablet 1 tablet = 25 mg, By Mouth, 3 times a day, PRN Nausea & Vomiting, # 100 tablet, 8 Refills, Maintenance, 07/19/23 13:37:00 EST, Tablet, [facility] ([facility] 827), Partial fill upon patient request if the prescription is for a schedule II opioid... Start Date: 07/19/23 Status: Ordered risperiDONE 1 mg oral tablet 1 mg, 1, tablet, By Mouth, 2 times a day, # 60 tablet, Refills 0, Tot. Refills 0, Maintenance, 05/28/22 8:23:00 EDT, Route to Pharmacy Electronically, [facility]/pharmacy #[id number], Partial fill upon patient [...] Refills, Maintenance, 05/28/22 8:23:00 EDT, Tablet, [facility]/pharmacy #[id number], Partial fill upon patient request if the prescription is for a schedule II opioid drug., 173, cm, 05/27/22 18:52:00 EDT,... Start Date: 05/28/22 Status: Ordered traZODone 50 mg oral tablet 50 mg, 1, tablet, By Mouth, Daily at bedtime, # 30 tablet, Refills 0, Tot. Refills 0, Maintenance, 05/28/22 8:23:00 EDT, Route to Pharmacy Electronically, [facility]/pharmacy #[id number], Partial fill upon patient request if the prescription is for a schedule II o... Start Date: 05/28/22 Status: Ordered Tylenol Extra Strength 500 mg oral tablet 2 tablet = 1,000 mg, By Mouth, Every 6 hours, PRN as needed for fever, # 100 tablet, 0 Refills, Maintenance, 07/27/23 11:28:00 EST, Tablet, [facility] ([facility] 827), Partial fill upon patientrequest if the prescription is for a schedule II op... Start Date: 07/27/23 Status: Ordered Unisom 25 mg oral tablet 1 tablet = 25 mg, By Mouth, Daily at bedtime, may take additional 1/2 tablet in morning & 1/2 tablet in afternoon if nausea persists, # 60 tablet, 1 Refills, Maintenance, 07/27/23 13:40:00 EST, [facility] ([facility] 827), Partial fill upon patie... Start [...] Team Personnel Name: Omi Wise RN Position: [facility] RN Member Role: Primary Care Nurse Name: Peggy Quintana Position: [facility] RN Member Role: Primary Care Nurse Name: Gill Han RN Position: [facility] RN Member Role: Primary Care Nurse Name: Sarwat Velázquez RN Position: [facility] RN Member Role: Primary Care Nurse Name: Brigette Healy RN Position: [facility] RN Member Role: Primary Care Nurse Name: Bere Vazquez MD Position: [facility] Physician - Pediatrics Member Role: PCP Address: Address: [address] [place] [address] Pediatric & Adolescent Medicine [place], [place] [address] Name: Jessica Leal RN Position: S RN Member Role: Primary Care Nurse Name: Merlyn Looney RN Position: [facility] RN Member Role: Primary Care Nurse Care Team Related Persons Name: RUTHY GUZMAN Address: home [address] [place] [address] Name: PAULA PAUL Address: home [address] [place] [address] Name: CARLOS PAUL Address: home [address] [place] [address] Name: JAIRO HAN Address: home
--- OUTSIDE RECORDS SUMMARY | 2024-02-11 22:05 | XMS_ITS | Continuity of Care Document ---
Author Organization [facility] ter Address [address] [place] [id number]- Care Team Providers Care Director Of Email Marketing Name Role Phone Bere Vazquez MD Primary Care Physician Encounter [facility] [place] Date(s): 09/28/23 - 10/03/[address] [address]- Discharge Disposition: A-D/C Home Attending Physician: Calvin Xiong MD Admitting Physician: Calvin Xiong MD Referring Physician: Calvin Xiong MD Allergies, Adverse Reactions, Alerts Substance Reaction [...] opioid drug. Start Date: 07/19/23 Status: Ordered ondansetron 4 mg oral tablet, [...] tablet, 0 Refills, Maintenance, 08/12/23 8:33:00 EST, [email or web address] [id number] ([facility] 827), Partial fill upon patient request if the prescription is for a schedule II opioid drug., 1 tablet By Mouth Daily, 175, cm, 07/19/23... Start Date: 08/12/23 Status: Ordered pyridoxine 25 mg oral tablet 1 tablet = 25 mg, By Mouth, 3 times a day, PRN Nausea & Vomiting, # 100 tablet, 8 Refills, Maintenance, 07/19/23 13:37:00 EST, Tablet, [email or web address] [id number] ([facility]), Partial fill upon patient request if the prescription is for a schedule II opioid... Start Date: 07/19/23 Status: Ordered Unisom 25 mg oral tablet 1 tablet = 25 mg, By Mouth, Daily at bedtime, may take additional 1/2 tablet in morning & 1/2 tablet in afternoon if nausea persists, # 60 tablet, 1 Refills, Maintenance, 07/27/23 13:40:00 EST, [id number] ([facility] 827), Partial fill upon patie... Start [...] Convulsions Confirmed Active Seizure disorder Confirmed Active Results Radiology Reports * Exam Date Time Procedure Performing Provider Status 09/28/23 9:56 PM US RUQ Varun Loaiza; Auth ( Verified) Notes: (US RUQ) Reason For Exam: Cholecystitis RESULT: US RUQ US RUQ Reason: Cholecystitis; Clinical Question(s): Cholecystitis; Special Instructions: If possible to doin the daytime hours as patient is on EEG; Order Comment: 09 28 2023 16:41:52 EST per RN, pt last ate at 1pm. Appt set up for 9:30pm.sxm COMPARISON: None. FINDINGS: Liver: Normal in size and echotexture. No focal lesion. Smooth hepatic contour. Gallbladder: No gallstones. Normal wall thickness. No pericholecystic fluid. Negative Owen sign. Biliary Tree: No intrahepatic or extrahepatic bile duct dilation is identified. Common duct measures: 0.3 cm. Pancreas: Partially obscured by overlying bowel gas. No abnormality in the visualized portions of the pancreas. Right kidney: 12.5 cm in length. Prominent right pelvocaliectasis. This appears upper limits of expected. IMPRESSION: Prominent right pelvocaliectasis. This is upper limits of expected given the stage of , though could represent related change versus other cause of hydronephrosis. WSN: [id number] Ordering Physician: Araceli Dimas Dictated By: Mark Cortez MD Dictated Date/Time: 09/28/23 10:14 p Reviewed By: Mark Cortez MD Signed By: Mark Cortez MD Signed Date/Time: 09/28/23 10:14 pm Transcribed By: BAILEE Transcribed Date/Time: 09/28/23 10:09 pm Vital Signs Most recent to oldest [Reference Range]: 1 2 3 Height 174 cm (10/01/23 7:00 PM) 174 cm (10/01/23 3:34 PM) 174 cm (10/01/23 11:37 AM) Weight 67.5 kg (09/28/23 12:02 PM) Oxygen Saturation [94-100 %] 94 % (10/03/23 7:00 AM) 97 % (10/02/23 11:36 PM) 99 % (10/02/23 8:03 PM) Pulse Rate [55-90 bpm] 106 bpm *H* (10/03/23 7:00 AM) 84 bpm (10/02/23 11:36 PM) 51 bpm *L* (10/02/23 8:03 PM) Body Mass Index [18.5-24.99 kg/m2] 22.29 kg/m2 (09/28/23 12:02 PM) Blood Pressure [90-138/55-84 mm Hg] 114/61mm Hg (10/03/23 7:00 AM) 110/59mm Hg (10/02/23 11:36 PM) 126/57mm Hg (10/02/23 8:03 PM) Respiratory Rate [16-30 br/min] 19 br/min (10/03/23 7:00 AM) 16 br/min (10/02/23 11:36 PM) 16 br/min (10/02/23 8:03 PM) Temperature [96.8-100.4 DegF] 98.1 DegF (10/03/23 7:00 AM) 97.0 DegF (10/02/23 11:36 PM) 97.6 DegF (10/02/23 8:03 PM) Mode of Delivery (Oxygen) Room air (10/03/23 7:00 AM) Room air (10/02/23 11:36 PM) Room air (10/02/23 8:03 PM) Blood pressure sites Arm, left (10/03/23 7:00 AM) Arm, left (10/02/23 11:36 PM) Arm, left (10/02/23 8:03 PM) Temperature Route Oral (10/03/23 7:00 AM) Temporal (10/02/23 11:36 PM) Temporal (10/02/23 8:03 PM) Dry Weight 67.5 kg (09/28/23 12:02 PM) Weight Obtained Via Patient/family stated (09/28/23 12:02 PM) Dry Weight Obtained Via Patient/family stated (09/28/23 12:02 PM) Social History Social History Type Response Tobacco Use: 4 or less cigar ettes(less than 1/4 pack)/day in last 30 days. Other: quite with , was smoking 4/day. Sex Admission evaluation note * Cliff IslandHawk Mcmanus: PERFORM, MODIFY Event Display: Admission Note Authored Date: [id number] Patient: ??DEMETRIA PAUL ? Age:??18 Years?Sex:??Female?:??2005?? 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 The patient was just discharged yesterday from psychiatric hospital for suicidal ideation.?? She was discharged on haldol an lamictal for mood disorder and stopped on prior psychiatric medication.?? Currently the patient denies any suicidality.?? In terms of her seizures the patient's and her last 1 waswithin the last month.?? She has been having spells since she was 13.?? She describes them as having an aura with black flashing lights that precede spells.?? No myoclonic jerks.?? She does not know her history as she says she was adopted.?? She does relay that she has a grandmother with seizures.?? No history of intracranial surgery or meningitis.?? The patient was on Keppra for period of time but when she became this was stopped.?? She describes her seizures as a generalized tonic-clonic seizure.?? She also says she has spells where she stares.?? She is not always aware of her spells.?? She is not currently on any antiseizure medication.?? She is on Lamictal 25 mg daily more for mood disorder.?? She has been taking her medications recently. She denies any chest pain or shortness of breath.?? She does relay she is eating and drinking well.?? She is taking a medication for nausea currently.?? She was seen by OB recently on 09/24.?? She washaving abdominal pain and was noted to have a mild transaminitis 61/75 with blood pressure 120 [id number].?? At that time they recommended repeating labs during this hospitalization and having OB evalua te at that time. Review of Systems No headache, chest pain shortness of breath.?? Eating and drinking well. Objective Vital Signs?? Temperature: 97.9 DegF (09/28/23 12:02:00) Temperature Route: Oral (09/28/23 12:02:00) Pulse Rate: 79 bpm (09/28/23 12:02:00) Respiratory Rate: 16 br/min (09/28/23 12:02:00) Systolic Blood Pressure: 130 mm Hg (09/28/23 12:02:00) Diastolic Blood Pressure: 63 mm Hg (09/28/23 12:02:00) Blood pressure sites: Arm, left (09/28/23 12:02:00) Mean Arterial Pressure: 85 mm Hg (09/28/23 12:02:00) Pulse Pressure: 67 mm Hg (09/28/23 12:02:00) Oxygen Saturation: 100 % (09/28/23 12:02:00) Mode of Delivery (Oxygen): Room air (09/28/23 12:02:00) Early Warning Score: 2 (09/28/23 12:13:41) ? Intake/Output? No Data Available ? Physical Exam Gen- NAD?? CV- RRR no m/r/g lungs- CTA bilaterally extremities- no edema or eccymosis ?? neuro- mentation- alert and oriented x person, place, time, and disposition. ??able to name simple objectssuch as watch and eyeglasses. ??able to follow simple and complex commands. ??no aphasia. ??good fund of knowledge. ??ST and LT memory intact. ?? eyes- PERRL, EOMI, no visual field deficits hearing- intact face- symmetric, sensation intact speech- clear, fluent shrug- symmetric tongue- midline ?? Motor- good muscle bulk and tone RUE- 5/5 ?? RLE- 5/5 LUE- 5/5 ?LLE- 5/5 ?? sensation-??intact to LT bilaterally ?? coordination- good fnf, heal to schuster, JOSE ?? reflexes- symmetric 2+ biceps, patellar, ankle toes- mute ?? gait-deferred ?? 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 The patient was just discharged yesterday from psychiatric hospital for suicidal ideation.?? She was discharged on haldol an lamictal for mood disorder and stopped on prior psychiatric medication.?? Currently the patient denies any suicidality. ?? In terms of her seizures the patient's and her last 1 was within the last month.?? She has been having spells since she was 13.?? She describes them as having an aura with black flashing lights that precede spells.?? No myoclonic jerks.?? She does not know her history as she says she was adopted.?? She does relay that she has a grandmother with seizures.?? No history of intracranial surgery or meningitis.?? The patient was on Keppra for period of time but when she became this was stopped.?? She describes her seizures as a generalized tonic-clonic seizure.?? She also says shehas spells where she stares.?? She is not always aware of her spells.?? She is not currently on any antiseizure medication.?? She is on Lamictal 25 mg daily more for mood disorder.?? She has been taking her medications recently. ? 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 risk for??the former ?epilepsy orderset ?no current aeds ?sleep deprive??weds night ?VEEG ?continue OP meds ?? /transaminitis/ abdominal pain- stable no change from prior consult OB given ongoing abd pain/ transaminitis check AST/ALT continue vitamins ?? bipolar disorder- recent hospitalization - Not suicidal at this time continue haldol 5mg po q HS ? zofran for nausea ?? full code. ? d/w dr oropeza ?? Histories Allergies Allergies ?(Active and Proposed Allergies Only) ZyPREXA? (Severity: Unknown severity, Onset: Unknown) Bee Stings? (Severity: Unknown severity, Onset: Unknown) ? Past Medical History/Problem List Active Problems??(9) Acute depression Bipolar disorder current episode depressed Borderline personality disorder Convulsions History of suicide attempt Pseudoseizures PTSD (post-traumatic stress disorder) Seizure disorder ? Past Surgical History Foot ? Social History Alcohol Details:??Use: Never. ??Alcohol use in household: Yes. Employment/School Details:??Status: Unemployed. Exercise Details:??Self assessment: Poor condition. Home/Environment Details:??Living situation: Home/Independent. ??Lives with: living in respite program for 30-90 days then moving to apartment alone, no pets. Nutrition/Health Details:??Diet: Regular. Sexual Details:??Sexually involved in last 6 months: Yes. ??Gender identity: Identifies as female. ??Self described orientation: Straight or heterosexual. ??Preferred pronoun: She/her. Substance Abuse Details:??Use: Past. ??Type: Marijuana, oxycodone. ??Substance abuse in household: No. ??Other: MJ use, stopped 03/2023. Tobacco Details:??Use: 4 or less cigarettes(less than 1/4 pack)/day in last 30 days. ??Other: quite with , was smoking 4/day. Electronic Cigarette/Vaping Details:??Electronic Cigarette Use: Use, within last 90 days. ? Family History Mother: Substance abuse Mat. Grandmother: Seizure disorder ? Medications Home Medications Acetaminophen (Tylenol Extra Strength 500 mg oral tablet)?2?tab(s)?1,000?Milligram?By Mouth?Every 6 hours?as needed?as needed for fever ChlorproMAZINE (chlorproMAZINE 100 mg oral tablet)?100?Milligram?By Mouth?Daily at bedtime?as needed?Insomnia DiphenhydrAMINE (Benadryl 25 mg oral capsule)?1?capsule?25?Milligram?By Mouth?Every 6 hours Docusate (Colace Liquid)?By Mouth?2 times a day Doxylamine (Unisom 25 mg oral tablet)?1?tab(s)?25?Milligram?By Mouth?Daily at bedtime?may take additional 1/2 tablet in morning & 1/2 tablet in afternoon if nausea persists Melatonin?Daily at bedtime Multivitamin, (PNV )?By Mouth?Daily Multivitamin, (PNV Select oral tablet)?1?tab(s)?By Mouth?Daily Ondansetron (ondansetron 4 mg oral tablet, disintegrating)?1?tab(s)?4?Milligram?By Mouth?Every 8 hours?as needed?Nausea & Vomiting?allow tablet to dissolve on tongue Take 30 mins before taking medication with food Pyridoxine (Vitamin B6)?Daily Pyridoxine (pyridoxine 25 mg oral tablet)?1?tab(s)?25?Milligram?By Mouth?3 times a day?as needed?Nausea & Vomiting Risperidone (risperiDONE 1 mg oral tablet)?1?Milligram?1?tablet?By Mouth?2 times a day Trazodone (traZODone 50 mg oral tablet)?50?Milligram?1?tablet?By Mouth?Daily at bedtime ? Inpatient Medications Medications (4) Active SCHEDULED: (3) LamoTRIGINE 25 mg Tablet (LaMICtal 25 mg oral tablet) ??25 mg, By Mouth, Daily Multivitamin Tablet ( Multivitamin Tablet) ??1 tablet, By Mouth, Daily Pyridoxine 50 mg Tablet (pyridoxine 50 mg oral tablet) ??25 mg, By Mouth, Daily at bedtime CONTINUOUS: (0) PRN: (1) Lorazepam 2 mg Inj Syringe (LORazepam Inj) ??2 mg, IV Push Slowly, Once ? Results Recent Labs No labs resulted between 09/27/2023 00:00 and 09/28/2023 13:31? Abnormal Labs No lab data available. ? * Sandip HARRIS, Michael Vernon: PERFORM Event Display: Admission Note Authored Date: I personally saw and examined the patient and agree with the findings and plan as noted below.?? 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 She had just been discharged??yesterday from??a psychiatric hospital for suicidal ideation.?? She was discharged on Haldol, lamotrigine??and prior psychiatric medications were stopped.?? Patient's last seizure was 1 month??ago.?? She curre ntly??denies??suicidality.?? Risk factor of a??grandmother with seizures??but otherwise??no risk factors. ?? 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 ?? Plan:??Elective video EEG monitoring.?? No change in psychiatric medications.?? Currently??24 weeks.?? Will??consult??OB??given??issues with abdominal pain??and transaminitis.?? Plan for sleep deprivation on second night. Cardiology * Event Display: Cardiac Rhythm Strips Authored Date: Hospital Progress note * Bisi Rock RN: PERFORM, SIGN, VERIFY Event Display: Progress Note Hospital Authored Date: [id number] Patient: DEMETRIA PAUL Age: 18 years Sex: Female : 2005 Associated Diagnoses: None Author: Bisi Rock RN Findings Problem Related to Alteration in Neurological : Alteration in Neurological Function/new. Nursing Data Neurological Data. : Neurological Data. 10/02/2023 8:00 EST Level of Consciousness Full Consciousness Orientated to person, place, time Person, Place, Time, Event Hallucinations None Facial Symmetry Intact Characteristics of Speech Clear and normal Swallowing Difficulty None PERRLA Yes Pupil description, left Regular Pupil description, right Regular Pupil reaction, left Brisk Pupil reaction, right Brisk Pupil Size, Left 3 mm Pupil Size, Right 3 mm Strength LUE 5-Active movement against gravity & full resistance Strength RUE 5-Active movement against gravity & full resistance Strength LLE 5-Active movement against gravity & full resistance Strength RLE 5-Active movement against gravity & full resistance Tone LUE Normal Tone RUE Normal Tone LLE Normal Tone RLE Normal Sensation LUE Intact Sensation RUE Intact Sensation LLE Intact Sensation RLE Intact Gait Steady Tremors None Response Eye Opening Spontaneously Motor Response-Adult Obeys commands Verbal Response-Adult Oriented and converses Zhanna Coma Score 15 Neuro WNL except Eye opening response pedi Opens spontaneously Motor response pedi Obeys commands Verbal response pedi Oriented Pediatric Coma Score 15 Headache None . Evaluation Alert and oriented x 4. PERRLA. No MEDINA, no numbness. Denies having pain. Walk independently, strength 5/5. Discharge instructions educatd. Pt is leaving in w/c, picked up by parents. . Discharge Information Case Management Discharge Plan : Case Management Discharge Plan Data 10/03/2023 10:09 EST Discharge Level of Care at Discharge Home/Long Term/Foster Care * Michael Oropeza MD: PERFORM, SIGN, VERIFY Event Display: Progress Note Hospital Authored Date: [id number] Patient: DEMETRIA PAUL Age: 18 years Sex: Female : 2005 Associated Diagnoses: None Author: Michael Oropeza MD INTRODUCTION: The patient is a 18-year-old female with a history of bipolar and seizures since the age of 13 years who is referred for possible seizures. MEDICATIONS: not listed CONDITION OF RECORDING: The patient underwent five days of digitally recorded video EEG monitoring beginning on 09/28/2023 at 11:57 AM and ending on 10/03/2023 at 7:23 AM, recorded with the patient awake and in all stages of sleep, reviewed with longitudinal and coronal bipolar montages, as well as average referential and anterior temporal montages with all electrodes applied in accordance with theInternational 10-20 System. Seizure and spike detection software was utilized throughout the recording. A single channel EKG lead was recorded as well to help identify artifact. The entire record wasreviewed with special attention to button presses and diary entries. The patient was sleep deprivedon the second night of recording. AEDs were tapered to off during the admission. DAY 1 (from 09/28/2023 at 11:57 AM until 09/29/2023 at 8:00 AM) INTERICTAL EEG DESCRIPTION: An occipital dominant rhythm of 10 to 11 Hz is present.?? Low voltage 18 to 22 Hz activity is seen over the anterior head regions bilaterally. Sleep is normal in configuration and distribution. ICTAL EEG AND VIDEO DESCRIPTION: During the course of this day of continuous video EEG monitoring there were no push button events. IMPRESSION: This day of continuous senior living video EEG monitoring is within normal limits during wakefulness and sleep.?? During the course of this day of continuous video EEG monitoring there were no push button events. No focal, lateralized or epileptiform activity is present. DAY 2 (from 09/29/2023 at 8:00 AM until 09/30/2023 at 8:00 AM) INTERICTAL EEG DESCRIPTION: An occipital dominant rhythm of 10 to 11 Hz is present.?? Low voltage 18 to 22 Hz activity is seen over the anterior head regions bilaterally. Sleep is normal in configuration and distribution. ICTAL EEG AND VIDEO DESCRIPTION: During the course of this day of continuous video EEG monitoring there was a push button event at 12:09 PM for which she thought she was having a seizure that was without electroencephalographic correlate. IMPRESSION: This day of continuous senior living video EEG monitoring is within normal limits during wakefulness and sleep.?? The push button event at 12:09 PM for which she thought she was having a seizure was without electroencephalographic correlate. No focal, lateralized or epileptiform activity ispresent. DAY 3 (from 09/30/2023 at 8:00 AM until 10/01/2023 at 8:00 AM) INTERICTAL EEG DESCRIPTION: An occipital dominant rhythm of 10 to 11 Hz is present.?? Low voltage 18 to 22 Hz activity is seen over the anterior head regions bilaterally. Sleep is normal in configuration and distribution. ICTAL EEG AND VIDEO DESCRIPTION: During the course of this day of continuous video EEG monitoring there were no push button events. IMPRESSION: This day of continuous [employer] video EEG monitoring is within normal limits during wakefulness and sleep.?? During the course of this day of continuous video EEG monitoring there were no push button events. No focal, lateralized or epileptiform activity is present. DAY 4 (from 10/01/2023 at 8:00 AM until 10/02/2023 at 8:00 AM) INTERICTAL EEG DESCRIPTION: An occipital dominant rhythm of 10 to 11 Hz is present.?? Low voltage 18 to 22 Hz activity is seen over the anterior head regions bilaterally. Sleep is normal in configuration and distribution. ICTAL EEG AND VIDEO DESCRIPTION: During the course of this day of continuous video EEG monitoring there were no push button events. Patient reported event around 7:00 PM of small seizure with per nursing staff post ictal confusion for 1 minute. No electroencephalographic correlate was present. IMPRESSION: This day of continuous [employer] video EEG monitoring is within normal limits during wakefulness and sleep.?? Patient reported event around 7:00 PM of small seizure with per nursing staffpost ictal confusion for 1 minute. No electroencephalographic correlate was present. No focal, lateralized or epileptiform activity is present. DAY 5 (from 10/02/2023 at 8:00 AM until 10/03/2023 at 7:23 AM) INTERICTAL EEG DESCRIPTION: An occipital dominant rhythm of 10 to 11 Hz is present.?? Low voltage 18 to 22 Hz activity is seen over the anterior head regions bilaterally. Sleep is normal in configuration and distribution. ICTAL EEG AND VIDEO DESCRIPTION: During the course of this day of continuous video EEG monitoring there were no push button events. IMPRESSION: The entire continuous [employer] video EEG monitoring is within normal limits during wakefulness and sleep.?? During the course of the entire continuous video EEG monitoring the patient reported two small seizures that were both without electroencephalographic correlate. No focal, lateralized or epileptiform activity is present. * Wyszynski RN, Shadia N: PERFORM, SIGN, VERIFY Event Display: Progress Note Hospital Authored Date: [id number] Patient: DEMETRIA PAUL Age: 18 years Sex: Female : 2005 Associated Diagnoses: None Author: Shadia Watson RN Findings Problem Related to Alteration in Neurological : Alteration in Neurological Function/new 10/03/2023 0:00 EST Alteration in Neuro status Related to Seizure Goals & Outcomes, Neurological Pt will be Neurologically stable Interventions, Neurological 5 day Video EEG monitoring protocol, Assess & monitor for seizure activity, Assess for aspiration and status epileptics, Assess seizure Hx, frequency/type/presence of aura, Document length of postictal phase & postictal activity, Document length of seizure and activity during seizure, During seizure activity maintain pt safety & privacy, Initiate & maint ain Seizure Precautions, Minimize seizure triggering stimuli (i.e. light, noise, pain, Monitor for therapeutic levels of anti-seizure meds, Monitor oxygenation/ventilation during seizure activity, Monitor/maintain airway patency, Obtain post seizure labs as ordered, Post seizure: assess pt for injur y/vital signs/neuro's, Provide explanation of disorder, causes & treatment, Teach Pt/caregiver EEG Video protocol, Teach Pt/caregiver how to respond to seizures, Teach Pt/caregiver maintaining daily seizure log, Teach Pt/caregiver medications & schedule, Teach Pt/caregiver s/s of too much medication, Teach Pt/caregiver safe storage of medication at home BH Goals/Interventions, Neurological Yes Neurological, Problem Start 09/28/2023 12:00 Reviewed plan with, Neurological Patient Patient Progression, Neurological Pt progressing according to plan . Nursing Data Neurological Data. : Neurological Data. 10/03/2023 1:24 EST Neurological Symptoms History of seizures Orientated to person, place, time Person, Place, Time Hallucinations None Facial Symmetry Intact Characteristics of Speech Clear and normal PERRLA Yes Pupil description, left Regular Pupil description, right Regular Pupil reaction, left Brisk Pupil reaction, right Brisk Strength LUE 5-Active movement against gravity & full resistance Strength RUE 5-Active movement against gravity & full resistance Strength LLE 5-Active movement against gravity & full resistance Strength RLE 5-Active movement against gravity & full resistance Tone LUE Normal Tone RUE Normal Tone LLE Normal Tone RLE Normal Sensation LUE Intact Sensation RUE Intact Sensation LLE Intact Sensation RLE Intact Gait No disturbance Response Eye Opening Spontaneously Motor Response-Adult Obeys commands Verbal Response-Adult Oriented and converses Zhanna Coma Score 15 Neuro WNL except Eye opening response pedi Opens spontaneously Motor response pedi Obeys commands Verbal response pedi Oriented Pediatric Coma Score 15 10/02/2023 20:00 EST Neurological Assessment Status Unchanged from recorder's assessment Level of Consciousness Full Consciousness Orientated to person, place, time Person, Place, Time Hallucinations None Neuro WNL Memory Intact . Evaluation Pt AxO x 3. EEg in place. Ambulating to bathroom. Eating and drinking well. C/O nausea, Zofran given with good effect. Safety measures in place. No seizures noted. Affect appropriate. Pt smiling and talking about going to faith tomorrow.. Note * Bisi Rock RN: PERFORM Event Display: Discharge/Transfer Note Hospital Authored Date: [id number] Nursing Discharge Note Entered On: 10/03/2023 10:10 EST Performed On: 10/03/2023 10:09 EST by Bisi Rock RN Nursing Discharge Note 2 Discharge Time : 10/03/2023 10:08 EST Discharge Level of Care at Discharge : Home/Long Term/Foster Care V Belt Builder Utilized : No AMA Form Signed : No Patient Left Unit Via : Wheelchair Patient Accompanied Off Unit with : Parent DC Instructions Provided & Signed by Pt : Yes Patient Understands D/C Instructions : Yes Patient Instructions Discharge Signed : Yes Did Pt have Specialty Bed or Wound Vac : No Electronic Request: DC Instructions : No Bisi Rock RN - 10/03/2023 10:09 EST * Jackie Hamilton NP: PERFORM, MODIFY, MODIFY, MODIFY Event Display: Discharge/Transfer Note Hospital Authored Date: [id number] Patient: ??BEVERLY, DEMETRIA ? Age:??18 Years?Sex:??Female?:??2005?? Patient Information Discharge Location: A Primary Care Physician: George HARRIS, Bere Benavidez Admit Date/Time: 09/28/23 10:19 Discharge Disposition Discharge Disposition: Home: No Services Discharge Diagnosis History of suicide attempt (Z91.51) (Z34.90) Convulsions (R56.9) Transaminitis (R74.01) ?? _ Discharge Medications Haloperidol 5 mg Tablet (haloperidol 5 mg oral tablet) ??5 mg, By Mouth, Daily at bedtime LamoTRIGINE 25 mg Tablet (LaMICtal 25 mg oral tablet) ??25 mg, By Mouth, Daily Doxylamine (Unisom 25 mg oral tablet)?1?tab(s)?25?Milligram?By Mouth?Daily at bedtime?may take additional 1/2 tablet in morning & 1/2 tablet in afternoon if nausea persists Multivitamin, (PNV )?By Mouth?Daily Ondansetron (ondansetron 4 mg oral tablet, disintegrating)?1?tab(s)?4?Milligram?By Mouth?Every 8 hours?as needed?Nausea & Vomiting?allow tablet to dissolve on tongue Take 30 mins before taking medication with food Pyridoxine (pyridoxine 25 mg oral tablet)?1?tab(s)?25?Milligram?By Mouth?3 times a day?as needed?Nausea & Vomiting Docusate (Colace Liquid)?By Mouth?2 times a day ? Medications Started no new medications started Medications Discontinued no medications discontinued Doses Changed no medication doses changed Allergies Allergies ?(Active and Proposed Allergies Only) ZyPREXA? (Severity: Unknown severity, Onset: Unknown) Bee Stings? (Severity: Unknown severity, Onset: Unknown) ? Future Appointments Wednesday 1:40 PM EST ?? With: Aditya HARRIS, Lakshmi Douglas Where: [facility] NEUROSURGICAL PHYSICIAN ASSISTANT [address] [place] [address]- Status: Pending Wednesday 2:40 PM EST ?? With: Lakshmi Burgess MD Where: [facility] NEUROSURGICAL PHYSICIAN ASSISTANT [address] [place] [address]- Status: Pending Wednesday 2:00 PM EST ?? With: Lakshmi Burgess MD Where: [facility] NEUROSURGICAL PHYSICIAN ASSISTANT [address] [place] [address]- Status: Pending Hospital Course INTRODUCTION:?The patient is a 18-year-old female with a history of bipolar and seizures since the age of 13 years who is referred for possible seizures. ?? MEDICATIONS:?not listed ?? CONDITION OF RECORDING:?The patient underwent five days of digitally recorded video EEG monitoring beginning on 09/28/2023 at 11:57 AM and ending on 10/03/2023 at 8:00 AM, recorded with the patient awake and in all stages of sleep, reviewed with longitudinal and coronal bipolar montages, as well as average referential and anterior temporal montages with all electrodes applied in accordance with t he International 10-20 System. ??Seizure and spike detection software was utilized throughout the recording. ??A single channel EKG lead was recorded as well to help identify artifact. ??The entire record was reviewed with special attention to button presses and diary entries. ??The patient was sleep deprived on the second night of recording. ??AEDs were tapered to off during the admission. ?? DAY 1 (from 09/28/2023 at 11:57 AM until 09/29/2023 at 8:00 AM) ?? INTERICTAL EEG DESCRIPTION:?An occipital dominant rhythm of 10 to 11 Hz is present.?Low voltage 18 to 22 Hz activity is seen over the anterior head regions bilaterally. ?? Sleep is normal in configuration and distribution. ?? ICTAL EEG AND VIDEO DESCRIPTION:??During the course of this day of continuous video EEG monitoring there were no push button events. ?? IMPRESSION:?This day of continuous intermodal customer service video EEG monitoring??is within normal limits during wakefulness and sleep.?During the course of this day of continuous video EEG monitoring there were no push button events. ??No focal, lateralized or epileptiform activity is present. ? DAY 2 (from 09/29/2023 at 8:00 AM until 09/30/2023 at 8:00 AM) ?? INTERICTAL EEG DESCRIPTION:?An occipital dominant rhythm of 10 to 11 Hz is present.?Low voltage 18 to 22 Hz activity is seen over the anterior head regions bilaterally. ?? Sleep is normal in configuration and distribution. ?? ICTAL EEG AND VIDEO DESCRIPTION:??During the course of this day of continuous video EEG monitoring there was a push button event at 12:09 PM for which she thought she was having a seizure that was without electroencephalographic correlate. ?? IMPRESSION:?This day of continuous intermodal customer service video EEG monitoring??is within normal limits during wakefulness and sleep.?The push button event at 12:09 PM for which she thought she was having aseizure was without electroencephalographic correlate. ??No focal, lateralized or epileptiform activ ity is present. ? DAY 3 (from 09/30/2023 at 8:00 AM until 10/01/2023 at 8:00 AM) ?? INTERICTAL EEG DESCRIPTION:?An occipital dominant rhythm of 10 to 11 Hz is present.?Low voltage 18 to 22 Hz activity is seen over the anterior head regions bilaterally. ?? Sleep is normal in configuration and distribution. ?? ICTAL EEG AND VIDEO DESCRIPTION:??During the course of this day of continuous video EEG monitoring there were no push button events. ? IMPRESSION:?This day of continuous intermodal customer service video EEG monitoring??is within normal limits during wakefulness and sleep.?During the course of this day of continuous video EEG monitoring there were no push button events. ??No focal, lateralized or epileptiform activity is present. ? DAY 4 (from 10/01/2023 at 8:00 AM until 10/02/2023 at 8:00 AM) ?? INTERICTAL EEG DESCRIPTION:?An occipital dominant rhythm of 10 to 11 Hz is present.?Low voltage 18 to 22 Hz activity is seen over the anterior head regions bilaterally. ?? Sleep is normal in configuration and distribution. ?? ICTAL EEG AND VIDEO DESCRIPTION:??During the course of this day of continuous video EEG monitoring there were no push button events. ??Patient reported event around 7:00 PM of small seizure with per nursing staff post ictal confusion for 1 minute. ??No electroencephalographic correlate was present. ?? IMPRESSION:?This day of continuous intermodal customer service video EEG monitoring??is within normal limits during wakefulness and sleep.?Patient reported event around 7:00 PM of small seizure with per nursing staff post ictal confusion for 1 minute. ??No electroencephalographic correlate was present. ??No focal, lateralized or epileptiform activity is present. ?? DAY 5 (from 10/02/2023 at 8:00 AM until 10/03/2023 at 7:23 AM) ?? INTERICTAL EEG DESCRIPTION:?An occipital dominant rhythm of 10 to 11 Hz is present.?Low voltage 18 to 22 Hz activity is seen over the anterior head regions bilaterally. ?? Sleep is normal in configuration and distribution. ?? ICTAL EEG AND VIDEO DESCRIPTION:??During the course of this day of continuous video EEG monitoring there were no push button events. ?? IMPRESSION:?The entire continuous intermodal customer service video EEG monitoring??is within normal limits duringwakefulness and sleep.?During the course of the entire continuous video EEG monitoring the patient reported two small seizures that were both without electroencephalographic correlate. ??No focal,lateralized or epileptiform activity is present. ?? 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 The patient was just discharged??the day prior to presentation??from psychiatric hospital for suicidal ideation.??She was discharged on haldol an lamictal for mood disorder and stopped on prior psychiatric medication. Currently the patient denies any suicidality. ?? reports last seizure was within the last month. She has been having spells since she was 13.?? She describes having an aura with black flashing lights that precede spells, No myoclonic jerks. additional spells described with lower extremity numbness??followed by increased heart rate and LOCwith shaking.? She does not know her history as she says she was adopted.?? She does relay that she has a grandmother with seizures.?? No history of intracranial surgery or meningitis.?? The patient was on Keppra for period of time but when she became this was stopped.?? She describes her seizures as a generalized tonic-clonic seizure.?? She also says she has spells where she stares.?? She is not always aware of her spells.?? She is not currently on any antiseizure medication.?? She is on Lamictal 25 mg daily more for mood disorder.?? She has been taking her medications recently. ?? VEEG-?no sz or markers ?? 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 risk for??the former.?? captured spell of arm shaking 09/29 withoutcorrelate ?no current aeds ?continue OP meds follow up with neurologist ?? /transaminitis ?? abdominal pain-??intermittent had?? abd US without etiology.??- reports constipation - improved ?? appreciate OB consult??re: ??abd pain/ transaminitis OB following follow plts, BP and HELLP labs - followup scheduled appointment 10/05 continue vitamins ?? bipolar disorder- recent hospitalization - continue haldol 5mg po q HS continue Lamictal 25mg daily ?? plan to discharge??home with??family will follow up - requested appointment instructed to??call in the interim with any questions/concerns ?? discussed with Dr Oropeza ?? Vital Signs?? Temperature: 97 DegF (10/02/23 23:36:00) Temperature Route: Temporal (10/02/23 23:36:00) Pulse Rate: 84 bpm (10/02/23 23:36:00) Respiratory Rate: 16 br/min (10/02/23 23:36:00) Systolic Blood Pressure: 110 mm Hg (10/02/23 23:36:00) Diastolic Blood Pressure: 59 mm Hg (10/02/23 23:36:00) Blood pressure sites: Arm, left (10/02/23 23:36:00) Mean Arterial Pressure: 76 mm Hg (10/02/23 23:36:00) Pulse Pressure: 51 mm Hg (10/02/23 23:36:00) Oxygen Saturation: 97 % (10/02/23 23:36:00) Mode of Delivery (Oxygen): Room air (10/02/23 23:36:00) Early Warning Score: 2 (10/02/23 23:36:29) ? Basic ADLs Activity Assistance: Standby assist (10/02/23) Ambulatory devices needed: None (10/02/23) Feeding Assistance: Independent (10/03/23) Hygiene: Self (10/03/23) ? Mobility & Ambulation Level Mobility & Ambulation Level Activity Assistance: Standby assist (10/02/23) Activity Status ADL: Reposition every 2 hours (10/02/23) Ambulatory devices needed: None (10/02/23) Repositioning: Self (10/02/23) ?? . Physical Exam General Exam Appearance: Appears comfortable and appropriate, in no acute distress. Appears stated age.? HEENT: Normocephalic, atraumatic. No abrasions or ecchymosis. Conjunctiva without injection. PERRL.EOMI. Lids without ptosis. Nares patent. Mouth normal. Tongue midline. Neck supple ?? Cardiac: Regular rate and rhythm ?? Respiratory: Normal inspiration and expiration ?? Rheumatologic: No swelling, deformities or tenderness ?? Dermatologic: No significant skin lesions, rash, or bruising ?? Extremities: No edema or stasis changes ?? Psychiatric: Not depressed or anxious. Full and appropriate Affect. ?? Neurologic: Mentation: Awake, alert. Patient is oriented to person, place, time, and situation. Speech is clearand without slurring. Follows simple and 3 step command. Able to repeat no ifs, ands or buts. Able to name objects. change of address clerk: PERRL. EOMI. No nystagmus. VFF to confrontation. Smile symmetric, no droop. Tongue midline anduvula rises symmetrically. Facial sensation in tact to light touch. Hearing acuity in tact to voice. Lateral head deviation and shoulder shrug 5/5?? Motor: Normal bulk/tone. Strength 5/5 UEs and LEs. Mastercam Programmer equal. No pronator drift. Sensation: In tact to light touch of UEs and LEs, no extinction to DTS Coordination: Finger to nose smooth Gait:??steady Consultants obstetrics Pending Results Bile Acids Fractionated and Total, Serum ordered on 09/28/2023 Home Health Face to Face ^HomeHealthFTF _41 minutes spent on discharge * Pranav RIDER, Bisi: PERFORM Event Display: Patient Education/Instruction Authored Date: [id number] Inpatient Adult Discharge Instructions [address] [address] Name: DEMETRIA PAUL : 2005 Visit: 09/28/2023 10:19:00 Current Date: 10/03/2023 09:37 Account: [id number] Inpatient Adult Discharge Instructions We would like [...] and their families. Surveys are administered by [employer] ?? If further treatment with your primary care physician or another doctor is recommended, it is important for you to keep the appointment. Call your primary care physician or return to the Emergency Department immediately if your condition worsens, fails to improve, or new symptoms develop. If you need to find a doctor, you can call [facility] [employer] for a referral at [phone] or toll free at [phone]) or log in to [email or web address].. ?? [facility], in keeping with [facility] guidance, no longer requires face masks [...] a health care stella of your choosing. [employer] is a website that allows you to securely view your medical information including your hospital discharge summary, office visit summaries, medications and follow-up visits. You can also request appointments, renew medications, and request access to your medical information using a health care stella of your choosing, or just ask a question. You can enroll at [email or web address] or register during your next office visit. You have been discharged from [facility], Patient Care Unit: D5A. If you have any questions regarding these instructions after you leave, please call us and we will be happy to assist you. [facility] Your Care Team Attending Physician Tyrese HARRIS, aClvin Consulting Providers Larry HARRIS, Yoni Discharging Providers Jackie Hamilton NP Reason for Admission SEIZURES 5 DAY VEEG D5A Your Diagnosis Convulsions Transaminitis History of suicide attempt Tests Performed Below is a partial list of the tests performed during your hospitalization. You may have had other tests and procedures not included in this list. Please discuss all test results with your provider. Alk Phos ALT Amylase AST Bilirubin Total + Direct CBC Creatinine Electrolytes Haptoglobin Hepatitis A Ab IgM Hepatitis A IgG Hepatitis B Surface Antibody, Quant Hepatitis B Surface Antigen Hepatitis C Ab Lamotrigine Level LDH Lipase SGPT RUQ (US) Primary Care Provider George HARRIS, Bere Benavidez Advance Directive Health Care Proxy on File Yes - Health Care Proxy Discharge Vitals Temperature: 98.1 DegF Height: 174 cm Pulse Rate:??106 bpm??High Weight: 67.5 kg Respiratory Rate: 19 br/min Body Mass Index: 22.29 kg/m2 Systolic Blood Pressure: 114 mm Hg Body surface area: 1.81 Diastolic Blood Pressure: 61 mm Hg ?? Oxygen Saturation: 94 % ?? Studies Pending All tests and labs ordered during this hospital stay have been completed unless listed below. Please discuss all pending results with your provider listed above in these instructions. ?? Bile Acids Fractionated and Total, Serum What to do next Instructions From Your Doctor Discharge Orders Scheduled Follow-Up Appointments Wednesday 1:40 PM EST ?? With: Rupal-Lakshmi Fraire MD Where: [facility] NEUROSURGICAL PHYSICIAN ASSISTANT [address] [place] [address]- Status: Pending Wednesday 2:40 PM EST ?? With: Lakshmi Burgess MD Where: [facility] NEUROSURGICAL PHYSICIAN ASSISTANT [address] [place] [address]- Status: Pending Wednesday 2:00 PM EST ?? With: Lakshmi Burgess MD Where: [facility] NEUROSURGICAL PHYSICIAN ASSISTANT [address] [place] [address]- Status: Pending Discharge Medications DEEMTRIA PAUL :2005 Visit Date:09/28/2023 Medications: Please continue your medications until treatment is completed or stopped by your provider. Medications not listed below should be discontinued. Discuss any questions related to medications with your provider. What How Much When Instructions Next Dose Unchanged DiphenhydrAMINE (Benadryl 25 mg oral capsule) 1 capsule Oral Every 6 hours Resume as schedule Unchanged Docusate 10/03 PM Unchanged Docusate (Colace Liquid) Oral Twice a day 10/03 PM Unchanged Doxylamine (Unisom 25 mg oral tablet) 1 tab(s) Oral Daily at Bedtime may take additional 1/ 2 tablet in morning & 1/ 2 tablet in afternoon if nausea persists ?? Resume as schedule Unchanged Multivitamin, (PNV ) Oral Daily 10/04 AM Unchanged Multivitamin, (PNV Select oral tablet) 1 tab(s) Oral Daily 10/04 AM Unchanged Ondansetron (ondansetron 4 mg oral tablet, disintegrating) 1 tab(s) Oral Every 8 hours as needed for Nausea & Vomiting allow tablet to dissolve on tongue Take 30 mins before taking medication with food ?? As needed Unchanged Pyridoxine (pyridoxine 25 mg oral tablet) 1 tab(s) Oral 3 times a day as needed for Nausea & Vomiting 10/03 Unchanged Pyridoxine (Vitamin B6) Daily 10/03 ?? What How Much When Comments Stop Taking Acetaminophen (Tylenol Extra Strength 500 mg oral tablet) 2 tab(s) Oral Every 6 hours as needed for as needed for fever Stop Taking ChlorproMAZINE (chlorproMAZINE 100 mg oral tablet) 100 Milligram Oral Daily at Bedtime as needed for Insomnia Stop Taking Melatonin Daily at Bedtime Stop Taking Risperidone (risperiDONE 1 mg oral tablet) 1 tab(s) Oral Twice a day Stop Taking Topiramate (topiramate 25 mg oral tablet) 1 tab(s) Oral Twice a day Stop Taking Trazodone (traZODone 50 mg oral tablet) 1 tab(s) Oral Daily at Bedtime Test Results Below is a partial list of the most recent Laboratory test results done prior to this discharge. You may have had other tests and procedures not included in this list. Please discuss all test resultswith your provider. Est Creatinine Clearance - 153.61 mL/min (09/29/2023) Alk Phos (09/28/2023) ???Alkaline Phosphatase - 72 units/L ALT (10/01/2023) ???ALT (SGPT) - 46 units/L Amylase (09/28/2023) ???Amylase - 67 units/L AST (10/01/2023) ???AST (SGOT) - 34 units/L Bilirubin Total + Direct (09/28/2023) ? ?Bilirubin, Total - 0.3 mg/dL? ?Bilirubin, Direct - <0.2 mg/dL? ?Bilirubin, Indirect - Direct bilirubin is less than the measureable limit. Therefore, indirect CBC (09/29/2023) ???WBC - 5.8 k/mm3???RBC - 3.02 m/mm3???Hgb - 10.0 Gm/dL???Hct - 29.1 %???MCV - 96.4 femtoliters???MCH - 33.1 pg???MCHC - 34.4 g/dL???Platelet Count - 143 k/mm3???RDW-SD - 45.0 femtoliters???MPV - 9.5 femtoliters???Nucleated RBC (Automated) - 0.0 #/100 WBC'S???Abs. NRBC - 0.0 k/mm3 Creatinine (09/29/2023) ???Creatinine-Blood - 0.6 mg/dL???Estimated GFR Creatinine - 132 ML/MIN/1.73 M2 Electrolytes (09/28/2023) ???Sodium - 139 mmol/L???Potassium - 3.4 mmol/L???Chloride - 106 mmol/L???Bicarbonate Level - 22 mmol/L???Anion Gap - 11 Haptoglobin (09/29/2023) ???Haptoglobin - 68 mg/dL Hepatitis A Ab IgM (09/28/2023) ???Anti Hepatitis A IgM - NEGATIVE Hepatitis A IgG (09/28/2023) ???Anti-HAV IgG - POSITIVE Hepatitis B Surface Antibody, Quant (09/28/2023) ???Anti-HBS Quant - 0.09 mIU/mL Hepatitis B Surface Antigen (09/29/2023) ???Hepatitis B Surface Antigen - NEGATIVE Hepatitis C Ab (09/28/2023) ???Hepatitis C Ab - NEGATIVE Lamotrigine Level (09/28/2023) ? ?Lamotrigine Level - <1.0 LDH (09/29/2023) ???LDH - 201 units/L Lipase (09/28/2023) ???Lipase - 25 units/L SGPT (09/28/2023) ???ALT (SGPT) - 63 units/L Allergies (NKA means No Known Allergies) Bee Stings ZyPREXA Problems Active Problems??(10) Acute depression?? Bipolar disorder current episode depressed?? Borderline personality disorder?? Convulsions?? History of suicide attempt? Pseudoseizures?? PTSD (post-traumatic stress disorder)?? Seizure disorder?? Education Materials Below is the list of Educational Leaflet Providered with your Discharge Instructions. Valuables and Belongings I fully understand and agree that [facility] accepts no responsibility for all my [...] of Valuable and Belonging List: With patient Date for Pt to Sign Valuables/Belongings: 09/28/23 10:48:00 ?? Other Discharge Information ? Pulmonary Rehab Status?? Pulmonary Rehab Discharge Status?? Respiratory Rate: 19 br/min ? Common Emergency Awareness Tips IS [...] are strongly encouraged to quit. Please call [facility] [employer] [facility] at [phone] or [phone] [phone]) or log in to [email or web address] for referrals to smoking cessation programs. ?? 237 Suicide & Crisis Lifeline is available 29/03 if you or someone you know needs to find a reason to keep living. By calling 931 you'll be connected to a skilled, trained counselor at a crisis center in your area. INPATIENT DISCHARGE INSTRUCTIONS SIGNATURE PAGE PAUL, ANASHELBIE Location:[facility] Registration Date and Time:09/28/2023 10:19 EST Primary Care Physician: Bere Vazquez MD, Attending Physician: Calvin Xiong MD, I DEMETRIA PAUL, have received the above patient education materials/instructions and have verbalized understanding. If ambulance or transport services are being used I further acknowledge beinggiven a choice of service. ?? If you need to contact me, please call me at this number: . Patient/Cereal Chemist Name: Patient/Cereal Chemist Signature: Relationship to Patient: Witness Name/Signature: Date: * Pranav RIDER Skawdutorin: PERFORM Event Display: Patient Education Leaflets Authored Date: [id number] Recurrent Seizure (Adult) ?? [id number] Recurrent Seizure (Adult) You have had another [...] gets worse? Last Reviewed Date: 2022 ?? [id number] [employer]. All rights reserved. This information is not [...] Care Nurse Name: Bere Vazquez MD Position: [facility] Physician - Pediatrics Member Role: PCP Address: Address: [address] [facility] [place] [address]- Name: Jessica Leal RN Position: S RN Member Role: Primary Care Nurse Name: Bisi Rock RN Position: S RN Member Role: Primary Care Nurse Name: Merlyn Looney RN Position: S RN Member Role: Primary Care Nurse Care Team Related Persons Name: RUTHY GUZMAN Address: home [address] [place] [address] Name: PAULA PAUL Address: home [address] [place] [address] Name: CARLOS PAUL Address: home [address] [place] [address] Name: JAIRO HAN Address: home [facility]
--- OUTSIDE RECORDS SUMMARY | 2024-02-11 22:05 | XMS_ITS | Continuity of Care Document ---
Author Organization [facility] Address [address] [place] [address]- Care Team Providers Care Frame Changer Name Role Phone Bere Vazquez MD Primary Care Physician [facility] [facility] [place](s): 12/28/22 - 01/31/[address] [address] Attending Physician: Bere Vazquez MD Admitting Physician: Bere Vazquez MD Referring Physician: Bere Vazquez MD Allergies, [...] opioid drug. Start Date: 05/28/22 Status: Ordered risperiDONE 1 mg oral tablet 1 mg, 1, tablet, By Mouth, 2 times a day, # 60 tablet, Refills 0, Tot. Refills 0, Maintenance, 05/28/22 8:23:00 EDT, Route to Pharmacy Electronically, [facility]/pharmacy #[id number], Partial fill upon patient request if the prescription is for a schedule II opioi... Start Date: 05/28/22 Status: Ordered topiramate 25 mg oral tablet 1 tablet = 25 mg, By Mouth, 2 times a day, # 60 tablet, 0 Refills, Maintenance, 05/28/22 8:23:00 EDT, Tablet, [facility]/pharmacy #[id number], Partial fill upon patient request if the prescription is for a schedule II opioid drug., 173, cm, 05/27/22 18:52:00 EDT,... Start Date: 05/28/22 Status: Ordered traZODone 50 mg oral tablet 50 mg, 1, tablet, By Mouth, Daily at bedtime, # 30 tablet, Refills 0, Tot. Refills 0, Maintenance, 05/28/22 8:23:00 EDT, Route to Pharmacy Electronically, [facility]/pharmacy [...] Team Personnel Name: Omi Wise RN Position: [facility] RN Member Role: Primary Care Nurse Name: Peggy Quintaan Position: S RN Member Role: Primary Care Nurse Name: Gill Han RN Position: S RN Member Role: Primary Care Nurse Name: Sarwat Velázquez RN Position: S RN Member Role: Primary Care Nurse Name: Brigette Healy RN Position: S RN Member Role: Primary Care Nurse Name: Bere Vazquez MD Position: [facility] General Pediatrics MD Member Role: PCP Address: Address: [address] [facility] [place], [place] [address] Name: Jessica Leal RN Position: S RN Member Role: Primary Care Nurse Name: Merlyn Looney RN Position: S RN Member Role: Primary Care Nurse Care Team Related Persons Name: GONZÁLEZ QUINTANILLA Address: [place] [address] Name: PAULA PAUL Address: home [address] [place] [address] [place] [address] Name: CARLOS PAUL Address: home [address] [place] [id number]
--- OUTSIDE RECORDS SUMMARY | 2024-02-11 22:05 | XMS_ITS | Continuity of Care Document ---
Author Organization [facility] ter Address [address] [place] [address]- Care Team Providers Care Haulage Boss Name Role Phone George HARRIS, Bere Benavidez Primary Care Physician Encounter [facility] [id number] Date(s): 11/25/23 - 12/30/[address] [address] Attending Physician: Lakshmi Burgess MD Admitting Physician: [...] 08/13/20 Recorded 1Result Comment: PT [facility] [id number] Medications Benadryl 25 mg oral capsule 1 capsule = 25 mg, By Mouth, Daily at bedtime, PRN Headache, # 30 capsule, 0 Refills, Maintenance, 11/27/23 21:42:00 EDT, Capsule, [id number], Partial fill upon patient request if the [...] Gm, 0 Refills, Maintenance, 12/23/23 14:35:00 EDT,Cream, [facility]/pharmacy #[id number], Partial fill upon patient request if the [...] 10/05/23 15:11:00 EST, Route to Pharmacy Electronically, [facility]/pharmacy #[id number], Partial fill upon [...] 3 Refills, Maintenance, 10/27/23 17:55:00 EST, Tablet, [facility]/pharmacy #[id number], Partial fill upon [...] Refills, Maintenance, 10/05/23 15:12:00 EST, REC Powder, [facility]/pharmacy #[id number], Partial fill upon [...] tablet, 2 Refills, Maintenance, 10/26/23 14:27:00 EST, [facility]/pharmacy#[id number], Partial fill upon patient [...] Refills, Maintenance, 07/19/23 13:37:00 EST, Tablet, [id number] ([facility] 827), Partial fill upon patient request if the prescription is for a schedule II opioid... Start Date: 07/19/23 Status: Ordered Reglan 10 mg oral tablet 1 tablet = 10 mg, By Mouth, Daily, PRN Headache, # 30 tablet, 0 Refills, Maintenance, 11/27/23 21:42:00 EDT, [facility]/pharmacy #[id number], Partial fill upon patient request if the prescription is for a schedule II opioid drug., 174, cm, 11/08/23 13:36:00 EST, H... Start Date: 11/27/23 Status: Ordered ursodiol 300 mg oral capsule 300 mg, 1, capsule, By Mouth, 3 times a day, # 100 capsule, Refills 1, Tot. Refills 1, Maintenance,12/06/23 18:22:00 EDT, Route to Pharmacy Electronically, [facility]/pharmacy #[id number], Partial fill upon patient request if the [...] Nurse Name: George HARRIS, Bere Benavidez Position: [facility] Physician - Pediatrics Member Role: PCP Address: Address: [address] [facility] [place], [place] [address] Name: Jessica Leal RN Position: S RN Member Role: Primary Care Nurse Name: Bisi Rock RN Position: [facility] RN Member Role: Primary Care Nurse Name: Merlyn Looney RN Position: [facility] RN Member Role: Primary Care Nurse Care Team Related Persons Name: RUTHY GUZMAN Address: home [address] [place] [address] Name: PAULA PAUL Address: home [address] [place] [address] Name: CARLOS PAUL Address: home [address] [place] [address] Name: JAIRO HAN Address: home
--- OUTSIDE RECORDS SUMMARY | 2024-02-11 22:05 | XMS_ITS | Continuity of Care Document ---
Author Organization [facility] Address [address] [facility] [address], [address] [place] [address]- Care Team Providers Care Engineering Lecturer Name Role Phone George HARRIS, Bere Benavidez Primary Care Physician Encounter [facility] Date(s): 10/12/23 - 11/11/23 [facility] [address] [facility], [address] [place] [address]- Allergies, Adverse Reactions, Alerts Substance Reaction Severity [...] 08/13/20 Recorded 1Result Comment: PT [facility] [id number] Medications Benadryl 25 mg oral capsule 1 [...] EST, Route to Pharmacy Electronically, [facility]/pharmacy #[id number], Partial fill upon patient [...] Maintenance, 10/27/23 17:55:00 EST, Tablet, [facility]/pharmacy #[id number], Partial fill upon patient [...] 10/05/23 15:12:00 EST, REC Powder, [facility]/pharmacy #[id number], Partial fill upon patient [...] 1 Refills, Maintenance, 09/08/23 11:16:00 EST, Tablet, [facility], Partial fi... Start Date: 09/08/23 Status: Ordered PNV By Mouth, Daily, 0 Refills, Maintenance, 07/14/23 10:18:00 EST, Partial fill upon patient request if the prescription is for a schedule II opioid drug. Start Date: 07/14/23 Status: Ordered PNV Select oral tablet 1 tablet, By Mouth, Daily, # 90 tablet, 2 Refills, Maintenance, 10/26/23 14:27:00 EST, [facility]/pharmacy#[id number], Partial fill upon patient request if the prescription is for a schedule II opioid drug., 1 tablet By Mouth Daily, 174, cm, 10/26/23 14:06:00 EST... Start Date: 10/26/23 Status: Ordered pyridoxine 25 mg oral tablet 1 tablet = 25 mg, By Mouth, 3 times a day, PRN Nausea & Vomiting, # 100 tablet, 8 Refills, Maintenance, 07/19/23 13:37:00 EST, Tablet, [id number] ([facility] 827), Partial fill upon patient request [...] Primary Care Nurse Name: Peggy Quintana Position: [facility] RN Member Role: Primary Care Nurse Name: Gill Han RN Position: [facility] RN Member Role: Primary Care Nurse Name: Sarwat Velázquez RN Position: [facility] RN Member Role: Primary Care Nurse Name: Adele Ibanez RN Position: [facility] RN Member Role: Primary Care Nurse Name: Nidia Tripp Position: [facility] RN Member Role: Primary Care Nurse Name: Bere Vazquez MD Position: [facility] Physician - Pediatrics Member Role: PCP Address: Address: [address] [place] [address] Pediatric & Adolescent Medicine [address] Name: Jessica Leal RN Position: [facility] RN Member Role: Primary Care Nurse Name: Bisi Rock RN Position: [facility] RN Member Role: Primary Care Nurse Name: Merlyn Looney RN Position: [facility] RN Member Role: Primary Care Nurse Care Team Related Persons Name: RUTHY GUZMAN Address: home [address] [place] [address] Name: PAULA PAUL Address: home [address] [place] [address] Name: PAULA PAUL Address: home [address] [place] [address] Name: CARLOS PAUL Address: home [address] [place] [address] Name: JAIRO HAN Address: home [facility]
--- OUTSIDE RECORDS SUMMARY | 2024-02-11 22:05 | XMS_ITS | Continuity of Care Document ---
Author Organization [facility] Address [address] [place] [address]- Care Team Providers Care Textile Bag Sewer Name Role Phone Not on Staff, PCP Primary Care Physician Unavail able En[facility] Date(s): 09/02/22 - 10/11/[address] [address]- Attending Physician: David HARRIS, Taylor Lenz Admitting Physician: David HARRIS, Taylor Lenz Referring Physician: Taylor Hernandez MD Allergies, Adverse Reactions, Alerts Substance Reaction [...] 8:23:00 EDT, Route to Pharmacy Electronically, [facility]/pharmacy #[id number], Partial fill upon patient request if the prescription is for a schedule II opioi... Start Date: 05/28/22 Status: Ordered topiramate 25 mg oral tablet 1 tablet = 25 mg, By Mouth, 2 times a day, # 60 tablet, 0 Refills, Maintenance, 05/28/22 8:23:00 EDT, Tablet, [facility]/pharmacy #[id number], Partial fill upon patient request if the prescription is for a schedule II opioid drug., 173, cm, 05/27/22 18:52:00 EDT,... Start Date: 05/28/22 Status: Ordered traZODone 50 mg oral tablet 50 mg, 1, tablet, By Mouth, Daily at bedtime, # 30 tablet, Refills 0, Tot. Refills 0, Maintenance, 05/28/22 8:23:00 EDT, Route to Pharmacy Electronically, [facility]/pharmacy #[id number], Partial fill upon patient [...] Care team information Care Team Personnel Name: Faye Alvarez RN Position: [facility] RN Member Role: Primary Care Nurse Name: Omi Wise RN Position: [facility] RN Member Role: Primary Care Nurse Name: Peggy Quintana Position: [facility] RN Member Role: Primary Care Nurse Name: Gill Han RN Position: [facility] RN Member Role: Primary Care Nurse Name: Sarwat Velázquez RN Position: S RN Member Role: Primary Care Nurse Name: Brigette Healy RN Position: S RN Member Role: Primary Care Nurse Name: Jessica Leal RN Position: S RN Member Role: Primary Care Nurse Name: Not on Staff, PCP Position: [facility] Physician (General Medicine) Member Role: PCP Name: Rylie Correa RN Position: S RN Member Role: Primary Care Nurse Name: Desiree Palacios RN Position: S RN Member Role: Primary Care Nurse Name: Nuha Celaya RN Position: S RN Member Role: Primary Care Nurse Name: Merlyn Looney RN Position: S RN Member Role: Primary Care Nurse Care Team Related Persons Name: GONZÁLEZ QUINTANILLA Address: [place] [address] Name: PAULA PAUL Address: home [address] [place] [address] Name: CARLOS PAUL Address: home [address] [place] [address]
--- OUTSIDE RECORDS SUMMARY | 2024-02-11 22:05 | XMS_ITS | Continuity of Care Document ---
Author Organization [facility] Address [address] [place] [address], [address] [place] [address]- Care Team Providers Care Gastroenterology Technician Name Role Phone George HARRIS, Bere Benavidez Primary Care Physician [id number] Date(s): 10/26/23 - 11/02/23 [facility] [place] [facility] [address] [facility] 4th [address] [place], [place] [address] Attending Physician: Lakshmi Burgess MD Allergies, Adverse [...] Comment: PT [facility] [id number] Medications Benadryl 25 mg oral capsule 1 [...] 15:11:00 EST, [facility] to Pharm[facility]ically[id number], Partial fill upon patient request if [...] Refills, Maintenance, 10/27/23 17:55:00 EST, Tablet, [id number], Partial fill upon patient request if the prescription is for a schedule II opioid drug., 174, cm, 10/26/23 14:28:00 EST, Height... Start Date: 10/27/23 Status: Ordered MiraLax oral powder for reconstitution = 17 Gm, By Mouth, Daily, dissolve in 4 to 8 oz of beverage, # 238 Gm, 1 Refills, Maintenance, 10/05/23 15:12:00 EST, REC Powder, [facility]/pharmacy #[id number], Partial fill upon patient [...] 1 Refills, Maintenance, 09/08/23 11:16:00 EST, Tablet, [facility], Partial fi... Start Date: 09/08/23 Status: Ordered PNV By Mouth, Daily, 0 Refills, Maintenance, 07/14/23 10:18:00 EST, Partial fill upon patient request if the prescription is for a schedule II opioid drug. Start Date: 07/14/23 Status: Ordered PNV Select oral tablet 1 tablet, By Mouth, Daily, # 90 tablet, 2 Refills, Maintenance, 10/26/23 14:27:00 EST, [facility]/pharmacy#[id number], Partial fill upon patient request if the prescription is for a schedule II opioid drug., 1 tablet By Mouth Daily, 174, cm, 10/26/23 14:06:00 EST... Start Date: 10/26/23 Status: Ordered pyridoxine 25 mg oral tablet 1 tablet = 25 mg, By Mouth, 3 times a day, PRN Nausea & Vomiting, # 100 tablet, 8 Refills, Maintenance, 07/19/23 13:37:00 EST, Tablet, [facility] ([facility] 827), Partial fill upon patient request if the prescription is for a schedule II opioid... Start Date: 07/19/23 Status: Ordered Unisom 25 mg oral tablet 1 tablet = 25 mg, By Mouth, Daily at bedtime, may take additional 1/2 tablet in morning & 1/2 tablet in afternoon if nausea persists, # 60 tablet, 1 Refills, Maintenance, 07/27/23 13:40:00 EST, [id number] ([facility] 827), Partial fill upon patie... 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 Elevated blood pressure affecting in third trimester, antepartum Confirmed Active Size of fetus inconsistent with dates, antepartum Confirmed Active History of suicide attempt Confirmed Active Elevated liver function tests Confirmed Active Confirmed Active PTSD (post-traumatic stress disorder) Confirmed Active Convulsions Confirmed Active Seizure disorder Confirmed Active Vital Signs Most recent to oldest [Reference Range]: 1 2 Height 174 cm (10/26/23 2:28 PM) 174 cm (10/26/23 2:06 PM) Weight 67.27 kg (10/26/23 2:06 PM) Body Mass Index [18.5-24.99 kg/m2] 22.22 kg/m2 (10/26/23 2:06 PM) Blood Pressure [90-138/55-84 mm Hg] 128/ 50mm Hg (10/26/23 2:28 PM) 160/50mm Hg *H* (10/26/23 2:06 PM) Blood pressure sites Arm, right (10/26/23 2:06 PM) Weight Obtained Via Standing scale (10/26/23 2:06 PM) Social History Social History Type Response [...] - Pediatrics Member Role: PCP Address: Address: [address] [place] [address] Pediatric & Adolescent Medicine [place], [place] [address] Name: Jessica Leal RN Position: S RN Member Role: Primary Care Nurse Name: Bisi Rock RN Position: S RN Member Role: Primary Care Nurse Name: Merlyn Looney RN Position: [facility] RN Member Role: Primary Care Nurse Care Team Related Persons Name: RUTHY GUZMAN Address: home [address] [place] [address] Name: PAULA PAUL Address: home [address] [place] [address] Name: PAULA PAUL Address: home [address] [place] [address] Name: CARLOS PAUL Address: home [address] [place] [address] Name: JAIRO HAN Address: home
--- OUTSIDE RECORDS SUMMARY | 2024-02-11 22:05 | XMS_ITS | Continuity of Care Document ---
Author Organization [facility] Address [address], [address] [place] [address]- Care Team Providers Care Station Installer Name Role Phone George HARRIS, Bere Benavidez Primary Care Physician En[facility] Date(s): 11/08/23 - 12[facility]19/[facility] [address] [facility], [address] [place] [address]- Attending Physician: Ana Paula Tate MD Referring Physician: Aditya HARRIS, Lakshmi [place] [...] 08/13/20 Recorded 1Result Comment: PT [facility] [id number] Medications Benadryl 25 mg oral capsule 1 capsule = 25 mg, By Mouth, Daily at bedtime, PRN Headache, # 30 capsule, 0 Refills, Maintenance, 11/27/23 21:42:00 EDT, Capsule, [id number], Partial fill upon patient request if the [...] 10/05/23 15:11:00 EST, Route to Pharmacy Electronically, [facility]/pharmacy #[id number], Partial fill upon patient request if [...] 3 Refills, Maintenance, 10/27/23 17:55:00 EST, Tablet, [facility]/pharmacy #[id number], Partial fill upon patient request if [...] Refills, Maintenance, 10/05/23 15:12:00 EST, REC Powder, [facility]/pharmacy #[id number], Partial fill upon patient request if [...] tablet, 2 Refills, Maintenance, 10/26/23 14:27:00 EST, [facility]/pharmacy#0315, Partial fill upon patient request if the prescription is for a schedule II opioid drug., 1 tablet By Mouth Daily, 174, cm, 10/26/23 14:06:00 EST... Start Date: 10/26/23 Status: Ordered pyridoxine 25 mg oral tablet 1 tablet = 25 mg, By Mouth, 3 times a day, PRN Nausea & Vomiting, # 100 tablet, 8 Refills, Maintenance, 07/19/23 13:37:00 EST, Tablet, [facility] ([facility] 827), Partial fill upon patient request if the prescription is for a schedule II opioid... Start Date: 07/19/23 Status: Ordered Reglan 10 mg oral tablet 1 tablet = 10 mg, By Mouth, Daily, PRN Headache, # 30 tablet, 0 Refills, Maintenance, 11/27/23 21:42:00 EDT, [facility]/pharmacy #[id number], Partial fill upon patient request if the prescription is for a schedule II opioid drug., 174, cm, 11/08/23 13:36:00 EST, H... Start Date: 11/27/23 Status: Ordered ursodiol 300 mg oral capsule 300 mg, 1, capsule, By Mouth, 3 times a day, # 100 capsule, Refills 1, Tot. Refills 1, Maintenance,12/06/23 18:22:00 EDT, Route to Pharmacy Electronically, [facility]/pharmacy #[id number], Partial fill upon patient request if the [...] - Pediatrics Member Role: PCP Address: Address: [address] [place] [address] Pediatric & [place] [address]- Name: Jessica Leal RN Position: S RN Member Role: Primary Care Nurse Name: Bisi Rock RN Position: S RN Member Role: Primary Care Nurse Name: Merlyn Looney RN Position: S RN Member Role: Primary Care Nurse Care Team Related Persons Name: RUTHY GUZMAN Address: home [address] [place] [address] Name: PAULA PAUL Address: home [address] [place] [address] Name: CARLOS PAUL Address: home [address] [place] [address] Name: JAIRO HAN Address: home [facility]
--- OUTSIDE RECORDS SUMMARY | 2024-02-11 22:05 | XMS_ITS | Continuity of Care Document ---
Author Organization [facility] ter Address [address] [place] [address]- Care Team Providers Care Corporate Director Of Human Resources Name Role Phone Roro Pitts MD Primary Care Physician Encounter [facility] Date(s): 01/21/21 - 01/21/[address] [address]- Encounter Diagnosis Constipation(Final) - 01/21/21 Discharge Disposition: A-D/C Home Attending Physician: Teresa [...] 23:04:00 EDT, 01/21/21 23:04:00 EDT, REC Powder, [id number], Partial fill upon patient request if the [...] Range]: 1 2 3 Height 170 cm (01/21/21 10:26 PM) 170 cm (01/21/21 7:31 PM) 170 cm (01/21/21 4:30 PM) Weight 75.7 kg (01/21/21 10:26 PM) 75.7 kg (01/21/21:31 PM) 75.7 kg (01/21/21 4:30 PM) Oxygen Saturation [94-100 %] 100 % (01/21/21 10:26 PM) 100 % (01/21/21 7:31 PM) 100 % (01/21/21 4:30 PM) Pulse Rate [55-90 bpm] 66 bpm (01/21/21 10:26 PM) 65 bpm (01/21/21 7:31 PM) 80 bpm (01/21/21 4:30 PM) Body Mass Index [18.5-24.99] 26.19 *H* (01/21/21 10:26 PM) 26.19 *H* (01/21/21 7:31 PM) 26.19 *H* (01/21/21 4:30 PM) Blood Pressure [80-130/50-80 mm Hg] 103/45mm Hg (01/21/21 10:26 PM) 103/45mm Hg (01/21/21 7:31 PM) 125/59mm Hg (01/21/21 4:30 PM) Respiratory Rate [16-30 br/min] 16 br/min (01/21/21 10:26 PM) 16 br/min (01/21/21 7:31 PM) 18 br/min (01/21/21 4:30 PM) Temperature [96.8-100.4 DegF] 98.4 DegF (01/21/21 10: PM) 98.3 DegF (01/21/21 7:31 PM) 99 DegF (01/21/21 4:30 PM) Mode of Delivery (Oxygen) Room air (01/21/21 10:26 PM) Room air (01/21/21 7:31 PM) Room air (01/21/21 4:30 PM) Blood pressure sites Arm, left (01/21/21 10:26 PM) Arm, right (01/21/21 7:31 PM) Arm, right (01/21/21 4:30 PM) Temperature Route Oral (01/21/21 10:26 PM) Oral (01/21/21 7:31 PM) Temporal (01/21/21 4:30 PM) Dry Weight 75.7 kg (01/21/21 10:26 PM) 75.7 kg (01/21/21 7:31 PM) 75.7 kg (01/21/21 4:30 PM) Weight Obtained Via Standing scale (01/21/21 4:30 PM) Dry Weight Obtained Via Standing scale (01/21/21 4:30 PM) Social History Social History Type Response Smoking Status Never smoker entered on: 01/16/18 Sex
--- OUTSIDE RECORDS SUMMARY | 2024-02-11 22:05 | XMS_ITS | Continuity of Care Document ---
Author Organization [facility] ter Address [address] [place] [address]- Care Team Providers Care Csr Technician Name Role Phone Roro Pitts MD Primary Care Physician [place] [facility] [place] - 03/14/[address] [address]- Discharge Disposition: A-D/C Home Attending Physician: Ld [...] 08/13/20 Recorded tetanus/diphtheria/pertussis, acel(Tdap) 06/27/18 Given Medications benztropine 1 mg oral tablet 1 mg, 1, tablet, By Mouth, Daily, Blister pack, # 30 tablet, Refills 0, Tot. Refills 0, Maintenance, 03/12/22 12:10:00 EDT, Route to Pharmacy Electronically, [facility], Partial fill upon patient request if the prescription is for a schedule II opioid... Start Date: 03/12/22 Stop Date: 04/11/22 Status: Ordered chlorproMAZINE 50 mg oral tablet 1 tablet = 50 mg, By Mouth, 4 times a day, PRN Agitation, Blister pack, # 56 tablet, 1 Refills, Maintenance, 03/12/22 12:10:00 EDT, Tablet, [facility], Partial fill upon patient request if the prescription is for a schedule II opioid drug., 173, cm, 0... Start Date: 03/12/22 Stop Date: 04/09/22 Status: Ordered cloNIDine 0.1 mg oral tablet 0.1 mg, 1, tablet, By Mouth, Daily, PRN, Blister pack, # 14 tablet, Refills 2, Tot. Refills 2, Maintenance, Anxiety, 03/12/22 12:10:00 EDT, Route to Pharmacy Electronically, [facility], Partial fill upon patient request if the prescription is for a sc... Start Date: 03/12/22 Stop Date: 04/23/22 Status: Ordered Haldol Decanoate decanoate 100 mg/ml injectable solution See Instructions, 100 mg Intramuscular Once every 4 weeks, next dose on 04/10/2022, can be given witha window of +/- 4 days. To be supplied on the day of administration.., # 1 each, 0 Refills, Soft Stop, 03/12/22 12:16:00 EDT, Solution, [facility], Pa... Start Date: 03/12/22 Status: Ordered haloperidol 5 mg oral tablet 5 mg, 1, tablet, By Mouth, 2 times a day, Reduce the dose to once a day after the second dose of Haldol decanoate injection. Medication supply in blister pack., # 28 tablet, Refills 1, Tot. Refills 1, Maintenance, 03/12/22 12:12:00 EDT, Route to Phar... Start Date: 03/12/22 Stop Date: 04/09/22 Status: Ordered LORazepam 1 mg oral tablet 1 tablet = 1 mg, By Mouth, 3 times a day, PRN Anxiety, for 14 days, Blister pack, # 42 tablet, 1 Refills, Acute 04/09/22 12:15:00 EDT, 03/12/22 12:15:00 EDT, Tablet, Partial fill upon patient requestif the prescription is for a schedule II opioid drug. Start Date: 03/12/22 Stop Date: 04/09/22 Status: Ordered melatonin 10 mg oral tablet 1 tablet = 10 mg, By Mouth, Daily at bedtime, for 30 days, # 30 tablet, 0 Refills, Acute 04/11/22 12:13:00 EDT, 03/12/22 12:13:00 EDT, Tablet, [facility], Partial fill upon patient request if the prescription is for a schedule II opioid drug., 173, cm... Start Date: 03/12/22 Stop Date: 04/11/22 Status: Ordered prazosin 2 mg oral capsule 1 capsule = 2 mg, By Mouth, Daily at bedtime, Blister pack, # 30 capsule, 0 Refills, Maintenance, 03/12/22 12:11:00 EDT, Capsule, [facility], Partial fill upon patient request if the prescription is for a schedule II opioid drug., 173, cm, 03/11/22 17... Start Date: 03/12/22 Stop Date: 04/11/22 Status: Ordered Problem List Condition Effective Dates Status Health Status Inform ant Acute depression(Confirmed) Active Vital Signs Most recent to oldest [Reference Range]: 1 2 3 Oxygen Saturation [94-100 %] 99 % (03/14/22 11:33 AM) 100 % (03/14/22 10:17 AM) 99 % (03/14/22 8:03 AM) Pulse Rate [55-90 bpm] 66 bpm (03/14/22 11:33 AM) 70 bpm (03/14/22 10:17 AM) 69 bpm (03/14/22 8:03 AM) Blood Pressure [71-110/30-71 mm Hg] 108/64mm Hg (03/14/22 11:33 AM) 110/54mm Hg (03/14/22 10:17 AM) 107/60mm Hg (03/14/22 8:03 AM) Respiratory Rate [16-30 br/min] 16 br/min (03/14/22 11:33 AM) 16 br/min (03/14/22 10:17 AM) 16 br/min (03/14/22 8:03 AM) Temperature [96.8-100.4 DegF] 98.0 DegF (03/14/22 11:33 AM) 97.9 DegF (03/14/22 8:03 AM) Mode of Delivery (Oxygen) Room air (03/14/22 11:33 AM) Room air (03/14/22 10:17 AM) Room air (03/14/22 8:03 AM) Blood pressure sites Arm, left (03/14/22 11:33 AM) Arm, left (03/14/22 10:17 AM) Arm, left (03/14/22 8:03 AM) Temperature Route Oral (03/14/22 11:33 AM) Oral (03/14/22 8:03 AM) Social History Social History Type Response Smoking Status 5-9 cigarettes (betw een 1/4 to 1/2 pack)/day in last 30 days entered on: 05/24/21 Sex
--- OUTSIDE RECORDS SUMMARY | 2024-02-11 22:05 | XMS_ITS | Continuity of Care Document ---
Author Organization [facility] Mcmanus [employer] Address [address], [address] [place] [address]- Care Team Providers Care Cementing Bulk Material Operator Name Role Phone George HARRIS, Bere Benavidez Primary Care Physician [place] [facility] [place] 11/09/23 - 02/10/24 [facility] [address], [address] [place] [address]- Attending Physician: Aditya HARRIS, Lakshmi Douglas Allergies, [...] 08/13/20 Recorded 1Result Comment: PT [facility] [id number] Medications Lamotrigine By Mouth, Refills 0, Maintenance, [...] tablet, 2 Refills, Maintenance, 10/26/23 14:27:00 EST, [facility]/pharmacy#[id number], Partial fill upon patient request if [...] Team Personnel Name: Omi Wise RN Position: [facility] RN Member Role: Primary Care Nurse Name: Peggy Quintana Position: [facility] RN Member Role: Primary Care Nurse Name: Gill Han RN Position: [facility] RN Member Role: Primary Care Nurse Name: Sarwat Velázquez RN Position: [facility] RN Member Role: Primary Care Nurse Name: Adele Ibanez RN Position: [facility] RN Member Role: Primary Care Nurse Name: Nidia Tripp Position: S RN Member Role: Primary Care Nurse Name: Bere Vazquez MD Position: [facility] Physician - Pediatrics Member Role: PCP Address: Address: [address] [facility] [place] [address]- Name: Jessica Leal RN Position: S RN Member Role: Primary Care Nurse Name: Bisi Rock RN Position: S RN Member Role: Primary Care Nurse Name: Merlyn Looney RN Position: S RN Member Role: Primary Care Nurse Care Team Related Persons Name: RUTHY GUZMAN Address: home [address] [place] [address] Name: PAULA PAUL Address: home [address] [place] [address] Name: CHARLY PAUL Address: [address] Address: home [address] [place] [address] Name: CARLOS PAUL Address: home [address] [place] [address] Name: JAIRO HAN Address: home
--- OUTSIDE RECORDS SUMMARY | 2024-02-11 22:05 | XMS_ITS | Continuity of Care Document ---
Author Organization [facility] Yonathan [employer] Pharm[employer]ss [facility] Address [address], [address] [place] [address]- Care Team Providers Care Hogshead Cooper Name Role Phone George HARRIS, Bere Benavidez Primary Care Physician [place] [facility] [place] 01/21/24 - 01/28/24 [facility] MayelaKaloB[facility] Pharmaceuticalss [facility] [address], [address] [place] [address]- Attending Physician: Aditya HARRIS, Lakshmi Douglas Allergies, [...] [facility] [id number] Medications Benadryl 25 mg oral capsule 1 [...] Gm, 0 Refills, Maintenance, 12/23/23 14:35:00 EDT,Cream, [facility]/pharmacy #[id number], Partial fill upon patient request if the [...] 10/05/23 15:11:00 EST, Route to Pharmacy Electronically, [facility]/pharmacy #[id number], Partial fill upon [...] 3 Refills, Maintenance, 10/27/23 17:55:00 EST, Tablet, [facility]/pharmacy #[id number], Partial fill upon [...] Refills, Soft Stop, 01/06/24 23:37:00 EDT, Cream, [facility]/pharmacy #[id number], Partial fill upon patient request if the prescription is for a schedule II opioid drug., 1 applicator Topically Once, 173, cm, 01/05/24 8:4... Start Date: 01/06/24 Status: Ordered MiraLax oral powder for reconstitution = 17 Gm, By Mouth, Daily, dissolve in 4 to 8 oz of beverage, # 238 Gm, 1 Refills, Maintenance, 10/05/23 15:12:00 EST, REC Powder, [facility]/pharmacy #[id number], Partial fill upon [...] 1 Refills, Maintenance, 09/08/23 11:16:00 EST, Tablet, [facility], Partial fi... Start Date: 09/08/23 Status: Ordered PNV By Mouth, Daily, 0 Refills, Maintenance, 07/14/23 10:18:00 EST, Partial fill upon patient request if the prescription is for a schedule II opioid drug. Start Date: 07/14/23 Status: Ordered PNV Select oral tablet 1 tablet, By Mouth, Daily, # 90 tablet, 2 Refills, Maintenance, 10/26/23 14:27:00 EST, [facility]/pharmacy#[id number], Partial fill upon patient request if the prescription is for a schedule II opioid drug., 1 tablet By Mouth Daily, 174, cm, 10/26/23 14:06:00 EST... Start Date: 10/26/23 Status: Ordered pyridoxine 25 mg oral tablet 1 tablet = 25 mg, By Mouth, 3 times a day, PRN Nausea & Vomiting, # 100 tablet, 8 Refills, Maintenance, 07/19/23 13:37:00 EST, Tablet, [facility] [id number] ([facility] 827), Partial fill upon patient request if the prescription is for a schedule II opioid... Start Date: 07/19/23 Status: Ordered Reglan 10 mg oral tablet 1 tablet = 10 mg, By Mouth, Daily, PRN Headache, # 30 tablet, 0 Refills, Maintenance, 11/27/23 21:42:00 EDT, [facility]/pharmacy #[id number], Partial fill upon patient request if the prescription is for a schedule II opioid drug., 174, cm, 11/08/23 13:36:00 EST, H... Start Date: 11/27/23 Status: Ordered ursodiol 300 mg oral capsule 300 mg, 1, capsule, By Mouth, 3 times a day, # 100 capsule, Refills 1, Tot. Refills 1, Maintenance,12/06/23 18:22:00 EDT, Route to Pharmacy Electronically, [facility]/pharmacy #[id number], Partial fill upon patient request if the [...] Team Personnel Name: Omi Wise RN Position: [facility] RN Member Role: Primary Care Nurse Name: Peggy Quintana Position: [facility] RN Member Role: Primary Care Nurse Name: Gill Han RN Position: S RN Member Role: Primary Care Nurse Name: Sarwat Velázquez RN Position: S RN Member Role: Primary Care Nurse Name: Adele Ibanez RN Position: S RN Member Role: Primary Care Nurse Name: Nidia Tripp Position: S RN Member Role: Primary Care Nurse Name: Bere Vazquez MD Position: [facility] Physician - Pediatrics Member Role: PCP Address: Address: [address] [place] [address] Pediatric & Adolescent Medicine [place], [place] [address] Name: Jessica Leal RN Position: [facility] RN Member Role: Primary Care Nurse Name: Bisi Rock RN Position: [facility] RN Member Role: Primary Care Nurse Name: Merlyn Looney RN Position: [facility] RN Member Role: Primary Care Nurse Care Team Related Persons Name: RUTHY GUZMAN Address: home [address] [place] [address] Name: PAULA PAUL Address: home [address] [place] [address] Name: CHARLY PAUL Address: [id number] Address: home [address] [place] [address] Name: CARLOS PAUL Address: home [address] [place] [address] Name: JAIRO HAN Address: home [facility]
--- OUTSIDE RECORDS SUMMARY | 2024-02-11 22:05 | XMS_ITS | Continuity of Care Document ---
Author Organization [facility] Yonathan da silvaSocial Realitys [facility] Address [address], [address] [place] [address]- Care Team Providers Care Environmental Technician Name Role Phone George HARRIS, Bere Benavidez Primary Care Physician [place] [facility] [place] 01/30/[facility] Pedro[facility] [address] [place] [address]- Attending Physician: Lakshmi Burgess MD Referring Physician: Lakshmi [...] 08/13/20 Recorded 1Result Comment: PT [facility] [id number] Medications Benadryl 25 mg oral capsule 1 capsule = 25 mg, By Mouth, Daily at bedtime, PRN Headache, # 30 capsule, 0 Refills, Maintenance, 11/27/23 21:42:00 EDT, Capsule, [id number], Partial fill upon patient request if the [...] 0 Refills, Maintenance, 12/23/23 14:35:00 EDT,Cream, [facility]/pharmacy #[id number], Partial fill upon patient request if the [...] 15:11:00 EST, Route to Pharmacy Electronically, [facility]/pharmacy #[id number], Partial fill upon patient [...] Refills, Maintenance, 10/27/23 17:55:00 EST, Tablet, [facility]/pharmacy #[id number], Partial fill upon patient [...] Soft Stop, 01/06/24 23:37:00 EDT, Cream, [facility]/pharmacy #[id number], Partial fill upon patient request if the prescription is for a schedule II opioid drug., 1 applicator Topically Once, 173, cm, 01/05/24 8:4... Start Date: 01/06/24 Status: Ordered MiraLax oral powder for reconstitution = 17 Gm, By Mouth, Daily, dissolve in 4 to 8 oz of beverage, # 238 Gm, 1 Refills, Maintenance, 10/05/23 15:12:00 EST, REC Powder, [facility]/pharmacy #[id number], Partial fill upon patient [...] 2 Refills, Maintenance, 10/26/23 14:27:00 EST, [facility]/pharmacy#[id number], Partial fill upon patient request if the prescription is for a schedule II opioid drug., 1 tablet By Mouth Daily, 174, cm, 10/26/23 14:06:00 EST... Start Date: 10/26/23 Status: Ordered pyridoxine 25 mg oral tablet 1 tablet = 25 mg, By Mouth, 3 times a day, PRN Nausea & Vomiting, # 100 tablet, 8 Refills, Maintenance, 07/19/23 13:37:00 EST, Tablet, [facility] [id number] ([facility] 827), Partial fill upon patient request if the prescription is for a schedule II opioid... Start Date: 07/19/23 Status: Ordered Reglan 10 mg oral tablet 1 tablet = 10 mg, By Mouth, Daily, PRN Headache, # 30 tablet, 0 Refills, Maintenance, 11/27/23 21:42:00 EDT, [facility]/pharmacy #[id number], Partial fill upon patient request if the prescription is for a schedule II opioid drug., 174, cm, 11/08/23 13:36:00 EST, H... Start Date: 11/27/23 Status: Ordered ursodiol 300 mg oral capsule 300 mg, 1, capsule, By Mouth, 3 times a day, # 100 capsule, Refills 1, Tot. Refills 1, Maintenance,12/06/23 18:22:00 EDT, Route to Pharmacy Electronically, [facility]/pharmacy #[id number], Partial fill upon patient request if the [...] Personnel Name: Omi Wise RN Position: [facility] RN Member Role: Primary Care Nurse Name: Peggy Quintana Position: S RN Member Role: Primary Care Nurse Name: Gill Han RN Position: [facility] RN Member Role: Primary Care Nurse Name: Sarwat Velázquez RN Position: S RN Member Role: Primary Care Nurse Name: Adele Ibanez RN Position: [facility] RN Member Role: Primary Care Nurse Name: Nidia Tripp Position: [facility] RN Member Role: Primary Care Nurse Name: Bere Vazquez MD Position: [facility] Physician - Pediatrics Member Role: PCP Address: Address: [address] [place] [address] Pediatric & Adolescent Medicine [place], [place] [address] Name: Jessica Leal RN Position: [facility] RN Member Role: Primary Care Nurse Name: Bisi Rock RN Position: [facility] RN Member Role: Primary Care Nurse Name: Merlyn Looney RN Position: [facility] RN Member Role: Primary Care Nurse Care Team Related Persons Name: RUTHY GUZMAN Address: home [address] [place] [address] Name: PAULA PAUL Address: home [address] [place] [address] Name: CHARLY PAUL Address: [address] Address: home [address] [place] [address] [place] Name: CARLOS PAUL Address: home [address] [place] [address] Name: JAIRO HAN Address: home
--- OUTSIDE RECORDS SUMMARY | 2024-02-11 22:05 | XMS_ITS | Continuity of Care Document ---
Author Organization [facility] Yonathan nTraverse Networkss [facility] Address [address], [address] [place] [address]- Care Team Providers Care Florist Manager Name Role Phone George HARRIS, Bere Benavidez Primary Care Physician En[place] [facility] [place] Date(s): 11/12/23 - 11/19/23 [facility] PedroTraverse Networkss [facility] [address] [place] [address]- Attending Physician: Ana Paula Tate MD Referring Physician: Lakshmi Burgess MD Allergies, [...] Comment: PT [facility] [id number] Medications Benadryl 25 mg oral capsule 1 [...] 10/05/23 15:11:00 EST, Route to Pharmacy Electronically, [facility]/pharmacy #[id number], Partial fill [...] 3 Refills, Maintenance, 10/27/23 17:55:00 EST, Tablet, [facility]/pharmacy #[id number], Partial fill [...] 1 Refills, Maintenance, 09/08/23 11:16:00 EST, Tablet, [facility], Partial fi... Start Date: 09/08/23 Status: [...] 8 Refills, Maintenance, 07/19/23 13:37:00 EST, Tablet, [facility] [id number] ([facility] 827), Partial fill upon patient request if [...] Team Personnel Name: Omi Wise RN Position: [facility] RN Member Role: Primary Care Nurse Name: Peggy Quintana Position: S RN Member Role: Primary Care Nurse Name: Gill Han RN Position: S RN Member Role: Primary Care Nurse Name: Sarwat Velázquez RN Position: S RN Member Role: Primary Care Nurse Name: Adele Ibanez RN Position: [facility] RN Member Role: Primary Care Nurse Name: Nidia Tripp Position: [facility] RN Member Role: Primary Care Nurse Name: Bere Vazquez MD Position: [facility] Physician - Pediatrics Member Role: PCP Address: Address: [address] [place] [address] Pediatric & Adolescent Medicine [place], [place] [address] Name: Jessica Leal RN Position: [facility] RN Member Role: Primary Care Nurse Name: Bisi Rock RN Position: [facility] RN Member Role: Primary Care Nurse Name: Merlyn Looney RN Position: [facility] RN Member Role: Primary Care Nurse Care Team Related Persons Name: RUTHY GUZMAN Address: home [address] [place] [address] Name: PAULA PAUL Address: home [address] [place] [address] Name: CARLOS PAUL Address: home [address] [place] [address] Name: JAIRO HAN Address: [facility]
--- OUTSIDE RECORDS SUMMARY | 2024-02-11 22:05 | XMS_ITS | Continuity of Care Document ---
Author Organization [facility] Yonathan n[employer] [facility] Address [address], [address] [place] [address]- Care Team Providers Care Oyster Culler Name Role Phone George HARRIS, Bere Benavidez Primary Care Physician [place] [facility] [place] 12/13/23 - 01/12/24 [facility] PedroGet[employer] [address] [place] [address]- Allergies, Adverse Reactions, Alerts Substance Reaction Severity [...] Recorded 1Result Comment: PT [facility] [id number] Medications Benadryl 25 mg oral capsule 1 capsule = 25 mg, By Mouth, Daily at bedtime, PRN Headache, # 30 capsule, 0 Refills, Maintenance, 11/27/23 21:42:00 EDT, Capsule, [id number], Partial fill upon patient request if the [...] Gm, 0 Refills, Maintenance, 12/23/23 14:35:00 EDT,Cream, [facility]/pharmacy #[id number], Partial fill upon patient request if the [...] Refills, Soft Stop, 01/06/24 23:37:00 EDT, Cream, [facility]/pharmacy #[id number], Partial fill upon patient request if the [...] 1 Refills, Maintenance, 09/08/23 11:16:00 EST, Tablet, [facility], Partial fi... Start Date: 09/08/23 Status: [...] Refills, Maintenance, 07/19/23 13:37:00 EST, Tablet, [facility] [id number] ([facility] 827), Partial fill upon patient request if the prescription is for a schedule II opioid... Start Date: 07/19/23 Status: Ordered Reglan 10 mg oral tablet 1 tablet = 10 mg, By Mouth, Daily, PRN Headache, # 30 tablet, 0 Refills, Maintenance, 11/27/23 21:42:00 EDT, [facility]/pharmacy #[id number], Partial fill upon patient request if the prescription is for a schedule II opioid drug., 174, cm, 11/08/23 13:36:00 EST, H... Start Date: 11/27/23 Status: Ordered ursodiol 300 mg oral capsule 300 mg, 1, capsule, By Mouth, 3 times a day, # 100 capsule, Refills 1, Tot. Refills 1, Maintenance,12/06/23 18:22:00 EDT, Route to Pharmacy Electronically, [facility]/pharmacy #[id number], Partial fill upon patient request if the [...] Care Nurse Name: Adele Ibanez RN Position: [facility] RN Member Role: Primary Care Nurse Name: Nidia Tripp Position: S RN Member Role: Primary Care Nurse Name: Bere Vazquez MD Position: [facility] Physician - Pediatrics Member Role: PCP Address: Address: [address] [place] [address] Pediatric & Adolescent Medicine [place], [place] [address] Name: Jessica Leal RN Position: [facility] RN Member Role: Primary Care Nurse Name: Bisi Rock RN Position: [facility] RN Member Role: Primary Care Nurse Name: Merlyn Looney RN Position: [facility] RN Member Role: Primary Care Nurse Care Team Related Persons Name: RUTHY GUZMAN Address: home [address] [place] [address] Name: PAULA PAUL Address: home [address] [place] [address] Name: CHARLY PAUL Address: [address] Address: home [address] [place] [address] Name: CARLOS PAUL Address: home [address] [place] [address] Name: JAIRO HAN Address: home [facility]
--- OUTSIDE RECORDS SUMMARY | 2024-02-11 22:05 | XMS_ITS | Continuity of Care Document ---
Author Organization [facility] Address [address] [place] [address]- Care Team Providers Care Yarn Salvager Name Role Phone Hong HARRIS, Roro Primary Care Physician [place] [facility] [place] Date(s): 11/22/20 - 12/22/20 [facility] [address] [place] [address]- Allergies, Adverse Reactions, Alerts Substance Reaction Severity [...]
--- OUTSIDE RECORDS SUMMARY | 2024-02-11 22:05 | XMS_ITS | Continuity of Care Document ---
Author Organization [facility] Address [address] [place] [address]- Care Team Providers Care Caponizer Name Role Phone Pinky Peters MD Primary Care Physician Encounter [facility] Date(s): 04/10/22 - 04/11/[address] [address]- Discharge Disposition: A-D/C Home Attending Physician: Chente Tariq MD Admitting Physician: Chente Tariq MD Referring Physician: Not on Staff, Referring [...] 03/12/22 12:10:00 EDT, Route to Pharmacy Electronically, [facility], Partial fill upon patient request if the [...] Date: 03/12/22 Stop Date: 04/09/22 Status: Ordered prazosin 2 mg oral capsule 1 capsule = 2 mg, By Mouth, Daily at bedtime, Blister pack, # 30 capsule, 0 Refills, Maintenance, 03/12/22 12:11:00 EDT, Capsule, [facility], Partial fill upon patient request if the prescription is for a schedule II opioid drug., 173, cm, 03/11/22 17... Start Date: 03/12/22 Stop Date: 04/11/22 Status: Ordered topiramate 25 mg oral tablet 1 tablet = 25 mg, By Mouth, Daily, # 30 tablet, 0 Refills, Maintenance, 04/11/22 22:09:00 EDT, [id number], Partial fill upon patient request if the prescription is for a schedule II opioid drug., 170, cm, 04/11/22 22:05:00 EDT, Height... Start Date: 04/11/22 Status: Ordered Problem List Condition Effective Dates Status Health Status Inform ant Acute depression(Confirmed) Active Vital Signs Most recent to oldest [Reference Range]: 1 2 3 Height 170 cm (04/11/22 10:05 PM) 170 cm (04/11/22 7:16 PM) 170 cm (04/11/22 1:40 AM) Weight 63.5 kg (04/11/22 10:05 PM) 63.5 kg (04/11/22 7:16 PM) 63.5 kg (04/11/22 1:40 AM) Oxygen Saturation [94-100 %] 99 % (04/11/22 10:05 PM) 100 % (04/11/22 7:16 PM) 99 % (04/11/22 1:40 AM) Pulse Rate [55-90 bpm] 98 bpm *H* (04/11/22 10:05 PM) 90 bpm (04/11/22 7:16 PM) 74 bpm (04/11/22 1:40 AM) Body Mass Index [18.5-24.99] 21.97 (04/11/22 10:05 PM) 21.97 (04/11/22 7:16 PM) 21.97 (04/11/22 1:40 AM) Blood Pressure [71-110/30-71 mm Hg] 123/72mm Hg *H* (04/11/22 10:05 PM) 114/57mm Hg *H* (04/11/22 7:16 PM) 106/46mm Hg (04/11/22 1:40 AM) Respiratory Rate [16-30 br/min] 18 br/min (04/11/22 10:05 PM) 18 br/min (04/11/22 7:16 PM) 16 br/min (04/11/22 1:40 AM) Temperature [96.8-100.4 DegF] 97.9 DegF (04/11/22 7:16 PM) 98.1 DegF (04/11/22 1:40 AM) 97.6 DegF (04/10/22 8:38 PM) Liters per Minute 0 L/min (04/11/22 10:05 PM) 0 L/min (04/11/22 7:16 PM) 0 L/min (04/11/22 1:40 AM) Mode of Delivery (Oxygen) Room air (04/11/22 10:05 PM) Room air (04/11/22 7:16 PM) Room air (04/11/22 1:40 AM) Blood pressure sites Arm, right (04/11/22 10:05 PM) Arm, right (04/11/22 7:16 PM) Arm, right (04/11/22 1:40 AM) Temperature Route Oral (04/11/22 7:16 PM) Temporal (04/11/22 1:40 AM) Oral (04/10/22 8:38 PM) Dry Weight 63.5 kg (04/11/22 10:05 PM) 63.5 kg (04/11/22 7:16 PM) 63.5 kg (04/11/22 1:40 AM) Social History Social History Type Response Smoking Status 5-9 cigarettes (betw een 1/4 to 1/2 pack)/day in last 30 days entered on: 05/24/21 Sex
--- OUTSIDE RECORDS SUMMARY | 2024-02-11 22:05 | XMS_ITS | Continuity of Care Document ---
Author Organization [facility] Address [address] [place] [address]- Care Team Providers Care Field Traffic Investigator Name Role Phone Pinky Peters MD Primary Care Physician Encounter [facility] Date(s): 05/18/22 - 05/20/[address] [address]- Discharge Disposition: Transfer to [facility] Facility Attending Physician: Annette Looney MD Admitting Physician: Annette Looney MD Referring Physician: Not on Staff, Referring [...] Recorded tetanus/diphtheria/pertussis, acel(Tdap) 06/27/18 Given Medications chlorproMAZINE 50 mg oral tablet 1 tablet [...] 03/12/22 12:10:00 EDT, Route to Pharmacy Electronically, [facility], Partial fill upon patient request if the [...] Refills, Soft Stop, 03/12/22 12:16:00 EDT, [place], [place] Start Date: 03/12/22 Status: Ordered haloperidol [...] 03/12/22 Stop Date: 04/09/22 Status: Ordered melatonin 3 mg oral tablet = 9 mg, By Mouth, Daily at bedtime, PRN Sleep, # 1 tablet, 0 Refills, Acute 05/25/22 23:01:00 EDT, 05/18/22 23:00:00 EDT, Tablet, [facility] #[id number], Partial fill upon patient request if theprescription is for a schedule II opioid drug., 170... Start Date: 05/18/22 Stop Date: 05/25/22 Status: Ordered prazosin 1 mg oral capsule 2 mg, Capsule, By Mouth, 05/19/22 21:00:00 EDT Start Date: 05/19/22 Stop Date: 05/19/22 Status: Completed prazosin 2 mg oral capsule 1 capsule = 2 mg, By Mouth, Daily at bedtime, Blister pack, # 30 capsule, 0 Refills, Maintenance, 03/12/22 12:11:00 EDT, Capsule, [facility], Partial fill upon patient request if the prescription is for a schedule II opioid drug., 173, cm, 07/06/22 17... Start Date: 03/12/22 Stop Date: 04/11/22 Status: Ordered topiramate 25 mg oral tablet 1 tablet = 25 mg, By Mouth, Daily, # 30 tablet, 0 Refills, Maintenance, 04/11/22 22:09:00 EDT, [facility] #[id number], Partial fill upon patient request if the prescription is for a schedule II opioid drug., 170, cm, 04/11/22 22:05:00 EDT, Height... Start Date: 04/11/22 Status: Ordered Problem List Condition Effective Dates Status Health Status Inform ant Acute depression(Confirmed) Active Vital Signs Most recent to oldest [Reference Range]: 1 2 3 Height 170 cm (05/20/22 2:39 PM) 170 cm (05/19/22 11:02 PM) 170 cm (05/19/22 6:49 PM) Weight 64 kg (05/20/22 2:39 PM) 64 kg (05/19/22 6:49 PM) 64 kg (05/19/22 2:23 PM) Oxygen Saturation [94-100 %] 100 % (05/20/22 2:39 PM) 99 % (05/19/22 11:02 PM) 100 % (05/19/22 6:49 PM) Pulse Rate [55-90 bpm] 82 bpm (05/20/22 2:39 PM) 48 bpm *L* (05/19/22 11:02 PM) 62 bpm (05/19/22 6:49 PM) Body Mass Index [18.5-24.99] 22.15 (05/20/22 2:39 PM) 22.15 (05/19/22 6:49 PM) 22.15 (05/19/22 2:23 PM) Blood Pressure [71-110/30-71 mm Hg] 116/62mm Hg *H* (05/20/22 2:39 PM) 110/62mm Hg (05/19/22 11:02 PM) 113/67mm Hg *H* (05/19/22 8:07 PM) Respiratory Rate [16-30 br/min] 17 br/min (05/20/22 2:39 PM) 17 br/min (05/19/22 11:02 PM) 18 br/min (05/19/22 6:49 PM) Temperature [96.8-100.4 DegF] 98.2 DegF (05/19/22 6:49 PM) 98.1 DegF (05/19/22 2:23 PM) 98.9 DegF (05/18/22 4:06 PM) Liters per Minute 0 L/min (05/18/22 5:06 PM) 0 L/min (05/18/22 4:06 PM) Mode of Delivery (Oxygen) Room air (05/20/22 2:39 PM) Room air (05/19/22 11:02 PM) Room air (05/19/22 6:49 PM) Blood pressure sites Arm, left (05/20/22 2:39 PM) Arm, right (05/19/22 11:02 PM) Arm, left (05/19/22 6:49 PM) Temperature Route Oral (05/19/22 6:49 PM) Oral (05/19/22 2:23 PM) Oral (05/18/22 4:06 PM) Dry Weight 64 kg (05/20/22 2:39 PM) 64 kg (05/19/22 6:49 PM) 64 kg (05/19/22 2:23 PM) Weight Obtained Via Patient/family state d (05/18/22 4:09 PM) Dry Weight Obtained Via Patient/family s tated (05/18/22 4:09 PM) Social History Social History Type Response Smoking Status 5-9 cigarettes (betw een 1/4 to 1/2 pack)/day in last 30 days entered on: 05/24/21 Sex Care Team Personnel Name: Pinky Peters MD Address: [address] [facility] [place], [place] [address]
--- OUTSIDE RECORDS SUMMARY | 2024-02-11 22:05 | XMS_ITS | Continuity of Care Document ---
Author Organization [facility] ter Address [address] [place] [id number]- Care Team Providers Care Detonator Maker Name Role Phone Roro Pitts MD Primary Care Physician Encounter [facility] Date(s): 10/18/20 - 10/18/[address] [address]- Encounter Diagnosis Intentional self-harm by sharp object(Final) - 10/18/20 Intentional self-harm by sharp object(Final) - 10/18/20 Discharge Disposition: A-D/C Home Attending Physician: Sathya Dove MD Admitting Physician: Sathya Dove MD Referring Physician: Not on Staff, Referring [...] oldest [Reference Range]: 1 2 3 Height 167 cm (10/18/20 7:41 PM) 167 cm (10/18/20 12:04 PM) 167 cm (10/18/20 11:46 AM) Weight 84.5 kg (10/18/20 7:41 PM) 84.5 kg (10/18/20 12:04 PM) 84.5 kg (10/18/20 11:46 AM) Oxygen Saturation [94-100 %] 99 % (10/18/20 5:52 PM) 99 % (10/18/20 11:46 AM) Pulse Rate [55-90 bpm] 87 bpm (10/18/20 5:52 PM) 95 bpm *H* (10/18/20 11:46 AM) Body Mass Index [18.5-24.99] 30.3 *>HHI* (10/18/20 11:46 AM) Blood Pressure [80-130/50-80 mm Hg] 128/61mm Hg (10/18/20 5:52 PM) 122/62mm Hg (10/18/20 11:46 AM) Respiratory Rate [16-30 br/min] 18 br/min (10/18/20 5:52 PM) 20 br/min (10/18/20 11:46 AM) Temperature [96.8-100.4 DegF] 98.7 DegF (10/18/20 5:52 PM) 98.2 DegF (10/18/20 11:46 AM) Mode of Delivery (Oxygen) Room air (10/18/20 5:52 PM) Room air (10/18/20 11:46 AM) Blood pressure sites Arm, right (10/18/20 11:46 AM) Temperature Route Oral (10/18/20 5:52 PM) Oral (10/18/20 11:46 AM) Dry Weight 84.5 kg (10/18/20 7:41 PM) 84.5 kg (10/18/20 12:04 PM) 84.5 kg (10/18/20 11:46 AM) Weight Obtained Via Standing scale (10/18/20 11:46 AM) Dry Weight Obtained Via Standing scale (10/18/20 11:46 AM) Social History Social History Type Response Smoking Status Never smoker entered on: 01/16/18 Sex
--- OUTSIDE RECORDS SUMMARY | 2024-02-11 22:05 | XMS_ITS | Continuity of Care Document ---
Author Organization [facility] Address [address] [address]- Care Team Providers Care National Business Director Name Role Phone Bere Vazquez MD Primary Care Physician Encounter [facility] Date(s): 09/01/23 - 10/01/23 [facility] [address] [address] Allergies, Adverse Reactions, Alerts Substance Reaction Severity [...] 0 Refills, Maintenance, 08/12/23 8:33:00 EST, [id number] ([facility] 827), Partial fill upon patient request if the prescription is for a schedule II opioid drug., 1 tablet By Mouth Daily, 175, cm, 07/19/23... Start Date: 08/12/23 Status: Ordered pyridoxine 25 mg oral tablet 1 tablet = 25 mg, By Mouth, 3 times a day, PRN Nausea & Vomiting, # 100 tablet, 8 Refills, Maintenance, 07/19/23 13:37:00 EST, Tablet, [id number] ([facility] 827), Partial fill upon patient request if the prescription is for a schedule II opioid... Start Date: 07/19/23 Status: Ordered risperiDONE 1 mg oral tablet 1 mg, 1, tablet, By Mouth, 2 times a day, # 60 tablet, Refills 0, Tot. Refills 0, Maintenance, 05/28/22 8:23:00 EDT, Route to Pharmacy Electronically, [facility]/pharmacy #[id number], Partial fill upon patient request if the prescription is for a schedule II opioi... Start Date: 05/28/22 Status: Ordered traZODone 50 mg oral tablet 50 mg, 1, tablet, By Mouth, Daily at bedtime, # 30 tablet, Refills 0, Tot. Refills 0, Maintenance, 05/28/22 8:23:00 EDT, [facility], [facility] [...] Refills, Maintenance, 07/27/23 11:28:00 EST, Tablet, [id number] ([facility] 827), Partial fill upon patientrequest if the prescription is for a schedule II op... Start Date: 07/27/23 Status: Ordered Unisom 25 mg oral tablet 1 tablet = 25 mg, By Mouth, Daily at bedtime, may take additional 1/2 tablet in morning & 1/2 tablet in afternoon if nausea persists, # 60 tablet, 1 Refills, Maintenance, 07/27/23 13:40:00 EST, [id number] ([facility] 827), Partial fill upon patie... Start [...] Team Personnel Name: Omi Wise RN Position: [facility] RN Member Role: Primary Care Nurse Name: Peggy Quintana Position: S RN Member Role: Primary Care Nurse Name: Gill Han RN Position: S RN Member Role: Primary Care Nurse Name: Sarwat Velázquez RN Position: S RN Member Role: Primary Care Nurse Name: Brigette Healy RN Position: [facility] RN Member Role: Primary Care Nurse Name: Nidia Tripp Position: [facility] RN Member Role: Primary Care Nurse Name: Bere Vazquez MD Position: [facility] Physician - Pediatrics Member Role: PCP Address: Address: [address] [place] [address] Pediatric & Adolescent Medicine [place], [place] [address] Name: Jessica Leal RN Position: [facility] RN Member Role: Primary Care Nurse Name: Merlyn Looney RN Position: [facility] RN Member Role: Primary Care Nurse Care Team Related Persons Name: RUTHY GUZMAN Address: home [address] [place] [address] Name: PAULA PAUL Address: home [address] [place] [address] Name: CARLOS PAUL Address: home [address] [place] [address] Name: JAIRO HAN Address: home
--- OUTSIDE RECORDS SUMMARY | 2024-02-11 22:05 | XMS_ITS | Continuity of Care Document ---
Author Organization [facility] [employer] [facility] [employer] [facility] Address [address] [facility] [place] [address]- Care Team Providers Care Asphalt Mixing Machine Operator Name Role Phone George HARRIS, Bere Benavidez Primary Care Physician [place] [facility] Date(s): 12/14/23 - 12/21/23 [facility] [address] [facility] [place] [address]- Attending Physician: Dago Harrison MD Referring Physician: [...] PT [facility] [id number] Medications Benadryl 25 mg oral capsule 1 [...] 15:11:00 EST, Route to Pharmacy Electronically, [facility]/pharmacy #[id number], Partial fill upon patient request [...] Refills, Maintenance, 10/27/23 17:55:00 EST, Tablet, [facility]/pharmacy #[id number], Partial fill upon patient request [...] Maintenance, 10/05/23 15:12:00 EST, REC Powder, [facility]/pharmacy #[id number], Partial fill upon patient request [...] 2 Refills, Maintenance, 10/26/23 14:27:00 EST, [facility]/pharmacy#[id number], Partial fill upon patient request if the prescription is for a schedule II opioid drug., 1 tablet By Mouth Daily, 174, cm, 10/26/23 14:06:00 EST... Start Date: 10/26/23 Status: Ordered pyridoxine 25 mg oral tablet 1 tablet = 25 mg, By Mouth, 3 times a day, PRN Nausea & Vomiting, # 100 tablet, 8 Refills, Maintenance, 07/19/23 13:37:00 EST, Tablet, [id number] ([facility] 827), Partial fill upon patient request if the prescription is for a schedule II opioid... Start Date: 07/19/23 Status: Ordered Reglan 10 mg oral tablet 1 tablet = 10 mg, By Mouth, Daily, PRN Headache, # 30 tablet, 0 Refills, Maintenance, 11/27/23 21:42:00 EDT, [facility]/pharmacy #[id number], Partial fill upon patient request if the prescription is for a schedule II opioid drug., 174, cm, 11/08/23 13:36:00 EST, H... Start Date: 11/27/23 Status: Ordered ursodiol 300 mg oral capsule 300 mg, 1, capsule, By Mouth, 3 times a day, # 100 capsule, Refills 1, Tot. Refills 1, Maintenance,12/06/23 18:22:00 EDT, Route to Pharmacy Electronically, [facility]/pharmacy #[id number], Partial fill upon patient request if the [...] Team Personnel Name: Omi Wise RN Position: [facility] RN Member Role: Primary Care Nurse Name: Peggy Quintana Position: [facility] RN Member Role: Primary Care Nurse Name: Gill Han RN Position: [facility] RN Member Role: Primary Care Nurse Name: Sarwat Velázquez RN Position: S RN Member Role: Primary Care Nurse Name: Adele Ibanez RN Position: S RN Member Role: Primary Care Nurse Name: Nidia Tripp Position: S RN Member Role: Primary Care Nurse Name: Bere Vazquez MD Position: [facility] Physician - Pediatrics Member Role: PCP Address: Address: [address] [place] [address] Pediatric & [place] [address]- Name: Jessica Leal RN Position: S RN Member Role: Primary Care Nurse Name: Bisi Rock RN Position: S RN Member Role: Primary Care Nurse Name: Merlyn Looney RN Position: [facility] RN Member Role: Primary Care Nurse Care Team Related Persons Name: RUTHY GUZMAN Address: home [address] [place] [address] Name: PAULA PAUL Address: home [address] [place] [address] Name: CARLOS PAUL Address: home [address] [place] [address] Name: JAIRO HAN Address: home [facility]
--- OUTSIDE RECORDS SUMMARY | 2024-02-11 22:06 | XMS_ITS | Continuity of Care Document ---
Author Organization [facility] Address [address] [place] [id number]- Care Team Providers Care Faucets Assembler Name Role Phone George HARRIS, Bere Benavidez Primary Care Physician Encounter [facility] Date(s): 08/06/23 - 09/05/[address] [address]- Allergies, Adverse Reactions, Alerts Substance Reaction Severity [...] Refills, Maintenance, 08/12/23 8:29:00 EST, Tablet, [id number] ([facility] 827),... Start Date: 08/12/23 Status: Ordered PNV By Mouth, Daily, 0 Refills, Maintenance, 07/14/23 10:18:00 EST, Partial fill upon patient request if the prescription is for a schedule II opioid drug. Start Date: 07/14/23 Status: Ordered PNV Select oral tablet 1 tablet, By Mouth, Daily, # 90 tablet, 0 Refills, Maintenance, 08/12/23 8:33:00 EST, [id number] ([facility] 827), Partial fill upon patient request if the prescription is for a schedule II opioid drug., 1 tablet By Mouth Daily, 175, cm, 07/19/23... Start Date: 08/12/23 Status: Ordered pyridoxine 25 mg oral tablet 1 tablet = 25 mg, By Mouth, 3 times a day, PRN Nausea & Vomiting, # 100 tablet, 8 Refills, Maintenance, 07/19/23 13:37:00 EST, Tablet, [id number] ([facility] 827), Partial fill upon patient request [...] 05/28/22 8:23:00 EDT, Route to Pharmacy Electronically, [facility]/pharmacy #[id number], Partial fill upon patient request if the prescription is for a schedule II o... Start Date: 05/28/22 Status: Ordered Tylenol Extra Strength 500 mg oral tablet 2 tablet = 1,000 mg, By Mouth, Every 6 hours, PRN as needed for fever, # 100 tablet, 0 Refills, Maintenance, 07/27/23 11:28:00 EST, Tablet, [id number] ([facility] 827), Partial fill upon patientrequest if the prescription is for a schedule II op... Start Date: 07/27/23 Status: Ordered Unisom 25 mg oral tablet 1 tablet = 25 mg, By Mouth, Daily at bedtime, may take additional 1/2 tablet in morning & 1/2 tablet in afternoon if nausea persists, # 60 tablet, 1 Refills, Maintenance, 07/27/23 13:40:00 EST, [id number] ([facility] 827), Partial fill upon patie... Start [...] Team Personnel Name: Omi Wise RN Position: [facility] RN Member Role: Primary Care Nurse Name: Peggy Quintana Position: [facility] RN Member Role: Primary Care Nurse Name: Gill Han RN Position: S RN Member Role: Primary Care Nurse Name: Sarwat Velázquez RN Position: [facility] RN Member Role: Primary Care Nurse Name: Brigette Healy RN Position: [facility] RN Member Role: Primary Care Nurse Name: Bere Vazquez MD Position: [facility] General Pediatrics MD Member Role: PCP Address: Address: [address] [place] [address] Pediatric & [place] [address]- Name: Jessica Leal RN Position: S RN Member Role: Primary Care Nurse Name: Merlyn Looney RN Position: [facility] RN Member Role: Primary Care Nurse Care Team Related Persons Name: RUTHY GUZMAN Address: home [address] [place] [address] Name: PAULA PAUL Address: home [address] [place] [address] Name: CARLOS PAUL Address: home [address] [place] [address] Name: JAIRO HAN
--- OUTSIDE RECORDS SUMMARY | 2024-02-11 22:06 | XMS_ITS | Continuity of Care Document ---
Author Organization [facility] Address [address] [place] [address]- Care Team Providers Care Dairy Hand Name Role Phone Pinky Peters MD Primary Care Physician Encounter [facility] Date(s): 08/17/22 - 08/17/[address] [address]- Discharge Disposition: A-D/C Home Attending Physician: Chente [...] Route to Pharmacy Electronically, [facility]/pharmacy #[id number], Partial fill upon patient request if the [...] to oldest [Reference Range]: 1 2 Height 173 cm (08/17/22 4:16 PM) 173 cm (08/17/22 3:26 PM) Weight 61 kg (08/17/22 4:16 PM) 61 kg (08/17/22 3:26 PM) Oxygen Saturation [94-100 %] 100 % (08/17/22 8:25 PM) 98 % (08/17/22 4:16 PM) Pulse Rate [55-90 bpm] 105 bpm *H* (08/17/22 8:25 PM) 102 bpm *H* (08/17/22 4:16 PM) Body Mass Index [18.5-24.99 kg/m2] 20.38 kg/m2 (08/17/22 4:16 PM) Blood Pressure [90-138/55-84 mm Hg] 143/ 72mm Hg *H* (08/17/22 8:25 PM) 90/50mm Hg (08/17/22 4:16 PM) Respiratory Rate [16-30 br/min] 20 br/mi n (08/17/22 8:25 PM) 20 br/min (08/17/22 4:16 PM) Temperature [96.8-100.4 DegF] 97.6 DegF (08/17/22 8:25 PM) 98 DegF (08/17/22 4:16 PM) Mode of Delivery (Oxygen) Room air (08/17/22 8:25 PM) Room air (08/17/22 4:16 PM) Blood pressure sites Arm, left (08/17/22 8:25 PM) Arm, left (08/17/22 4:16 PM) Temperature Route Oral (08/17/22 8:25 PM) Dry Weight 61 kg (08/17/22 4:16 PM) 61 kg (08/17/22 3:26 PM) Height Percentile 93.40 % 1 (08/17/22 4:16 PM) 93.40 % 2 (08/17/22 3:26 PM) Height ZScore 1.51 3 (08/17/22 4:16 PM) 1.51 4 (08/17/22 3:26 PM) Weight Percentile Per Age 63.30 % 5 (08/17/22 4:16 PM) 63.30 % 6 (08/17/22 3:26 PM) BMI Percentile 33.98 7 (08/17/22 4:16 PM) BMI ZScore -0.41 8 (08/17/22 4:16 PM) Weight ZScore 0.34 9 (08/17/22 4:16 PM) 0.34 10 (08/17/22 3:26 PM) 1Result Comment: ^~:!Percentile Source -CDC/WHO 2Result Comment: ^~:!Percentile Source -CDC/WHO 3Result Comment: ^~:!ZScore Source -CDC/WHO 4Result Comment: ^~:!ZScore Source -CDC/WHO 5Result Comment: ^~:!Percentile Source -CDC/WHO 6Result Comment: ^~:!Percentile Source -CDC/WHO 7Result Comment: ^~:!Percentile Source -CDC/WHO 8Result Comment: ^~:!ZScore Source -CDC/WHO 9Result Comment: ^~:!ZScore Source -CDC/WHO 10Result Comment: ^~:!ZScore Source -CDC/WHO Social History Social History Type Response Smoking Status 5-9 cigarettes (betw een 1/4 to 1/2 pack)/day in last 30 days entered on: 05/24/21 Sex Note * Chente Tariq MD: PERFORM Event Display: Patient Education Leaflets Authored Date: [id number] Depression ?? [id number] Depression Depression is a very common mental [...] medicines you take. This includes prescription and iqhh-axu-pyysovl medicines. It includes vitamins and herbal supplements. [...] An online chat option is also available. Proficiency is free and available 29/03. 988 counselors will work with [facility] to help you get the care you need. Call 988 if you: ??? Have suicidal thoughts, a suicide plan, and a way to carry out the plan ??? Have serious thoughts of hurting someone else ??? Have trouble breathing ??? Are??very confused ??? Feel very drowsy or have??trouble awakening ??? Faint ??? Have new chest pain that becomes more severe, lasts longer, or spreads into your shoulder, arm, neck, jaw, or back [...] help ?? Last Reviewed Date: 2021 ?? [id number] [employer]. All rights reserved. This information is not intended as a substitute for professional medical care. Always follow your healthcare professional's instructions. ?? Patient Care team information Care Team Personnel Name: Maria Busby RN Position: [facility] RN Member Role: Primary Care Nurse Name: Faye Alvarez RN Position: [facility] RN Member Role: Primary Care Nurse Name: Omi Wise Position: [facility] RN Member Role: Primary Care Nurse Name: Peggy Quintana Position: [facility] RN Member Role: Primary Care Nurse Name: Gill Han Position: [facility] RN Member Role: Primary Care Nurse Name: Sarwat Velázquez RN Position: [facility] RN Member Role: Primary Care Nurse Name: Brigette Helay RN Position: [facility] RN Member Role: Primary Care Nurse Name: Pinky Peters MD Position: [facility] Outreach Member Role: PCP Address: Address: [address] [place] [address] Pediatric & Adolescent Medicine [place], [place] [address] Name: Jessica Leal RN Position: [facility] RN Member Role: Primary Care Nurse Name: Rylie Correa RN Position: [facility] RN Member Role: Primary Care Nurse Name: Desiree Palacios RN Position: [facility] RN Member Role: Primary Care Nurse Name: Nuha Celaya RN Position: [facility] RN Member Role: Primary Care Nurse Name: Jamarcus Palmer RN Position: [facility] RN Member Role: Primary Care Nurse Name: Merlyn Looney RN Position: [facility] RN Member Role: Primary Care Nurse Name: Ana Paula Regalado RN Position: [facility] ED RN W/OE and Tasks Member Role: Patient Care Provider Name: Chente Tariq MD Position: [facility] ED Medicine MD Member Role: Admitting Physician Address: Address: [address] [place] [address] [place] [address]- Name: Ingrid HARRIS, Chintan Douglas Position: [facility] ED Medicine MD Member Role: ED Attending Physician Address: Address: [address] [place] [address]- [place] [address]- Care Team Related Persons Name: GONZÁLEZ QUINTANILLA Address: [place] [address] Name: PAULA PAUL Address: home [address] [place] [address] Name: CARLOS PAUL Address: home [address] [place] [address]
--- OUTSIDE RECORDS SUMMARY | 2024-02-11 22:06 | XMS_ITS | Continuity of Care Document ---
Author Organization [facility] Yonathan [facility] Address [address] [place] [address]- Care Team Providers Care Cell Technician Name Role Phone George HARRIS, Bere Benavidez Primary Care Physician Encounter [facility] Date(s): 11/09/23 - 02/03/24 [facility] [address] [place] [address]- Attending Physician: Dago Harrison MD Referring Physician: [...] Recorded 1Result Comment: PT [facility] [id number] Medications Benadryl 25 mg oral capsule 1 capsule = 25 mg, By Mouth, Daily at bedtime, PRN Headache, # 30 capsule, 0 Refills, Maintenance, 11/27/23 21:42:00 EDT, Capsule, [id number], Partial fill upon patient request if the [...] Gm, 0 Refills, Maintenance, 12/23/23 14:35:00 EDT,Cream, [facility]/pharmacy #[id number], Partial fill upon patient request if the [...] 10/05/23 15:11:00 EST, Route to Pharmacy Electronically, [facility] 3 Refills, Maintenance, 10/27/23 17:55:00 EST, Tablet, [facility]/pharmacy #[id number], Partial [...] a schedule II opioid drug. Start Date: 3/5/24 Status: Ordered Lamotrigine By Mouth, Refills 0, Maintenance, 11/09/23 12:29:00 EST, Partial fill upon patient request if the prescription is for a schedule II opioid drug. Start Date: 11/09/23 Status: Ordered lidocaine-prilocaine 2.5%-2.5% topical cream 1 applicator, Topically, Once, # 30 Gm, 0 Refills, Soft Stop, 01/06/24 23:37:00 EDT, Cream, [facility]/pharmacy #[id number], Partial fill upon patient request if the prescription is for a schedule II opioid drug., 1 applicator Topically Once, 173, cm, 01/05/24 8:4... Start Date: 01/06/24 Status: Ordered MiraLax oral powder for reconstitution = 17 Gm, By Mouth, Daily, dissolve in 4 to 8 oz of beverage, # 238 Gm, 1 Refills, Maintenance, 10/05/23 15:12:00 EST, REC Powder, [facility]/pharmacy #[id number], Partial fill [...] tablet, 2 Refills, Maintenance, 10/26/23 14:27:00 EST, [facility]/pharmacy#[id number], Partial fill upon patient request if the prescription is for a schedule II opioid drug., 1 tablet By Mouth Daily, 174, cm, 10/26/23 14:06:00 EST... Start Date: 10/26/23 Status: Ordered pyridoxine 25 mg oral tablet 1 tablet = 25 mg, By Mouth, 3 times a day, PRN Nausea & Vomiting, # 100 tablet, 8 Refills, Maintenance, 07/19/23 13:37:00 EST, Tablet, [facility] [id number] ([facility] 827), Partial fill upon patient request if the prescription is for a schedule II opioid... Start Date: 07/19/23 Status: Ordered Reglan 10 mg oral tablet 1 tablet = 10 mg, By Mouth, Daily, PRN Headache, # 30 tablet, 0 Refills, Maintenance, 11/27/23 21:42:00 EDT, [facility]/pharmacy #[id number], Partial fill upon patient request if the prescription is for a schedule II opioid drug., 174, cm, 11/08/23 13:36:00 EST, H... Start Date: 11/27/23 Status: Ordered ursodiol 300 mg oral capsule 300 mg, 1, capsule, By Mouth, 3 times a day, # 100 capsule, Refills 1, Tot. Refills 1, Maintenance,12/06/23 18:22:00 EDT, Route to Pharmacy Electronically, [facility]/pharmacy #[id number], Partial fill upon patient request if the [...] Team Personnel Name: Omi Wise RN Position: [facility] RN Member Role: Primary Care Nurse Name: Peggy Quintana Position: S RN Member Role: Primary Care Nurse Name: Gill Han RN Position: S RN Member Role: Primary Care Nurse Name: Sarwat Velázquez RN Position: S RN Member Role: Primary Care Nurse Name: Adele Ibanez RN Position: [facility] RN Member Role: Primary Care Nurse Name: Nidia Tripp Position: [facility] RN Member Role: Primary Care Nurse Name: Bere Vazquez MD Position: [facility] Physician - Pediatrics Member Role: PCP Address: Address: [address] [place] [address] Pediatric & Adolescent Medicine [place], [place] [address] Name: Jessica Leal RN Position: [facility] RN Member Role: Primary Care Nurse Name: Bisi Rock RN Position: [facility] RN Member Role: Primary Care Nurse Name: Merlyn Looney RN Position: [facility] RN Member Role: Primary Care Nurse Care Team Related Persons Name: RUTHY GUZMAN Address: home [address] [place] [address] Name: PAULA PAUL Address: home [address] [place] [address] Name: CHARLY PAUL Address: [address] Address: home [address] [place] [address] Name: CARLOS PAUL Address: home [address] [place] [address] Name: JAIRO HAN Address: home [facility]
--- OUTSIDE RECORDS SUMMARY | 2024-02-11 22:06 | XMS_ITS | Continuity of Care Document ---
Author Organization [facility]onathan [facility] [facility] Address [address], [address] [place] [address]- Care Team Providers Care Judge'S Clerk Name Role Phone George HARRIS, Bere Benavidez Primary Care Physician [place] [facility] [place] 12/09[place]23 - 12/16/23 [facility] [address], [address] [place] [address]- Attending Physician: Aditya HARRIS, Lakshmi Douglas Allergies, [...] 08/13/20 Recorded 1Result Comment: PT [facility] [phone] Medications Benadryl 25 mg oral capsule 1 [...] 10/05/23 15:11:00 EST, Route to Pharmacy Electronically, [facility]/pharmacy #[id number], Partial fill upon patient request if the [...] 3 Refills, Maintenance, 10/27/23 17:55:00 EST, Tablet, [facility]/pharmacy #[id number], Partial fill upon patient [...] Refills, Maintenance, 10/05/23 15:12:00 EST, REC Powder, [facility]/pharmacy #[id number], Partial fill upon patient [...] 1 Refills, Maintenance, 09/08/23 11:16:00 EST, Tablet, [facility], Partial fi... Start Date: 09/08/23 Status: Ordered PNV By Mouth, Daily, 0 Refills, Maintenance, 07/14/23 10:18:00 EST, Partial fill upon patient request if the prescription is for a schedule II opioid drug. Start Date: 07/14/23 Status: Ordered PNV Select oral tablet 1 tablet, By Mouth, Daily, # 90 tablet, 2 Refills, Maintenance, 10/26/23 14:27:00 EST, [facility]/pharmacy#[id number], Partial fill upon patient request if the prescription is for a schedule II opioid drug., 1 tablet By Mouth Daily, 174, cm, 10/26/23 14:06:00 EST... Start Date: 10/26/23 Status: Ordered pyridoxine 25 mg oral tablet 1 tablet = 25 mg, By Mouth, 3 times a day, PRN Nausea & Vomiting, # 100 tablet, 8 Refills, Maintenance, 07/19/23 13:37:00 EST, Tablet, [facility] [id number] ([facility] 827), Partial fill upon patient request if the prescription is for a schedule II opioid... Start Date: 07/19/23 Status: Ordered Reglan 10 mg oral tablet 1 tablet = 10 mg, By Mouth, Daily, PRN Headache, # 30 tablet, 0 Refills, Maintenance, 11/27/23 21:42:00 EDT, [facility]/pharmacy #[id number], Partial fill upon patient request if the prescription is for a schedule II opioid drug., 174, cm, 11/08/23 13:36:00 EST, H... Start Date: 11/27/23 Status: Ordered ursodiol 300 mg oral capsule 300 mg, 1, capsule, By Mouth, 3 times a day, # 100 capsule, Refills 1, Tot. Refills 1, Maintenance,12/06/23 18:22:00 EDT, Route to Pharmacy Electronically, [facility]/pharmacy #[id number], Partial fill upon patient request if the [...] Event Display: PDC Biophysical Profile Authored Date: [id number] OBSTETRICS REPORT PATIENT INFO: CMRN: [id number] BMRN: [id number] : [birth year] (18 yrs)(F) Name: ADAMA Visit Date: 12/09/2023 12:41 pm BEVERLY PERFORMED BY: Performed By: Elvia Guerra RDMS Attending: Renny Davila MD Referred By: Lakshmi Burgess MD Location: [facility] - [address] [place] [address] INDICATIONS: Cholestasis during O26.619 VITAL SIGNS: Height: 5'8 EVALUATION: Num Of Fetuses: 1 Heart Rate(bpm): 144 Cardiac Activity: Present Presentation: Cephalic Placenta: Posterior Amniotic Fluid LAVON FV: Within normal limits LAVON Sum(cm) Largest Pocket(cm) 12.6 4.8 RUQ(cm) RLQ(cm) LUQ(cm) LLQ(cm) 2.3 4 4.8 1.5 Comment: Active movements seen. BIOPHYSICAL EVALUATION: Amniotic F.V: Within normal limits F. Tone: Observed F. Movement: Observed Score: 04/13 F. Breathing: Observed BIOMETRY: BPD: 84 mm G.Age: 33w 6d 31 % HC: 326.1 mm G.Age: 37w 0d 78 % AC: 298.9 mm G.Age: 33w 6d 38 % FL: 66.6 mm G.Age: 34w 2d 37 % CI: 67.9 % 70 - 86 FL/HC: 20.4 % 19.4 - 21.8 HC/AC: 1.09 0.96 - 1.11 FL/BPD: 79.3 % 71 - 87 FL/AC: 22.3 % 20 - 24 Est. FW: 2395 gm 5 lb 4 oz 40 % OB HISTORY: Blood Type: A+ : 2 SAB: 1 GESTATIONAL AGE: LMP: 31w 5d Date: 05/01/23 DAYNA: 02/05/24 U/S Today: 34w 5d DAYNA: 01/15/24 Best: 34w 3d Det. By: Previous DAYNA: 01/17/24 Ultrasound CERVIX UTERUS ADNEXA: Cervix Not well seen COMMENTS: The estimated weight is within normal limits. BPP=8/8 Renny Davila MD Electronically Signed Final Report 12/09/2023 01:08 pm * Event Display: PDC Biophysical Profile Authored Date: [id number] Please click on pdf link to open report * Event Display: PDC Follow up Growth Authored Date: [id number] OBSTETRICS REPORT PATIENT INFO: CMRN: [id number] BMRN: [id number] : [birth year] (18 yrs)(F) Name: ANTONINOSHELBIE Visit Date: 12/09/2023 12:41 pm PAUL PERFORMED BY: Performed By: Elvia Guerra RDMS Attending: Renny Davila MD Referred By: Lakshmi Burgess MD Location: [address] INDICATIONS: Cholestasis during O26.619 VITAL SIGNS: Height: 5'8 EVALUATION: Num Of Fetuses: 1 Heart Rate(bpm): 144 Cardiac Activity: Present Presentation: Cephalic Placenta: Posterior Amniotic Fluid LAVON FV: Within normal limits LAVON Sum(cm) Largest Pocket(cm) 12.6 4.8 RUQ(cm) RLQ(cm) LUQ(cm) LLQ(cm) 2.3 4 4.8 1.5 Comment: Active movements seen. BIOPHYSICAL EVALUATION: Amniotic F.V: Within normal limits F. Tone: Observed F. Movement: Observed Score: 04/13 F. Breathing: Observed BIOMETRY: BPD: 84 mm G.Age: 33w 6d 31 % HC: 326.1 mm G.Age: 37w 0d 78 % AC: 298.9 mm G.Age: 33w 6d 38 % FL: 66.6 mm G.Age: 34w 2d 37 % CI: 67.9 % 70 - 86 FL/HC: 20.4 % 19.4 - 21.8 HC/AC: 1.09 0.96 - 1.11 FL/BPD: 79.3 % 71 - 87 FL/AC: 22.3 % 20 - 24 Est. FW: 2395 gm 5 lb 4 oz 40 % OB HISTORY: Blood Type: A+ : 2 SAB: 1 GESTATIONAL AGE: LMP: 31w 5d Date: 05/01/23 DAYNA: 02/05/24 U/S Today: 34w 5d DAYNA: 01/15/24 Best: 34w 3d Det. By: Previous DAYNA: 01/17/24 Ultrasound CERVIX UTERUS ADNEXA: Cervix Not well seen COMMENTS: The estimated weight is within normal limits. BPP=8/8 Renny Davila MD Electronically Signed Final Report 12/09/2023 01:08 pm * Event Display: PDC Follow up Growth Authored Date: [id number] Please click on pdf link to open report Patient Care team information Care Team Personnel Name: Omi Wise RN Position: [facility] RN Member Role: Primary Care Nurse Name: Peggy Quintana Position: [facility] RN Member Role: Primary Care Nurse Name: Gill Han RN Position: [facility] RN Member Role: Primary Care Nurse Name: Melania RIDER, Sarwat Gomez Position: [facility] RN Member Role: Primary Care Nurse Name: Adele Ibanez RN Position: [facility] RN Member Role: Primary Care Nurse Name: Nidia Tripp Position: [facility] RN Member Role: Primary Care Nurse Name: George HARRIS, Bere Benavidez Position: [facility] Physician - Pediatrics Member Role: PCP Address: Address: [address] Pediatric & [place] [address]- Name: Jessica Leal RN Position: [facility] RN Member Role: Primary Care Nurse Name: Pranav RIDER, Bisi Position: S RN Member Role: Primary Care Nurse Name: Merlyn Looney RN Position: S RN Member Role: Primary Care Nurse Care Team Related Persons Name: ROSITA WILBER RUTHY Address: home [address] [place] [address] Name: PAULA PAUL Address: home [address] [place] [address] Name: CARLOS PAUL Address: home [address] [place] [address] Name: JAIRO HAN Address: home [facility]
--- OUTSIDE RECORDS SUMMARY | 2024-02-11 22:06 | XMS_ITS | Continuity of Care Document ---
Author Organization [facility]onathan [facility] Address [address], [address] [place] [address]- Care Team Providers Care Cushion Builder Name Role Phone George HARRIS, Bere Benavidez Primary Care Physician [place] [facility] [place] 12/08[place]23 - 01/07/24 [facility] [address] [place] [address]- Allergies, Adverse Reactions, Alerts Substance Reaction Severity [...] PT [facility] [id number] Medications Benadryl 25 mg oral capsule 1 capsule = 25 mg, By Mouth, Daily at bedtime, PRN Headache, # 30 capsule, 0 Refills, Maintenance, 11/27/23 21:42:00 EDT, [facility]aps[facility], [id number], Partial fill upon patient request if the [...] Gm, 0 Refills, Maintenance, 12/23/23 14:35:00 EDT,Cream, [facility]/pharmacy #0327, Partial fill upon patient request if the [...] 10/05/23 15:11:00 EST, Route to Pharmacy Electronically, [facility]/pharmacy #0315, Partial fill upon [...] 3 Refills, Maintenance, 10/27/23 17:55:00 EST, Tablet, [facility]/pharmacy #0315, Partial fill upon [...] Refills, Soft Stop, 01/06/24 23:37:00 EDT, Cream, [facility]/pharmacy #6001, Partial fill upon patient request if the prescription is for a schedule II opioid drug., 1 applicator Topically Once, 173, cm, 01/05/24 8:4... Start Date: 01/06/24 Status: Ordered MiraLax oral powder for reconstitution = 17 Gm, By Mouth, Daily, dissolve in 4 to 8 oz of beverage, # 238 Gm, 1 Refills, Maintenance, 10/05/23 15:12:00 EST, REC Powder, [facility]/pharmacy #0315, Partial fill upon [...] Refills, Maintenance, 07/19/23 13:37:00 EST, Tablet, [facility] [id number] ([facility] 827), Partial fill upon patient request if the prescription is for a schedule II opioid... Start Date: 07/19/23 Status: Ordered Reglan 10 mg oral tablet 1 tablet = 10 mg, By Mouth, Daily, PRN Headache, # 30 tablet, 0 Refills, Maintenance, 11/27/23 21:42:00 EDT, [facility]/pharmacy #0315, Partial fill upon patient request if the prescription is for a schedule II opioid drug., 174, cm, 11/08/23 13:36:00 EST, H... Start Date: 11/27/23 Status: Ordered ursodiol 300 mg oral capsule 300 mg, 1, capsule, By Mouth, 3 times a day, # 100 capsule, Refills 1, Tot. Refills 1, Maintenance,12/06/23 18:22:00 EDT, Route to Pharmacy Electronically, [facility]/pharmacy #3374, Partial fill upon patient request if the [...] Member Role: Primary Care Nurse Name: Gill aHn RN Position: S RN Member Role: Primary Care Nurse Name: Sarwat Velázquez RN Position: S RN Member Role: Primary Care Nurse Name: Adele Ibanez RN Position: [facility] RN Member Role: Primary Care Nurse Name: Nidia Tripp Position: [facility] RN Member Role: Primary Care Nurse Name: Bere Vazquez MD Position: [facility] Physician - Pediatrics Member Role: PCP Address: Address: [address] [place] [address] Pediatric & Adolescent Medicine [place], [place] [address] Name: Jessica Leal RN Position: [facility] [...] Persons Name: RUTHY GUZMAN Address: home [address] [place] [address] Name: PAULA PAUL Address: home [address] [place] [address] Name: ADAMA PAUL GIRL Address: [address] Address: home [address] [place] [address] [place] Name: CARLOS PAUL Address: home [address] [place] [address] Name: JAIRO HAN Address: home [facility]
[2024-02-11 22:25] VITALS: BP 128/66; PULSE 94; RESP 18; TEMP 36.7; O2SAT 97
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
--- NOTE | 2024-02-12 08:38 | HO.PSYCHPN ---
Subjective Subjective Reason For Visit: depression and anxiety Diagnostics Vital Signs (24Hr): Vital Signs - 24 hr 02/11/24 22:25 Temperature 98.1 F Pulse Rate 94 Respiratory Rate 18 Blood Pressure 128/66 Pulse Oximetry 97 Oxygen Delivery Method Room Air Medications Medications Current Medications Acetaminophen (Acetaminophen 325 Mg Tablet) 650 mg PO Q6H PRN PRN Reason: Headache/Pain Mild Scale (1-3) Al Hydroxide/Mg Hydroxide (Magnesium Hydrox/Alum Hydrox 30 Ml Oral.Susp) 30 ml PO Q6H PRN PRN Reason: Heartburn/Nausea Hydroxyzine HCl (Hydroxyzine Hcl 25 Mg Tablet) 25 mg PO Q6H PRN PRN Reason: Anxiety Magnesium Hydroxide (Milk Of Magnesia 30 Ml Oral.Susp) 30 ml PO DAILY PRN PRN Reason: Constipation Nicotine Polacrilex (Nicotine Polacrilex 2 Mg Gum) 2 mg BUCCAL Q2H PRN PRN Reason: Nicotine Cravings Trazodone HCl (Trazodone Hcl 50 Mg Tablet) 50 mg PO BEDTIME MRX1 PRN PRN Reason: Insomnia Allergies Allergies Allergy/AdvReac Type Severity Reaction Status Date / Time bee pollen [bee stings] Allergy Anaphylaxis Verified 08/19/21 14:37 Assessment & Plan Time Spent With Patient Time: Total time managing care of this patient today ____ minutes.
--- NOTE | 2024-02-12 09:04 | P.CONHOSP_ITS ---
History of Present Illness Data of Consult Service Date: 02/12/24 Requesting physician: Jung Ridely Primary Care Provider: Bere Vazquez MD [facility] Reason for consult: medical H&P 18 year old female with history of mood disorder, BPD admitted to adult psychiatry with consult placed to hospitalist service for medical H&P. The patient is 1 month . She had an uncomplicated vaginal delivery about on 01/04/24. She reports she did tear during delivery and has dissolvable sutures that are still in place. She does have 6 week Ob follow-up scheduled for this week. She has been keeping up with post appts, most recent 01/27. She denies any severe abdominal pain/cramping, nausea, vomiting, vaginal bleeding, abnormal vaginal discharge. She does report occasional pelvic cramping but is not overly bothered by this. She is currently breast-feeding/pumping on the unit. She denies etoh or drug use. She is a former cigarette smoker. While in the ed hematology and chemistry labs unremarkable. She has no other concerns at this time. Review of Systems Review of Systems: General: No fevers, malaise, unintentional weight loss HEENT: No blurred vision, diplopia. No sore throat, nasal congestion, rhinorrhea, sinus pain, ear pain Cardiovascular: No chest pain, palpitations, or leg edema Respiratory: No shortness of breath, wheezing, cough GI: No abdominal pain, nausea, vomiting, diarrhea, constipation, melena, hematochezia : No dysuria, hematuria, increased urinary frequency, decreased urinary output [employer]: no vaginal bleeding/discharge. + MSK: No myalgia, back pain Neuro: No headaches, weakness, paresthesias Skin: No rashes or lesions [facility] Medical History Foot fracture, left GERD (gastroesophageal reflux disease) Conversion disorder Social History Household Members: Family Household Members Other:: Aunt, cousin Housing: House Alcohol intake: never Patient Tobacco Use Status: Former Tobacco user Tobacco use type: Cigarette Smoked in Last 30 Days: No e-Cigarette/Vaping Use: Former Use Patient Interested in Nicotine Replacement: No Use of substances other than those prescribed or required for medical reasons: Yes Substance Use Type: Marijuana and Opiates Substance Use Frequency: Chronic Longstanding Last Used Substance Other:: one year ago Currently Displaying Signs/Symptoms of Drug Intoxication Withdrawal: No Do you feel safe in your current relationship?: No Current Relationship Is there a partner from a previous relationship who is making you feel unsafe no w?: No Are you made to feel afraid or neglected: No Advance Directives: No Advance Directives Information Provided: No Do you have thoughts of harming others: None Do you have a plan to hurt others: No Plan Recently lost weight without trying: No Nutrition Risks: No Nutritional Risk Patient : No : Yes Poor oral hygiene: No Gender identity: Female Meds Allergies Allergy/AdvReac Type Severity Reaction Status Date / Time bee pollen [bee stings] Allergy Anaphylaxis Verified 08/19/21 14:37 Active Medications: Current Medications Acetaminophen (Acetaminophen 325 Mg Tablet) 650 mg PO Q6H PRN PRN Reason: Headache/Pain Mild Scale (1-3) Al Hydroxide/Mg Hydroxide (Magnesium Hydrox/Alum Hydrox 30 Ml Oral.Susp) 30 ml PO Q6H PRN PRN Reason: Heartburn/Nausea Hydroxyzine HCl (Hydroxyzine Hcl 25 Mg Tablet) 25 mg PO Q6H PRN PRN Reason: Anxiety Magnesium Hydroxide (Milk Of Magnesia 30 Ml Oral.Susp) 30 ml PO DAILY PRN PRN Reason: Constipation Nicotine Polacrilex (Nicotine Polacrilex 2 Mg Gum) 2 mg BUCCAL Q2H PRN PRN Reason: Nicotine Cravings Trazodone HCl (Trazodone Hcl 50 Mg Tablet) 50 mg PO BEDTIME MRX1 PRN PRN Reason: Insomnia Home Medications ?Medication ?Instructions ?Recorded ?Confirmed ?Last Taken ?Type cyanocobalamin (vitamin B-12) 1,000 mcg PO DAILY 08/19/21 08/21/21 08/19/21 08:30 History 1,000 mcg tablet epinephrine 0.3 mg/0.3 mL 0.3 mg IM ONCE PRN Anaphylaxis 08/19/21 08/21/21 Unknown History injection, auto-injector (EpiPen) ferrous sulfate 325 mg (65 mg 325 mg PO DAILY 08/19/21 08/21/21 08/19/21 08:30 History iron) tablet fluoxetine 60 mg tablet 60 mg PO DAILY 08/19/21 08/21/21 08/19/21 08:30 History hydroxyzine pamoate 25 mg capsule 50 mg PO Q8H anxiety 08/19/21 08/21/21 Unknown History ibuprofen 600 mg tablet 600 mg PO Q8H PRN Pain 08/19/21 08/21/21 Unknown History melatonin 10 mg disintegrating 10 mg PO BEDTIME PRN Insomnia 08/19/21 08/21/21 08/18/21 20:30 History tablet nicotine (polacrilex) 2 mg gum 2 mg buccal Q1H 08/19/21 08/21/21 Unknown History olanzapine 10 mg tablet 10 mg PO BEDTIME 08/19/21 08/21/21 08/18/21 20:30 History olanzapine 5 mg tablet 5 mg PO DAILY 08/19/21 08/21/21 08/19/21 08:30 History omeprazole 20 mg capsule,delayed 20 mg PO DAILY 08/19/21 08/21/21 08/19/21 08:30 History release quetiapine 25 mg tablet 25 mg PO Q6H PRN Anxiety 08/19/21 08/21/21 Unknown History topiramate 100 mg tablet 100 mg PO DAILY@1700 08/19/21 08/21/21 08/18/21 18:00 History topiramate 50 mg tablet 50 mg PO DAILY 08/19/21 08/21/21 08/19/21 08:30 History trazodone 50 mg tablet 50 mg PO BEDTIME PRN Insomnia 08/19/21 08/21/21 Unknown History Physical Exam Vital Signs and Narrative: Vital Signs: Last Vital Signs Temp 98.1 F 02/11/24 22:25 Pulse 94 02/11/24 22:25 Resp 18 02/11/24 22:25 BP 128/66 02/11/24 22:25 Pulse Ox 97 02/11/24 22:25 O2 Del Method Room Air 02/11/24 22:25 Constitutional - Awake and Alert, No apparent distress Eyes - PERRLA, EOMI Cardiovascular - S1S2, RRR, No edema Respiratory - Normal lung expansion, Normal respiratory effort, No respiratory distress, CTA bilaterally Gastrointestinal - NT / ND; +BS; No rebound or guarding - No CVA tenderness Extremities - no calf tenderness bilaterally, no swelling Musculoskeletal - Normal inspection, normal ROM Skin - Warm/Dry Neurological - Alert & oriented x3, CN II-XII in tact, 5/5 strength BUE and BLE Psychological - Appropriate affect Assessment and Plan (1) Routine medical exam: Status: Acute Plan 18 year old female with history of mood disorder, BPD admitted to adult psychiatry with consult placed to hospitalist service for medical H&P. #Mood disorder/BPD/ depression -plan per psychiatry -Pt is . Hydroxyzine discontinued # -no concerning symptoms at this time. Has sutures in place from tearing during vaginal . Outpt follow up as scheduled with OB Thank you for allowing me to participate in this consult. Signing off at this time. Please do not hesitate to call for further questions or for any acute medical issues.
--- NOTE | 2024-02-12 18:48 | PC.NURSE ---
Pt unable to see while inpatient and now pumping and dumping milk for comfort and to maintain supply. During supervised pumping session a cannabis vape (cannabis leaf noted on vape) was noted on her lap, possibly had fallen out of her sports bra. Pt reported it was essential oils that was given to her from [place] in [place]. Vape confiscated and given to kiln charger.
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
[2024-02-12 20:00] VITALS: BP 128/60; PULSE 77; RESP 16; TEMP 36.9; O2SAT 99
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
[2024-02-12] MEDS: traZODone HCL 50 MG TABLET PO (22:16)
[2024-02-13 08:00] VITALS: BP 92/45; PULSE 60; RESP 17; TEMP 36.8; O2SAT 97
[2024-02-13 14:35] VITALS: BP 111/55; PULSE 77; RESP 20; TEMP 36.5; O2SAT 97
[2024-02-13 15:08] LABS: Glucose, Whole Blood 91 mg/dL (60-115)
[2024-02-13 15:14] VITALS: BP 132/63; PULSE 86; RESP 19; TEMP 36.4; O2SAT 100
--- NOTE | 2024-02-13 15:24 | P.EN_ITS ---
Event Note Date of Service: 02/13/24 Event Note: Rapid response called for witnessed sz event. Per RN report, about 20 minutes before episodes pt developed migraine with aura and then tingling in her legs and felt as if a seizure was coming on. Ordered for 1mg ativan PO. Unfortunately developed tonic clonic movements witnessed by staff and was gently lowered to the floor without head injury. She was unresponsive during episode that lasted about 30-60 seconds. On arrival, pt lying on her right side, awake but not responding. No witnessed vomiting, tongue bite. Pt presentation consistent with breakthrough seziure with post ictal state. She was moved to her room where she was lethargic but able to tell this provider her name, place, and year. She was previously on keppra and changed to lamictal during . She stopped taking the lamictal at 30 weeks gestation on her own without consulting provider . Has not had any breakthrough seizure activity since stopping her medication. She is currently and desires to continue breast-feeding when she goes home. She is agreeable to starting medication. Discussed treatment options with Neurology. It appears keppra and lamictal have similar risk profile when considering . Given lamictal requires slow start and cannot be loaded, Dr. Orellana is recommending keppra po or iv. Will load with po keppra 1000mg x 1 then 500mg BID starting tomorrow morning. VSS, POC 91. Will check electrolyte levels for any evidence of metabolic abnormality that could have contributed to seizure. No further work up indicated at this time given known history of seizure disorder. Will consult neurology. Should another seizure occur, pt will be transferred to medicine for further evaluation and management. Time Spent With Patient Time: Total time managing care of this patient today ____ minutes.
[2024-02-13] MEDS: LORazepam 1 MG TABLET PO (15:27)
[2024-02-13 15:30] VITALS: BP 124/60; PULSE 86; RESP 20; O2SAT 99
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
[2024-02-13] MEDS: levETIRAcetam 1,000 MG TABLET 1000 MG PO (15:59)
[2024-02-13] MEDS: Acetaminophen 325 MG TABLET 650 MG PO (15:59)
--- NOTE | 2024-02-13 16:35 | PC.NURSE ---
At approximately 1415 pt began to report feeling an aura and I know a seizure is coming on. Notified provider Mallorie and obtained orders to administer ativan 1 mg po and pt remained in nurse station area with close observation. Vitals were stable,drowsy but was awake. At 1500 pt requested to walk to her room to lay down and while being assisted, she went limp and staff eased her down to the floor and provided a pillow on sides/ underneath head for safety. SPINAL SURGEON called and vitals taken initially 32/63, pulse 79, and 100% oxygen saturation, rr 17. Seizure lasted less than 1 minute and pt remained safe and sustained no injury. [facility]AL SURGEON team arrived after sz stopped and pt VS monitored and wheeled to her bed. Per neurology pt loaded with keppra 1000mg po once and will start 500 mg BID starting tomorrow. Plan is to monitor for safety q5 min and move her room closer to RN station. Should another seizure occur, she will be transferred to medical/neurology unit for management/care. Pt educated about keppra and and it is generally thought to be safe for while breast feeding.
[2024-02-13 16:45] LABS: Anion Gap 14 (12-20); Blood Urea Nitrogen 9 mg/dL (9-16); Calcium 9.1 mg/dL (8.4-10.2); Carbon Dioxide 23 mmol/L (22-29); Chloride 106 mmol/L (96-108); Estimated Glomerular Filt Rate > 60; Glucose Random 82 mg/dL (60-115); Magnesium 1.8 mg/dL (1.6-2.6); Phosphorus 3.4 mg/dL (2.7-4.5); Potassium 3.8 mmol/L (3.3-5.1); Sodium 139 mmol/L (135-145)
[2024-02-13 20:00] VITALS: BP 104/50; PULSE 93; RESP 16; TEMP 36.6; O2SAT 98
[2024-02-14] MEDS: LORazepam 1 MG TABLET PO ×2 (00:59→11:53)
[2024-02-14 01:01] VITALS: BP 118/69; PULSE 97; RESP 16; O2SAT 99
--- NOTE | 2024-02-14 06:29 | PC.NURSE ---
At approximately 0100 this morning, pt stated I don't feel good and usually my seizures comes in two's, the 1st one is mild and the second one is the the scary one because one time it happened, they did cpr on me and had that thingy on my face and i woke up seeing myself almost naked, at least that is what they told me pt was assisted to sit on the chair near the pt's phone area. vitals taken were stable. hospitalist paged, an order for ativan 1mg po given. pt awake and alert throughout. pt assisted to be bed, and is currently sleeping. 5mins check maintained.
[2024-02-14] MEDS: levETIRAcetam 500 MG TABLET PO ×2 (08:22→19:43)
[2024-02-14 09:00] VITALS: BP 116/62; PULSE 95; RESP 20; TEMP 36.5; O2SAT 97
[2024-02-14 09:05] VITALS: BP 111/72; PULSE 100
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
--- NOTE | 2024-02-14 16:05 | PM.NEUROCN ---
History of Present Illness Data of Consult Service Date: 02/14/24 Primary Care Provider: Bere Vazquez MD [facility] Reason for consult: Seizure disorder 18 years old woman who provided her own history stating that she was seeing a neurologist at [facility] for epilepsy. She said that she has been suffering from this condition for number of years. Typically she would have an aura of tingling and dizziness all over body and then she may pass out. She said that she was told she would pass out and shake all over. She used to take Keppra and then more recently was taking lamotrigine. She gave to a child recently and while she was in hospital she was noted to have a seizure-like episode. Review of Systems Review of Systems: No headache or change in personality PMFSH Past Medical History Medical History Foot fracture, left GERD (gastroesophageal reflux disease) Conversion disorder Social History Social History Household Members: Family Household Members Other:: Aunt, cousin Housing: House Alcohol intake: never Patient Tobacco Use Status: Former Tobacco user Tobacco use type: Cigarette e-Cigarette/Vaping Use: Former Use Substance Use Type: Marijuana and Opiates Gender identity: Female Meds Allergies Allergy/AdvReac Type Severity Reaction Status Date / Time bee pollen [bee stings] Allergy Anaphylaxis Verified 08/19/21 14:37 Active Medications: Current Medications Acetaminophen (Acetaminophen 325 Mg Tablet) 650 mg PO Q6H PRN PRN Reason: Headache/Pain Mild Scale (1-3) Last Admin: 02/13/24 15:59 Dose: 650 mg Al Hydroxide/Mg Hydroxide (Magnesium Hydrox/Alum Hydrox 30 Ml Oral.Susp) 30 ml PO Q6H PRN PRN Reason: Heartburn/Nausea Levetiracetam (Levetiracetam 500 Mg Tablet) 500 mg PO BID SUKUMAR Last Admin: 02/14/24 08:22 Dose: 500 mg Magnesium Hydroxide (Milk Of Magnesia 30 Ml Oral.Susp) 30 ml PO DAILY PRN PRN Reason: Constipation Nicotine Polacrilex (Nicotine Polacrilex 2 Mg Gum) 2 mg BUCCAL Q2H PRN PRN Reason: Nicotine Cravings Trazodone HCl (Trazodone Hcl 50 Mg Tablet) 50 mg PO BEDTIME MRX1 PRN PRN Reason: Insomnia Last Admin: 02/12/24 22:16 Dose: 50 mg Home Medications ?Medication ?Instructions ?Recorded ?Confirmed ?Last Taken ?Type cyanocobalamin (vitamin B-12) 1,000 mcg PO DAILY 08/19/21 08/21/21 08/19/21 08:30 History 1,000 mcg tablet epinephrine 0.3 mg/0.3 mL 0.3 mg IM ONCE PRN Anaphylaxis 08/19/21 08/21/21 Unknown History injection, auto-injector (EpiPen) ferrous sulfate 325 mg (65 mg 325 mg PO DAILY 08/19/21 08/21/21 08/19/21 08:30 History iron) tablet fluoxetine 60 mg tablet 60 mg PO DAILY 08/19/21 08/21/21 08/19/21 08:30 History hydroxyzine pamoate 25 mg capsule 50 mg PO Q8H anxiety 08/19/21 08/21/21 Unknown History ibuprofen 600 mg tablet 600 mg PO Q8H PRN Pain 08/19/21 08/21/21 Unknown History melatonin 10 mg disintegrating 10 mg PO BEDTIME PRN Insomnia 08/19/21 08/21/21 08/18/21 20:30 History tablet nicotine (polacrilex) 2 mg gum 2 mg buccal Q1H 08/19/21 08/21/21 Unknown History olanzapine 10 mg tablet 10 mg PO BEDTIME 08/19/21 08/21/21 08/18/21 20:30 History olanzapine 5 mg tablet 5 mg PO DAILY 08/19/21 08/21/21 08/19/21 08:30 History omeprazole 20 mg capsule,delayed 20 mg PO DAILY 08/19/21 08/21/21 08/19/21 08:30 History release quetiapine 25 mg tablet 25 mg PO Q6H PRN Anxiety 08/19/21 08/21/21 Unknown History topiramate 100 mg tablet 100 mg PO DAILY@1700 08/19/21 08/21/21 08/18/21 18:00 History topiramate 50 mg tablet 50 mg PO DAILY 08/19/21 08/21/21 08/19/21 08:30 History trazodone 50 mg tablet 50 mg PO BEDTIME PRN Insomnia 08/19/21 08/21/21 Unknown History Physical Exam Vital Signs: Vital Signs: Last Vital Signs Temp 97.7 F 02/14/24 09:00 Pulse 100 02/14/24 09:05 Resp 20 02/14/24 09:00 BP 111/72 02/14/24 09:05 Pulse Ox 97 02/14/24 09:00 O2 Del Method Room Air 02/14/24 09:00 Neuro: Other: She is alert and awake with normal spontaneity of speech fluency comprehension and affect. Balance gait and coordination are normal. Face is symmetrical. Visual perez are full. Deep tendon reflexes are 1+ with flexor plantars. 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 She said that she was taking lamotrigine at this time. Because of recent seizure she was given dose of levetiracetam for loading as lamotrigine could not be loaded quickly. She was back to baseline with nonfocal examination and my recommendation is to continue with this medicine for now and she should follow through with a neurologist who has her full records about her seizure disorder. Procedures Date of Service Date of Service: 02/14/24
[2024-02-14] MEDS: traZODone HCL 50 MG TABLET PO ×2 (19:46→21:08)
[2024-02-14 19:54] VITALS: BP 149/62; PULSE 92; RESP 16; TEMP 36.4; O2SAT 98
[2024-02-15 08:00] VITALS: BP 125/55; PULSE 101; RESP 18; TEMP 36.4; O2SAT 99
[2024-02-15] MEDS: levETIRAcetam 500 MG TABLET PO ×2 (09:12→21:07)
--- NOTE | 2024-02-15 17:28 | P.PNPSI_ITS ---
Subjective Subjective Date of Service: 02/15/24 Reason For Visit: depression and anxiety Subjective Notes: Conditional Voluntary and 3 Day Healthcare Proxy: No Guardianship: No Medical Problems Affecting Mental Status: No Interim History: Three day notice to 02/16/24. Per team, pt processing with her supports via phone, anxiety and some affective intensity were observed. Pt has remained in control on the unit, managed stressors appropriately and continues to request discharge on 02/16/24. Team meeting with DAMARIS, EUSEBIO, Bronwyn Brewer-therapist, [facility]. Pt has been offered to return home to her parents with Estela. There is a history of pt returning home, not meeting behavioral parameters and parents asking her to leave, so team believes this is progress, however an alternative plan should be in place. By history, pt has been giving different messages to different people, having angry outbursts, telling people she is not able to manage this, telling others she may harm her child, yell at her, throw her out a window, thus the concerns. Team wanting to make sure all are in agreement regarding plan, options and back up plans. Pt has been asking for help, telling some she worries about harm to Estela however tells others this has been taken out of context and minimized her comments. At [facility] pt told team she did not need a higher level of care, then told them she was not being honest. Team reports first 51A filed 01/14/24. Relationship with parents is conflicted-they set appropriate limits and pt leaves so a plan for pt to remain with parents jail is not realistic. Pt has told providers she does not want to live alone in the apartment, does not want to parent alone. Pt has declined to re-start meds-Dr. Copeland and pt discussed Risperdal and Lamictal as being safe effective choices for breast feeding. Dr. Copeland reports pt's stability is not actually tied to a med regime but a stable relationship. Meds can help with symptoms, however pt has remained stable without medications during the . Therapist reports pt has no plan to harm her child-she is talking about what if this happens with some intrusive thinking, anxiety being a new mother and managing stressors. Since Estela's she has found pt to be parenting reasonably. She worries about Estela's father fighting for custody and is looking to create stability for herself and her daughter. Team asked about in pt behaviors and how pt has worked in milieu since admission which was discussed. Added services/childcare was discussed, PHP was discussed, step down services were discussed. Team will meet with pt in person prior to discharge 02/15. Pt will be talking with outreach today, team will talk with parents prior to discharge and look at resources for housing, possible day care if pt is willing. Medication Compliance: Yes Side effects from medications: No Attending Groups: Yes Review of Systems Acute medical concerns: No Medical Review of Systems: unchanged Review of Systems Review of Systems Yes all other systems are reviewed and are negative Mental Status Exam Mental Status Exam Patient Appearance: Appropriate Patient Orientation: Person, Place, Time and Situation Level of Consciousness: Alert Patient Behavior: Appropriate, Talkative, Cooperative, Anxious and Good Eye Contact Mood Description: Anxious and Apprehensive Affect Description: Anxious and Apprehensive Patient Cognition Impaired: No Ability to Follow Directions: Good Speech Pattern: Spontaneous Speech Memory Description: Intact Hallucinations: None Delusions: Not Present Thought Process: Intact and Goal Oriented Thought Content: positive for Intact and positive for Goal Oriented Depressive Symptoms: Increased Anxiety and Thoughts of /Suicide (denies SI, plan, intent) Judgement: Good Diagnostics Vital Signs (24Hr): Vital Signs - 24 hr 02/14/24 19:54 02/15/24 08:00 Temperature 97.5 F 97.6 F Pulse Rate 92 101 H Respiratory Rate 16 18 Blood Pressure 149/62 H 125/55 L Pulse Oximetry 98 99 Oxygen Delivery Method Room Air Room Air Labs 02/13/24 16:07 Medications Medications Current Medications Acetaminophen (Acetaminophen 325 Mg Tablet) 650 mg PO Q6H PRN PRN Reason: Headache/Pain Mild Scale (1-3) Last Admin: 02/13/24 15:59 Dose: 650 mg Al Hydroxide/Mg Hydroxide (Magnesium Hydrox/Alum Hydrox 30 Ml Oral.Susp) 30 ml PO Q6H PRN PRN Reason: Heartburn/Nausea Levetiracetam (Levetiracetam 500 Mg Tablet) 500 mg PO BID SUKUMAR Last Admin: 02/15/24 09:12 Dose: 500 mg Magnesium Hydroxide (Milk Of Magnesia 30 Ml Oral.Susp) 30 ml PO DAILY PRN PRN Reason: Constipation Nicotine Polacrilex (Nicotine Polacrilex 2 Mg Gum) 2 mg BUCCAL Q2H PRN PRN Reason: Nicotine Cravings Trazodone HCl (Trazodone Hcl 50 Mg Tablet) 50 mg PO BEDTIME MRX1 PRN PRN Reason: Insomnia Last Admin: 02/14/24 21:08 Dose: 50 mg Allergies Allergies Allergy/AdvReac Type Severity Reaction Status Date / Time bee pollen [bee stings] Allergy Anaphylaxis Verified 08/19/21 14:37 Assessment & Plan Assessment & Plan (1) Borderline personality disorder: Status: Acute Code(s): F60.3 - Borderline personality disorder (2) Post traumatic stress disorder (PTSD): Status: Acute Code(s): F43.10 - Post-traumatic stress disorder, unspecified (3) MDD (major depressive disorder), recurrent episode, moderate: Status: Acute Code(s): F33.1 - Major depressive disorder, recurrent, moderate Plan 02/14- Three day notice to 02/16/24. Team will meet with pt prior to discharge 02/15. in person to discuss concerns/plans. Informed Consent: understands Reason for continued inpatient stay Substantial Risk for: rapid decompensation Time Spent With Patient Time: Total time managing care of this patient today ____ minutes.
[2024-02-15 20:00] VITALS: BP 114/54; PULSE 68; RESP 16; TEMP 36.4; O2SAT 96
[2024-02-15] MEDS: traZODone HCL 50 MG TABLET PO ×2 (21:07→23:03)
[2024-02-16 08:00] VITALS: BP 111/64; PULSE 73; TEMP 36.4; O2SAT 98
[2024-02-16] MEDS: levETIRAcetam 500 MG TABLET PO (08:31)
--- NOTE | 2024-02-16 13:21 | P.DS_ITS ---
DS: Providers Provider Date of Service: 02/16/24 Date of admission: 02/11/24 21:58 Date of discharge: 02/16/24 Primary care physician: Bere Vazquez MD Admitting clinician: Sona Nobles Attending physician on admission: Rodney Bah Consults: 02/11/24 22:34 Consult to Hospitalist Routine Comment: Consulting Provider: Hospitalist Reason For Exam: OSH admission 02/13/24 15:36 Consult to Neurology Routine Consulting Provider: [facility] Reason for consultation: breakthrough seizure Attending physician on discharge: Rodney Bah Discharging clinician: Natalie Gay DS: Diagnosis Discharge Diagnosis (1) Borderline personality disorder: Status: Acute (2) Post traumatic stress disorder (PTSD): Status: Acute (3) MDD (major depressive disorder), recurrent episode, moderate: Status: Acute DS: Medications Discharge Medications Home Medications: Home Medications ?Medication ?Instructions ?Recorded ?Confirmed epinephrine 0.3 mg/0.3 mL 0.3 mg IM ONCE PRN Anaphylaxis 08/19/21 08/21/21 injection, auto-injector (EpiPen) ferrous sulfate 325 mg (65 mg 325 mg PO DAILY 08/19/21 08/21/21 iron) tablet Previous Rx's ?Medication ?Instructions ?Recorded levetiracetam 500 mg tablet 500 mg PO BID #60 tabs 02/16/24 nicotine (polacrilex) 2 mg gum 2 mg buccal Q2H PRN Nicotine 02/16/24 Cravings #100 ea trazodone 50 mg tablet 50 mg PO BEDTIME MRX1 PRN Insomnia 02/16/24 #60 tabs Mental Status Exam Mental Status Exam Patient Appearance: Appropriate Patient Orientation: Person, Place, Time and Situation Level of Consciousness: Alert Patient Behavior: Appropriate, Talkative, Cooperative, Anxious and Good Eye Contact Mood Description: Anxious and Apprehensive Affect Description: Anxious and Apprehensive Patient Cognition Impaired: No Ability to Follow Directions: Good Speech Pattern: Spontaneous Speech Memory Description: Intact Hallucinations: None Delusions: Not Present Thought Process: Intact and Goal Oriented Thought Content: positive for Intact and positive for Goal Oriented Depressive Symptoms: Increased Anxiety and Thoughts of /Suicide (denies SI, plan, intent) Judgement: Good Data Data Completed and Pending Completed studies during hospitalization [Text1]: 02/13/24 02/13/24 15:04 16:07 Sodium 139 Potassium 3.8 Chloride 106 Carbon Dioxide 23 Anion Gap 14 BUN 9 Creatinine 0.72 Estim Creat Clear Calc TNP Estimated GFR > 60 POC Glucose 91 Random Glucose 82 Calcium 9.1 Phosphorus 3.4 Magnesium 1.8 DS: Summary Hospital Course Hospital Course: Admission to adult psychiatry for exacerbation of PTSD. Pt has a new born child. DCF met with her and found her to be overwhelmed and instructed her to admit for further support and eval. On the unit, pt reports no SI/HI/AH/VH. There are no sx of psychosis, depression, or denise. Contact was made with pt's OP team, Dr. Copeland, who reports pt has had long periods of stability without any medicine. She suggested pt return to Lamictal/Risperdal regime as she is breast feeding which pt plans to do upon discharge. She reported pt is more responsive to psychosocial connection and support. Pt was able to meet with her out pt team, however, she did express anger and frustration with them and their presentation in their meeting. Pt's parents have offered her housing for herself and her child, which she has accepted. She will continue with her [facility] team and DCF will continue their involvement in her mary care. Time spent discussing smoking cessation with patient: 3 to 10 minutes Status at Discharge Functional status at discharge: independent ambulation Overall status at discharge: patient is progressing back to baseline Time Spent with Patient Time attestation: Total time managing care of this patient today ____ minutes. Time spent: Less than 30 minutes Discharge Plan Discharge Anticipated Discharge Date/Time: 02/16/24 12:00 Patient Disposition: Home, Self-Care Discharge Diagnosis: Seizure disorder PTSD Recurrent Major Depression Borderline Personality Disorder Referrals: [facility] Psychiatry w Dr. Copeland [Other] - 03/06/24 9:00 am (Telehealth) [facility] Partial Hospitalization Information [Other] - 1 Week (You can self refer and as needed ask your clinician to help with self referral. Call number above with any questions. ) [facility] Team [Other] - 1 Day (Meeting five days per week.) Bere Vazquez MD [Primary Care Provider] - 1 Week Discharge Medications: New trazodone 50 mg Tablet 50 mg PO BEDTIME MRX1 PRN (Reason: Insomnia) Qty: 60 0RF nicotine (polacrilex) 2 mg Gum 2 mg buccal Q2H PRN (Reason: Nicotine Cravings) Qty: 100 0RF levetiracetam 500 mg Tablet 500 mg PO BID Qty: 60 0RF Continued ferrous sulfate 325 mg (65 mg iron) Tablet 325 mg PO DAILY epinephrine [EpiPen] 0.3 mg/0.3 mL Auto-Injector 0.3 mg IM ONCE PRN (Reason: Anaphylaxis) Discontinued quetiapine 25 mg Tablet 25 mg PO Q6H PRN (Reason: Anxiety) Rx Instructions: Anxiety and agitation trazodone 50 mg Tablet 50 mg PO BEDTIME PRN (Reason: Insomnia) nicotine (polacrilex) 2 mg Gum 2 mg BUCCAL Q1H olanzapine 5 mg Tablet 5 mg PO DAILY cyanocobalamin (vitamin B-12) 1,000 mcg Tablet 1,000 mcg PO DAILY olanzapine 10 mg Tablet 10 mg PO BEDTIME omeprazole 20 mg Capsule,Delayed Release(Dr/Ec) 20 mg PO DAILY ibuprofen [Motrin] 600 mg Tablet 600 mg PO Q8H PRN (Reason: Pain) topiramate 100 mg Tablet 100 mg PO DAILY@1700 Rx Instructions: Take at suppertime hydroxyzine pamoate 25 mg Capsule 50 mg PO Q8H Patient Comments: List from patients group residence [facility] where staff administer medications. topiramate 50 mg Tablet 50 mg PO DAILY Rx Instructions: Take in the morning fluoxetine 60 mg Tablet 60 mg PO DAILY melatonin 10 mg Tablet,Disintegrating 10 mg PO BEDTIME PRN (Reason: Insomnia) Discharge Orders: Discharge Order (Routine); Ordered 02/16/24 Ordered By: Natalie Gay Diet: Advance to usual diet Activity on Discharge: As tolerated Stand Alone Forms: Patient Portal Discharge page, Community Support Print Language: Italian Care Plan Goals: Mood and Behavioral Stabilization Health Concerns: Mood and Behavioral Stabilization Seizure disorder stabilization Plan of Treatment: Attend scheduled appointments Take medications as directed Utilize assigned services as needed Return to Risperdal/Lamictal regime which you have arranged with Dr. Copeland. You report you do not need refills as you have a supply at home. Assessment: Discharge on a three day notice of intent. Discharge Date/Time: 02/16/24 11:55
== END 2024-02-16 11:55 | disposition home or self-care (01) | DRG 776 ==
PROVIDERS: Physician Assistant; Admitting Provider Psychiatry & Neurology Psychiatry; PCP Pediatrics; Visit Provider Clinical Nurse Specialist Psychiatric/Mental Health, Adult
DX: O99.345 Other mental disorders complicating the puerperium (principal); F33.1 Major depressive disorder, recurrent, moderate; O99.355 Diseases of the nervous system complicating the puerperium; F43.10 Post-traumatic stress disorder, unspecified; F60.3 Borderline personality disorder; Z87.891 Personal history of nicotine dependence; Z79.899 Other long term (current) drug therapy; G40.909 Epilepsy, unspecified, not intractable, without status epilepticus
CPT/HCPCS: 36415; 80048; 82947; 83735; 84100

== ENCOUNTER → 2024-02-11 21:58 | Outpatient (BNV) | payer OTHER, SELFPAY | PROVIDERS: Admitting Provider Psychiatry & Neurology Psychiatry; PCP Pediatrics; Visit Provider Physician Assistant | DX: G40.909 Epilepsy, unspecified, not intractable, without status epilepticus (principal); F39 Unspecified mood [affective] disorder | CPT/HCPCS: 99222; 99499 ==

== ENCOUNTER → 2024-02-11 21:58 | Outpatient (BNV) | payer OTHER, SELFPAY | PROVIDERS: Admitting Provider Psychiatry & Neurology Psychiatry; PCP Pediatrics; Visit Provider Social Worker | DX: F60.3 Borderline personality disorder (principal); F33.1 Major depressive disorder, recurrent, moderate; F43.11 Post-traumatic stress disorder, acute | CPT/HCPCS: 90792; 99232; 99238 ==

== ENCOUNTER → 2024-02-11 21:58 | Outpatient (BNV) | payer OTHER, SELFPAY | PROVIDERS: Admitting Provider Psychiatry & Neurology Psychiatry; PCP Pediatrics; Visit Provider Psychiatry & Neurology Neurology | DX: G40.909 Epilepsy, unspecified, not intractable, without status epilepticus (principal) | CPT/HCPCS: 99222 ==